=== PATIENT | female | born 1955 | race Caucasian/White ===

== ENCOUNTER 2017-12-07 15:49 | Observation (INO) | payer MEDICARE ==
[~2017-12-07] VITALS: Ht 165.1 cm; Wt 109.7 kg
[~2017-12-07 15:49] MED LIST: ADVAIR DISK1 INH; ASA LO-DOSE81 MG OR; ATIVAN1 MG PO; BABY ASPIRIN81 MG OR; BENAZEPRIL20 M1 OR; CARDIZEM C2 OR; CEPHALEXIN500 MG OR; CIPROFLOXACN500 MG PO; DILTIAZEM90 M1 PO; DIOVAN320 MG OR; DOXYCYCL HYC100 M3 OR; DYAZIDE1 CAP OR; E.E.S. 400400 MG OR; FERR SULFATE325 MG PO; FLEXERIL OR; HEMATINIC PL OR; HYDROCHLOROT25 MG OR; LORTAB 10 OR; LORTAB 5 OR; LOTENSIN20 MG OR; MACRODANTIN100 MG PO; MEDDOSEPAK PO; NORCO1 TA1 OR; NORCO1 TAB PO; OXYCODONE OR; OXYCONTIN; OXYCONTIN15 MG OR; PROZAC20 MG OR; ROBAXIN-750750 MG OR; ROBITUSSIN AC OR; SOMA350 MG OR; TESSALON200 MG OR; TOPROL XL OR; VENTOLIN HFA IN; VICODIN OR; XANAX0.25 MG OR; ZANAFLEX4 MG OR
--- NOTE | 2017-12-07 15:49 | NUR ---
TO [place] ROOM VIA STRETCHER BY EMS
--- NOTE | 2017-12-07 16:20 | NUR ---
FAMILY STATES THAT THE PT HAS BEEN HAVING HALLACUINATIONS FOR THE PAST 4 DAYS - OF SEEING PEOPLE THAT ARE NOT THERE AND SPIDERS ON THE PERALTA. PT HAS HAD THIS OCCUR EARLIER THIS YEAR WELL PREVIOUS YEARS. FAMILY STATES THIS HAS NOT BEEN DIAGNOISED AND USUALLY RESOLVES IT'S SELF. PT CONFIRMS HALLUCINATIONS, DENIES ANY C/P, SOB, N/V OR WEAKNESS.
[2017-12-07 16:35] LABS: IMMATURE GRANULOCYTES 0.4 % (0.0-1.0); MEAN CORPUSCULAR HGB 28.9 pG CALC (26.0-32.0); MEAN CORPUSCULAR HGB CONC 32.3 g/L CALC (32.0-36.0); NEUT# 8.1 thou/uL (2.00-7.15); RED BLOOD COUNT 4.88 mill/uL (4.20-5.60); RED CELL DISTRI WIDTH 13.7 % (11.5-15.5)
[2017-12-07] MEDS ORDERED: OXYCODONE HCL5 MG PO (16:39)
[2017-12-07] MEDS ORDERED: METOPROL TAR25 MG PO (16:40)
[2017-12-07 16:54] LABS: ALBUMIN 4.1 g/dL (3.2-5.0); ALKALINE PHOSPHATASE 128 u/l (38-126); ANION GAP 16 (6-22 (CALC)); BILIRUBIN, TOTAL 0.7 mg/dL (0.0-1.4); BUN 21 mg/dL (8-23); BUN/CREATININE RATIO 12 (12-20 (CALC)); CARBON DIOXIDE 26 mmol/l (22-30); CHLORIDE 97 mmol/l (95-108); GFR 30 ML/MIN (>=60 (CALC)); GFR FOR AFR.AMER. 37 ML/MIN (>=60 (CALC)); POTASSIUM 3.8 mmol/l (3.5-5.1); SGOT/AST 25 u/l (9-36); SGPT/ALT 40 u/l (11-66); SODIUM 135 mmol/l (137-146); TOTAL PROTEIN 7.4 g/dL (6.3-8.2)
[2017-12-07 17:09] LABS: HEMATOCRIT 43.6 % (37.0-47.0); HEMOGLOBIN 14.1 g/dl (12.0-16.0); MEAN CELL VOLUME 89.3 fL CALC (80.0-100.0)
[2017-12-07 17:11] LABS: CREATININE 1.7 mg/dL (0.5-1.0)
--- NOTE | 2017-12-07 17:20 | NUR ---
PT RESTING ON STRETCHER, ASKING FOR PAIN MEDS FOR HIP PAIN. DAUGHTER AT BEDSITE
--- NOTE | 2017-12-07 18:20 | NUR ---
PT ASLEEP ON STRETCHER, VITALS BEING MONITORED
[2017-12-07 18:58] LABS: URINE BILIRUBIN - DIPSTICK NEGATIVE (NEGATIVE); URINE BLOOD DIPSTICK NEGATIVE (NEGATIVE); URINE COLOR YELLOW; URINE GLUCOSE - DIPSTICK NEGATIVE (NEGATIVE); URINE KETONE NEGATIVE (NEGATIVE); URINE LEUK ESTERASE NEGATIVE (NEGATIVE); URINE NITRITE - DIPSTICK NEGATIVE (Negative); URINE PROTEIN - DIPSTICK NEGATIVE (NEG-TRACE); URINE SPECIFIC GRAVITY 1.025; URINE UROBILINOGEN - DIPSTICK 0.2 E.U./dL (0.2)
[2017-12-07 19:00] LABS: URINE CLARITY CLEAR
--- NOTE | 2017-12-07 19:23 | NUR ---
REPORT CALLED TO [facility] GIVEN TO MANUELITO SHERWOOD- ACCEPTED PT
[2017-12-07 19:30] VITALS: BP 142/97
--- NOTE | 2017-12-07 19:42 | NUR ---
Admission Note Report Given to: MANUELITO SHERWOOD Transported by: Wheelchair X Stretcher Transported with: X Nurse Transporter X Patent IV O2 Odd Bundle Worker TRANSP[place] [facility] [place] [facility] [place]
--- NOTE | 2017-12-07 20:30 | NUR ---
PATIENT ADMITTED FROM ER WITH ER STAFF IN ATTENDANCE VIA STRETCHER. PATIENT IS MAX ASSIST TO STANDING SCALE AND THEN TO BED. PATIENT IS UNSTEADY ON HER FEET, OBESE AND MAX ASSIST. PATIENT WITH IV SITE TO LEFT AC-EMS SITE. IVF NS HUNG AND INFUSING AT 80CC/HR. SITE APPEARS HEALTHY AT THIS TIME WITH GOOD BLOOD RETURN. TORREZ CATH INTACT AND DRAINING CLEAR KENIA URINE WITH CATH STRAP SECURED TO RIGHT THIGH. PATIENT IS AWAKE BUT DROWSY-STATES THAT SHE LIVES WITH HER DAUGHTER AND HAD FALL LAST NIGHT AT HOME. STATES THAT THIS HAS BEEN HAPPENING TO HER LATELY AND SHE DOESN'T KNOW WHAT HAPPENS. PROVIDED WITH SANDWICH AND JUICE-ATE VERY LITTLE AND FALLING ASLEEP WHILE TRYING TO EAT IT. ATEMPT TO ORIENT PATIENT TO ROOM AND SURROUNDINGS. ATTEMPT TO INSTRUCT PATIENT ON USE OF NURSE CALL LIGHT SYSTEM AND TV REMOTE. SAFETY PRECAUTIONS REVIEWED WITH PATIENT-WILL REINFORCE INSTRUCTS NEEDED. CALL LIGHT IN REACH. WILL CONT TO MONITOR.
--- NOTE | 2017-12-07 22:10 | NUR ---
PATIENT MAX ASSIST TO BSC-STATES THAT SHE NEEDS TO HAVE BM-LAST BM WAS 12/06 AT HOME. PASSING SOME FLATUS. MAX ASSIST BACK TO BED-C/O ABD PAIN-6/10 ON PAIN SCALE. MEDICATED WITH ROXICODONE 10MG PO ORDERED. PATIENT CONT TO BE DROWSY AND INAPPROPRIATE AT TIMES. TORREZ PATENT AND DRAINING KENIA URINE. IV SITE TO LEFT FOREARM INTACT WITH NS PATENT AND INFUSING AT 100CC/HR. SAFETY PRECAUTIONS REINFORCED. CALL LIGHT IN REACH. WILL CONT TO MONITOR.
--- NOTE | 2017-12-07 23:00 | NUR ---
RESTING INBED WITH PAIN LEVEL OF 4 AT THIS TIME. NASAL SWAB OBTAINED AND SENT TO LAB FOR H/O MRSA. NO COMPLAINTS AT THIS TIME. SAFETY PRECAUTIONS REINFORCED.CALL LIGHT IN REACH. WILL CONT TO MONITOR.
--- NOTE | 2017-12-07 23:54 | NUR ---
PATIENT DAUGHTER MU CALLED TO LET STAFF KNOW THAT HER MOTHER RECENTLY WAS PUT ON WELLBUTRIN AGAIN. THE LAST TIME SHE TOOK IT LAST YEAR SHE DEVELOPED SIMILAR SYMTOMS INCLUDING CONFUSION,AMS AND HALLUCINATIONS THIS MED WAS NOT INCLUDED ON HER MED REC ON ADMISSION BUT DAUGHTER STATES THAT IT MIGHT HAVE BEEN LEFT OFF OF HER HOME MED LIST WHEN SHE WAS ADMITTED THROUGH THE ER. THIS MED WELLBUTRIN HAS NOT BEEN ORDERED DURING THIS ADMISSION.
--- NOTE | 2017-12-08 03:36 | NUR ---
PATIENT APPEARS SLEEPING AT THIS TIME WITH EYES CLOSED AND HOB ELEVATED. IVF PATENT AND INFUSING AT 80CC/HR VIA LEFT AC SITE. TORREZ PATENT AND DRAINING KENIA URINE. BED ALARM IN PLACE FOR PATIENT SAFETY. CALL LIGHT IN REACH. WILL CONT TO MONITOR.
[2017-12-08 04:27] VITALS: BP 116/70
--- NOTE | 2017-12-08 04:48 | NUR ---
IVG SITE TO LEFT AC LEAKING AND DISLODGED. SITE D/C'ED WITH CATH INTACT. NEW IV SITE STARTED TO RIGHT FOREARM-#22 GAUGE WITH GOOD BLOOD RETURN. IVF NS PATENT AND INFUSING AT 80CC/HR. PATIENT MEDICATED FOR PAIN-4/10 ON PAIN SCALE WITH ROXICODONE 10MG PO. PATIENT IS MUCH CLEARER TODAY-ORIENTEDX3. TORREZ PATENT AND DRAINING QS CLEAR KENIA URINE. BED ALARM IN PLACE FOR PATIENT SAFETY. CALL LIGHT IN REACH. WILL CONT TO MONITOR.
[2017-12-08 05:10] LABS: HEMATOCRIT 42.9 % (37.0-47.0); HEMOGLOBIN 13.7 g/dl (12.0-16.0); MEAN CELL VOLUME 90.7 fL CALC (80.0-100.0); MEAN CORPUSCULAR HGB CONC 31.9 g/L CALC (32.0-36.0); RED BLOOD COUNT 4.73 mill/uL (4.20-5.60); RED CELL DISTRI WIDTH 13.8 % (11.5-15.5)
[2017-12-08 05:23] LABS: CREATININE 1.3 mg/dL (0.5-1.0); POTASSIUM 3.5 mmol/l (3.5-5.1)
[2017-12-08 07:40] VITALS: BP 126/76
--- NOTE | 2017-12-08 07:40 | NUR ---
PT IS AWAKE AND IN BED GETTING READY TO BE ASSISTED TO THE CHAIR. IV SITE IS FREE FROM REDNESS OR EDEMA. HR IS REG, PULSES ARE STRONG X4, ABD IS SOFT WITH ACTIVE BS CONTINUE TO OSBERVE AND MONITOR.
[2017-12-08] MEDS ORDERED: WELLBUTRIN XL150 MG PO (09:17)
--- NOTE | 2017-12-08 11:42 | NUR ---
TORREZ DISCONTINUED CATHETER INTACT PT TOLERATED WELL.
--- NOTE | 2017-12-08 12:30 | NUR ---
PT IS RELAXING IN BED, HAS HAD LARGE BM INCONTINENTS. IV SITE IS FREE FROM REDNESS OR EDEMA.
[2017-12-08 15:30] VITALS: BP 133/83
--- NOTE | 2017-12-08 16:07 | NUR ---
PT REMAINS IN BED, INFORMED THAT WE ARE WAITING ON HER DAUGHTER TO COME.
--- NOTE | 2017-12-08 17:30 | NUR ---
IV SITE DISCONTINUED CATHETER INTACT. WAITING ON FAMILY TO COME AND SENIOR ADMINISTRATIVE SUPPORT PT.
--- NOTE | 2017-12-08 19:32 | NUR ---
FAMILY IN TO JANITORIAL CLEANER PT.
--- NOTE | 2017-12-08 19:45 | NUR ---
Discharge instructions given. Patient verbalizes understanding of same. Discharged in stable condition via Wheelchair to Home with family. All belongings sent with pt.
== END 2017-12-08 19:45 ==
LOC: ED 15:49 → ED-I 18:14 → ED 18:32 → MS2 18:33
PROVIDERS: Emergency Medicine; ADMIT Internal Medicine; ATTEND Internal Medicine
PROC: 0T9B70Z Drainage of Bladder with Drainage Device, Via Natural or Artificial Opening (ICD-10-PCS; principal; 2017-12-07)
DX: R41.82 Altered mental status, unspecified (principal); R44.1 Visual hallucinations; E86.0 Dehydration; I12.9 Hypertensive chronic kidney disease with stage 1 through stage 4 chronic kidney disease, or unspecified chronic kidney disease; N18.3 Chronic kidney disease, stage 3 (moderate); S70.01XA Contusion of right hip, initial encounter; I48.2 Chronic atrial fibrillation; K08.109 Complete loss of teeth, unspecified cause, unspecified class; F32.9 Major depressive disorder, single episode, unspecified; M54.9 Dorsalgia, unspecified; G89.29 Other chronic pain; I82.501 Chronic embolism and thrombosis of unspecified deep veins of right lower extremity; W19.XXXA Unspecified fall, initial encounter; Z87.440 Personal history of urinary (tract) infections; Z95.828 Presence of other vascular implants and grafts; Z91.81 History of falling

== ENCOUNTER 2017-12-27 12:07 | Emergency (ER) | payer MEDICARE ==
[~2017-12-27] VITALS: Ht 165.1 cm; Wt 111.0 kg
[~2017-12-27 12:07] MED LIST changes: +METOPROL TAR25 MG PO; +OXYCODONE HCL5 MG PO; +WELLBUTRIN XL150 MG PO
[2017-12-27] MEDS ORDERED: DIFLUCAN150 MG PO (13:42)
[2017-12-27] MEDS ORDERED: CEPHALEXIN500 MG PO (13:42)
[2017-12-27 14:52] VITALS: BP 117/68
== END 2017-12-27 15:07 | disposition home or self-care (01) ==
LOC: ED 12:07
DX: L03.115 Cellulitis of right lower limb (principal); S86.911A Strain of unspecified muscle(s) and tendon(s) at lower leg level, right leg, initial encounter; M19.90 Unspecified osteoarthritis, unspecified site; I10 Essential (primary) hypertension; I48.91 Unspecified atrial fibrillation; X58.XXXA Exposure to other specified factors, initial encounter; Z95.828 Presence of other vascular implants and grafts

== ENCOUNTER 2018-01-11 12:44 | Emergency (ER) | payer MEDICARE ==
[~2018-01-11] VITALS: Ht 165.1 cm; Wt 110.0 kg
[~2018-01-11 12:44] MED LIST changes: +CEPHALEXIN500 MG PO; +DIFLUCAN150 MG PO
[2018-01-11 13:25] LABS: IMMATURE GRANULOCYTES 0.5 % (0.0-1.0); MEAN CELL VOLUME 91.8 fL CALC (80.0-100.0); MEAN CORPUSCULAR HGB CONC 31.7 g/L CALC (32.0-36.0); NEUT# 7.29 thou/uL (2.00-7.15); RED BLOOD COUNT 3.89 mill/uL (4.20-5.60)
[2018-01-11 13:26] LABS: HEMATOCRIT 35.7 % (37.0-47.0); HEMOGLOBIN 11.3 g/dl (12.0-16.0)
[2018-01-11 13:44] LABS: ALBUMIN 3.8 g/dL (3.2-5.0); ALKALINE PHOSPHATASE 131 u/l (38-126); ANION GAP 11 (6-22 (CALC)); BILIRUBIN, TOTAL 0.7 mg/dL (0.0-1.4); BUN 22 mg/dL (8-23); BUN/CREATININE RATIO 23 (12-20 (CALC)); CARBON DIOXIDE 29 mmol/l (22-30); CHLORIDE 100 mmol/l (95-108); GFR 56 ML/MIN (>=60 (CALC)); GFR FOR AFR.AMER. > 60 ML/MIN (>=60 (CALC)); POTASSIUM 4.1 mmol/l (3.5-5.1); SGOT/AST 20 u/l (9-36); SGPT/ALT 32 u/l (11-66); SODIUM 135 mmol/l (137-146); TOTAL PROTEIN 7.4 g/dL (6.3-8.2)
[2018-01-11 13:56] LABS: MYOGLOBIN 30 ng/mL (0 - 62)
[2018-01-11 15:22] LABS: URINE BILIRUBIN - DIPSTICK NEGATIVE (NEGATIVE); URINE BLOOD DIPSTICK NEGATIVE (NEGATIVE); URINE COLOR YELLOW; URINE GLUCOSE - DIPSTICK NEGATIVE (NEGATIVE); URINE KETONE NEGATIVE (NEGATIVE); URINE LEUK ESTERASE NEGATIVE (NEGATIVE); URINE NITRITE - DIPSTICK NEGATIVE (Negative); URINE PH 5.5 (4.5-8.0); URINE PROTEIN - DIPSTICK NEGATIVE (NEG-TRACE); URINE SPECIFIC GRAVITY 1.015
[2018-01-11 15:28] LABS: URINE CLARITY CLEAR
[2018-01-11] MEDS ORDERED: ULTRAM50 M1 PO ×2 (16:53→16:55)
[2018-01-11 17:12] VITALS: BP 122/64
== END 2018-01-11 17:12 | disposition home or self-care (01) ==
LOC: ED 12:44
PROVIDERS: Emergency Medicine
DX: I83.93 Asymptomatic varicose veins of bilateral lower extremities (principal); I48.91 Unspecified atrial fibrillation; I10 Essential (primary) hypertension; F99 Mental disorder, not otherwise specified; M19.90 Unspecified osteoarthritis, unspecified site; Z87.440 Personal history of urinary (tract) infections; Z87.442 Personal history of urinary calculi

== ENCOUNTER → 2018-09-15 | Outpatient (REF) | payer MEDICARE ==
[~2018-09-15] MED LIST changes: +ALBUTEROL0.63 MG/3 IN; +CARDIZEM CD120 MG PO; +FLONASE AL50 MCG/ACT IN; +FUROSEMIDE40 MG PO; +INDERAL 40MG TA40 MG PO; +KLOR-CON 1010 MEQ PO; +NEURONTIN300 MG PO; +ULTRAM50 M1 PO; +WARFARIN7.5 MG PO
[2018-09-15 13:23] LABS: INTERNATIONAL NORMALIZED RATIO 1.8 RATIO (0.7-1.3)
== END | disposition home or self-care (01) ==
LOC: LABSPEC 12:59
PROVIDERS: ATTEND Internal Medicine
DX: Z51.81 Encounter for therapeutic drug level monitoring (principal); Z79.01 Long term (current) use of anticoagulants

== ENCOUNTER → 2018-09-18 | Outpatient (REF) | payer MEDICARE ==
[2018-09-18 12:09] LABS: HEMOGLOBIN 10.8 g/dl (12.0-16.0); IMMATURE GRANULOCYTES 0.3 % (0.0-5.0); MEAN CELL VOLUME 91.8 fL CALC (80.0-100.0); MEAN CORPUSCULAR HGB 27.6 pG CALC (26.0-32.0); NEUT# 5.71 thou/uL (2.00-7.15); RED BLOOD COUNT 3.92 mill/uL (4.20-5.60); RED CELL DISTRI WIDTH 16.3 % (11.5-15.5)
[2018-09-18 12:25] LABS: CREATININE 1.8 mg/dL (0.5-1.0)
== END | disposition home or self-care (01) ==
LOC: LABSPEC 11:23
PROVIDERS: ATTEND Internal Medicine
DX: I50.9 Heart failure, unspecified (principal); E87.6 Hypokalemia; Z79.899 Other long term (current) drug therapy

== ENCOUNTER 2018-10-21 07:24 | Inpatient (IN) | payer MEDICARE ==
[~2018-10-21] VITALS: Ht 165.1 cm; Wt 105.0 kg
[2018-10-21] VITALS (27 sets, daily range): BP systolic 81–131; BP diastolic 48–89
[2018-10-21 07:58] LABS: IMMATURE GRANULOCYTES 0.5 % (0.0-5.0); MEAN CELL VOLUME 89.7 fL CALC (80.0-100.0); MEAN CORPUSCULAR HGB 27.6 pG CALC (26.0-32.0); MEAN CORPUSCULAR HGB CONC 30.8 g/L CALC (32.0-36.0); NEUT# 9.03 thou/uL (2.00-7.15); RED BLOOD COUNT 5.03 mill/uL (4.20-5.60); RED CELL DISTRI WIDTH 14.6 % (11.5-15.5)
[2018-10-21 07:59] LABS: HEMATOCRIT 45.1 % (37.0-47.0); HEMOGLOBIN 13.9 g/dl (12.0-16.0); URINE BILIRUBIN - DIPSTICK NEGATIVE (NEGATIVE); URINE BLOOD DIPSTICK MODERATE (NEGATIVE); URINE COLOR YELLOW; URINE GLUCOSE - DIPSTICK NEGATIVE (NEGATIVE); URINE KETONE NEGATIVE (NEGATIVE); URINE LEUK ESTERASE MODERATE (NEGATIVE); URINE NITRITE - DIPSTICK NEGATIVE (Negative); URINE PH 6.5 (4.5-8.0); URINE PROTEIN - DIPSTICK NEGATIVE (NEG-TRACE); URINE UROBILINOGEN - DIPSTICK 0.2 E.U./dL (0.2)
[2018-10-21 08:03] LABS: COCAINE NEGATIVE (NEGATIVE); METHADONE NEGATIVE (NEGATIVE); TETRAHYDROCANNABIONOL NEGATIVE (NEGATIVE); TRICYLIC ANTIDEPRESSANTS POSITIVE (NEGATIVE)
[2018-10-21 08:04] LABS: BARBITURATES NEGATIVE (NEGATIVE); OXCYCODONE NEGATIVE (NEGATIVE)
[2018-10-21 08:20] LABS: ALBUMIN 4.7 g/dL (3.2-5.0); ALKALINE PHOSPHATASE 115 u/l (38-126); ANION GAP 18 (6-22 (CALC)); BILIRUBIN, TOTAL 1.2 mg/dL (0.0-1.4); BUN 76 mg/dL (8-23); BUN/CREATININE RATIO 36 (12-20 (CALC)); CARBON DIOXIDE 36 mmol/l (22-30); CHLORIDE 87 mmol/l (95-108); GFR 24 ML/MIN (>=60 (CALC)); GFR FOR AFR.AMER. 29 ML/MIN (>=60 (CALC)); LIPASE 62 u/l (23-300); POTASSIUM 3.6 mmol/l (3.5-5.1); SGOT/AST 26 u/l (9-36); SODIUM 138 mmol/l (137-146); TOTAL PROTEIN 7.8 g/dL (6.3-8.2)
[2018-10-21 08:23] LABS: CREATININE 2.1 mg/dL (0.5-1.0)
[2018-10-21 08:25] LABS: URINE BACTERIA MODERATE hpf
[2018-10-21 08:30] LABS: PROTHROMBIN TIME 10.7 SECONDS (9.0-12.5)
[2018-10-21] MEDS ORDERED: VISTARIL 50MG C50 M1 PO (09:31)
[2018-10-21] MEDS ORDERED: KLOR-CON M2020 MEQ PO (09:31)
[2018-10-21] MEDS ORDERED: PAROXETINE20 MG PO (09:32)
[2018-10-21] MEDS ORDERED: GABAPENTIN100 MG PO (09:32)
[2018-10-21] MEDS ORDERED: XARELTO10 MG PO (09:33)
[2018-10-21] MEDS ORDERED: FLEXERIL5 MG PO (09:33)
[2018-10-21] MEDS ORDERED: LORAZEPAM0.5 MG PO (09:33)
[2018-10-21] MEDS ORDERED: PROPRANOLOL80 M1 PO (09:35)
[2018-10-21] MEDS ORDERED: BUMEX1 M1 PO (09:35)
[2018-10-21] MEDS ORDERED: ALDACTONE25 MG PO (09:35)
[2018-10-21] MEDS ORDERED: HYDROCODONE/ACE1 TAB PO (09:36)
[2018-10-22] VITALS (14 sets, daily range): BP systolic 89–150; BP diastolic 50–81
[2018-10-22 04:57] LABS: HEMATOCRIT 40.2 % (37.0-47.0); HEMOGLOBIN 12.4 g/dl (12.0-16.0); IMMATURE GRANULOCYTES 0.3 % (0.0-5.0); MEAN CELL VOLUME 90.5 fL CALC (80.0-100.0); MEAN CORPUSCULAR HGB 27.9 pG CALC (26.0-32.0); MEAN CORPUSCULAR HGB CONC 30.8 g/L CALC (32.0-36.0); NEUT# 4.58 thou/uL (2.00-7.15); RED BLOOD COUNT 4.44 mill/uL (4.20-5.60); RED CELL DISTRI WIDTH 14.6 % (11.5-15.5)
[2018-10-22 05:17] LABS: ALKALINE PHOSPHATASE 83 u/l (38-126); ANION GAP 13 (6-22 (CALC)); BILIRUBIN, TOTAL 0.8 mg/dL (0.0-1.4); BUN 66 mg/dL (8-23); BUN/CREATININE RATIO 45 (12-20 (CALC)); CARBON DIOXIDE 36 mmol/l (22-30); CHLORIDE 92 mmol/l (95-108); CREATININE 1.5 mg/dL (0.5-1.0); GFR 35 ML/MIN (>=60 (CALC)); GFR FOR AFR.AMER. 42 ML/MIN (>=60 (CALC)); LIPASE 39 u/l (23-300); POTASSIUM 3.3 mmol/l (3.5-5.1); SGOT/AST 19 u/l (9-36); SODIUM 138 mmol/l (137-146); TOTAL PROTEIN 6.3 g/dL (6.3-8.2)
[2018-10-22 05:20] LABS: ALBUMIN 3.7 g/dL (3.2-5.0); AMYLASE < 30 u/l (30-110)
[2018-10-23] VITALS (7 sets, daily range): BP systolic 103–142; BP diastolic 66–96
[2018-10-23 05:35] LABS: HEMATOCRIT 40.6 % (37.0-47.0); HEMOGLOBIN 12.6 g/dl (12.0-16.0); IMMATURE GRANULOCYTES 0.1 % (0.0-5.0); MEAN CORPUSCULAR HGB 27.9 pG CALC (26.0-32.0); NEUT# 3.5 thou/uL (2.00-7.15); RED BLOOD COUNT 4.51 mill/uL (4.20-5.60); RED CELL DISTRI WIDTH 14.6 % (11.5-15.5)
[2018-10-23 06:16] LABS: ALBUMIN 3.9 g/dL (3.2-5.0); BILIRUBIN, TOTAL 0.6 mg/dL (0.0-1.4); CREATININE 1.3 mg/dL (0.5-1.0); POTASSIUM 3.4 mmol/l (3.5-5.1); TOTAL PROTEIN 6.6 g/dL (6.3-8.2)
[2018-10-24] VITALS (7 sets, daily range): BP systolic 134–169; BP diastolic 57–99
[2018-10-24 05:10] LABS: HEMATOCRIT 44.1 % (37.0-47.0); HEMOGLOBIN 13.6 g/dl (12.0-16.0); IMMATURE GRANULOCYTES 0.2 % (0.0-5.0); MEAN CELL VOLUME 90.4 fL CALC (80.0-100.0); MEAN CORPUSCULAR HGB 27.9 pG CALC (26.0-32.0); MEAN CORPUSCULAR HGB CONC 30.8 g/L CALC (32.0-36.0); NEUT# 4.73 thou/uL (2.00-7.15); RED BLOOD COUNT 4.88 mill/uL (4.20-5.60); RED CELL DISTRI WIDTH 14.3 % (11.5-15.5)
[2018-10-24 05:27] LABS: ALKALINE PHOSPHATASE 87 u/l (38-126); ANION GAP 12 (6-22 (CALC)); BILIRUBIN, TOTAL 0.6 mg/dL (0.0-1.4); BUN 35 mg/dL (8-23); BUN/CREATININE RATIO 42 (12-20 (CALC)); CARBON DIOXIDE 36 mmol/l (22-30); CHLORIDE 96 mmol/l (95-108); CREATININE 0.8 mg/dL (0.5-1.0); GFR > 60 ML/MIN (>=60 (CALC)); GFR FOR AFR.AMER. > 60 ML/MIN (>=60 (CALC)); POTASSIUM 3.7 mmol/l (3.5-5.1); SGOT/AST 20 u/l (9-36); SODIUM 140 mmol/l (137-146)
[2018-10-24] MEDS ORDERED: HYDROCODONE/ACE1 TAB PO (11:26)
[2018-10-25 03:52] VITALS: BP 153/92
[2018-10-25 07:43] VITALS: BP 162/97
[2018-10-25 11:00] VITALS: BP 150/80
[2018-10-25 16:40] VITALS: BP 149/88
[2018-10-25 20:34] VITALS: BP 166/92
[2018-10-26 00:06] VITALS: BP 141/85
[2018-10-26 03:49] VITALS: BP 145/80
[2018-10-26 08:48] VITALS: BP 138/89
[2018-10-26 11:09] VITALS: BP 145/96
[2018-10-26 14:50] VITALS: BP 143/76
== END 2018-10-26 17:46 | DRG 917 ==
LOC: ED 07:24 → ED-I 07:43 → ED 07:43 → ED-I 07:56 → ED 09:21 → ICU 09:22 → MS2 10-24 18:00
PROVIDERS: Family Medicine; ADMIT Internal Medicine Nephrology; ATTEND Internal Medicine Nephrology
PROC: 0T2BX0Z Change Drainage Device in Bladder, External Approach (ICD-10-PCS; principal; 2018-10-21)
DX: T40.2X1A Poisoning by other opioids, accidental (unintentional), initial encounter (principal); G92 Toxic encephalopathy; T83.511A Infection and inflammatory reaction due to indwelling urethral catheter, initial encounter; N39.0 Urinary tract infection, site not specified; N17.9 Acute kidney failure, unspecified; Y84.6 Urinary catheterization as the cause of abnormal reaction of the patient, or of later complication, without mention of misadventure at the time of the procedure; I12.9 Hypertensive chronic kidney disease with stage 1 through stage 4 chronic kidney disease, or unspecified chronic kidney disease; N18.3 Chronic kidney disease, stage 3 (moderate); I48.2 Chronic atrial fibrillation; G89.29 Other chronic pain; M54.9 Dorsalgia, unspecified; F41.1 Generalized anxiety disorder; F32.9 Major depressive disorder, single episode, unspecified; E66.01 Morbid (severe) obesity due to excess calories; E79.0 Hyperuricemia without signs of inflammatory arthritis and tophaceous disease; R33.9 Retention of urine, unspecified; R40.2412 Glasgow coma scale score 13-15, at arrival to emergency department; B96.1 Klebsiella pneumoniae [K. pneumoniae] as the cause of diseases classified elsewhere; Z87.442 Personal history of urinary calculi; Z86.718 Personal history of other venous thrombosis and embolism; Z79.01 Long term (current) use of anticoagulants; Z68.38 Body mass index [BMI] 38.0-38.9, adult; Z98.84 Bariatric surgery status; Z95.828 Presence of other vascular implants and grafts; Z16.12 Extended spectrum beta lactamase (ESBL) resistance; Z96.653 Presence of artificial knee joint, bilateral

== ENCOUNTER 2018-11-22 14:01 | Observation (INO) | payer MEDICARE ==
[~2018-11-22] VITALS: Ht 165.1 cm; Wt 117.2 kg
[~2018-11-22 14:01] MED LIST changes: +ALDACTONE25 MG PO; +BUMEX1 M1 PO; +FLEXERIL5 MG PO; +GABAPENTIN100 MG PO; +HYDROCODONE/ACE1 TAB PO; +KLOR-CON M2020 MEQ PO; +LORAZEPAM0.5 MG PO; +PAROXETINE20 MG PO; +PROPRANOLOL80 M1 PO; +VISTARIL 50MG C50 M1 PO; +XARELTO10 MG PO
--- NOTE | 2018-11-22 14:08 | NUR ---
PT TO ROOM PER EMS
[2018-11-22] MEDS ORDERED: ALBUTEROL SUL0.083 % IN (14:11)
--- NOTE | 2018-11-22 14:11 | NUR ---
PT C/O INCREASING SOB STARTING LAST NIGHT WITH +2 BILATERAL LOWER EXTREMITY EDEMA. BILATERAL LS SOUNDS DIMINISHED WITH EXPIRATORY WHEEZING NOTED. PT DENIES ANY CHEST PAIN AT THIS TIME. CALL WEST WITHIN REACH.
[2018-11-22] MEDS ORDERED: EQL FLUTIC50 MCG/ACT IN (14:12)
[2018-11-22] MEDS ORDERED: ACCUPRIL5 MG PO (14:12)
[2018-11-22] MEDS ORDERED: GABAPENTIN100 MG PO (14:13)
[2018-11-22] MEDS ORDERED: LORTAB 1010 MG PO (14:13)
[2018-11-22] MEDS ORDERED: LORAZEPAM0.5 MG PO (14:14)
[2018-11-22] MEDS ORDERED: SPIRONOLACT25 MG PO (14:16)
[2018-11-22 14:20] LABS: IMMATURE GRANULOCYTES 0.2 % (0.0-5.0); MEAN CELL VOLUME 92.2 fL CALC (80.0-100.0); MEAN CORPUSCULAR HGB CONC 30.4 g/L CALC (32.0-36.0); NEUT# 3.75 thou/uL (2.00-7.15); RED BLOOD COUNT 3.71 mill/uL (4.20-5.60); RED CELL DISTRI WIDTH 15.3 % (11.5-15.5)
--- NOTE | 2018-11-22 14:20 | NUR ---
PT REPORTS A 14 LB WEIGHT GAIN IN THE PAST 7 DAYS. PER PT SHE THOUGHT DR CORDOBA TOLD HER TO STOP TAKING LAISX AND START TAKING SPIRONOLACTONE 6 DAYS PRIOR.
[2018-11-22 14:26] LABS: HEMATOCRIT 34.2 % (37.0-47.0); HEMOGLOBIN 10.4 g/dl (12.0-16.0)
[2018-11-22 14:34] LABS: ALBUMIN 4.1 g/dL (3.2-5.0); ALKALINE PHOSPHATASE 84 u/l (38-126); ANION GAP 12 (6-22 (CALC)); BILIRUBIN, TOTAL 0.7 mg/dL (0.0-1.4); BUN 22 mg/dL (8-23); BUN/CREATININE RATIO 21 (12-20 (CALC)); CARBON DIOXIDE 29 mmol/l (22-30); CHLORIDE 103 mmol/l (95-108); GFR 56 ML/MIN (>=60 (CALC)); GFR FOR AFR.AMER. > 60 ML/MIN (>=60 (CALC)); SGOT/AST 24 u/l (9-36); SODIUM 141 mmol/l (137-146)
--- NOTE | 2018-11-22 14:46 | NUR ---
PT MEDICATED FOR 8/10 PAIN TO HEAD AND FOR CONTINUED HYPERTENSION. CALL WEST WITHIN REACH, WILL CONTINUE TO MONITOR.
[2018-11-22 14:47] LABS: MYOGLOBIN 38 ng/mL (0 - 62)
--- NOTE | 2018-11-22 15:00 | NUR ---
DR CORDOBA AT BEDSIDE TO EVALUATE PATIENT.
--- NOTE | 2018-11-22 15:37 | NUR ---
MEDICATED WITH LASIX 40MG IV ORDERED. EDP ADVISED OF INCREASED BP. PT IN NO ACUTE RESP DISTRESS WITH O2 PER NASAL CANULA.
--- NOTE | 2018-11-22 16:01 | NUR ---
REPORT CALLED TO PRESLEY JACOME.
--- NOTE | 2018-11-22 16:07 | NUR ---
BP 197/112 , GIVEN LABETOLOL 20MG SLOW IVP ORDERED. PT PLEASANT AND CONVERSIVE WITH NURSE AT BEDSIDE. NO CP OR SOB NOTED. O2@2LPM VIA NC. PT AWARE AND AGREEABLE TO ADMIT.
--- NOTE | 2018-11-22 16:40 | NUR ---
CALL PLACED TO NAA TO UPDATE ON VITALS. PT AWARE OF PLAN FOR ADMISSION.
--- NOTE | 2018-11-22 16:45 | NUR ---
PT TRANSPORTED TO [place] VIA STRETCHER ON TELEMETRY IN STABLE CONDITION WITH CARE NURSE
--- NOTE | 2018-11-22 16:45 | NUR ---
Admission Note Report Given to: NAA Transported by: Wheelchair X Stretcher Transported with: X Nurse Transporter X Patent IV X O2 X Salvage Inspector [employer] CARE RELINQUISHED TO PRESLEY MITCHELL.
--- NOTE | 2018-11-22 17:24 | NUR ---
PT HAD CAME FROM ER VIA STRETCHER. 1X PERSON ASSIST TO BED. ASSESSMENT DONE. TELE IN PLACE. PT IS A&O X3. PT STATED PAIN IN RIGHT LEG. #20 RAC THAT APPEARS HEALTHY. SAFETY PRECAUTIONS REINFORCED AND CALL LIGHT IN REACH.
[2018-11-22 17:42] VITALS: BP 168/80
--- NOTE | 2018-11-22 17:44 | NUR ---
NOTIFIED RE: BP 168/80. STATED TO GAVE COREG EARLY.
[2018-11-22 19:18] LABS: URINE BILIRUBIN - DIPSTICK NEGATIVE (NEGATIVE); URINE BLOOD DIPSTICK NEGATIVE (NEGATIVE); URINE COLOR YELLOW; URINE GLUCOSE - DIPSTICK NEGATIVE (NEGATIVE); URINE KETONE NEGATIVE (NEGATIVE); URINE LEUK ESTERASE NEGATIVE (NEGATIVE); URINE NITRITE - DIPSTICK NEGATIVE (Negative); URINE PROTEIN - DIPSTICK NEGATIVE (NEG-TRACE); URINE SPECIFIC GRAVITY 1.015; URINE UROBILINOGEN - DIPSTICK 0.2 E.U./dL (0.2)
[2018-11-22 19:52] VITALS: BP 170/97
--- NOTE | 2018-11-22 19:54 | NUR ---
PATIENT SITTING UP ON THE SIDE OF THE BED FINISHING DINNER WITH O2 VIA NASAL CANNULA IN PLACE. PATIENT IS AWAKE ALERT AND ORIENTEDX3. TELE MONITOR IN PLACE. IV SITE TO LEFT AC INTACT AND IS HEALTHY AT THIS TIME. PATIENT MEDICATED WITH COZAAR ORDERED. BP REMAINS ELEVATED-WILL CONT TO MONITOR. PATIENT ON CONTACT FOR HX OF MRSA AND ESBL. SAFETY PRECAUTIONS REINFORCED. NO COMPLAINTS AT THIS TIME-SOME RELIEF FROM LORTAB GIVEN EARLIER. CALL LIGHT IN REACH. WILL CONT TO MONITOR.
[2018-11-22 20:25] VITALS: BP 166/106
--- NOTE | 2018-11-22 20:42 | NUR ---
BP REMAINS ELEVATED AT 166/106, HR-95. DR CORDOBA NOTIFIED AND STATES THAT HE WILL ADD PRN MED TO [facility]. AWAITING MED TO BE PROFILED AND WILL MEDICATE. WILL CONT TO MONITOR.
--- NOTE | 2018-11-22 21:17 | NUR ---
PATIENT MEDICATED WITH ATIVAN 0.5MG PO FOR SLEEP. AWAITING APRESOLINE TO BE PROFILED.
--- NOTE | 2018-11-22 21:57 | NUR ---
PATIENT RESTING IN BED WITH O2 VIA NASAL CANNULA IN PLACE-MEDICATED FOR HTN WITH APRESOLINE 10MG IVP VIA RIGHT AC IV SITE. SITE REMAINS HEALTHY AT THIS TIME WITH GOOD BLOOD RETURN. SAFETY PRECAUTIONS REINFORCED. CALL LIGHT IN REACH. WILL CONT TO MONITOR.
[2018-11-22 23:48] VITALS: BP 148/81
[2018-11-23] VITALS (8 sets, daily range): BP systolic 133–210; BP diastolic 70–110
--- NOTE | 2018-11-23 01:00 | NUR ---
PATIENT APPEARS SLEEPING WITH O2 VIA NASAL CANNULA IN PLACE. TELE MONITOR IN PLACE. CALL LIGHT IN REACH. WILL CONT TO MONITOR.
--- NOTE | 2018-11-23 04:03 | NUR ---
BP-210/110, HR-84. PATIENT MEDICATED WITH APRESOLINE 10MG IVP AND ATIVAN 0.5MG PO FOR ANXIETY. PATIENT ALSO RECIEVED LASIX 40MG IVP ORDERED. PATIENT CONT ON STRICT I&O. VOIDING QS CLEAR YELLOW URINE ON BSC. CALL LIGHT IN REACH, WILL CONT TO MONITOR.
[2018-11-23 05:21] LABS: HEMATOCRIT 35.4 % (37.0-47.0); MEAN CORPUSCULAR HGB 28.3 pG CALC (26.0-32.0); MEAN CORPUSCULAR HGB CONC 31.1 g/L CALC (32.0-36.0); RED BLOOD COUNT 3.89 mill/uL (4.20-5.60)
--- NOTE | 2018-11-23 05:50 | NUR ---
BP-133/84, HR-88, O2 SATS 96% WITH O2 IN PLACE. PATIENT MEDICATED FOR PAIN WITH LORTAB ORDERED. CALL LIGHT IN REACH, WILL CONT TO MONITOR.
[2018-11-23 06:19] LABS: ANION GAP 12 (6-22 (CALC)); BUN 22 mg/dL (8-23); BUN/CREATININE RATIO 23 (12-20 (CALC)); CARBON DIOXIDE 32 mmol/l (22-30); CHLORIDE 101 mmol/l (95-108); GFR 56 ML/MIN (>=60 (CALC)); GFR FOR AFR.AMER. > 60 ML/MIN (>=60 (CALC)); MAGNESIUM 1.5 mg/dL (1.6-2.3); POTASSIUM 4.1 mmol/l (3.5-5.1); SODIUM 140 mmol/l (137-146)
--- NOTE | 2018-11-23 07:49 | NUR ---
REPORT WAS RECEIVED FROM MANUELITO. PT IS SITTING IN THE SIDE OF THE BED. ASSESSMENT DONE. PT IS A&O X3. PT STATED PAIN IN LEG/HEADACHE MEDICATED PT WITH TYLENOL. TELE IN PLACE. O2 AT 2L VIA NC. CALL LIGHT IN REACH.
--- NOTE | 2018-11-23 11:48 | NUR ---
PT IS SITTING IN THE SIDE OF THE BED. PT STATED PAIN IN LEG/HEADACHE. MEDICATED PT WITH LORTAB. PT DENIES ANY OTHER NEEDS AT THIS TIME. CALL LIGHT IN REACH.
--- NOTE | 2018-11-23 15:39 | NUR ---
PT STATED SHE HAS A HEADACHE. MEDICATED PT WITH FIORICET PER ORDER. PT DENIES ANY OTHER NEEDS AT THIS TIME. CALL LIGHT IN REACH.
[2018-11-24] VITALS: BP 146/83
--- NOTE | 2018-11-24 00:19 | NUR ---
PATIENT RESTING IN BED-MEDICATED WITH NEURONTIN ORDERED. VS TAKEN AND RECORDED. PATIENT CONT TO VOID CLEAR YELLOW URINE IN BSC FOR STRICT I&O. CALL LIGHT IN REACH, WILL CONT TO MONITOR.
--- NOTE | 2018-11-24 04:25 | NUR ---
APPEARS SLEEPING AT THIS TIME WITH O2 VIA NASAL CANNULA IN PLACE. TELE MONITOR IN PLACE, CALL LIGHT IN REACH. WILL CONT TO MONITOR.
[2018-11-24 05:25] VITALS: BP 189/113
[2018-11-24 05:40] LABS: ANION GAP 10 (6-22 (CALC)); BUN 23 mg/dL (8-23); BUN/CREATININE RATIO 24 (12-20 (CALC)); CARBON DIOXIDE 35 mmol/l (22-30); CHLORIDE 98 mmol/l (95-108); GFR 56 ML/MIN (>=60 (CALC)); GFR FOR AFR.AMER. > 60 ML/MIN (>=60 (CALC)); MAGNESIUM 1.8 mg/dL (1.6-2.3); SODIUM 139 mmol/l (137-146)
[2018-11-24 06:24] VITALS: BP 114/59
--- NOTE | 2018-11-24 07:00 | NUR ---
SHIFT CHANGE REPORT, P0T AWAKE ALERT AND ORIENED AMBULATING WITH CANE IN ROOM, C/O HEADACHE AND EXPRESSES CONCERN OBOUT ELEVATED BP, TELE MONITOR IN PLACE, CALL WEST IN REACH, WILL CONTINUE TO MONITOR.
[2018-11-24 08:01] VITALS: BP 152/98
[2018-11-24 11:10] VITALS: BP 141/58
--- NOTE | 2018-11-24 12:00 | NUR ---
DR HIGUERA ROUNDED, DISCUSSED PLAN OF CARE, TO D/C PT TODAY, PT ALSO WANTS TO GO HOME.
[2018-11-24] MEDS ORDERED: FIORICET PO (12:13)
--- NOTE | 2018-11-24 14:24 | NUR ---
Discharge instructions given. Patient verbalizes understanding of same. Discharged in fair condition via Wheelchair to Home with family. All belongings sent with pt.
== END 2018-11-24 14:22 | disposition home health service (06) ==
LOC: ED 14:01 → ED-I 14:50 → ED 15:03 → MS2 15:04
PROVIDERS: Emergency Medicine; ADMIT Internal Medicine; ATTEND Internal Medicine
DX: I13.0 Hypertensive heart and chronic kidney disease with heart failure and stage 1 through stage 4 chronic kidney disease, or unspecified chronic kidney disease (principal); I50.9 Heart failure, unspecified; N18.3 Chronic kidney disease, stage 3 (moderate); J44.9 Chronic obstructive pulmonary disease, unspecified; I48.2 Chronic atrial fibrillation; G62.9 Polyneuropathy, unspecified; F41.9 Anxiety disorder, unspecified; G43.909 Migraine, unspecified, not intractable, without status migrainosus; Z79.01 Long term (current) use of anticoagulants; Z98.84 Bariatric surgery status; Z86.718 Personal history of other venous thrombosis and embolism
CPT/HCPCS: J3475

== ENCOUNTER 2018-12-30 06:09 | Day surgery (SDC) | payer MEDICARE ==
[~2018-12-30] VITALS: Ht 165.1 cm; Wt 106.6 kg
[~2018-12-30 06:09] MED LIST changes: +ACCUPRIL5 MG PO; +ALBUTEROL SUL0.083 % IN; +ASPIRIN 81 LOW81 MG; +EQL FLUTIC50 MCG/ACT IN; +FIORICET PO; +LORTAB 1010 MG PO; +MULTI FOR HER PO; +SPIRONOLACT25 MG PO
[2018-12-30] MEDS ORDERED: LORTAB 1010 MG PO ×2 (07:35→07:36)
[2018-12-30 07:59] VITALS: BP 153/96
== END 2018-12-30 08:25 | disposition home or self-care (01) ==
LOC: ORM 06:09
PROVIDERS: ATTEND Anesthesiology Pain Medicine
PROC: 3E0T33Z Introduction of Anti-inflammatory into Peripheral Nerves and Plexi, Percutaneous Approach (ICD-10-PCS; principal; 2018-12-30)
PROC: 3E0T3BZ Introduction of Anesthetic Agent into Peripheral Nerves and Plexi, Percutaneous Approach (ICD-10-PCS; 2018-12-30)
PROC: 3E0T33Z Introduction of Anti-inflammatory into Peripheral Nerves and Plexi, Percutaneous Approach (ICD-10-PCS; 2018-12-30)
PROC: 3E0T3BZ Introduction of Anesthetic Agent into Peripheral Nerves and Plexi, Percutaneous Approach (ICD-10-PCS; 2018-12-30)
PROC: 3E0T33Z Introduction of Anti-inflammatory into Peripheral Nerves and Plexi, Percutaneous Approach (ICD-10-PCS; 2018-12-30)
PROC: 3E0T3BZ Introduction of Anesthetic Agent into Peripheral Nerves and Plexi, Percutaneous Approach (ICD-10-PCS; 2018-12-30)
PROC: BR161ZZ Fluoroscopy of Lumbar Facet Joint(s) using Low Osmolar Contrast (ICD-10-PCS; 2018-12-30)
DX: M54.5 Low back pain (principal); M12.9 Arthropathy, unspecified

== ENCOUNTER 2019-01-15 15:41 | Emergency (ER) | payer MEDICARE, OTHER ==
[~2019-01-15] VITALS: Ht 165.1 cm; Wt 90.0 kg
[2019-01-15] MEDS ORDERED: DOXEPIN HCL10 MG PO (16:59)
[2019-01-15] MEDS ORDERED: METOLAZONE5 MG PO (17:01)
[2019-01-15] MEDS ORDERED: LASIX 40 MG TAB40 MG PO (17:02)
[2019-01-15] MEDS ORDERED: GABAPENTIN400 M2 PO (17:03)
[2019-01-15] MEDS ORDERED: ZOLPIDEM5 M1 PO (17:03)
[2019-01-15] MEDS ORDERED: ALDACTONE25 MG PO (17:04)
[2019-01-15] MEDS ORDERED: INDERAL80 M1 PO (17:04)
[2019-01-15] MEDS ORDERED: FIORICET PO (17:06)
[2019-01-15] MEDS ORDERED: TRAZODONE100 MG PO (17:07)
[2019-01-15] MEDS ORDERED: TESSALON PERLE100 MG PO (17:08)
[2019-01-15] MEDS ORDERED: BUMETANIDE1 MG PO (17:09)
[2019-01-15] MEDS ORDERED: ADLT ASA LOW81 MG PO (17:10)
[2019-01-15] MEDS ORDERED: ALLOPURINOL100 MG PO (17:10)
[2019-01-15 17:45] VITALS: BP 134/71
== END 2019-01-15 17:45 | disposition home or self-care (01) ==
LOC: ED 15:41
DX: S46.911A Strain of unspecified muscle, fascia and tendon at shoulder and upper arm level, right arm, initial encounter (principal); G89.29 Other chronic pain; I10 Essential (primary) hypertension; X50.3XXA Overexertion from repetitive movements, initial encounter; Y93.G1 Activity, food preparation and clean up; Y92.000 Kitchen of unspecified non-institutional (private) residence as the place of occurrence of the external cause

== ENCOUNTER 2019-01-25 13:20 | Emergency (ER) | payer MEDICARE ==
[~2019-01-25] VITALS: Ht 165.1 cm; Wt 108.2 kg
[~2019-01-25 13:20] MED LIST changes: +ADLT ASA LOW81 MG PO; +ALLOPURINOL100 MG PO; +BUMETANIDE1 MG PO; +DOXEPIN HCL10 MG PO; +GABAPENTIN400 M2 PO; +INDERAL80 M1 PO; +LASIX 40 MG TAB40 MG PO; +METOLAZONE5 MG PO; +TESSALON PERLE100 MG PO; +TRAZODONE100 MG PO; +ZOLPIDEM5 M1 PO
[2019-01-25 14:15] VITALS: BP 128/86
== END 2019-01-25 14:15 | disposition home or self-care (01) ==
LOC: ED 13:20
DX: G89.29 Other chronic pain (principal); M25.511 Pain in right shoulder; I10 Essential (primary) hypertension; I48.91 Unspecified atrial fibrillation; Z79.52 Long term (current) use of systemic steroids; Z79.899 Other long term (current) drug therapy

== ENCOUNTER 2019-02-03 07:05 | Day surgery (SDC) | payer MEDICARE, OTHER ==
[2019-02-03] MEDS ORDERED: LORTAB 1010 MG PO (08:38)
[2019-02-03 08:50] VITALS: BP 120/76
[2019-02-16] MEDS ORDERED: DICLOFENAC75 MG PO (12:16)
== END 2019-02-03 10:45 | disposition home or self-care (01) ==
LOC: ORM 07:05
PROVIDERS: ATTEND Anesthesiology Pain Medicine
PROC: 3E0T3BZ Introduction of Anesthetic Agent into Peripheral Nerves and Plexi, Percutaneous Approach (ICD-10-PCS; principal; 2019-02-03)
PROC: 3E0T33Z Introduction of Anti-inflammatory into Peripheral Nerves and Plexi, Percutaneous Approach (ICD-10-PCS; 2019-02-03)
PROC: 3E0T3BZ Introduction of Anesthetic Agent into Peripheral Nerves and Plexi, Percutaneous Approach (ICD-10-PCS; 2019-02-03)
PROC: 3E0T33Z Introduction of Anti-inflammatory into Peripheral Nerves and Plexi, Percutaneous Approach (ICD-10-PCS; 2019-02-03)
PROC: BR161ZZ Fluoroscopy of Lumbar Facet Joint(s) using Low Osmolar Contrast (ICD-10-PCS; 2019-02-03)
DX: M54.5 Low back pain (principal); M12.9 Arthropathy, unspecified

== ENCOUNTER 2019-03-08 20:07 | Emergency (ER) | payer MEDICARE ==
[~2019-03-08] VITALS: Ht 165.1 cm; Wt 112.7 kg
[~2019-03-08 20:07] MED LIST changes: +DICLOFENAC75 MG PO
[2019-03-08 21:22] VITALS: BP 139/69
[2019-03-09] MEDS ORDERED: LORTAB 1010 MG PO (12:14)
== END 2019-03-08 21:38 | disposition home or self-care (01) ==
LOC: ED 20:07
DX: G89.29 Other chronic pain (principal); R52 Pain, unspecified; I10 Essential (primary) hypertension; I48.91 Unspecified atrial fibrillation

== ENCOUNTER 2019-04-13 10:10 | Emergency (ER) | payer MEDICARE ==
[~2019-04-13] VITALS: Ht 165.1 cm; Wt 114.5 kg
[2019-04-13] MEDS ORDERED: SPIRONOLACTONE25 MG PO (11:15)
[2019-04-13] MEDS ORDERED: METOLAZONE2.5 MG PO (11:18)
[2019-04-13] MEDS ORDERED: AMOXICILLIN500 M2 PR (11:26)
[2019-04-13 11:50] VITALS: BP 129/72
== END 2019-04-13 11:50 | disposition home or self-care (01) ==
LOC: ED 10:10
PROC: 0HQMXZZ Repair Right Foot Skin, External Approach (ICD-10-PCS; principal; 2019-04-13)
DX: S91.311A Laceration without foreign body, right foot, initial encounter (principal); J02.0 Streptococcal pharyngitis; I83.891 Varicose veins of right lower extremity with other complications; I10 Essential (primary) hypertension; I48.91 Unspecified atrial fibrillation; X58.XXXA Exposure to other specified factors, initial encounter

== ENCOUNTER 2019-05-19 16:22 | Inpatient (IN) | payer MEDICARE, OTHER ==
[~2019-05-19] VITALS: Ht 165.1 cm; Wt 115.2 kg
[~2019-05-19 16:22] MED LIST changes: +AMOXICILLIN500 M2 PR; +METOLAZONE2.5 MG PO; +PAROXETINE20 M1 PO; +SPIRONOLACTONE25 MG PO
[2019-05-19 16:38] VITALS: BP 170/100
[2019-05-19 18:42] LABS: HEMATOCRIT 35.3 % (37.0-47.0); HEMOGLOBIN 10.6 g/dl (12.0-16.0); IMMATURE GRANULOCYTES 0.4 % (0.0-5.0); MEAN CELL VOLUME 98.1 fL CALC (80.0-100.0); MEAN CORPUSCULAR HGB 29.4 pG CALC (26.0-32.0); NEUT# 4.89 thou/uL (2.00-7.15); RED BLOOD COUNT 3.6 mill/uL (4.20-5.60); RED CELL DISTRI WIDTH 14.6 % (11.5-15.5)
[2019-05-19 18:53] VITALS: BP 120/84
[2019-05-19 19:13] LABS: ALBUMIN 3.8 g/dL (3.2-5.0); BILIRUBIN, TOTAL 0.4 mg/dL (0.0-1.4); CREATININE 1.3 mg/dL (0.5-1.0); POTASSIUM 4.7 mmol/l (3.5-5.1); TOTAL PROTEIN 6.9 g/dL (6.3-8.2)
[2019-05-19 19:45] VITALS: BP 114/75
[2019-05-20] VITALS (7 sets, daily range): BP systolic 109–140; BP diastolic 60–83
[2019-05-20] MEDS ORDERED: MULTIVITAMI1 PO (11:27)
[2019-05-21 04:37] VITALS: BP 180/102
[2019-05-21 05:28] VITALS: BP 165/95
[2019-05-21 05:32] LABS: HEMATOCRIT 36.7 % (37.0-47.0); HEMOGLOBIN 11.1 g/dl (12.0-16.0); IMMATURE GRANULOCYTES 0.4 % (0.0-5.0); MEAN CELL VOLUME 97.1 fL CALC (80.0-100.0); MEAN CORPUSCULAR HGB 29.4 pG CALC (26.0-32.0); MEAN CORPUSCULAR HGB CONC 30.2 g/L CALC (32.0-36.0); NEUT# 4.62 thou/uL (2.00-7.15); RED BLOOD COUNT 3.78 mill/uL (4.20-5.60); RED CELL DISTRI WIDTH 14.3 % (11.5-15.5)
[2019-05-21 06:09] LABS: CREATININE 1.3 mg/dL (0.5-1.0); MAGNESIUM 1.5 mg/dL (1.6-2.3); POTASSIUM 4.4 mmol/l (3.5-5.1)
[2019-05-21 11:59] VITALS: BP 169/94
[2019-05-21 15:20] VITALS: BP 146/99
[2019-05-21 18:55] VITALS: BP 144/89
[2019-05-22 00:10] VITALS: BP 112/60
[2019-05-22 04:55] VITALS: BP 154/88
[2019-05-22 06:09] LABS: CREATININE 1.2 mg/dL (0.5-1.0); MAGNESIUM 1.6 mg/dL (1.6-2.3); POTASSIUM 4.2 mmol/l (3.5-5.1)
[2019-05-22 08:45] VITALS: BP 141/98
[2019-05-22 11:31] VITALS: BP 130/79
[2019-05-22 16:05] VITALS: BP 149/87
[2019-05-22 19:50] VITALS: BP 133/82
[2019-05-23] VITALS (8 sets, daily range): BP systolic 117–165; BP diastolic 56–99
[2019-05-23 04:52] LABS: CREATININE 1.1 mg/dL (0.5-1.0); POTASSIUM 4.6 mmol/l (3.5-5.1)
[2019-05-24 04:15] VITALS: BP 146/100
[2019-05-24 07:37] VITALS: BP 150/90
[2019-05-24 09:50] LABS: HEMATOCRIT 38.8 % (37.0-47.0); HEMOGLOBIN 11.9 g/dl (12.0-16.0); MEAN CORPUSCULAR HGB 29.8 pG CALC (26.0-32.0); MEAN CORPUSCULAR HGB CONC 30.7 g/L CALC (32.0-36.0); RED CELL DISTRI WIDTH 14.6 % (11.5-15.5)
[2019-05-24 10:19] LABS: CREATININE 1.1 mg/dL (0.5-1.0); MAGNESIUM 1.7 mg/dL (1.6-2.3)
[2019-05-24 11:18] VITALS: BP 150/91
[2019-05-24 15:19] VITALS: BP 147/90
[2019-05-24 19:35] VITALS: BP 127/84
[2019-05-25 04:30] VITALS: BP 131/66
[2019-05-25 05:53] LABS: CREATININE 1.4 mg/dL (0.5-1.0); MAGNESIUM 1.7 mg/dL (1.6-2.3); POTASSIUM 4.1 mmol/l (3.5-5.1)
[2019-05-25 09:37] VITALS: BP 116/69
[2019-05-25] MEDS ORDERED: DOXYCYCLINE100 MG PO (11:00)
[2019-05-25 11:33] VITALS: BP 132/68
[2019-06-01] MEDS ORDERED: LORTAB 1010 MG PO (14:12)
[2019-07-20] MEDS ORDERED: LORTAB 1010 MG PO (12:27)
== END 2019-05-25 14:20 | disposition home health service (06) | DRG 291 ==
LOC: MS2 16:22
PROVIDERS: Nurse Practitioner Family; ADMIT Internal Medicine; ATTEND Internal Medicine
DX: I13.0 Hypertensive heart and chronic kidney disease with heart failure and stage 1 through stage 4 chronic kidney disease, or unspecified chronic kidney disease (principal); I50.33 Acute on chronic diastolic (congestive) heart failure; I48.20 Chronic atrial fibrillation, unspecified; L03.115 Cellulitis of right lower limb; N18.3 Chronic kidney disease, stage 3 (moderate); G62.9 Polyneuropathy, unspecified; I87.2 Venous insufficiency (chronic) (peripheral); S81.801A Unspecified open wound, right lower leg, initial encounter; F32.9 Major depressive disorder, single episode, unspecified; F41.9 Anxiety disorder, unspecified; M10.9 Gout, unspecified; X58.XXXA Exposure to other specified factors, initial encounter; Z79.01 Long term (current) use of anticoagulants; Z86.718 Personal history of other venous thrombosis and embolism

== ENCOUNTER 2019-06-11 14:06 | Emergency (ER) | payer MEDICARE, OTHER ==
[~2019-06-11] VITALS: Ht 165.1 cm; Wt 117.0 kg
[~2019-06-11 14:06] MED LIST changes: +DOXYCYCLINE100 MG PO; +MULTIVITAMI1 PO
[2019-06-11 15:30] VITALS: BP 114/80
[2019-07-20] MEDS ORDERED: LORTAB 1010 MG PO (12:27)
== END 2019-06-11 15:30 | disposition home or self-care (01) ==
LOC: ED 14:06
DX: L03.115 Cellulitis of right lower limb (principal); R23.4 Changes in skin texture; I12.9 Hypertensive chronic kidney disease with stage 1 through stage 4 chronic kidney disease, or unspecified chronic kidney disease; N18.9 Chronic kidney disease, unspecified; I48.91 Unspecified atrial fibrillation; J44.9 Chronic obstructive pulmonary disease, unspecified

== ENCOUNTER 2019-06-21 | Inpatient (IN) | payer MEDICARE, OTHER ==
--- NOTE | 2019-06-18 09:30 | NUR ---
PT PRESENTS WITH PAIN 7/10 BILATERAL LEG EDEMA. ON THE RIGHT LOWER LEG THERE IS A REDENNING AREA THAT IS 4CM X 4CM AND THERE IS AN INDENTION IN THE CENTER WHERE PT REMOVED SCAB AND DRAINAGE WAS SEEN BY PT. PT DISCRIBES IT WHITE GREEN DRAINAGE. PT STATES SHE HAS HAD THIS CHRONIC CONDITION THAT WORSTENED TWO DAYS AGO. PT AFIBRILE. SLIGHT WHEEZES NOTICED IN RIGHT LOWER LUNG, PT HAS HX OF COPD. WILL CONTINUE TO MONITOR.
--- NOTE | 2019-06-18 09:35 | NUR ---
PT TO ROOM VIA WHEELCHAIR.
--- NOTE | 2019-06-18 10:00 | NUR ---
PT'S DAUGHTER RECEIVED CALL FROM THE WOUND CARE CLINIC FOR CONSULT WHILE IN ROOM. DAUGHTER INFOMRED STAFF THAT SHE WAS CURRENTLY IN THE ED.
--- NOTE | 2019-06-18 10:30 | NUR ---
PT RESTING IN STRETCHER TALKING AND LAUGHING WITH DAUGHTER WHO IS AT BEDSIDE OR MYSELF. PT IS BOTHERED WHEN SHE HAS TO MOVE LEG. PT DENIES ANY NEEDS AT THIS TIME.
[2019-06-18 10:48] LABS: HEMOGLOBIN 11.2 g/dl (12.0-16.0); IMMATURE GRANULOCYTES 0.5 % (0.0-5.0); MEAN CELL VOLUME 96.6 fL CALC (80.0-100.0); MEAN CORPUSCULAR HGB 29.2 pG CALC (26.0-32.0); MEAN CORPUSCULAR HGB CONC 30.3 g/L CALC (32.0-36.0); NEUT# 4.61 thou/uL (2.00-7.15); RED BLOOD COUNT 3.83 mill/uL (4.20-5.60); RED CELL DISTRI WIDTH 16.3 % (11.5-15.5)
[2019-06-18 11:07] LABS: CREATININE 1.2 mg/dL (0.5-1.0)
[2019-06-18 11:09] LABS: POTASSIUM 4.1 mmol/l (3.5-5.1)
--- NOTE | 2019-06-18 11:20 | NUR ---
PT DENIES ANY NEEDS AT THIS TIME. PT REPOSITIONED IN BED AND SHE DENIES ANY NEEDS AT THIS TIME.
--- NOTE | 2019-06-18 12:07 | NUR ---
PT RECONNECTED TO EQUIPMENT, PT MENTIONS SHE IS IN PAIN. PT IS TOLD THAT MD WILL BE NOTIFIED. PT DENIES ANY OTHER NEEDS
--- NOTE | 2019-06-18 13:09 | NUR ---
PT RECIEVED LABETALOL AND HR STARTED AT 150s BPM. AFTER ADMINISTRATION HR 115-130BPM
--- NOTE | 2019-06-18 13:45 | NUR ---
INFORMED BY STAFF THAT IV SITE INFILTRATED. IV SITE REMOVED AND WARM COMPRESS PLACED ON ARM. WILL ATTEMPT ANOTHER IV SITE. PT ASISTED TO BEDSIDE COMMODE.
--- NOTE | 2019-06-18 14:30 | NUR ---
IV THERAPY AT BEDSIDE FOR MIDLINE PLACEMENT CONSENT SIGNED. PATIENT VOICES NO CONCERNS AT THIS TIME
--- NOTE | 2019-06-18 15:11 | NUR ---
IV THERAPY REMAINS AT BEDSIDE FOR MIDLINE PLACEMENT
--- NOTE | 2019-06-18 15:57 | NUR ---
PICC LINE INSERTION COMPLETED BY IV THERAPY PATIENT TOLERATED WELL
--- NOTE | 2019-06-18 16:20 | NUR ---
PATIENT TRANSPORTED TO ICU
[2019-06-18 16:30] VITALS: BP 177/95
--- NOTE | 2019-06-18 16:35 | NUR ---
PT ARRIVED TO ICU BED 2 VIA STRECTHER STOOD OFF STRETCHER AND AMBULATED TO BED WITH STAND BY ASSIST, PT OBESE AND GAIT STEADY, WEARING DEPENDS FROM HOME, PT ALERT AND ORIENTED, PT HAS DUAL LUMEN PICC LINE IN SYBIL, AWAITING XRAY RESULTS FOR USAGE, ALSO HAS 20G IN LACE AND 22G IN R HAND, EDEMA NOTED TO NILATERAL LE, PPPB, 2 SMALL ABRASIONS THAT ARE SCABBED ONE TO R LATERAL ASPECT OF LOWER R CALF AND ONE TO R LATERAL ASPECT OF FOOT, PT STATES BOTH ARE PAINFUL TO TOUCH, NO DRNG NOTED, ABDOBESE AND SOFT BS ACTIVE PT STATES LAST BM YESTERDAY, TELE READING A FIB ON MONITOR RATE 98-120,BP ELEVATED SEE INTERVENTIONS WILL INITATE CARDIZEM WHEN PICC LINE CLEAR TO USE. ORIENTED TO ROOM AND UNIT SAFETY MEASURES INTRODUCED AND CALL WEST WITHIN REACH.
--- NOTE | 2019-06-18 16:40 | NUR ---
TO Rm 9 TO ASSESS Pt FOR PICC PLACEMENT. AFTER DISCUSSION OF RISK/BENEFITs OF PICC PLACEMENT, Pt SIGNED CONSENT. Pt DRAPED IN STERILE FASION AND PICC TRIMMED TO LENTH OF 45cm. CIRC 52cm. PICC INSERTED /c ASSIST OF ELOISA SHERWOOD. WELL TOLERATED. SITE COVERED AND PORTABLE CXR ORDERED TO CONFIRM PLACEMENT.
[2019-06-18 16:45] VITALS: BP 187/100
[2019-06-18 17:00] VITALS: BP 144/88
[2019-06-18 17:15] VITALS: BP 149/97
--- NOTE | 2019-06-18 17:45 | NUR ---
PT MEDICATED ORDERED, STATES SHE TOOK HER HOME MEDICATIONS AT HOME TIS AM PRIOR TO ARRIVAL TO HOSPITAL.
--- NOTE | 2019-06-18 18:23 | NUR ---
PT TOLERATING CARDIZEM GTT CURRENTLY A FIB AND FLUTTER RATE 109 BP IMPROVED, TOLERATED PM MEAL W/O INCIDENT, CALL WEST WITHIN REACH
--- NOTE | 2019-06-18 19:15 | NUR ---
PATIENT ALERT AND ORIENTED. RESP EVEN AND UNLABORED. NO S/S OF DITRESS NOTED. C/O OF PAIN IN RLE, WILL MEDICATE PER MD ORDERS. SYBIL PICC PRESENT AND INFUSING CARDIZAM. PLAN OF CARE DISCUSSED. PATIENT INFORMED TO CALL WITH ANY QUESTIONS OR CONCERNS. FALL PRECAUTIONS IN PLACE.
[2019-06-18 19:38] VITALS: BP 182/85
--- NOTE | 2019-06-18 21:30 | NUR ---
IV REMOVED FROM L AC. COMPRESSION DRESSING APPLIED.
--- NOTE | 2019-06-18 22:22 | NUR ---
PATIENT RESTING IN BED WATCHING TV. RESP EVEN AND UNLABORED. NO S/S OF DISTRES NOTED.
[2019-06-18 23:00] VITALS: BP 149/95
[2019-06-19] VITALS (11 sets, daily range): BP systolic 91–147; BP diastolic 55–98
--- NOTE | 2019-06-19 00:11 | NUR ---
PATIENT RESTING WITH EYES CLOSED. RESP EVEN AND UNLABORED.NO S/S OF DISTRESS NOTED
--- NOTE | 2019-06-19 03:17 | NUR ---
PATIENT RESTING WITH EYES CLOSED. RESP EVEN AND UNLABORED. NO S/S OF DISTRESS NOTED.
--- NOTE | 2019-06-19 04:55 | NUR ---
PATIENT LAYING IN BED ON CELL PHONE. RESP EVEN AND UNLABORED.NO S/S OF DISTRSS
--- NOTE | 2019-06-19 07:37 | NUR ---
PT SITTING ON SIDE OF BED TO EATING BREAKFAST. PT ALERT AND ORIENTED. NO RESP DISTRESS NOTED. IV MED INFUSING WITHOUT DIFFICULTY VIA PICC. SITE WITHOUT REDNESS OR EDEMA NOTED. CALL LIGHT WITHIN REACH.
--- NOTE | 2019-06-19 09:00 | NUR ---
PT UP IN CHAIR AT BEDSIDE. NO COMPLAINTS VOICED. NO RESPIRATORY DISTRESS NOTED. WILL CONTINUE TO MONITOR. CALL LIGHT WITHIN REACH.
--- NOTE | 2019-06-19 10:00 | NUR ---
PT SITTING IN CHAIR AT BEDSIDE. NO RESP. DISTRESS NOTED. NO COMPLAINTS VOICED AT THIS TIME. WILL CONTINUE TO MONITOR. CALL LIGHT WITHIN REACH.
--- NOTE | 2019-06-19 11:58 | NUR ---
PT CONTINUES TO SIT IN CHAIR AT BEDSIDE. NO COMPLAINTS VOICED AT THIS. WILL CONTINUE TO MONITOR. CALL LIGHT WITHIN REACH.
--- NOTE | 2019-06-19 14:03 | NUR ---
PT CONTINUES TO SIT IN CHAIR AT BEDSIDE WATCHING TV. NO CHANGE IN ASSESSMENT. NO COMPLAINTS VOICED. WILL CONTINUE TO MONITOR. CALL LIGHT WITHIN REACH.
--- NOTE | 2019-06-19 15:02 | NUR ---
PT REPORT REC FROM M.GOODMAN SHERWOOD
--- NOTE | 2019-06-19 15:02 | NUR ---
REPORT GIVEN TO Carmen HILL LPN. PT INFORMED SHE IS BE TRANSFERRED TO THE MED/SURG UNIT. PT STATED "I CAN CLOSE MY DOOR AND GET MY ROOM WARM." PT VERBALIZED UNDERSTANDING OF TRANSFERRING TO MED/SURG. PT ALERT AND ORIENTED. SKIN WARM AND DRY. NO RESP DISTRESS NOTED.
--- NOTE | 2019-06-19 15:30 | NUR ---
PT TRANSFERRED TO MED/SURG VIA WHEELCHAIR. PT ALERT AND ORIENTED. NO RESP DISTRESS NOTED.
--- NOTE | 2019-06-19 15:34 | NUR ---
PT ARRIVED TO ROOM VIA WHEELCHAIR ACCOMPANIED BY STAFF. PT A&O X3. C/O SOME DISCOMFORT ON RT LOWER EXTREMITY. LEG WARM TO THE TOUCH, EDEMA NOTED. SEE CHART FOR PHOTO. ORIENTED PT TO THE ROOM. NO OTHER COMPLAINTS AT THIS TIME. CALL LIGHT IN REACH.CONTINUE TO MONITOR
--- NOTE | 2019-06-19 17:29 | NUR ---
PT PLACED ON CONTACT PERCAUTIONS FOR HX OF ESBL. CULTURE OBTAINED AND SENT TO LAB. AWAITING RESULTS.
[2019-06-20 00:20] VITALS: BP 121/81
[2019-06-20 04:55] VITALS: BP 114/74
--- NOTE | 2019-06-20 08:00 | NUR ---
PT RESTING IN BED, NO SIGNS OF DISTRESS NOTED, RESP EVEN AND UNLABORED. PT C/O PAIN TO HER RLE, OFFERED COOL CLOTH, PAIN MEDICATION NOT DUE YET, PT VERBALIZED UNDERSTANDING. DISCUSSED POC, ASSESSMENT COMPLETED, CALL LIGHT IN REACH,CONTINUE TO MONITOR.
[2019-06-20 08:32] VITALS: BP 103/81
[2019-06-20 08:55] LABS: HEMATOCRIT 35.3 % (37.0-47.0); HEMOGLOBIN 10.6 g/dl (12.0-16.0); MEAN CORPUSCULAR HGB 29.1 pG CALC (26.0-32.0); RED BLOOD COUNT 3.64 mill/uL (4.20-5.60); RED CELL DISTRI WIDTH 16.4 % (11.5-15.5)
[2019-06-20 09:14] LABS: ALBUMIN 3.7 g/dL (3.2-5.0); BILIRUBIN, TOTAL 0.4 mg/dL (0.0-1.4); CREATININE 1.4 mg/dL (0.5-1.0); POTASSIUM 4.4 mmol/l (3.5-5.1); TOTAL PROTEIN 6.9 g/dL (6.3-8.2)
--- NOTE | 2019-06-20 09:54 | NUR ---
PT RESTING IN BED MEDICATED FOR PAIN AT THIS TIME, DISCUSSED ROCEPHIN, VERBALIZED UNDERSTANDING. INITIATED ROCEPHIN TO PICC LINE IN SYBIL. CALL LIGHT IN REACH,CONTINUE TO MONITOR.
[2019-06-20 11:10] VITALS: BP 104/67
--- NOTE | 2019-06-20 12:00 | NUR ---
PT SITTING ON SIDE OF BED EATING LUNCH, NO SIGNS OF DISTRESS NOTED, RESP EVEN AND UNLABORED. PT VOICES NO NEEDS OR COMPLAINTS AT THIS TIME, CALL LIGHT IN REACH,CONTINUE TO MONITOR.
[2019-06-20 15:16] VITALS: BP 129/86
--- NOTE | 2019-06-20 15:17 | NUR ---
PT SITTING IN CHAIR AT BEDSIDE, NO SIGNS OF DISTRESS NOTED, RESP EVEN AND UNLABORED. VOICES NO NEEDS OR COMPLAINTS AT THIS TIME. CALL LIGHT IN REACH,CONTINUE TO MONITOR.
--- NOTE | 2019-06-20 16:46 | NUR ---
PT MEDICATED FOR PAIN, RESTING IN BED, CALL LIGHT IN REACH,CONTINUE TO MONITOR.
[2019-06-20 19:15] VITALS: BP 116/77
[~2019-06-21] MED LIST changes: -ADLT ASA LOW81 MG PO; -INDERAL80 M1 PO; +PAROXETINE10 MG PO; -PAROXETINE20 M1 PO
[2019-06-21 00:01] VITALS: BP 114/59
[2019-06-21 04:09] VITALS: BP 146/86
[2019-06-21 08:15] VITALS: BP 109/64
--- NOTE | 2019-06-21 08:26 | NUR ---
PT SITTING IN CHAIR AT BEDSIDE. DENIES PAIN. REPORTING OF CONCERNS ENCOURAGED. PLAN OF CARE DISCUSSED. FALL PRECAUTIONS REINFORCED. PT USES OWN CANE FOR AMBULATION. STEADY GAIT. DENIES WEAKNESS. ALERT AND ORIENTED. SYBIL PICC LINE INTACT. REDNESS TO RIGHT LOWER LEG NOTED. BLACK LESION TO RIGHT LOWER LEG, DRY, NO DRAINAGE, CLOSED. BLACK LESION TO RIGHT LATERAL FOOT, CLOSED, NO DRAINAGE. PEDAL PULSES WEAK BILATERALY. LUNG SOUNDS CLEAR. HEART SOUNDS IRREGULAR. NO SOB OR DISTRESS NOTED. CALL LIGHT REVIEWED AND IN REACH. PT STATES UNDERSTANDING.
[2019-06-21 10:49] VITALS: BP 109/81
--- NOTE | 2019-06-21 13:18 | NUR ---
JUANITA RAMIREZ IN TO SEE PT AT THIS TIME. PLAN OF CARE UPDATED.
[2019-06-21 14:18] VITALS: BP 112/64
--- NOTE | 2019-06-21 15:38 | NUR ---
DR. PATEL IN TO SEE PT AT THIS TIME. PLAN OF CARE UPDATED.
--- NOTE | 2019-06-21 18:19 | NUR ---
PT SITTING IN CHAIR AT BEDSIDE. REQUESTS CUP OF COFFEE. DENIES ANY OTHER COMPLAINTS. CALL LIGHT WITHIN REACH.
[2019-06-21 18:50] VITALS: BP 140/76
--- NOTE | 2019-06-21 19:20 | NUR ---
REPORT RECEIVED FROM PRESLEY ROSEN. PT RESTING IN BED, NO S/S OF DISTRESS AT THIS TIME. SAFETY PRECAUTIONS IN PLACE. WILL CONTINUE TO MONITOR.
--- NOTE | 2019-06-21 21:50 | NUR ---
PT RESTING IN BED ALERT AND ORIENTED. RESPIRATIONS EVEN AND UNLABORED, LUNGS SOUND CLEAR/DIMINISED. PEDAL PULSES WEAK. PT REPORTS PAIN IN HER RIGHT LOWER LEG. TELE IN PLACE. PICC IN UPPER RIGHT ARM PATENT AND APPEARS HEALTHY. SAFETY PRECAUTIONS IN PLACE. WILL CONTOINUE TO MONITOR.
[2019-06-22] VITALS: BP 111/65
--- NOTE | 2019-06-22 00:10 | NUR ---
PT RESTING IN BED. RESPIRATIONS EVEN AND UNLABORED. TELE IN PLACE. NO S/S OF DISTRESS AT THIS TIME. CALL WEST WITHIN REACH. WILL CONTINUE TO MONITOR.
--- NOTE | 2019-06-22 04:30 | NUR ---
PT RESTIN IN BED. NO S/S OF DISTRESS AT THIS TIME. SAFETY PRECAUTIONS IN PLACE. WILL CONTINUE TO MONITOR.
[2019-06-22 04:38] VITALS: BP 133/84
[2019-06-22 07:47] VITALS: BP 131/86
--- NOTE | 2019-06-22 07:50 | NUR ---
PT SITTING UP IN CHAIR AT BEDSIDE. NO RESP DISTRESS NOTED. NO COMPLAINTS VOICED AT THIS TIME. ASSESSMENT COMPLETED. WILL CONTINUE TO MONITOR. CALL LIGHT WITHIN REACH.
[2019-06-22 10:15] VITALS: BP 119/66
--- NOTE | 2019-06-22 12:26 | NUR ---
PT LYING BED. NO RESP. DISTRESS NOTED. NO COMPLAINTS VOICED. NO CHANGE IN ASSESSMENT. WILL CONTINUE TO MONITOR. CALL LIGHT WITHIN REACH.
[2019-06-22] MEDS ORDERED: AMOXICILLIN/CL875 MG PO (13:13)
[2019-06-22] MEDS ORDERED: CLEOCIN300 MG PO (13:16)
--- NOTE | 2019-06-22 14:31 | NUR ---
PT SITTING UP IN CHAIR WITH NO COMPLAINTS. PT TOLD THAT HER DISCHARGE IS READY AND SHE CAN GO SOON HER FAMILY ARRIVES. PT ALERT AND ORIENTED. RESPS EVEN, UNLABBORED.
--- NOTE | 2019-06-22 15:22 | NUR ---
PT LEAVING ER VIA WHEELCHAIR WITH FAMILY. PT DENIES COMPLAINTS. PT ALERT AND ORIENTED. PT DENIES QUESTIONS ON DC PAPERWORK
[2019-06-22 15:45] VITALS: BP 133/86
[2019-07-20] MEDS ORDERED: LORTAB 1010 MG PO (12:27)
[2019-11-30] MEDS ORDERED: PERCOCET 10/31 COMBO PO (12:15)
[2019-12-28] MEDS ORDERED: PERCOCET 10/31 COMBO PO (11:58)
[2020-01-25] MEDS ORDERED: PERCOCET1 TA4 PO (11:57)
[2020-02-22] MEDS ORDERED: PERCOCET1 TA2 PO (16:06)
[2020-03-21] MEDS ORDERED: PERCOCET1 TA4 PO (14:11)
== END 2019-06-22 15:28 | disposition home health service (06) | DRG 603 ==
PROVIDERS: Family Medicine; Nurse Practitioner Family; ADMIT Internal Medicine
PROC: 02HV33Z Insertion of Infusion Device into Superior Vena Cava, Percutaneous Approach (ICD-10-PCS; principal; 2019-06-18)
DX: L03.115 Cellulitis of right lower limb (principal); I48.20 Chronic atrial fibrillation, unspecified; Z68.41 Body mass index [BMI] 40.0-44.9, adult; I87.311 Chronic venous hypertension (idiopathic) with ulcer of right lower extremity; L97.818 Non-pressure chronic ulcer of other part of right lower leg with other specified severity; I12.9 Hypertensive chronic kidney disease with stage 1 through stage 4 chronic kidney disease, or unspecified chronic kidney disease; N18.3 Chronic kidney disease, stage 3 (moderate); J44.9 Chronic obstructive pulmonary disease, unspecified; M19.90 Unspecified osteoarthritis, unspecified site; E66.01 Morbid (severe) obesity due to excess calories; D64.9 Anemia, unspecified; G62.9 Polyneuropathy, unspecified; M10.00 Idiopathic gout, unspecified site; Z86.718 Personal history of other venous thrombosis and embolism
CPT/HCPCS: G0378

== ENCOUNTER 2019-07-22 10:28 | Inpatient (IN) | payer MEDICARE, OTHER ==
[~2019-07-22] VITALS: Ht 165.1 cm; Wt 117.6 kg
[~2019-07-22 10:28] MED LIST changes: +AMOXICILLIN/CL875 MG PO; +CLEOCIN300 MG PO
--- NOTE | 2019-07-22 10:35 | NUR ---
PT TO ROOM VIA WC
--- NOTE | 2019-07-22 10:48 | NUR ---
PT PRESENTS WITH PAIN OF 8/10 FROM A FOOT SORE THAT IS ON THE RIGHT LATERAL SIDE OF FOOT AND ANKLE. PT STAES SHE HAS BEEN HAVING THIS SORE FOR 5 MONTHS. PT DAUGHTER DISCRIBES HOW ANTIBIOTICS HAVE NOT HELPED. PT WAS SENT TO ER BY WOUND CARE PROVIDER THAT TOOK OUT FIBROIDS FROM SORE. THE SORE IS DRAINING GREENISH BLOOD DISCHARGE, IS RED AROUND THE BOARDERS AND REDNESS WITH SORE MEASURES 7 CM X 8 CM. WOUND CARE DOCTOR CALLED HERE TO HAVE PT ADMITTED. PULSES PRESENT AND CAP REFILL BRISK. PT AFIBRILE. WILL CONTINUE TO MONITOR.
[2019-07-22 11:10] LABS: HEMATOCRIT 33.9 % (37.0-47.0); HEMOGLOBIN 10.4 g/dl (12.0-16.0); IMMATURE GRANULOCYTES 0.4 % (0.0-5.0); MEAN CELL VOLUME 94.4 fL CALC (80.0-100.0); MEAN CORPUSCULAR HGB CONC 30.7 g/L CALC (32.0-36.0); NEUT# 6.88 thou/uL (2.00-7.15); RED BLOOD COUNT 3.59 mill/uL (4.20-5.60); RED CELL DISTRI WIDTH 15.3 % (11.5-15.5)
--- NOTE | 2019-07-22 11:30 | NUR ---
REPOSITIONED IV BECAUSE PUMP STATES DOWNSTREAM OCCLUSION, CHANGED DRESSING TO IMPROVE INFUSION
[2019-07-22 11:38] LABS: ALBUMIN 4.1 g/dL (3.2-5.0); BILIRUBIN, TOTAL 0.4 mg/dL (0.0-1.4); CREATININE 1.2 mg/dL (0.5-1.0); POTASSIUM 4.1 mmol/l (3.5-5.1); TOTAL PROTEIN 7.4 g/dL (6.3-8.2)
[2019-07-22 11:42] LABS: ACT PARTIAL THROMBO TIME 24.3 SECONDS (20.0-32.5); PROTHROMBIN TIME 10.3 SECONDS (9.0-12.5)
--- NOTE | 2019-07-22 12:51 | NUR ---
CALLED MED SURG FOR REPORT, NURSE UNAVAILIABLE, NURSE WAS SAID THAT SHE WILL CALL BACK
--- NOTE | 2019-07-22 13:05 | NUR ---
REPORT KATHY JACOME RN
--- NOTE | 2019-07-22 13:06 | NUR ---
PT TRANSPORTED TO MED SURG STABLE AND IN NO DISTRESS. CARE ASSUMED TO NAA SHERWOOD
--- NOTE | 2019-07-22 14:11 | NUR ---
S: OCTAVIA LEWIS is a 63 F who presents with Cellulitis of the leg/skin ulceraton. She has a history of Arthritis, Chicken Pox/herpes, HTN, Mental Disorder, A-Fib, CKD, COPD, Fibromyalgia. All medications in patient's chart were reviewed. O: VS: BP: 9/54 mmHg, P: 90 bpm, RR: 20 breath per minutes,T: 98.1 F W: 116.8 kg, HT: 65 in, Scr= 1.2 mg/dL,CrCl= 59.7 ml/min A: Blood culture is pending. P: Vancomycin ordered for pharmacy to dose. Start Vancomycin dose to 1,500 mg IV Q24H. Vancomycin trough is drawn 30 minutes before the 4th dose on 07/25/19 at 0230. Vancomycin goal trough is between 10-15 mcg/ml. Pharmacy will follow and or advise on antibiotics use as needed.
--- NOTE | 2019-07-22 15:19 | NUR ---
ASSESSMENT DONE. PT IS A&O X3. RESPS EVEN AND UNLABORED. PT STATED PAIN IN RIGHT LEG / MEDICATED PT WITH LORTAB. PT HAS A DRESSING IN PLACE STATED WOUND CARE HAD PLACE IT TODAY. PT HAS X3 NEGATIVE FOR MRSA AND EBSL. SAFETY PRECAUTIONS REINFORCED AND CALL LIGTH IN REACH.
[2019-07-22 15:50] VITALS: BP 127/80
[2019-07-22 19:00] VITALS: BP 136/75
--- NOTE | 2019-07-22 19:50 | NUR ---
PT SITTING ON SIDE OF BED, NO SIGNS OF DISTRESS NOTED, RESP EVEN AND UNLABORED. PT ALERT AND ORIENTED X3, NOTED EDEMA TO BLE, GREATHER TO THE RIGHT. DRESSING TO R ANKLE CDI, SURROUNDING AREA REDDENED. ASSESSMENT COMPLETED, CALL LIGHT IN REACH,CONTINUE TO MONITOR.
--- NOTE | 2019-07-22 22:40 | NUR ---
PT C/O RASH TO ARMS BILAT, NOTED AREA RAISED AND REDDENED. PT SCRATCHING, NOTIFIED AND BENADRYL ORDERED. CALL LIGHT IN REACH,CONTINUE TO MONITOR.
--- NOTE | 2019-07-23 | NUR ---
PT SITTING ON SIDE OF BED REQUESTING DAYSI CRACKERS AND GINGERALE. PT VOICES NO NEEDS OR COMPLAINTS AT THIS TIME, CALL LIGHT IN REACH,CONTINUE TO MONITOR.
[2019-07-23 03:50] VITALS: BP 111/74
--- NOTE | 2019-07-23 06:15 | NUR ---
PT SITTING ON SIDE OF BED, PT MEDICATED PER MAR, VOICES NO NEEDS OR COMPLAINTS AT THIS TIME, CALL LIGHT IN REACH,CONTINUE TO MONITOR.
[2019-07-23 07:43] VITALS: BP 118/64
--- NOTE | 2019-07-23 08:00 | NUR ---
SHIFT CHANGE [id number], PT AWAKE ALERT AND ORIENTED SITTING UP AT BEDSIDE, C/O GENERALISED PAIN TO BACK AND EXTREMETIES, DRESSING TO RIGHT LOWER LEG CDI, BED IN LOWEST POSITION AND CALL WEST IN REACH.
--- NOTE | 2019-07-23 09:25 | NUR ---
I SPOKE WITH TATI FROM IV THERAPY AT 0910 AM AND SHE VERIFIED THAT WOULD BE IN TO SEE THIS PT TODAY ABOUT THE CONSULTATION ORDERED FOR THE REOCCURING WOUND ULCER. EXT:[id number]
--- NOTE | 2019-07-23 12:00 | NUR ---
DR BRAMBILA ROUNDED, REMOVED DRESSING AND EVALUATED WOUND, WROTE ORDERS AND DISCUSSED PLAN WITH PT WHO STATED UNDERSTANDING.
[2019-07-23 15:45] VITALS: BP 133/84
--- NOTE | 2019-07-23 16:00 | NUR ---
DR MOORE ROUNDED, INFORMED PT OF PLAN, APPLIED NEW DRESSING TO RIGHT LEG. PT LATER COMPLAINED LEG WAS THROBBING DRESSING WAS TOO TIGHT. DRESSING WAS REPLACED WITH ORDERED DRESSING FRO WOUND CARE MD, PT INFORMED OF ORDERS AND STATED UNDERSTANDING.
--- NOTE | 2019-07-24 00:20 | NUR ---
PATIENT RESTING, PATIENT A/OX4, NO S/S RESP DISTRESS, PATIENT ON ROOM AIR, NO S/S PAIN, UNABLE TO ASSESS WOUND, PATIENT WOUND DRESSING CLEAN,DRY AND INTACT,WILL CONTINUE TO MONITOR PATIENT HOURLY ROUNDING, CALL LIGHT WITHIN REACH
[2019-07-24 04:00] VITALS: BP 110/66
[2019-07-24 07:30] VITALS: BP 112/68
--- NOTE | 2019-07-24 07:30 | NUR ---
PT A&0X4, ABLE TO MAKE NEEDS KNOWN. PT DENIES CP, SOB OR DISTRESS AT THIS TIME. RESPIRATIONS EVEN/UNLABORED, LS CLEAR THROUGHOUT. ABDOMEN DISTENDED, NON-TENDER, BSX4 ACTIVE. LBM 124-20. PT AFEBRILE, DRESSING TO RLE CDI, NO DRAINAGE NOTED AT THIS TIME. 22G TO LFA/SL FLUSHED WITHOUT DIFFICULTY. NO S/S OF INFILTRATION OR SWELLING AT SITE. CALL LIGHT IN REACH. WILL MONITOR.
--- NOTE | 2019-07-24 08:06 | NUR ---
PT MEDICATED FOR PAIN 02/06 TO RLE, BACK, R KNEE. REQUESTED. CALL LIGHT IN REACH. WILL MONITOR.
--- NOTE | 2019-07-24 12:00 | NUR ---
PT RESTING IN BED, RESPIRATIONS EVEN/UNLABORED. RLE ELEVATED WITH PILLOW.
[2019-07-24 13:58] LABS: ALBUMIN 4.5 g/dL (3.2-5.0); BILIRUBIN, TOTAL 0.3 mg/dL (0.0-1.4); C-REACTIVE PROTEIN 2.9 mg/dL (0-0.9); TOTAL PROTEIN 8.2 g/dL (6.3-8.2)
--- NOTE | 2019-07-24 15:31 | NUR ---
DR. PATEL AND GILBERT RAMIREZ AT [facility] FOR ASSESSMENT AND TO DISCUSS PLAN OF CARE, NEW ORDERS RECIEVED.
[2019-07-25 04:00] VITALS: BP 141/72
--- NOTE | 2019-07-25 04:40 | NUR ---
PATIENT A/OX4, NO S/S RESP DISTRESS, PATIENT ON ROOM AIR, PATIENT C/O 8/10 IN RIGHT LOWER LEG, TREATED PATIENT PAIN WITH PAIN MED PER MD ORDERS, WILL CONTINUE MONITOR HOURLY ROUNDING WILL REASSES PATIENT PAIN INTENSITY, CALL LIGHT WITHIN REACH
--- NOTE | 2019-07-25 07:10 | NUR ---
REPORT RECEIVED FROM PRESLEY TALLEY;PT APPEARS TO BE RESTING AT BEDSIDE;INTRODUCED SELF TO PT ANF POC DISCUSSED;RESPIRATIONS EVEN AND UNLABORED ON RA;PT DENIES ANY CURRENT PAIN OR NEEDS;PT ENCOURAGED TO CALL FOR ASSISTANCE IF NEEDED;ALL SAFETY PRECAUTIONS IN PLACE WITH BED IN THE LOWEST POSITION AND CALL LIGHT IN REACH;WILL CONTINUE TO MONITOR
[2019-07-25 08:17] VITALS: BP 140/85
--- NOTE | 2019-07-25 08:20 | NUR ---
PT OOB RESTING IN RECLINER,A&O X3;VS OBTAINED AND ASSESSMENT COMPLETED;PT DENIES ANY CURRENT PAIN OR DISCOMFORTS,PAIN SCALE AND REPORTING EDUCATED;RESPIRATIONS EVEN AND UNLABORED ON RA,CLEAR LUNG SOUNDS;ABDOMEN DISTENDED/SOFT ON PALPATION AND ACTIVE IN ALL 4 QUADRANTS;WEAK PEDAL PULSES;DRESSING TO LLE CDI;#22G TO LEFT FOREARM FLUSHED AND PATENT,SITE APPEARS HEALTHY;PT DENIES ANY ADDITIONAL NEEDS AT THIS TIME AND IS ENCOURAGED TO CALL FOR ASSISTANCE IF NEEDED;CALL LIGHT IN REACH;WILL CONTINUE TO MONITOR
--- NOTE | 2019-07-25 11:40 | NUR ---
PT RESTING IN SEMI FOWLERS POSITION AFTER TAKING A SHOWER;RESPIRATIONS EVEN AND UNLABORED ON RA;PT REPORTS HEADACHE PAIN RATING 6/10 ON THE PAIN SCALE AND REQUESTS TYLENOL, PT MEDICATED WITH PRN TYLENOL 650MG PO AT THIS TIME;IV SITE PATENT;RLE DRESSING CHANGED AT THIS TIME,PT TOLERATED WELL;PT DENIES ANY ADDITIONAL NEEDS AND IS ENCOURAGED TO CALL FOR ASSISTANCE IF NEEDED;FALL PRECAUTIONS IN PLACE WITH CALL LIGHT IN REACH;WILL CONTINUE TO MONITOR
[2019-07-25 13:06] LABS: HEMATOCRIT 32.7 % (37.0-47.0); HEMOGLOBIN 9.6 g/dl (12.0-16.0); MEAN CELL VOLUME 97.6 fL CALC (80.0-100.0); MEAN CORPUSCULAR HGB 28.7 pG CALC (26.0-32.0); MEAN CORPUSCULAR HGB CONC 29.4 g/L CALC (32.0-36.0); RED BLOOD COUNT 3.35 mill/uL (4.20-5.60); RED CELL DISTRI WIDTH 15.5 % (11.5-15.5)
--- NOTE | 2019-07-25 13:22 | NUR ---
PT MEDICATED WITH PRN LORTAB 10/325 MG PO FOR RT FOOT PAIN RATING 9/10 ON THE PAIN SCALE,WILL CONTINUE TO MONITOR FOR EFFECTIVENESS
[2019-07-25 13:35] LABS: CREATININE 1.3 mg/dL (0.5-1.0); POTASSIUM 4.1 mmol/l (3.5-5.1)
[2019-07-25 13:39] LABS: MAGNESIUM 2.2 mg/dL (1.6-2.3)
--- NOTE | 2019-07-25 13:51 | NUR ---
AT BEDSIDE DISCUSSING POC WITH PT.
--- NOTE | 2019-07-25 15:35 | NUR ---
PT RESTING IN SEMI FOWLERS POSITION;RESPIRATIONS EVEN AND UNLABORED ON RA;PT REPORTS THAT RLE PAIN HAS DECREASED SINCE PAIN MEDICATION ADMINISTRATION;IV ABX ADMINISTERED AT THIS TIME;ASSESSMENT REMAINS UNCHANGED;PT ENCOURAGED TO CALL FOR ASSISTANCE IF NEEDED;FALL PRECAUTIONS IN PLACE WITH CALL LIGHT IN REACH;WILL CONTINUE TO MONITOR
[2019-07-25 16:03] VITALS: BP 144/71
--- NOTE | 2019-07-25 19:10 | NUR ---
REPORT FROM SUE RAMSEY. PT SITTING UP IN BED. NO APPARENT DISTRESS NOTED. PT C/O PAIN L ANKLE AND FOOT. WILL MEDICATED AT NEXT AVAILABLE TIME. IV SITE APPEARS HEALTHY. DISCUSSED POC. PT VERBALIZED UNDERSTANDING. CALL LIGHT WITHIN REACH WILL CONTINUE TO MONITOR.
--- NOTE | 2019-07-25 19:10 | NUR ---
REPORT FROM SUE RAMSEY. PT SITTING UP IN BED. NO APPARENT DISTRESS NOTED. PT C/O PAIN R ANKLE AND FOOT. WILL MEDICATED AT NEXT AVAILABLE TIME. IV SITE APPEARS HEALTHY. DISCUSSED POC. PT VERBALIZED UNDERSTANDING. CALL LIGHT WITHIN REACH WILL CONTINUE TO MONITOR.
[2019-07-25 20:59] VITALS: BP 149/82
--- NOTE | 2019-07-25 22:15 | NUR ---
SNACK PROVIDED UPON REQUEST. PT ALSO EATING PERSONAL SNACK BROUGHT FROM HOME WHILE LAYING IN BED WATCHING TV. WILL CONTINUE TO MONITOR.
--- NOTE | 2019-07-26 01:47 | NUR ---
PT MEDICATED FOR RLE PAIN 8-10. PT DENIES ANY OTHER WANTS OR NEEDS. CALL LIGHT WITHIN REACH. WILL CONTINUE TO MONITOR.
--- NOTE | 2019-07-26 03:22 | NUR ---
PT RESTING IN BED WITH EYES CLOSED. NO APPARENT DISTRESS NOTED. CALL LIGHT WITHIN REACH. WILL CONTINUE TO MONITOR.
[2019-07-26 05:32] VITALS: BP 112/64
[2019-07-26 08:10] VITALS: BP 120/70
--- NOTE | 2019-07-26 08:10 | NUR ---
ASSESSMENT IS COMPLETED: IV SITE IS FREE FROM REDNESS OR EDEMA. HR IS REG, PULSES ARE STRONG X4, ABD IS SOFT WITH ACTIVE BS. BREATH SOUNDS ARE CLEAR, BILATERALLY. TELE MONITOR IN PLACE. CONTINUE TO OBSERVE AND MONITOR.
--- NOTE | 2019-07-26 10:40 | NUR ---
REMOVED DRESSING ON R [place], PLACED IODIDE CREAM ON NON ADHERENT DRESSING. WRAPPED WITH CHARU WRAP AND SECURED WITH NETTING. PT TOLERAATED WELL. USED CLEAN TECHNIQUE. PT WANTED TO WAIT UNTIL AFTER A SHOWER TO CHANGE THE DRESSING.
--- NOTE | 2019-07-26 12:15 | NUR ---
PT HAS BEEN IN BED AND THEN THE CHAIR., NO DISTRESS NOTED. IV SITE IS FREE FROM REDNESS OR EDEMA. CONTINUE TO OBSERVE AND MONITOR.
[2019-07-26 13:12] LABS: CREATININE 1.1 mg/dL (0.5-1.0); POTASSIUM 4.6 mmol/l (3.5-5.1)
[2019-07-26 15:28] VITALS: BP 137/94
--- NOTE | 2019-07-26 16:15 | NUR ---
PT REMAINS IN THE CHAIR. NO DISTRESS NTOED. IV SITE IS FREE FROM, REDNESS OR EDEMA.
--- NOTE | 2019-07-26 17:30 | NUR ---
REMOVED DRESSING ON R [place]. WAS LEAKING CLEAR FLUID. REPLACED WITH 4X4 AND WRAPPED WITH CHARU SECURED WITH NETTING. PT TOLERATED WELL.
[2019-07-26 19:00] VITALS: BP 162/88
--- NOTE | 2019-07-26 20:00 | NUR ---
ASSESMENT COMPLETE, RLE WOUND ASSESMENT DEFFERED DRESSING IS ORDERED DAILY AND WAS CHANGED TWICE TODAY. DRESSING IS C/D/I. RLE ELEVATED. PLAN OF CARE REVIEWED WITH PATIENT, DENIES QUESTIONS AND VERBALIZES UNDERSTANDING. CALL WEST WITHIN REACH, AGREES TO CALL PRN.
[2019-07-26 21:45] VITALS: BP 172/88
[2019-07-27 00:05] VITALS: BP 120/60; BP 158/70
--- NOTE | 2019-07-27 00:05 | NUR ---
PT RESTING IN BED, REQUEST PAIN MEDICATION WHEN IT IS DUE AGAIN. PT ADVISED SHE WAS DUE @ 0130, PT REQUEST I BRING IT AT THAT TIME, STATES SHE CAN WAIT TILL THEN. MANUAL B/P 120/60 HR 96 BY PULSEOX. CALL WEST REMAINS WITHIN REACH, AGREES TO CALL PRN.
[2019-07-27 04:00] VITALS: BP 95/66
--- NOTE | 2019-07-27 04:55 | NUR ---
PT REQUESTING NEB TX, STATES SHE TAKES AT HOME PRN. RESP REG/UNLABORED, LUNG SOUNDS CLEAR THROUGHOUT, O2 SAT 94-95% ON RA. ORDER FOR PRN DuGregoryB RECV'D, RT NOTIFIED PT IS REQUESTING TX.
--- NOTE | 2019-07-27 05:20 | NUR ---
B/P MANUAL RECHECK 110/75, PT REPORTS SHE FEELS "LIGHT-HEADED". PT ADVISED NOT TO GET OOB ALONE AND AGREES TO USE CALL WEST. WILL DELAY AM LASIX DOSE SECONDARY TO COMPLAINTS OF "LIGHT-HEADED" AND DROP IN B/P. PT AGREES. WILL ENDORSE TO DAYSWAFT NURSE TO CLARIFY WITH MD IF HE WOULD LIKE LASIX GIVEN PREVIOUSLY ORDERED AND TO MONITOR FOR FURTHER SIGNS OF HYPOVOLEMIA.
[2019-07-27 05:23] VITALS: BP 110/75; BP 110/95
[2019-07-27 08:00] VITALS: BP 133/76
--- NOTE | 2019-07-27 08:00 | NUR ---
ASSESSMENT IS COMPLETED: IV SITE IS FREE FROM REDNESS OR EDEMA. HR IS REG,PULSES ARE STRONG X4, ABD IS SOFT WITH ACTIVE BS. BREATH SOUNDS ARE CLEAR,BILATERALLY. PT C/O R EAR AND THROAT HURTING. CONTINUE TO OBSERVE AND MONITOR
[2019-07-27] MEDS ORDERED: MEDDOSEPAK PO (09:42)
[2019-07-27 11:38] VITALS: BP 110/75
--- NOTE | 2019-07-27 12:15 | NUR ---
PT IS RELAXING IN BED WITH NO DISTRESS NOTED. IV SITE IS FREE FROM REDNESS OR EDMEA. CONTINUE TO OBSERVE AND MONITOR.
--- NOTE | 2019-07-27 12:29 | NUR ---
REMOVED DRESSING ON R LEG, SO PT CAN TAKE A SHOWER. IV SITE IS FREE FROM REDNESS OR EDEMA.
--- NOTE | 2019-07-27 16:15 | NUR ---
PT IS RELAXING ON THE BED. WAITING ON HER SON IN LAW TO COME. IV SITE IS FREE FROM REDNESS OR EDMEA. CONTINUE TO OBSERVE AND MONITOR.
--- NOTE | 2019-07-27 18:21 | NUR ---
IV SITE DISCONTINUED CATHETER INTACT. DISCHARGE INSTRUCTIONS GIVEN AND VERBALIZED UNDERSTANDING. FMAILY IN THE ROOM. Discharge instructions given. Patient verbalizes understanding of same. Discharged in stable condition via Wheelchair to Home with family. All belongings sent with pt.
[2019-11-30] MEDS ORDERED: PERCOCET 10/31 COMBO PO (12:15)
[2019-12-28] MEDS ORDERED: PERCOCET 10/31 COMBO PO (11:58)
[2020-01-25] MEDS ORDERED: PERCOCET1 TA4 PO (11:57)
[2020-02-22] MEDS ORDERED: PERCOCET1 TA2 PO (16:06)
[2020-03-21] MEDS ORDERED: PERCOCET1 TA4 PO (14:11)
== END 2019-07-27 18:10 | disposition home health service (06) | DRG 603 ==
LOC: ED 10:28 → ED-I 11:50 → ED 12:00 → MS2 12:01
PROVIDERS: Internal Medicine Infectious Disease; Nurse Practitioner Family; ADMIT Internal Medicine; ATTEND Internal Medicine
DX: L03.115 Cellulitis of right lower limb (principal); I83.218 Varicose veins of right lower extremity with both ulcer of other part of lower extremity and inflammation; L97.819 Non-pressure chronic ulcer of other part of right lower leg with unspecified severity; I13.0 Hypertensive heart and chronic kidney disease with heart failure and stage 1 through stage 4 chronic kidney disease, or unspecified chronic kidney disease; I50.32 Chronic diastolic (congestive) heart failure; I48.20 Chronic atrial fibrillation, unspecified; Z68.41 Body mass index [BMI] 40.0-44.9, adult; L97.212 Non-pressure chronic ulcer of right calf with fat layer exposed; N18.3 Chronic kidney disease, stage 3 (moderate); J44.9 Chronic obstructive pulmonary disease, unspecified; E66.01 Morbid (severe) obesity due to excess calories; I89.0 Lymphedema, not elsewhere classified; R21 Rash and other nonspecific skin eruption; B96.89 Other specified bacterial agents as the cause of diseases classified elsewhere; Z86.718 Personal history of other venous thrombosis and embolism; Z79.01 Long term (current) use of anticoagulants; I70.203 Unspecified atherosclerosis of native arteries of extremities, bilateral legs
CPT/HCPCS: G0378; J3370

== ENCOUNTER 2019-08-09 09:57 | Inpatient (IN) | payer MEDICARE, OTHER ==
[~2019-08-09] VITALS: Ht 165.1 cm; Wt 118.2 kg
--- NOTE | 2019-08-09 10:42 | NUR ---
PT STATES DR WAHL SENT HER TO HOSPITAL FOR ADMISSION. DR BRAMBILA WILL CALL BACK AFTER SPEAKING TO ADMITTING MD.
[2019-08-09 12:00] VITALS: BP 120/74
[2019-08-09] MEDS ORDERED: PRAMIPEXOLE0.125 M1 PO (13:17)
--- NOTE | 2019-08-09 14:15 | NUR ---
DIRECT ADMIT PATIENT A/OX4, NO S/S RESP DISTRESS, PATIENT C/O 02/06 RIGHT LEG ULCER, TREATED PATIENT PAIN PER MD ORDERS, WILL REASSESS PAIN LEVEL, PATIENT ONE PERSON ASSIST, PATIENT LAST BOWEL MOVEMENT 08/08/19, RIGHT LEG WOUND CHANGED AND WOUND CULTURE COLLECTED
[2019-08-09 15:22] VITALS: BP 115/73
[2019-08-09 15:22] LABS: URINE BILIRUBIN - DIPSTICK NEGATIVE (NEGATIVE); URINE BLOOD DIPSTICK NEGATIVE (NEGATIVE); URINE COLOR YELLOW; URINE GLUCOSE - DIPSTICK NEGATIVE (NEGATIVE); URINE KETONE NEGATIVE (NEGATIVE); URINE LEUK ESTERASE TRACE (NEGATIVE); URINE PH 5.5 (4.5-8.0); URINE PROTEIN - DIPSTICK NEGATIVE (NEG-TRACE); URINE SPECIFIC GRAVITY 1.015; URINE UROBILINOGEN - DIPSTICK 0.2 E.U./dL (0.2)
[2019-08-09 15:27] LABS: URINE NITRITE - DIPSTICK POSITIVE (Negative)
[2019-08-09 15:34] LABS: URINE BACTERIA RARE hpf; URINE RBC 0-2 RBC/hpf (0-5); URINE SQUAMOUS EPITHELIAL CELL FEW EPI/hpf (0-FEW)
[2019-08-09 16:38] LABS: HEMATOCRIT 37.7 % (37.0-47.0); HEMOGLOBIN 11.2 g/dl (12.0-16.0); IMMATURE GRANULOCYTES 0.4 % (0.0-5.0); MEAN CELL VOLUME 96.4 fL CALC (80.0-100.0); MEAN CORPUSCULAR HGB 28.6 pG CALC (26.0-32.0); MEAN CORPUSCULAR HGB CONC 29.7 g/L CALC (32.0-36.0); NEUT# 6.74 thou/uL (2.00-7.15); RED BLOOD COUNT 3.91 mill/uL (4.20-5.60)
[2019-08-09 16:58] LABS: ALBUMIN 4.2 g/dL (3.2-5.0); CREATININE 1.8 mg/dL (0.5-1.0); POTASSIUM 3.8 mmol/l (3.5-5.1); TOTAL PROTEIN 7.8 g/dL (6.3-8.2)
[2019-08-09 17:05] LABS: BILIRUBIN, TOTAL 0.5 mg/dL (0.0-1.4)
[2019-08-09 19:11] VITALS: BP 132/85
--- NOTE | 2019-08-09 19:30 | NUR ---
CHANGE OF SHIFT REPORT RECEIVED FROM PRESLEY TALLEY. PT RESTING IN BED. PT STATES THAT SHE WOULD LIKE HER PAIN MEDICATION AFTER 8:15PM FOR A PAIN LEVEL OF 5/10. RACE ENGINE BUILDER WILL CONTINUE TO MONITOR.
--- NOTE | 2019-08-10 | NUR ---
PATIENT ON BEDSIDE COMMODE. PATIENT IS ABLE TO MAKE NEEDS KNOWN
[2019-08-10 03:58] VITALS: BP 131/87
--- NOTE | 2019-08-10 05:17 | NUR ---
PATIENT RESTING COMFORTABLY. TYLENOL EFFECTIVE IN CONTROLLING PAIN. WIRE BORDER ASSEMBLER WILL CONTINUE TO MONITOR.
[2019-08-10 08:11] VITALS: BP 109/65
--- NOTE | 2019-08-10 09:10 | NUR ---
PATIENT A/OX4, NO S/S RESP DISTRESS, PATIENT ON ROOM AIR, PATIENT C/O PAIN RIGHT ULCER PAIN, AT BEDSIDE MD CHANGE PATIENT WOUND TO RIGHT LEG, TREATED PATIENT PAIN PER MD ORDERS, CALL LIGHT WITHIN REACH
--- NOTE | 2019-08-10 11:29 | NUR ---
PATIENT A/OX4, NO S/S RESP DISTRESS, PATIENT C/O 10 PAIN RIGHT LOWER LEG, NOTIFIED SASH STICKER, LORTAB TAB ORDERED CHANGED TO EVERY FOUR HOURS PRN FOR PAIN, FOLLOW MD ORDERS, WILL CONTINUE MONITOR PATIENT, CALL LIGHT WITHIN REACH
[2019-08-10 14:45] VITALS: BP 135/76
--- NOTE | 2019-08-10 16:31 | NUR ---
PATIENT A/OX4, PATIENT C/O RIGHT CALF WILL TREAT PATIENT PAIN PER MD ORDERS, PATIENT NO S/S RESP DISTRESS, PATIENT ON ANTIBOTICS FOR ECOLI IN THE WOUND AND URINE, PATIENT TOLERATING ANTIBOTICS, WILL CONTINUE TO MONITOR PATIENT CALL LIGHT WITHIN REACH
[2019-08-10] MEDS ORDERED: DOXEPIN HYDROCH PO (16:34)
[2019-08-10] MEDS ORDERED: GABAPENTIN600 MG PO (16:36)
[2019-08-10] MEDS ORDERED: XARELTO20 MG PO (16:39)
[2019-08-10] MEDS ORDERED: PROVENTIL108 MCG/AC IN (16:41)
[2019-08-10] MEDS ORDERED: ADVAIR DISK1 IN (16:43)
--- NOTE | 2019-08-10 17:59 | NUR ---
PATIENT A/OX4, NO S/S RESP DISTRESS, PATIENT ON ROOM AIR, PATIENT C/O 7/10 PAIN IN RIGHT LEG, WILL TREAT PATIENT PAIN PER MD ORDERS, DR. RODRIGUEZ ASSESS WOUND AT BEDSIDE VIA VIDEO CALL, REMOVED DRESSING PER MD REQUEST, APPLIED NEW DRESSING TO ULCER RIGHT LEG, WILL CONTINUE TO MONITOT PATIENT, CALL LIGHT WITHIN REACH
[2019-08-10 19:30] VITALS: BP 132/59
--- NOTE | 2019-08-10 19:45 | NUR ---
REPORT RECEIVED FROM PRESLEY TALLEY. PT RESTING IN BED SEMI FOWLERS; ALERT AND ORIENTED; RIGHT SIDE RAIL DOWN; WHEN ATTEMPTING TO PUT IT BACK UP PT REQUESTS TO LEAVE IT DOWN. PT HAS FACIAL GRIMACING AND C/O SEVERE PAIN TO ULCER ON RIGHT LOWER DE LA ROSA; DRESSING IN PLACE CDI WITH REDNESS AND WARMTH SURROUNDING AREA. PAIN MEDICATION FREQUENCY WAS INCREASED TODAY; WILL ADMINISTER SCHEDULED. RESPIRATIONS EVEN AND UNLABORED ON ROOM AIR. PLAN OF CARE REVIEWED. PT ENCOURAGED TO VERBALIZE CONCERNS. STATES UNDERSTANDING. SAFETY MEASURES IN PLACE. CALL LIGHT WITHIN REACH.
--- NOTE | 2019-08-10 20:34 | NUR ---
PLACED ON CONTACT PRECAUTIONS FOR POSITIVE ESBL IN URINE.
--- NOTE | 2019-08-10 22:49 | NUR ---
LORTAB GIVEN WITH HS MEDS FOR SEVERE 10/10 PAIN TO ULCER ON RIGHT LEG. PT TEARFUL, BUT AMBULATED TO BATHROOM INDEPENDENTLY. PT REQUESTING DILAUDID. NEW ORDER RECEIVED FROM MORPHINE ONE TIME DOSE. PT CURRENTLY ASLEEP. WILL HOLD MORPHINE.
--- NOTE | 2019-08-10 23:15 | NUR ---
PT AWAKENED TO VERBAL STIMULI FOR NEW ABT; REPORTS THAT HER PAIN IS A 9/10 AND ASKS FOR THE MORPHINE. MORHPHINE GIVEN ALONG WITH ABT. PT AGAIN ASLEEP WITH LIGHT SNORE.
[2019-08-11 04:20] VITALS: BP 125/85
--- NOTE | 2019-08-11 04:29 | NUR ---
PT ASLEEP WITH NO SIGNS OF DISTRESS. RESPIRATIONS EVEN AND UNLABORED ON ROOM AIR. ADDITIONAL LORTAB GIVEN ONCE THROUGHOUT THE NIGHT; OTHERWISE NO REQUESTS OR COMPLAINTS. CALL LIGHT WITHIN REACH.
[2019-08-11 06:49] LABS: HEMATOCRIT 38.8 % (37.0-47.0); HEMOGLOBIN 11.5 g/dl (12.0-16.0); MEAN CELL VOLUME 96.5 fL CALC (80.0-100.0); MEAN CORPUSCULAR HGB 28.6 pG CALC (26.0-32.0); MEAN CORPUSCULAR HGB CONC 29.6 g/L CALC (32.0-36.0); RED BLOOD COUNT 4.02 mill/uL (4.20-5.60); RED CELL DISTRI WIDTH 15.6 % (11.5-15.5)
--- NOTE | 2019-08-11 07:00 | NUR ---
SHIFT CHANGE REPORT, PT SLEEPING IN SUPINE POSITION BUT RESPONDS TO VERBAL STIMULI, ORIENTED, NO C/O DISCOMFORT AT THIS TIME, CALL WEST IN REACH AND BED IN LOWEST POSITION.
[2019-08-11 07:06] LABS: CREATININE 2.1 mg/dL (0.5-1.0); MAGNESIUM 1.7 mg/dL (1.6-2.3)
[2019-08-11 08:48] VITALS: BP 116/64
--- NOTE | 2019-08-11 11:15 | NUR ---
SITTING UP ON SIDE OF BED, C/O SEVERE PAIN TO RIGHT LOWER LEG, REPORTS LORTAB DOES NOT RELIEVE HER PAIN, ALL OTHER NEEDS ADDRESSED, WILL CONTINUE TO MONITOR.
--- NOTE | 2019-08-11 13:14 | NUR ---
MEDICAL TEAM ROUNDED, ASSESSED WOUND, WROTE ORDERS, GILBERT (SALMA) STATED SHE WILL CONTACT DR WAHL FOR FURTHER ORDERS, OLD DRESSIN REMOVED AND WOUND COVERED TEMPORARILY WITH DRY STERILE ABDELRAHMAN AFTER CLEANING WITH 0.9NS.
--- NOTE | 2019-08-11 14:48 | NUR ---
DR DODSON ROUNDED, DISCUSSED SURGICAL PLAN WITH PT WHO STATED UNDERSTANDING. DR WAHL ROUNDED AND CHANGED DRESSING, NO NEW ORDERS YET.
[2019-08-11 16:00] VITALS: BP 119/76
[2019-08-11 18:56] VITALS: BP 156/84
--- NOTE | 2019-08-11 19:35 | NUR ---
PATIENT SITTING UP IN BED WATCHING TV. RESP EVEN AND UNLABORED. NO S/S OF DISTRESS NOTED. WOUND DRESSING CDI. PLAN OF CARE DISCUSSED. PATIENT INFORMED TO CALL WITH ANY QUESTIONS OR CONCERNS. FALL PRECAUTIONS IN PLACE.
--- NOTE | 2019-08-11 23:25 | NUR ---
PATIENT RESTING WITH EYES CLOSED. RESP EVEN AND UNLABORED. NO S/S OF DISTRESS NOTED.
[2019-08-12] VITALS (11 sets, daily range): BP systolic 110–152; BP diastolic 55–98
--- NOTE | 2019-08-12 04:06 | NUR ---
PATIENT RESTING WITH EYES CLOSED. RESP EVEN AND UNLABORED. NO S/S OF DISTRESS NOTED.
[2019-08-12 06:08] LABS: HEMATOCRIT 37.1 % (37.0-47.0); HEMOGLOBIN 11.5 g/dl (12.0-16.0); MEAN CELL VOLUME 93.7 fL CALC (80.0-100.0); RED BLOOD COUNT 3.96 mill/uL (4.20-5.60); RED CELL DISTRI WIDTH 15.5 % (11.5-15.5)
[2019-08-12 06:40] LABS: ALBUMIN 3.8 g/dL (3.2-5.0); BILIRUBIN, TOTAL 0.4 mg/dL (0.0-1.4); CREATININE 1.6 mg/dL (0.5-1.0); POTASSIUM 3.7 mmol/l (3.5-5.1); TOTAL PROTEIN 6.9 g/dL (6.3-8.2)
--- NOTE | 2019-08-12 07:00 | NUR ---
REPORT RECEIVED FROM PRESLEY HAIRSTON;PT APPEARS TO BE SLEEPING IN SEMI FOWLERS POSITION;NO S/S OF DISTRESS NOTED;RESPIRATIONS APPEAR EVEN AND UNLABORED ON RA;NPO DIET IN PLACE;CONTACT PRECAUTIONS NOTED;SAFETY PRECAUTIONS IN PLACE WITH BED IN THE LOWEST POSITION AND CALL LIGHT IN REACH;WILL CONTINUE TO MONITOR
--- NOTE | 2019-08-12 07:50 | NUR ---
PT RESTING IN SEMI FOWLERS POSITION,A&O X3;VS OBTAINED AND ASSESSMENT COMPLETED;PT DENIES ANY CURRENT PAIN OR DISCOMFORTS,PAIN SCALE AND REPORTING EDUCATED;RESPIRATIONS EVEN AND UNLABORED ON RA,CLEAR LUNG SOUNDS;ABDOMEN DISTENDED/SOFT ON PALPATION AND ACTIVE IN ALL 4 QUADRANTS;WEAK PEDAL PULSES;DRESSING TO RLE CDI;#22G TO RFA FLUSHED AND PATENT,SITE APPEARS HEALTHY;CONTACT PRECAUTIONS IN PLACE;NPO DIET REINFORCED AND PT VERBALIZES UNDERSTANDING;PT DENIES ANY ADDITIONAL NEEDS AT THIS TIME AND IS ENCOURAGED TO CALL FOR ASSISTANCE IF NEEDED;CALL LIGHT IN REACH;WILL CONTINUE TO MONITOR
--- NOTE | 2019-08-12 07:58 | NUR ---
INFORMED CONSENT OF DEBRIDEMENT OF RIGHT LEG ULCER OBTAINED AT THIS TIME;PT VERBALIZES UNDERSTANDING AND ALL RISKS/BENEFITS DISCUSSED.
--- NOTE | 2019-08-12 08:02 | NUR ---
PT TRANSPORTED TO OR IN STABLE CONDITION VIA STRETCHER ACCOMAPANIED BY OR STAFF MEMBER.
--- NOTE | 2019-08-12 10:34 | NUR ---
PT ARRIVED BACK TO MED/SURG ROOM 277 IN STABLE CONDITION VIA STRETCHER IN STABLE CONDITION ACCOPANIED BY JUANITARN AND STACIARN;BEDSIDE REPORT RECEIVED BY PRESLEY GRANT;PT A&O X3 AND RE-ORIENTED TO ROOM AND CALL LIGHT SYSTEM;PT RE-POSITIONED INTO HOSPITAL BED;RESPIRATIONS REMAIN EVEN AND UNLABORED ON RA;VS OBTAINED AND WNL;PT REPORTS GENERALIZED PAIN RATING 5/10 ON THE PAIN SCALE AND REQUESTS PAIN MEDICATION,PT TO BE MEDICATED WITH PRN PERCOCET 10/325MG PO 1 COMBO;FRESH WATER PROVIDED PER REQUEST;#22G TO RFA INFUSING LR @ 100ML/HR,SITE APPEARS HEALTHY;PT ENCOURAGED TO CALL FOR ASSISTANCE IF NEEDED;CALL LIGHT IN REACH;WILL CONTINUE TO MONITOR
--- NOTE | 2019-08-12 11:30 | NUR ---
PT RESTING IN SEMI FOWLERS POSITION;RESPIRATIONS EVEN AND UNLABORED ON RA;PT REPORTS THAT PAIN HAS DECREASED TO 4/10 ON THE PAIN SCALE AFTER PAIN MEDICATION ADMINISTRATION;IV FLUIDS INFUSING WITH EASE TO RFA;ASSESSMENT REMAINS UNCHANGED AT THIS TIME;PT ENCOURAGED TO CALL FOR ASSISTANCE IF NEEDED;CALL LIGHT IN REACH;WILL CONTINUE TO MONITOR
--- NOTE | 2019-08-12 12:30 | NUR ---
AT BEDSIDE DISCUSSING POC.
--- NOTE | 2019-08-12 15:15 | NUR ---
PT RESTING IN SEMI FOWLERS POSITION;RESPIRATIONS EVEN AND UNLABORED ON RA;PT REPORTS RLE PAIN RATING 10/10 ON THE PAIN SCALE AND REQUESTS PAIN MEDICATION, PT MEDICATED WITH PRN MORPHINE 2MG IVP AT THIS TIME;IV SITE PATENT;DRESSING TO RLE CDI;PT ENCOURAGED TO CALL FOR ASSISTANCE IF NEEDED;FALL PRECAUTIONS REMAIN IN PLACE WITH BED IN THE LOWEST POSITION AND CALL LIGHT IN REACH;WILL CONTINUE TO MONITOR
--- NOTE | 2019-08-12 19:15 | NUR ---
REPORT RECEIVED FROM ROXY ROGERS. PT RESTING IN BED SEMI FOWLERS IN BED WITH FACIAL GRIMACING AND MOANING. PT REPORTS 10/10 PAIN TO RLE AT SITE OF I&D; DRESSING CDI. RESPIRATIONS EVEN AND UNLABORED ON ROOM AIR. PLAN OF CARE REVIEWED. PT ENCOURAGED TO VEBRALIZE CONCERNS. STATES UNDERSTANDING. SAFETY MEASURES IN PLACE. CALL LIGHT WITHIN REACH.
--- NOTE | 2019-08-12 20:19 | NUR ---
MORPHINE ADMINISTERED WITH NO EFFECT; PT PLACED CALL LIGHT TO ASK WHEN THE PAIN MEDICATION WOULD BE GIVEN; REMINDED THAT MORPHINE WAS EXPLAINED AND ADMINSITERED ABOUT 30 MINUTES AGO. PT ASKING WHEN PERCOCET IS DUE NEXT. RELAXATION TECHNIQUES ENCOURAGED. PT YELLING OUT AND LOUDLY MOANING.
--- NOTE | 2019-08-12 22:49 | NUR ---
IV SITE TO RFA LEAKING WITH ABT; SITE D/C'D AND NEW SITE STARTED TO RFA. PERCOCET GIVEN WITH PM MEDICATIONS; PT NOW C/O 9/10 LEG PAIN. ELEVATED FOOT ON PILLOW.
[2019-08-13 00:05] VITALS: BP 135/77
--- NOTE | 2019-08-13 00:25 | NUR ---
PT INCONTINENT OF LARGE BOWEL MOVEMENT; AMBULATING INTO BATHROOM YELLING FOR HELP. ASSISTED TO TOILET AND ASSISTED PARITAL BATH GIVEN AND LINEN CHANGE. MORPHINE GIVEN AT THIS TIME.
[2019-08-13 03:33] VITALS: BP 150/84
--- NOTE | 2019-08-13 04:33 | NUR ---
PT AMBULATING IN ROOM. ALTERNATING MORPHINE AND PERCOCET FOR PAIN. SAFETY MEASURES IN PLACE. CALL LIGHT WITHIN REACH.
[2019-08-13 05:18] LABS: HEMATOCRIT 40.1 % (37.0-47.0); HEMOGLOBIN 11.7 g/dl (12.0-16.0); MEAN CELL VOLUME 97.1 fL CALC (80.0-100.0); MEAN CORPUSCULAR HGB 28.3 pG CALC (26.0-32.0); MEAN CORPUSCULAR HGB CONC 29.2 g/L CALC (32.0-36.0); RED BLOOD COUNT 4.13 mill/uL (4.20-5.60); RED CELL DISTRI WIDTH 15.8 % (11.5-15.5)
[2019-08-13 05:21] LABS: CREATININE 1.7 mg/dL (0.5-1.0)
[2019-08-13 05:23] LABS: POTASSIUM 4.8 mmol/l (3.5-5.1)
--- NOTE | 2019-08-13 05:42 | NUR ---
MORPHINE GIVEN FOR 9/10 RLE PAIN.
[2019-08-13 07:45] VITALS: BP 145/102
--- NOTE | 2019-08-13 07:45 | NUR ---
ASSESSMENT IS COMPLETED: IV SITE IS FREE FROM REDNESS OR EDMEA. HR IS REG, PULSES ARE STRONG X4, AB DIS SOFT WITH ACTIVE BS. BREATH SOUNDS ARE CLEAR, BILATERALLY. DRESSING ON R CALF IS CDI.
--- NOTE | 2019-08-13 10:54 | NUR ---
DR EID IN TO SEE PT REMOVED DRESSING ON HER R LEG, USING CLEAN TECHNIQUE. REPLACED WITH VASELINE GAUZE WRAPPED KERLIX AND SECURED WITH PACO WRAP. PT CONITNUED TO HAVE A ALOT OF PAIN. CONTINUE TO OBSERVE AND MONITOR.
--- NOTE | 2019-08-13 12:40 | NUR ---
PT IS RELAXING IN BED, NO DISTRESS NTOED. IV SITE IS FREE FROM REDNESS OR EDEMA.
[2019-08-13] MEDS ORDERED: XARELTO15 MG PO (14:00)
[2019-08-13] MEDS ORDERED: LORAZEPAM0.5 MG PO (14:00)
[2019-08-13] MEDS ORDERED: PERCOCET 10/31 COMBO PO (14:00)
--- NOTE | 2019-08-13 14:26 | NUR ---
PT IS IN BED "TALKING ABOUT FAMILY AND CALLING THEIR NAMES." CONTINUE TO OBSERVE AND MONITOR.
[2019-08-13 15:05] VITALS: BP 143/79
[2019-08-13 19:33] VITALS: BP 129/68
--- NOTE | 2019-08-13 20:00 | NUR ---
CHANGE OF SHIFT REPORT RECEIVED FROM ROXY DIETRICH. PATIENT IN ROOM. PATIENT IS ABLE TO MAKE NEEDS KNOWN. TISSUE COORDINATOR WILL CONTINUE TO MONITOR.
[2019-08-13 23:31] VITALS: BP 139/91
--- NOTE | 2019-08-14 | NUR ---
PATIENT RESTING COMFORTABLY. EYES CLOSED, RESPIRATION EVEN AND UNLABORED. PRODUCTION CONTROL SCHEDULER WILL CONTINUE TO MONITOR
--- NOTE | 2019-08-14 03:30 | NUR ---
IV FOUND ON BEDSIDE TABLE. PT STATES THAT IV PULLED OUT BY MISTAKE WHEN SHE WAS TRANSFERRING OUT OF BED. SKIDWAY WORKER UNABLE TO ADMINISTER MORPHINE SULFATE AT THIS TIME. SKIDWAY WORKER ATTEMPTED TO INSERT IV X 2 UNSUCESSFULLY. SKIDWAY WORKER FINALLY ABLE TO INSERT ANGIOCATH #24 ON RIGHT HAND. MORPHINE SULFATE ADMINISERED AT 0347 AM. SKIDWAY WORKER WILL CONTINUE TO MONITOR.
[2019-08-14 03:53] VITALS: BP 114/66
--- NOTE | 2019-08-14 04:15 | NUR ---
PATIENT RESTING COMFORTABLY. RESPIRATION EVEN AND UNLABORED. POOL PLAYER WILL CONTINUE TO MONITOR.
[2019-08-14 08:20] VITALS: BP 109/67
--- NOTE | 2019-08-14 08:20 | NUR ---
ASSESSMENT IS COMPLETED: IV SITE IS FREE FROM REDNESS OR EDEMA. HR IS REG,PULSES ARE STRONG X4, ABD IS SOFT WITH ACTIVE BS. BREATH SOUNDS ARE CLEAR,AND DIMINISHED. DRESSING ON R LEG. CONTINEU TO OSBERVE AND MONITOR.
--- NOTE | 2019-08-14 12:15 | NUR ---
PT IS RELAXING IN BED WITH NO DISTRESS NOTED. IV SITE IS FREE FROM REDNESS OR EDEMA.
[2019-08-14 15:40] VITALS: BP 104/65
--- NOTE | 2019-08-14 16:15 | NUR ---
PT IS RELAXING IN BED WITH NO DISTRESS NOTED. IV SITE IS FREE FROM REDNESS OR EDEMA.
--- NOTE | 2019-08-14 18:00 | NUR ---
REMOVED DRESSING ON R LEG.WITH CLEAN TECHNIQUE. REPLACED WITH VASELINE GAUZE, KERLEX DRESSING AND PACO WRAP. PT TOLERATED WELL.
[2019-08-14 18:29] VITALS: BP 113/61
--- NOTE | 2019-08-14 19:45 | NUR ---
PHYSICAL ASSESMENT COMPLETE. PLAN OF CARE REVIEWED. CALL WEST WITHIN REACH, AGREES TO CALL PRN.
--- NOTE | 2019-08-14 23:47 | NUR ---
PT APPEARS TO BE SLEEPING COMFORTABLY, RESP REG/UNLABORED, NO APPARENT DISCOMFORT. CALL WEST REMAINS WITHIN REACH.
[2019-08-15 03:57] VITALS: BP 126/75
--- NOTE | 2019-08-15 04:50 | NUR ---
PT APPEARS TO BE SLEEPING COMFORTABLY, RESP REG/UNLABORED, NO APPARENT DISTRESS. CALL WEST REMAINS WITHIN REACH.
[2019-08-15 07:50] VITALS: BP 151/88
--- NOTE | 2019-08-15 07:50 | NUR ---
ASSESSMENT IS COMPLETED: IV SITE IS FREE FROM REDNESS OR EDEMA. HR IS REG,PULSES ARE STRONG X4, ABD IS SOFT WITH ACTIVE BS. BREATH SOUNDS ARE CLEAR BILATERALLY, DRESSING ON R LEG IS CDI. CONTINEU TO OSBERVE AND MONITOR.
--- NOTE | 2019-08-15 08:30 | NUR ---
PT INQUIRING IF SHE IS GOING TO REHAB, EXPLAINED WILL ASK KEN VASQUEZ AND DR NAJERA.
[2019-08-15 08:46] VITALS: BP 151/88
--- NOTE | 2019-08-15 12:30 | NUR ---
PT IS RELAXING AN WAITING FOR HER TRANSPORT TO [facility],
--- NOTE | 2019-08-15 15:59 | NUR ---
SPOKE WITH BRENDA SHERWOOD AT [facility]. TRANSPORTATION PICKED UP PT AT [id number]
--- NOTE | 2019-08-15 16:03 | NUR ---
ALL DISCHARGE INSTRUCTIONS GIVEN TO PT AND TRANSPORTER. Discharge instructions given. Patient verbalizes understanding of same. Discharged in stable condition via Wheelchair to *Other with *Other. All belongings sent with pt.TRANSPORT TO [facility]
[2019-11-30] MEDS ORDERED: PERCOCET 10/31 COMBO PO (12:15)
[2019-12-28] MEDS ORDERED: PERCOCET 10/31 COMBO PO (11:58)
[2020-01-25] MEDS ORDERED: PERCOCET1 TA4 PO (11:57)
[2020-02-22] MEDS ORDERED: PERCOCET1 TA2 PO (16:06)
[2020-03-21] MEDS ORDERED: PERCOCET1 TA4 PO (14:11)
== END 2019-08-15 15:49 | DRG 264 ==
LOC: ED 09:57 → EDSTATUS 11:32 → MS2 11:35
PROVIDERS: Nurse Practitioner Family; ADMIT Internal Medicine; ATTEND Internal Medicine
PROC: 0JBN0ZZ Excision of Right Lower Leg Subcutaneous Tissue and Fascia, Open Approach (ICD-10-PCS; principal; 2019-08-12)
DX: I83.218 Varicose veins of right lower extremity with both ulcer of other part of lower extremity and inflammation (principal); L97.815 Non-pressure chronic ulcer of other part of right lower leg with muscle involvement without evidence of necrosis; L03.115 Cellulitis of right lower limb; N39.0 Urinary tract infection, site not specified; Z16.12 Extended spectrum beta lactamase (ESBL) resistance; I13.0 Hypertensive heart and chronic kidney disease with heart failure and stage 1 through stage 4 chronic kidney disease, or unspecified chronic kidney disease; I50.32 Chronic diastolic (congestive) heart failure; I48.20 Chronic atrial fibrillation, unspecified; I42.9 Cardiomyopathy, unspecified; N18.3 Chronic kidney disease, stage 3 (moderate); J44.9 Chronic obstructive pulmonary disease, unspecified; G62.9 Polyneuropathy, unspecified; G43.909 Migraine, unspecified, not intractable, without status migrainosus; B96.20 Unspecified Escherichia coli [E. coli] as the cause of diseases classified elsewhere; E66.01 Morbid (severe) obesity due to excess calories; Z86.718 Personal history of other venous thrombosis and embolism; Z79.01 Long term (current) use of anticoagulants; Z91.11 Patient's noncompliance with dietary regimen
CPT/HCPCS: J0692; Q3014

== ENCOUNTER 2019-11-06 16:13 | Inpatient (IN) | payer MEDICARE, OTHER ==
[2019-11-06] VITALS (7 sets, daily range): BP systolic 87–158; BP diastolic 52–96
[~2019-11-06] VITALS: Ht 165.1 cm; Wt 114.0 kg
[~2019-11-06 16:13] MED LIST changes: +ADVAIR DISK1 IN; +DOXEPIN HYDROCH PO; +GABAPENTIN600 MG PO; +PERCOCET 10/31 COMBO PO; +PRAMIPEXOLE0.125 M1 PO; +PROVENTIL108 MCG/AC IN; +XARELTO15 MG PO; +XARELTO20 MG PO
--- NOTE | 2019-11-06 16:15 | NUR ---
PATIENT TO ROOM VIA EMS AND PHYSICIAN AT BEDSIDE FOR EVAL
--- NOTE | 2019-11-06 17:00 | NUR ---
A 3CM X 3CM ULCER IS NOTED ABOVE THE RIGHT ANKLE. IT IS WARM TO THE TOUCH AND REDNESS/INFLAMMATION NOTED ABOUT 12 INCHES OUT. PT STATES A PAIN OF IT 10/10
[2019-11-06 17:01] LABS: HEMOGLOBIN 11.3 g/dl (12.0-16.0); IMMATURE GRANULOCYTES 0.3 % (0.0-5.0); MEAN CELL VOLUME 93.2 fL CALC (80.0-100.0); MEAN CORPUSCULAR HGB 28.5 pG CALC (26.0-32.0); MEAN CORPUSCULAR HGB CONC 30.5 g/dL CAL (32.0-36.0); NEUT# 7.92 thou/uL (2.00-7.15); RED BLOOD COUNT 3.97 mill/uL (4.20-5.60); RED CELL DISTRI WIDTH 16.7 % (11.5-15.5)
[2019-11-06 17:11] LABS: URINE BILIRUBIN - DIPSTICK NEGATIVE (NEGATIVE); URINE BLOOD DIPSTICK NEGATIVE (NEGATIVE); URINE COLOR YELLOW; URINE GLUCOSE - DIPSTICK NEGATIVE (NEGATIVE); URINE KETONE NEGATIVE (NEGATIVE); URINE LEUK ESTERASE NEGATIVE (NEGATIVE); URINE PH 5.5 (4.5-8.0); URINE PROTEIN - DIPSTICK NEGATIVE (NEG-TRACE); URINE SPECIFIC GRAVITY 1.015; URINE UROBILINOGEN - DIPSTICK 0.2 E.U./dL (0.2)
[2019-11-06 17:19] LABS: URINE NITRITE - DIPSTICK POSITIVE (Negative); URINE SQUAMOUS EPITHELIAL CELL FEW EPI/hpf (0-FEW)
[2019-11-06 17:20] LABS: URINE BACTERIA MANY hpf
[2019-11-06 17:30] LABS: ALBUMIN 4.3 g/dL (3.2-5.0); ALKALINE PHOSPHATASE 93 u/l (38-126); BILIRUBIN, TOTAL 0.5 mg/dL (0.0-1.4); BUN 71 mg/dL (8-23); BUN/CREATININE RATIO 32 (12-20 (CALC)); CARBON DIOXIDE 31 mmol/l (22-30); CHLORIDE 93 mmol/l (95-108); CREATININE 2.2 mg/dL (0.5-1.0); GFR 22 ML/MIN (>=60 (CALC)); GFR FOR AFR.AMER. 27 ML/MIN (>=60 (CALC)); LIPASE 46 u/l (23-300); SODIUM 136 mmol/l (137-146); TOTAL PROTEIN 7.8 g/dL (6.3-8.2)
[2019-11-06 17:40] LABS: ANION GAP 16 (6-22 (CALC)); POTASSIUM 3.7 mmol/l (3.5-5.1); SGOT/AST 45 u/l (9-36)
--- NOTE | 2019-11-06 18:00 | NUR ---
PT RESTING ON STRETCHER WITH CALL LIGHT WITHIN REACH. WHILE ASKING PT FOR MED LIST, AND HER PURSE WAS KATHY, PT PASSED OUT TO SLEEP FOUR TIMES. SHE WAS REPEATEDLY AWAKEN UNTIL SHE WAS ABLE TO PROVIDE. PT AOX4. NOTIFIED
[2019-11-06 19:05] LABS: BARBITURATES NEGATIVE (NEGATIVE); COCAINE NEGATIVE (NEGATIVE); METHADONE NEGATIVE (NEGATIVE); TETRAHYDROCANNABIONOL NEGATIVE (NEGATIVE); TRICYLIC ANTIDEPRESSANTS POSITIVE (NEGATIVE)
[2019-11-06 19:06] LABS: OXCYCODONE POSITIVE (NEGATIVE)
--- NOTE | 2019-11-06 19:15 | NUR ---
PT HAS BIPAP ON AND RESTING WITH EYES CLOSED IV FLUIDS INFUSING IN PATENT IV
--- NOTE | 2019-11-06 20:00 | NUR ---
GAVE REPORT TO AKHIL IN ICU
--- NOTE | 2019-11-06 20:20 | NUR ---
64 yr old unkept white female admitted icu5 per stretcher room er. no acute resp diff. o2 cont per nc. transferred self to bed. bed weight obtained. rle red. open area rt outer leg. photo taken. diagnostic cardiac sonographer shows a fib hr 101. up to [facility] per request. voided well. rac twin cath in place. ivf began as ordered. history obtained per pt & er record. oriented to room. fall precautions initiated. rt notified of need for bipap.
--- NOTE | 2019-11-06 20:20 | NUR ---
PT TRANSPORTED TO ICU STABLE AND IN NO DISTRESS. WITH RESPIRATORY AT BEDSIDE. PT CARE ASSUMED TO AKHIL. Admission Note Report Given to: Transported by: Wheelchair X Stretcher Transported with: X Nurse Transporter X Patent IV X O2 X Ornamental Metal Erector Location: X ICU MS2
--- NOTE | 2019-11-06 22:00 | NUR ---
eyes closed. no distress. case monitor shows a fib hr 90.
[2019-11-07] VITALS (19 sets, daily range): BP systolic 89–144; BP diastolic 42–94
--- NOTE | 2019-11-07 00:01 | NUR ---
resting quietly. bipap conts. no resp diff.
--- NOTE | 2019-11-07 02:00 | NUR ---
resting quietly. resps even & unlabored. no apparent distress. corporate claims examiner shows a fib hr 84.
--- NOTE | 2019-11-07 04:00 | NUR ---
bipap cont. no resp diff. ivf infusing well.
--- NOTE | 2019-11-07 05:30 | NUR ---
up to [facility]. [place]. no resp diff.
--- NOTE | 2019-11-07 07:15 | NUR ---
REPORT RECEIVED FROM NIGHT NURSE. PT RESTING IN BED. ON BiPAP. NO DISTRESS NOTED. WILL CONTINUE TO MONITOR.
--- NOTE | 2019-11-07 07:34 | NUR ---
PT ALERT AND ORIENTED X4. NO DISTRESS NOTED. DENIES SOB. PT AMBULATED TO BEDSIDE COMMODE WITH STAND BY ASSIST. PT STATES BiPAP IS SCARY AND SHE WOULD LIKE IT OF. BiPAP TAKEN OF PER PATIENT REQUEST. PT ON ROOM AIR. O2 SAT 97%. WILL CONTINUE TO MONITOR.
--- NOTE | 2019-11-07 07:48 | NUR ---
DR. CORDOBA NOTIFIED PATIENT FLAGGED SEVER SEPSIS RISK
--- NOTE | 2019-11-07 07:51 | NUR ---
AGAPITO ROGERS NOTIFIED OF PATIENT SEPSIS RISK. NO NEW ORDERS AT THIS TIME
--- NOTE | 2019-11-07 08:18 | NUR ---
AGAPITO ROGERS AT BEDSIDE TO ASSESS PT
--- NOTE | 2019-11-07 09:30 | NUR ---
DR. CORDOBA AT BEDSIDE TO ASSESS PT
--- NOTE | 2019-11-07 09:43 | NUR ---
PT HAD 15 BEAT OF V-TACH. PT ASYMPTOMATIC. SITTING UP IN BED EATTING BREAKFAST. BP 98/65. DR. CORDOBA NOTIFIED. ORDER FOR CHEM7 AND MG LABS PLACED. WILL CONTINUE TO MONITOR.
--- NOTE | 2019-11-07 10:00 | NUR ---
WOUND CULTURE OF VENOUS ULCER OBTAINED AND SENT TO LAB. RIGHT LOWER LEG RED AND WARM. DR. CORDOBA AWARE. PER DR. CORDOBA REDNESS ON RLE TRACED AND MONITORED. WOUND DRESSED WITH TELFA AND KERLEX PER DR. CORDOBA. WILL CONTINUE TO MONITOR.
--- NOTE | 2019-11-07 10:33 | NUR ---
WOUND CONSULT PLACED FOR DR WAHL TO SEE PT TOMORROW. DUE TO LEG ULCER.
--- NOTE | 2019-11-07 10:38 | NUR ---
PT ON BEDSIDE COMMODE. PT STATES SHE HAS REALLY BAD GAS. DR. CORDOBA NOTIFIED. NO DISTRESS NOTED. WILL CONTINUE TO MONITOR.
--- NOTE | 2019-11-07 10:42 | NUR ---
SPOKE TO [facility] PT HOME HEALTH NURSE AND UPDATED HER ON PATIENT STATUS PER PATIENT REQUEST
[2019-11-07 10:53] LABS: CREATININE 1.8 mg/dL (0.5-1.0); POTASSIUM 3.8 mmol/l (3.5-5.1)
--- NOTE | 2019-11-07 11:13 | NUR ---
DR. CORDOBA NOTIFIED OF PATIENT K AND MG LEVEL. IV MG ORDERED.
--- NOTE | 2019-11-07 12:01 | NUR ---
PT SITTING UP IN BED FOR LUNCH. NO DISTRESS NOTED. RA. COMPANING OF PAIN. PAIN MEDICATION TO BE GIVEN. WILL CONTINUE TO MONITOR.
--- NOTE | 2019-11-07 14:50 | NUR ---
PT UP TO BEDSIDE COMMODE. LARGE BM. NO DISTRESS NOTED. WILL CONTINUE TO MONITOR.
--- NOTE | 2019-11-07 16:45 | NUR ---
PT UP TO BEDSIDE COMMODE. 1 BM. NO DISTRESS NOTED. DENIES SOB. PAIN ON RLE. PAIN MEDS TO BE GIVEN. WILL CONTINUE TO MONITOR
--- NOTE | 2019-11-07 18:08 | NUR ---
PT UP IN BED EATING DINNER. NO DISRESS NOTED. DENIES SOB. PT ON RA. AFEBRILE THIS SHIFT. VOIDING VIA BEDSIDE COMMODE. 2 BM'S THIS SHIFT. RLE STILL WARM TO TOUCH AND RED. REDNESS HAS NO GONE PASSED PREVIOUSLY MARKED AREA. PRN PAIN MEDICATIONS GIVEN FOR PAIN. REPORT TO BE GIVEN TO NIGHT NURSE.
--- NOTE | 2019-11-07 20:00 | NUR ---
awake. no resp diff. desk monitor shows a fib hr 95. rac twin cath in place. ns infusing @ 20cchr. po fluids taken well. up to bsc. urine cloudy yellow. fall precautions cont.
--- NOTE | 2019-11-07 21:10 | NUR ---
sonata 5mg po given per request for sleep.
--- NOTE | 2019-11-07 22:15 | NUR ---
percocet 10mg po & diet soda given per request.
[2019-11-08] VITALS (8 sets, daily range): BP systolic 109–162; BP diastolic 60–92
--- NOTE | 2019-11-08 00:20 | NUR ---
up to [facility]. [facility]. turkey sandwich given per request.
--- NOTE | 2019-11-08 02:15 | NUR ---
up to [facility]. [place]. no resp diff. [employer] rep shows a fib.
--- NOTE | 2019-11-08 03:25 | NUR ---
up to [facility]. [facility]. denies resp diff.
--- NOTE | 2019-11-08 04:30 | NUR ---
lab here. blood drawn.
[2019-11-08 05:12] LABS: CREATININE 1.6 mg/dL (0.5-1.0); MAGNESIUM 1.9 mg/dL (1.6-2.3); POTASSIUM 3.8 mmol/l (3.5-5.1)
--- NOTE | 2019-11-08 05:25 | NUR ---
percocet 10mg po given per request for leg pain.
--- NOTE | 2019-11-08 07:45 | NUR ---
REPORT RECEIVED FROM NIGHT NURSE. PT UP TO BEDSIDE COMMODE. VOIDING AND 1 BM. STAND BY ASSIST. PT SITTING UP AT EDGE OF BED TO EAT BREAKFAST. NO DISTRESS NOTED. PT DENIES SOB. PT STATES SHE STILL HAS PAIN IN RLE. NO PAIN MEDS DUE AT THIS TIME. ROM AND RELAXATION ENCOURAGED TO DECREASE PAIN. PT ON RA. RLE RED AND WARM. NO REDNESS PAST THE MARKING FROM YESTERDAY NOTED. DRESSING CLEAN, DRY AND INTACT. WILL CONTINUE TO MONITOR.
--- NOTE | 2019-11-08 08:16 | NUR ---
ROBOTIC WELDER KEN VALDIVIA AT BEDSIDE TO ASSESS PT
--- NOTE | 2019-11-08 08:45 | NUR ---
DR. CORDOBA AT BEDSIDE TO ASSESS PT
--- NOTE | 2019-11-08 10:10 | NUR ---
REPORT GIVEN TO PRESLEY YA
--- NOTE | 2019-11-08 10:30 | NUR ---
PT ARRIVED TO UNIT VIA WHEELCHAIR WITH ICU STAFF; ALERT AND ORIENTED. ASSITED TO BED AND ORIENTED TO ROOM AND CALL LIGHT SYSTEM.
--- NOTE | 2019-11-08 10:35 | NUR ---
PT TRANSFERRED TO [place] [id number] FROM ICU VIA WHEELCHAIR. PT IN STABLE CONDITION. NO DISTRESS NOTED. PT VERBILZED UNDERSTANDING OF TRANSFER. ALL BELONGINGS, MEDICATIONS AND MEDICAL CHART SENT WITH PATIENT. REPORT GIVEN TO FELTON.
--- NOTE | 2019-11-08 11:14 | NUR ---
PT RESTING IN BED SEMI FOWLERS. C/O 5/10 PAIN TO LOWER BACK AND RLE; RLE IS RED, SWOLLEN, AND WARM TO TOUCH WITH KERLEX DRESSING TO ANKLE CDI. GOOD PEDAL PULSES. RESPIRATIONS EVEN AND UNLABORED; PT DENIES SOB. LUNGS ARE CLEAR; HEART RATE IRREGULAR. TELE APPLIED. IV SITE APPEARS HEALTHY AND FLUSHES. SAFETY MEASURES IN PLACE. CALL LIGHT WITHIN REACH.
--- NOTE | 2019-11-08 14:40 | NUR ---
DR. KENDRICK AT BEDSIDE FOR WOUND CONSULT. NEW ORDERS FOR RLE ULCER; SWAB WITH IODINE; COVER AND SECURE WITH KERLIX ROLL GAUZE FROM TOES TO MID LEG LEVEL; AVOID COMPRESSION DRESSINGS; KEEP RIGHT LEG ELEVATED; DOPPLER ARTERIAL ULTRASOUND TO BOTH LEGS RUSSELL.
--- NOTE | 2019-11-08 15:22 | NUR ---
OFF UNIT; TRANSPORTED TO [facility] VIA WHEELCHAIR IN STABLE CONDITION. NEW DRESSING APPLIED TO RLE PRIOR TO TRANSPORT.
--- NOTE | 2019-11-08 15:41 | NUR ---
BACK TO ROOM; PT TOLERATED WELL. RESTING SEMI FOWLERS IN BED.
--- NOTE | 2019-11-08 18:00 | NUR ---
PERCOCET GIVEN FOR 7/10 LOWER BACK AND RLE PAIN. DRESSING TO RLE REMAINS CDI. CALL LIGHT WITHIN REACH.
--- NOTE | 2019-11-08 20:51 | NUR ---
PT RESTING IN BED ALERT AND ORIENTED. RESPIRATIONS EVEN AND UNLABORED ON RA. LUNGS SOUND CLEAR DIMINISHED. PEDAL PULSES WEAK. PT REPORTS PAIN OF A 8/10 IN RIGHT LOWER LEG. PT EDUCATED ON PAIN MED SCHEDULE. DRESSING COMING OFF. NEW DRESSING APPLIED TO RIGHT LOWER LEG. SAFETY PRECAUTIONS IN PLACE. WILL CONTINUE TO MONTIOR.
--- NOTE | 2019-11-09 00:05 | NUR ---
PT RESTING IN BED, TELE IN PLACE, NO S/S OF DISTESS AT THIS TIME. SAFETY PRECAUTIONS IN PLACE. WILL CONTINUE TO MONITOR.
[2019-11-09 04:03] VITALS: BP 130/82
--- NOTE | 2019-11-09 04:03 | NUR ---
PT RESTING IN BED. NO S/S OF DISTRESS AT THIS TIME. SAFETY PRECAUTIONS IN PLACE. WILL CONTINUE TO MONITOR.
[2019-11-09 05:08] LABS: HEMATOCRIT 35.6 % (37.0-47.0); HEMOGLOBIN 10.8 g/dl (12.0-16.0); IMMATURE GRANULOCYTES 0.2 % (0.0-5.0); MEAN CORPUSCULAR HGB 28.2 pG CALC (26.0-32.0); MEAN CORPUSCULAR HGB CONC 30.3 g/dL CAL (32.0-36.0); NEUT# 5.15 thou/uL (2.00-7.15); RED BLOOD COUNT 3.83 mill/uL (4.20-5.60); RED CELL DISTRI WIDTH 16.5 % (11.5-15.5)
[2019-11-09 05:32] LABS: CREATININE 1.5 mg/dL (0.5-1.0); POTASSIUM 4.1 mmol/l (3.5-5.1)
[2019-11-09 07:50] VITALS: BP 152/86
--- NOTE | 2019-11-09 07:50 | NUR ---
ASSESSNENT IS COMPLETED: IV SITE IS FREE FROM REDNESS OR EDEMA. HR IS REG,PULSES ARE STRONG X4,ABD IS SOFT WITH ACTIVE BS., DRESSING ON R LEG IS CDI. TELE MONITOR IN PLACE. CONITNUE TO MONSTER
[2019-11-09 12:00] VITALS: BP 121/79
--- NOTE | 2019-11-09 12:30 | NUR ---
PT IS RELAXING IN BED CONTINUES TO C/O R LEG PAIN. MEDICATION GIVEN FOR BREAKTHROUGH. CONTINUE TO OSBERVE AND MONITOR.
--- NOTE | 2019-11-09 12:35 | NUR ---
PT ASKED THIS ADMINISTRATIVE STAFF SUPERVISOR TO REMOVE THE DRESSING ON HER LEG. WILL REPLACE SOON.
--- NOTE | 2019-11-09 16:01 | NUR ---
REPLACED DRESSING ON R CALF. CLEANED WITH BETADINE AND COVERED WITH 4X4 AND WRAPPED WITH KERLIX AND SECURED WITH TAPE AND NETTING. PT TOLERATED WELL.
[2019-11-09 16:09] VITALS: BP 125/76
[2019-11-09 19:38] VITALS: BP 126/79
--- NOTE | 2019-11-09 21:15 | NUR ---
PT RESTING IN BED, ALERT AND ORIENTED. RESPIRATIONS EVEN AND UNLABORED ON RA. LUNGS ARE CLEAR. PEDAL PULSES ARE WEAK. PT REMOVED DRESSING TO RIGHT LOWER LEG AND DOES NOT WANT THE DRESSING ON AT THIS TIME. PT RATES PAIN A 6/10 PT TO BE MEDICATED PER EMAR ORDERS. #20 RAC APPEARS HEALTHY. TELE IN PLACE. WILL CONTINUE TO MONTIOR.
[2019-11-10] VITALS (7 sets, daily range): BP systolic 110–180; BP diastolic 48–99
--- NOTE | 2019-11-10 01:00 | NUR ---
PT RESTING IN BED, RESPIRATIONS EVEN AND UNLABORED ON RA. NO S/S OF DISTRESS AT THIS TIME. SAFETY PRECAUTIONS IN PLACE. WILL CONTINUE TO MONTIOR.
--- NOTE | 2019-11-10 03:50 | NUR ---
PT RESTING IN BED. NO S/S OF DISTRESS AT THIS TIME. SAFETY PRECAUTIONS IN PLACE. WILL CONTINUE TO MONTIOR.
--- NOTE | 2019-11-10 07:15 | NUR ---
CHANGE OF SHIFT REPORT RECEIVED FROM PRESLEY OCHOA. PT SITTING UP IN BED. PT IS ABLE TO MAKE HER NEEDS KNOWN. FITTER UP WILL CONTINUE TO MONITOR.
--- NOTE | 2019-11-10 09:33 | NUR ---
PATIENT REFUSED TO BE SEEN THIS MORNING STATING THAT SHE JUST RECEIVED HER PAIN SHOT AND DOES NOT FEEL SAFE WALKING AND WANTS TO FEEL THE BENEFIT OF THE DRUG FIRST BEFORE DOING EXERCISES. PATIENT REQUESTED TO BE SEEN THIS AFTERNOON.
--- NOTE | 2019-11-10 12:15 | NUR ---
DILUADID ADMINISTERED FOR C/O 8/10 PAIN IN RIGHT LEG. WOUND CARE CARRIED OUT 15 MINUTES AFTER MEDICATION ADMINISTRATION. PT TOLERATED PROCEDURE WELL. PIE MAKER MACHINE WILL CONTINUE TO MONITOR.
--- NOTE | 2019-11-10 15:39 | NUR ---
Pt was seen walking back and forth in her room without AD. She reports she has been doing the exercises as advised by evaluating therapist. No tx done today.
--- NOTE | 2019-11-10 16:07 | NUR ---
ANTIANXIETY MEDS EFFECTIVE FOR COMPLAINT OF ANXIETY. PT SITTING UP IN BED. CALL LIGHT WITHIN EASY REACH. EDUCATION PROVIDED ON FALL PREVENTION DUE TO SEDATING EFFECT OF ATIVAN. PT VERBALIZED UNDERSTANDING CROP AND SOIL SCIENTIST WILL CONTINUE TO MONITOR
--- NOTE | 2019-11-10 18:32 | NUR ---
PT CONTINUES TO WALK OUT OF THE ROOM. INQUIRING WHAT WE ARE GOING TO DO WITH HER TELE MONITOR. ALSO. WANTS TO KNOW WHEN CAN I LEAVE OR AM I STAYING HERE. REDIRECTED BACK TO HER ROOM. TELLING STAFF" DON'T TALK ABOUT ME OR SPREAD MY BUSINESS ALL OVER THE UNIT". EXPLAINED THAT I WAS TALKING TO HER NURSE ABOUT MY PT.
--- NOTE | 2019-11-10 20:19 | NUR ---
PT MEDICATED AND ASSESSMENT COMPLETED AT THIS TIME. PT TALKATIVE, SINGING, RESITING POEM AND CRYING AT TIMES. PT DENIES ANY COMFORT MEASURES OFFERED. DRESSING TO RLE INTACT.
--- NOTE | 2019-11-10 22:14 | NUR ---
PT. REPORTING LOWER BACK AND LOWER EXTREMETY PAIN ALONG WITH SLEEPLESSNESS AND MEDICATED WITH ORDERED PRN PERCOCET AND SONATA. PRIMARY NURSE TO REASSESS.
--- NOTE | 2019-11-10 23:10 | NUR ---
PT OBSERVED WALKING IN HALLWAY, ROLLING HER TOILET PAPER ROLL. WHEN ASKED ABOUT IT SHE STATED, "I AM PLAYING." PT ASSISTED BACK TO BED. HER DRESSING IS NO LONGER ON HER LOWER LEG. I ASKED PT WHAT HAPPENED TO IT, SHE SAID "IT WAS BOTHERING ME, I TOOK IT OFF." I STATED I WOULD PUT FRESH DRESSING ON LOWER LEG, SHE SAID, "NOT TONIGHT, IT BOTHERS ME, YOU CAN PUT IT ON IN THE MORNING."
[2019-11-11 04:00] VITALS: BP 125/86
--- NOTE | 2019-11-11 04:00 | NUR ---
PT SITTING ON BSC, DENIES NEED OF ASSISTANCE. PT ENCOURAGED TO CALL IF ANY NEEDS OF ASSISTANCE ARISE.
[2019-11-11 05:22] LABS: HEMATOCRIT 36.7 % (37.0-47.0); HEMOGLOBIN 11.1 g/dl (12.0-16.0); MEAN CELL VOLUME 93.1 fL CALC (80.0-100.0); MEAN CORPUSCULAR HGB 28.2 pG CALC (26.0-32.0); MEAN CORPUSCULAR HGB CONC 30.2 g/dL CAL (32.0-36.0); RED BLOOD COUNT 3.94 mill/uL (4.20-5.60); RED CELL DISTRI WIDTH 16.5 % (11.5-15.5)
[2019-11-11 06:57] LABS: ANION GAP 12 (6-22 (CALC)); BUN 24 mg/dL (8-23); BUN/CREATININE RATIO 26 (12-20 (CALC)); CARBON DIOXIDE 27 mmol/l (22-30); CHLORIDE 101 mmol/l (95-108); CREATININE 0.9 mg/dL (0.5-1.0); GFR > 60 ML/MIN (>=60 (CALC)); GFR FOR AFR.AMER. > 60 ML/MIN (>=60 (CALC)); POTASSIUM 4.1 mmol/l (3.5-5.1); SODIUM 136 mmol/l (137-146)
--- NOTE | 2019-11-11 06:59 | NUR ---
PT C/O NAUSEA, MEDICATED ORDERS PROVIDE FOR INDIGESTION. PT LEFT SITTING ON SIDE OF THE BED.
--- NOTE | 2019-11-11 07:15 | NUR ---
change of shift report received from isaiah duron. pt sitting up in bed. pt able to make her needs known. financial writer will continue to monitor
[2019-11-11 08:28] VITALS: BP 146/94
[2019-11-11 11:03] VITALS: BP 137/85
--- NOTE | 2019-11-11 11:35 | NUR ---
PT note: Patient is able to get OOB to stand with min assist of 1. She has antalgic gait x 80 feet for 2 reps and a slow pace. She demonstrates [place] type gait with hip weakness. Her venous stasis ulcer remains and she has errythemia surrounding the wound with yellow wound bed silver dollar sized as noted in nursing notes. She would benefit from outpatient wound intervention. Am Pac is unchanged from eval and she would do well to follow up with PT upon DC as well.
--- NOTE | 2019-11-11 11:52 | NUR ---
PAIN MEDICATION ADMINISTERED FOR COMPLAINT OF PAIN LEVEL OF 6/10 ON RIGHT LEG. FOIL WRAPPER WILL CONTINUE TO MONITOR
[2019-11-11 15:39] VITALS: BP 147/77
--- NOTE | 2019-11-11 16:26 | NUR ---
DR RODRIGUEZ DID A TELE CONSULTATION WITH PT. PT LEFT RESTING COMFORTABLY IN ROOM. XCALL LIGHT WITHIN EASY REACH. CATTLE DEHORNER WILL CONTINUE TO MONITOR
[2019-11-11] MEDS ORDERED: Levaquin PO (16:52)
--- NOTE | 2019-11-11 17:14 | NUR ---
SENIOR INSTRUCTIONAL DESIGNER CALLED KATIUSKA DOBBINS TO NOTIFY HER THAT PT IS READY FOR DISCHARGE HOME. MU STATES THAT HER VEHICLE/TRUCK IS TOO HIGH OFF THE FLOOR. PCG NOTIFIED THAT PT CAN BE SENT HOME VIA TAXI. PCG HOWEVER REQUESTING CAB VOUCHER. CREDIT ADMINISTRATION MANAGER'S OFFICE CLOSED AT THIS TIME. SENIOR INSTRUCTIONAL DESIGNER WILL NOTIFY TEST EXAMINER FOR FOLLOW UP
--- NOTE | 2019-11-11 17:30 | NUR ---
PT STATES SHE DOES NOT WANT TO LEAVE TONIGHT. STATES THAT SHE IS VERY ANXIOUS AND WOULD NOT BE ABLE TO TRAVEL TONIGHT. XANAX ADMINISTERED APPROXIMATELY 30 [address] HALL STATES OKAY FOR PT TO LEAVE IN THE AM. CECILIA GALLAGHER AWARE AND STATES THAT SHE CAN SIGN A VOUCHER/RECEIPT IF CAB VOUCHER NEEDED.
[2019-11-11 19:05] VITALS: BP 143/99
--- NOTE | 2019-11-11 19:15 | NUR ---
REPORT FROM HUMZA SHERWOOD. PT NOTED RESTING IN BED. PT C/O MIGRANE 7-10 REQUESTING PAIN MEDICATION AT THIS TIME. BLINDS CLOSED IN ROOM AND LIGHTS TURNED OFF. PT ALSO REQUESTING 9PM MEDICATION. DISCUSSED POC. PT VERBALIZED UNDERSTANDING. IV SITE APPEARS HEALTHY. PT DENIES ANY OTHER CURRENT WANTS OR NEEDS. PT TO BE MEDICATED AFTER MAR REVIEWED BY WHEEL CUTTER. CALL LIGHT WITHIN REACH. WILL CONTINUE TO MONITOR.
--- NOTE | 2019-11-11 21:20 | NUR ---
PT UP TO TAKE SHOWER. ASSISTED BACK TO BED. DRESSING APPLIED TO RLE PER ORDER. ENCOURAGED PT TO ELEVATED LEG AT THIS TIME, PT REFUSED. EDUCATION PROVIDED. PT MEDICATED FOR ANXIETY UPON REQUEST. NO OTHER WANTS OR NEEDS. IV ABT INITIATED. PT TOLERATING WELL. CALL LIGHT WITHIN REACH. WILL CONTINUE TO MONTIOR.
--- NOTE | 2019-11-11 23:15 | NUR ---
PT C/O GENERALIZED ITCHING. MEDICATED WITH PRN VISTARIL AT THIS TIME. PT DENIES ANY OTHER WANTS OR NEEDS. CALL LIGHT WITHIN REACH. WILL CONTINUE TO MONITOR.
[2019-11-11 23:47] VITALS: BP 129/78
--- NOTE | 2019-11-12 03:15 | NUR ---
PT RESTING IN BED WITH EYES CLOSED. NO APPARENT DISTRESS NOTED. CALL LIGHT WITHIN REACH. WILL CONTINUE TO MONITOR.
[2019-11-12 03:48] VITALS: BP 124/66
--- NOTE | 2019-11-12 07:00 | NUR ---
REPORT RECEIVED FROM ROXY OSCAR. PT SITTING UP ON EDGE OF BED; ALERT AND ORIENTED. C/O 8/10 LOWER BACK PAIN AND RLE PAIN; REQUESTS PAIN MEDICATION. RESPIRATIONS EVEN AND UNLABORED ON ROOM AIR. LUNGS CLEAR; HR IRREGULAR. TELE IN PLACE; AFIB WITH CONTROLLED HEART RATE. IV SITE APPEARS HEALTHY AND FLUSHES. RLE WARM AND RED WITH TRACE EDEMA; DRESSING CDI. PLAN OF CARE REVIEWED INCLUDING DISCHARGE. PT ENCOURAGED TO VERBALIZE CONCERNS. STATES UNDERSTANDING. SAFETY MEASURES IN PLACE. CALL LIGHT WIHTIN REACH.
[2019-11-12 08:00] VITALS: BP 144/76
--- NOTE | 2019-11-12 08:21 | NUR ---
PERCOCET GIVEN FOR PAIN. ROCEPHIN INFUSING AT THIS TIME.
--- NOTE | 2019-11-12 09:08 | NUR ---
IV site discontinued, cath intact. No edema , no redness, voices no discomfort.
--- NOTE | 2019-11-12 09:15 | NUR ---
DRESSING TO RLE CHANGED; ULCER CLEANSED WITH BETADINE AND DRY KERLEX APPLIED PER ORDER. PHOTO TAKEN AND PLACED IN CHART. PT EXPERIENCED PAIN WITH DRESSING CHANGE, THEN AMBULATED TO BATHROOM WITHOUT DIFFICULTY.
--- NOTE | 2019-11-12 09:54 | NUR ---
PT YELLING OUT FROM ROOM, "HELLO?!" "WHERE IS MY CHAIRIATE?!" "CODE BLUE IN ROOM 269!" CALL LIGHT WAS WITHIN REACH. PT IN NO DISTRESS. WHEN ASKED IF SHE NEEDED HELP SHE REPLYS, "NO JUST WAITING TO SEE WHATS GOING ON." UPDATED THAT BRUCE TAXI WILL ARRIVE AT 1030 FOR DATA DEVELOPER. PT APPEARS AGITATED AND STATES, "WELL I LIVE ON PEACH NOT PLUM." SAFETY MEASURES IN PLACE. PT REEDUCATED ON USE OF CALL LIGHT.
--- NOTE | 2019-11-12 11:42 | NUR ---
DR. CORDOBA AT BEDSIDE. PT HAS HAD INCREASED ANXIETY AND PARANOIA THORUGHOUT THE DAY. SHE IS SHOUTING AND STATES THAT HER DAUGHTER YESTERDAY AT THIS HOSPITAL; CALLED DAUGHTER AND ALLOWED PT TO SPEAK WITH HER ON THE PHONE AND VERIFY THAT SHE DID NOT YESTERDAY. PT REFUSING DISCHARGE STATING, "THE ONLY PLACE I FEEL SAFE IS IN THIS HOSPITAL BED." SHE ALSO DECLINES ATIVAN STATING, "IM NOT LETTING YOU DO THAT TO ME." NEW ORDERS RECEIVED.
--- NOTE | 2019-11-12 11:58 | NUR ---
PT SITTING UP ON EDGE OF BED PICKING AT LUNCH TRAY. PERCOCET AND ATIVAN GIVEN FOR 7/10 PAIN AND ANXIETY.
--- NOTE | 2019-11-12 12:01 | NUR ---
RT AT BEDSIDE FOR ABG.
--- NOTE | 2019-11-12 13:26 | NUR ---
PT RESTING IN BED ON RIGHT SIDE WITH BLANKETS ON. PT MORE RELAXED WITH NO SIGNS OF DISTRESS. ABG RESULTS WNL WITH PT ON ROOM AIR.
[2019-11-12 15:20] VITALS: BP 135/86
--- NOTE | 2019-11-12 15:34 | NUR ---
PT WALKING INTO HALLWAY AND STANDING; WHEN ASKED IF SHE NEEDS ANYTHING BUT IS AGRESSIVE AND STATES, "YES, LET MY DAUGHTER GO." ATTEMPTED TO REORIENT PT THAT HER DAUGHTER IS NOT HERE AND PT BECOMES MORE AGITATED. CALLED DAUGHTER CLIFTON TO PT COULD SPEAK TO HER ON THE PHONE. PT CALMER AND SINGING SONGS LOUDLY. LOUDLY YELLED, "THANK YOU FARAZ!" STATES, "THEY ARE GIVING THE TICKETS OUT NOW, THIS IS THE BEST PLACE TO GO TRICK OR TREATING." ORIENTED TO NAME AND DATE. REQUESTING PAIN MEDICATION.
--- NOTE | 2019-11-12 15:59 | NUR ---
PERCOCET GIVEN FOR 8/10 PAIN. PT RESTING IN BED; CALM AND COOPERATIVE.
--- NOTE | 2019-11-12 17:44 | NUR ---
PT AMBULATING DOWN HALLWAY. NOW SITTING UP ON EDGE OF BED FOR DINNER. CALM. TALKATIVE, BUT REMAINS DISORIENTED AT TIMES. SAFETY MEASURES IN PLACE.
--- NOTE | 2019-11-12 19:05 | NUR ---
REPORT FELTON SHERWOOD. PT NOTED AT THIS TIME PACKING BAG IN ROOM, STATING SHE IS LEAVING SHE IS GOING HOME. PT ABLE TO BE REDIRECTED AT THIS TIME, FABRICATOR ARTIFICIAL BREAST EXPLAINED TO PT THAT CURRENT DISCHARGE ON HOLD BUT WILL DISCUSS WITH PHYSICIAN. NO APPARENT DISTRESS NOTED. NO CURRENT IV SITE OR TELEMETRY. DISCUSSED POC. PT VERBALIZED UNDERSTANDING. CALL LIGHT WITHIN REACH. WILL CONTINUE TO MONITOR.
[2019-11-12 19:52] VITALS: BP 149/87
--- NOTE | 2019-11-12 19:52 | NUR ---
PT NOTED WALKING IN WAGGONER CARRYING PURSE AND GREEN CRISTIANO OFF BED. PT STATING SHE IS GOING HOME THAT SHE HAS BEEN DISCHARGED. ATTEMPTING TO REDIRECT PT BACK TO ROOM. PT STATES " THERE IS STILL MUSTARD UNDER THE LEAF" SHERIFF DETECTIVE EXPLAINED TO PT THAT DR. CORDOBA WANTS PT TO STAY ANOTHER NIGHT FOR OBSERVATION. PT VERBALIZED UNDERSTANDING AND RETURNS TO ROOM AMBULATING WITH STEADY GAIT. SNACK PROVIDED AT THIS TIME. CALL LIGHT WITHIN REACH. WILL CONTINUE TO MONITOR.
--- NOTE | 2019-11-12 20:59 | NUR ---
PT MEDICATED FOR GENERALIZED PAIN WITH PO PERCOCET. NO OTHER CURRENT WANTS OR NEEDS. CALL LIGHT WITHIN REACH. WILL CONTINUE TO MONITOR.
--- NOTE | 2019-11-12 21:51 | NUR ---
SONATA ADMINISTERED AT THIS TIME UPON REQUEST.
[2019-11-13 00:30] VITALS: BP 138/78
--- NOTE | 2019-11-13 01:21 | NUR ---
PT RESTING IN BED WITH EYES CLOSED. NO APPARENT DISTRESS NOTED. CALL LIGHT WITHIN REACH.
[2019-11-13 04:18] VITALS: BP 148/81
--- NOTE | 2019-11-13 05:50 | NUR ---
PT RESTING IN BED WITH EYES CLOSED. NO APPARENT DISTRESS NOTED. CALL LIGHT WITHIN REACH. WILL CONTINUE TO MONITOR.
[2019-11-13 07:35] VITALS: BP 175/85
--- NOTE | 2019-11-13 07:38 | NUR ---
REPORT RECEIVED FROM ROXY OSCAR. PT UP TO BATHROOM AT THIS TIME; ALERT AND ORIENTED X 3; CALM AND COOPERATIVE. C/O CHRONIC BACK PAIN. RESPIRATIONS EVEN AND UNLABORED ON ROOM AIR. BLOOD PRESSURE ELEVATED AT 175/85. PLAN OF CARE REVIEWED. PT ENCOURAGED TO VERBALIZE CONCERNS. STATES UNDERSTANDING. SAFETY MEASURES IN PLACE. CALL LIGHT WITHIN REACH.
--- NOTE | 2019-11-13 07:58 | NUR ---
PT RANDOMLY SHOUTING AND CAN BE HEARD FROM NURSES DESK. PT AMBULATED TOWARDS DESK WITH PURSE AND BELONGINGS. WHEN ASKED WHERE SHE IS GOING SHE REPLYS, " NOWHERE." AND AMBULATES BACK INTO ROOM.
[2019-11-13 08:33] VITALS: BP 175/85
--- NOTE | 2019-11-13 08:50 | NUR ---
PERCOCET AND ATIVAN GIVEN WITH AM MEDS. PT SITTING UP ON EDGE OF BED.
--- NOTE | 2019-11-13 09:40 | NUR ---
DRESSING CHANGED TO RLE; PT TOLERATED WELL.
--- NOTE | 2019-11-13 10:07 | NUR ---
11/12/19 PT note Patient is seen for gait training as before. She has a [place] type gait with weakness at the left hip. She refused a FWW but continues to manage to ambulate in room independently Am Pac is 20 and she would do well with outpatient follow up
--- NOTE | 2019-11-13 12:38 | NUR ---
AT BEDSIDE TO DISCUSS DISCHARGE. PT WILL GO HOME WITH CAB.
--- NOTE | 2019-11-13 12:53 | NUR ---
IV site discontinued, cath intact. No edema , no redness, voices no discomfort.
--- NOTE | 2019-11-13 13:03 | NUR ---
Discharge instructions given. Patient verbalizes understanding of same. Discharged in stable condition via Wheelchair to Home with staff. All belongings sent with pt.
[2019-11-30] MEDS ORDERED: PERCOCET 10/31 COMBO PO (12:15)
[2019-12-28] MEDS ORDERED: PERCOCET 10/31 COMBO PO (11:58)
[2020-01-25] MEDS ORDERED: PERCOCET1 TA4 PO (11:57)
[2020-02-22] MEDS ORDERED: PERCOCET1 TA2 PO (16:06)
[2020-03-21] MEDS ORDERED: PERCOCET1 TA4 PO (14:11)
== END 2019-11-13 13:00 | DRG 189 ==
LOC: ED 16:13 → ED-I 18:07 → ED 18:40 → ED-I 18:49 → ICU 18:49 → ED-I 18:50 → ICU 19:40 → ED-I 19:40 → ICU 19:40 → MS2 11-08 10:33 → ICU 11-08 10:33 → MS2 11-13 13:00
PROVIDERS: Family Medicine; Nurse Practitioner Family; ADMIT Internal Medicine; ATTEND Internal Medicine
PROC: 5A09357 Assistance with Respiratory Ventilation, Less than 24 Consecutive Hours, Continuous Positive Airway Pressure (ICD-10-PCS; principal; 2019-11-06)
DX: J96.92 Respiratory failure, unspecified with hypercapnia (principal); N39.0 Urinary tract infection, site not specified; N17.9 Acute kidney failure, unspecified; L97.919 Non-pressure chronic ulcer of unspecified part of right lower leg with unspecified severity; L03.115 Cellulitis of right lower limb; E87.2 Acidosis; I87.311 Chronic venous hypertension (idiopathic) with ulcer of right lower extremity; L97.819 Non-pressure chronic ulcer of other part of right lower leg with unspecified severity; Z16.12 Extended spectrum beta lactamase (ESBL) resistance; F23 Brief psychotic disorder; I48.20 Chronic atrial fibrillation, unspecified; Z68.41 Body mass index [BMI] 40.0-44.9, adult; I70.238 Atherosclerosis of native arteries of right leg with ulceration of other part of lower leg; I12.9 Hypertensive chronic kidney disease with stage 1 through stage 4 chronic kidney disease, or unspecified chronic kidney disease; N18.3 Chronic kidney disease, stage 3 (moderate); J44.9 Chronic obstructive pulmonary disease, unspecified; E78.5 Hyperlipidemia, unspecified; E83.42 Hypomagnesemia; F32.9 Major depressive disorder, single episode, unspecified; F41.9 Anxiety disorder, unspecified; G89.29 Other chronic pain; M54.9 Dorsalgia, unspecified; E66.9 Obesity, unspecified; G47.00 Insomnia, unspecified; G62.9 Polyneuropathy, unspecified; T40.2X5A Adverse effect of other opioids, initial encounter; T43.015A Adverse effect of tricyclic antidepressants, initial encounter; T42.4X5A Adverse effect of benzodiazepines, initial encounter; B96.1 Klebsiella pneumoniae [K. pneumoniae] as the cause of diseases classified elsewhere; B96.89 Other specified bacterial agents as the cause of diseases classified elsewhere; Y92.009 Unspecified place in unspecified non-institutional (private) residence as the place of occurrence of the external cause; Z20.828 Contact with and (suspected) exposure to other viral communicable diseases; Z98.84 Bariatric surgery status; Z79.01 Long term (current) use of anticoagulants; Z77.22 Contact with and (suspected) exposure to environmental tobacco smoke (acute) (chronic); Z87.440 Personal history of urinary (tract) infections; Z86.718 Personal history of other venous thrombosis and embolism
CPT/HCPCS: J0692; J3475; Q3014

== ENCOUNTER 2019-11-16 19:17 | Inpatient (IN) | payer MEDICARE, OTHER ==
[~2019-11-16] VITALS: Ht 165.1 cm; Wt 90.0 kg
[~2019-11-16 19:17] MED LIST changes: +Levaquin PO
--- NOTE | 2019-11-16 19:18 | NUR ---
BY EMS TO ROOM
--- NOTE | 2019-11-16 20:00 | NUR ---
ON BIPAP BREATHING BETTER.
[2019-11-16 20:08] LABS: HEMATOCRIT 37.8 % (37.0-47.0); HEMOGLOBIN 11.3 g/dl (12.0-16.0); IMMATURE GRANULOCYTES 0.4 % (0.0-5.0); MEAN CELL VOLUME 95.9 fL CALC (80.0-100.0); MEAN CORPUSCULAR HGB 28.7 pG CALC (26.0-32.0); MEAN CORPUSCULAR HGB CONC 29.9 g/dL CAL (32.0-36.0); NEUT# 4.73 thou/uL (2.00-7.15); RED BLOOD COUNT 3.94 mill/uL (4.20-5.60); RED CELL DISTRI WIDTH 16.8 % (11.5-15.5)
[2019-11-16 20:26] LABS: PROTHROMBIN TIME 10.6 SECONDS (9.0-12.5)
[2019-11-16 20:31] LABS: ALBUMIN 4.2 g/dL (3.2-5.0); ALKALINE PHOSPHATASE 95 u/l (38-126); ANION GAP 14 (6-22 (CALC)); BILIRUBIN, TOTAL 0.4 mg/dL (0.0-1.4); BUN 45 mg/dL (8-23); BUN/CREATININE RATIO 20 (12-20 (CALC)); CARBON DIOXIDE 28 mmol/l (22-30); CHLORIDE 100 mmol/l (95-108); GFR 21 ML/MIN (>=60 (CALC)); GFR FOR AFR.AMER. 26 ML/MIN (>=60 (CALC)); POTASSIUM 4.1 mmol/l (3.5-5.1); SGOT/AST 34 u/l (9-36); SODIUM 137 mmol/l (137-146); TOTAL PROTEIN 7.5 g/dL (6.3-8.2)
[2019-11-16 20:32] LABS: CREATININE 2.3 mg/dL (0.5-1.0)
[2019-11-16 20:33] LABS: URINE BILIRUBIN - DIPSTICK NEGATIVE (NEGATIVE); URINE BLOOD DIPSTICK NEGATIVE (NEGATIVE); URINE COLOR YELLOW; URINE GLUCOSE - DIPSTICK NEGATIVE (NEGATIVE); URINE KETONE NEGATIVE (NEGATIVE); URINE LEUK ESTERASE NEGATIVE (NEGATIVE); URINE NITRITE - DIPSTICK NEGATIVE (Negative); URINE PH 5.5 (4.5-8.0); URINE PROTEIN - DIPSTICK NEGATIVE (NEG-TRACE); URINE SPECIFIC GRAVITY 1.025; URINE UROBILINOGEN - DIPSTICK 0.2 E.U./dL (0.2)
[2019-11-16 20:39] LABS: MYOGLOBIN 76 ng/mL (0 - 62)
--- NOTE | 2019-11-16 21:00 | NUR ---
VSS. RESTING COMFORTABLY. NAD.
--- NOTE | 2019-11-16 22:00 | NUR ---
NO CHANGE IN EXAM. VSS.
--- NOTE | 2019-11-16 23:00 | NUR ---
VSS. NO C/O. RESTING COMFORTABLY.
--- NOTE | 2019-11-16 23:12 | NUR ---
BIPAP SETTINGS FIO2 30% RATE 20 EPAP 10 PIP 20
--- NOTE | 2019-11-16 23:25 | NUR ---
Admission Note Report Given to: PRESLEY HINES Transported by: Wheelchair X Stretcher Transported with: X Nurse Transporter X Patent IV X O2 X Patcher Bowling Ball Location: X ICU MS2
--- NOTE | 2019-11-16 23:40 | NUR ---
TO ICU 4 VIA STRETCHER BY EMS. BIPAP IN USE. PT ALERT. RECOGNISED ME AND CALLED ME BY NAME. SHE KNEW HER SURROUNDINGS BUT ASKED WHY SHE WAS BROUGHT TO THE HOSPTIAL. SHE MOVED FROM STRETCHER TO BED PER SELF
[2019-11-16 23:45] VITALS: BP 140/91
[2019-11-17] VITALS (19 sets, daily range): BP systolic 94–154; BP diastolic 54–91
--- NOTE | 2019-11-17 01:30 | NUR ---
BEDRESTING WITH EYES COSED. NO DISTRESS NOTED. BIPAP REMAINS IN PLACE AND IN USE
--- NOTE | 2019-11-17 03:00 | NUR ---
BEDRESTING. BIPAP IN USE-TOLERTING WELL
--- NOTE | 2019-11-17 04:02 | NUR ---
PERIODIC COUGH. NONPRODUCTIVE. ACTIVE IN BED. C/O HUNGRY AND THIRSTY. ADVISED OF NPO ORDER. DAMP CLOTH PROVIDED SO PT COULD CLEANS LIPS-TOLERATED WELL.
--- NOTE | 2019-11-17 04:33 | NUR ---
PT MOVED BIPAP MASK, READJUSTED MASK SEVERAL TIMES, RT HERE AND READJUSTED. AT THIS TIME, BIPAP REMOVED AND STARTED ON N/C PER RT. PT THANKED RT FOR CHANGE.
--- NOTE | 2019-11-17 06:00 | NUR ---
TOLERATING N/C WELL- SAT REMAIN HIGH 90'S. NO COUGH OR DISTRESS
--- NOTE | 2019-11-17 07:13 | NUR ---
REPORT TO LINDSAY SHERWOOD. BEDRESTING. LAB HERE FOR BLOOD DRAW
--- NOTE | 2019-11-17 07:30 | NUR ---
LAB AT BEDSIDE FOR BLOOD DRAW.
--- NOTE | 2019-11-17 08:00 | NUR ---
PT RESTING IN BED, A&OX4, ABLE TO MAKE NEEDS KNOWN. REMAINS AFIB ON TELEMETRY, HR 100. PT DENIES CP, SOB OR DISTRESS AT THIS TIME. RESPIRATIONS EVEN/UNLABORED, LS CLEAR THROUGHOUT, SA02@99% ON 2LPM/NC. ABDOMEN SOFT, DISTENDED, NON-TENDER. BSX4 ACTIVE. TORREZ REMAINS PATENT, DRAINING TO BSD VIA GRAVITY, YELLOW URINE NOTED. PT CONTINUE'S WITH BLE REDNESS FROM KNEE TO TOES, WORSE ON THE RS. RLE WITH ULCER, COVERED WITH DRESSING, CDI. CALL LIGHT IN REACH. WILL MONITOR.
--- NOTE | 2019-11-17 09:15 | NUR ---
DR. CORDOBA AT BEDSIDE FOR ASSESSMENT AND TO DISCUSS PLAN OF CARE. NEW ORDERS RECIEVED.
--- NOTE | 2019-11-17 10:00 | NUR ---
MARISEL RAMOS AT BEDSIDE FOR ASSESSMENT AND TO DISCUSS CARE.
--- NOTE | 2019-11-17 10:25 | NUR ---
NEW DIET ORDER PLACED, PT GIVEN SNACK AND WATER.
--- NOTE | 2019-11-17 10:50 | NUR ---
PT DAUGHTER CALLED, PERMISSION GRANTED FROM THE PT TO UPDATE. LAB AT BEDSIDE FOR BLOOD DRAW.
--- NOTE | 2019-11-17 11:44 | NUR ---
PT ASSISTED TO BSC, LARGE LOOSE BM. GOOD TORI CARE AND TORREZ CARE GIVEN. PT THEN BACK TO BED. DIETARY ON UNIT. LUNCH TRAY SET UP.
--- NOTE | 2019-11-17 13:11 | NUR ---
PT ASSISTED TO BSC, SCANT BM.
--- NOTE | 2019-11-17 14:31 | NUR ---
PT REQUESTED COFFEE, REQUEST GRANTED. CALL LIGHT IN REACH. WILL MONITOR.
--- NOTE | 2019-11-17 15:33 | NUR ---
Patient is screeened for PT intervention. She is quite mobile but would benefit from outpatient intervention with wound care and PT upon DC
--- NOTE | 2019-11-17 15:59 | NUR ---
PT RESTING IN BED WITH EYES CLOSED, RESPIRATIONS EVEN/UNLABORED. CALL LIGHT IN REACH. WILL MONITOR.
--- NOTE | 2019-11-17 17:19 | NUR ---
PT MEDICATED ORDERED FOR PAIN 01/06 ON RLE, PER PT REQUEST. CALL LIGHT IN REACH. WILL MONITOR.
--- NOTE | 2019-11-17 18:15 | NUR ---
PT SITTING ON SIDE OF BED, NO DISTRESS NOTED AT THIS TIME. CALL LIGHT IN REACH. WILL MONITOR.
--- NOTE | 2019-11-17 18:45 | NUR ---
RECEIVED REPORT FROM ROBEL SHERWOOD.
--- NOTE | 2019-11-17 19:15 | NUR ---
RECEIVED PT SITTING ON SIDE OF BED. NO C/O AT THIS TIME. PT QUESTIONING WHEN NEXT PAIN MED. R LOWER EXTREMITY RED, DRESSING IN PLACE. CALL [facility] IN [facility].
--- NOTE | 2019-11-17 20:00 | NUR ---
PT AWAKE AND ALERT. REQUESTED NIGHT TIME PAIN MED, INFORM PT NOT DUE AT THIS TIME. PT REFUSED BI-PAP FOR TONIGHT. CALL [facility] IN RE[facility]. PROVIDED SNACK ND DRINK.
--- NOTE | 2019-11-17 20:50 | NUR ---
PT REQUESTED COFFEE AND SNACK. PROVIDED TO PT.
--- NOTE | 2019-11-17 22:00 | NUR ---
PT AWAKE AND ALERT, REFUSING TO WEAR 02 AT THIS TIME. SA02 AT 95%. CALL [facility] IN REACH.
--- NOTE | 2019-11-17 22:14 | NUR ---
RESP AT BEDSIDE.
--- NOTE | 2019-11-17 22:17 | NUR ---
REFUSED BIPAP. SPO2 94% ON RA.
--- NOTE | 2019-11-17 22:30 | NUR ---
PT REQUESTED SOMETHING TO EAT, TURKEY DINNER TRAY PROVIDED.
[2019-11-18] VITALS (9 sets, daily range): BP systolic 103–174; BP diastolic 52–95
--- NOTE | 2019-11-18 | NUR ---
PT WITH EYES CLOSED, RESPONDS TO VERBAL STIMULI. PT TALKING IN SLEEP. NO RESP DISTRESS NOTED. CALL WEST IN REACH.
--- NOTE | 2019-11-18 00:20 | NUR ---
PROVIDED REORIENTATION TO PT. PT CALLING OUT FOR FAMILY, SITTING ON SIDE OF BED. PT RETURNED LYING DOWN. CALL WEST IN REACH.
--- NOTE | 2019-11-18 02:25 | NUR ---
PT C/O LOW BACK PAIN 01/06 REQUESTED PAIN MED. MEDICATED PER AUG.
--- NOTE | 2019-11-18 03:13 | NUR ---
PT REQUESTED GRAHM CRACKERS AND DRINK. PROVIDED.
--- NOTE | 2019-11-18 04:00 | NUR ---
PT WITH EYES CLOSED, NO RESP DISTRESS NOTED. CALL WEST IN REACH.
--- NOTE | 2019-11-18 05:20 | NUR ---
LAB AND RESP AT BEDSIDE FOR BLOOD DRAW.
[2019-11-18 05:41] LABS: HEMATOCRIT 34.7 % (37.0-47.0); HEMOGLOBIN 10.5 g/dl (12.0-16.0); MEAN CELL VOLUME 92.8 fL CALC (80.0-100.0); MEAN CORPUSCULAR HGB 28.1 pG CALC (26.0-32.0); MEAN CORPUSCULAR HGB CONC 30.3 g/dL CAL (32.0-36.0); RED BLOOD COUNT 3.74 mill/uL (4.20-5.60); RED CELL DISTRI WIDTH 16.4 % (11.5-15.5)
--- NOTE | 2019-11-18 06:00 | NUR ---
PT WITH EYES CLOSED, RESPONDS TO VERBAL STIMULI. NO RESP DISTRESS NOTED. CALL WEST IN REACH.
[2019-11-18 06:04] LABS: CREATININE 1.4 mg/dL (0.5-1.0); POTASSIUM 3.7 mmol/l (3.5-5.1)
--- NOTE | 2019-11-18 06:53 | NUR ---
REPORT TO ROBEL SHERWOOD.
--- NOTE | 2019-11-18 08:00 | NUR ---
PT A&OX3, ABLE TO MAKE NEEDS . REMAINS AFIB ON THE MONITOR. PT DENIES CP, SOB OR DISTRESS AT THIS TIME. RESPIRATIONS EVEN/UNLABORED, SA02@96% ON 2LPM/NC. ABDOMEN DISTENDED, SOFT, NON-TENDER. BSX4 ACTIVE, LBM 5-19-20. TORREZ REMAINS PATENT, DRAINING TO BSD VIA GRAVITY. 22G TO LFA/SL. NO S/S OF INFILTRATION OR INFECTION NOTED AT THIS TIME. CALL LIGHT IN REACH. WILL MONITOR.
[2019-11-18] MEDS ORDERED: ATIVAN1 M1 PO (08:50)
--- NOTE | 2019-11-18 08:56 | NUR ---
DR. CORDOBA AT BEDSIDE FOR ASSESSMENT AND TO DISCUSS PLAN OF CARE, NEW ORDERS RECIEVED.
--- NOTE | 2019-11-18 09:33 | NUR ---
CALL PLACED TO [facility], SPOKE WITH MINA. DR. STEF DAVIDSON BEFORE 10:30 AM FOR ASSESSMENT AND TX. PT AWARE. CALL LIGHT IN REACH.
--- NOTE | 2019-11-18 10:02 | NUR ---
PT SITTING ON SIDE OF BED, PT SET UP FOR SELF BATH.
--- NOTE | 2019-11-18 11:45 | NUR ---
PT RESTING IN BED WITH EYES CLOSED, RESPIRATIONS EVEN/UNLABORED, TORREZ REMAINS PATENT AT THIS TIME, DRAINING TO BSD VIA GRAVITY. CALL LIGHT IN REACH. WILL MONITOR.
--- NOTE | 2019-11-18 13:14 | NUR ---
called for updated eta for dr. salcido with wound care. eta 30 min. CONSULTATION SENT.
--- NOTE | 2019-11-18 13:22 | NUR ---
PT MEDICATED FOR RLE AND LOWER BACK PAIN 12/07 ORDERED PER PT REQUEST. PT REMAINS RESTING IN BED.
--- NOTE | 2019-11-18 13:33 | NUR ---
DR. GILMAN AT BEDSIDE FOR DRESSING CHANGE. PT TOLERATED WELL.
--- NOTE | 2019-11-18 13:55 | NUR ---
IV site discontinued, cath intact. No edema , no redness, voices no discomfort. TORREZ CATHETER REMOVED AFTER 10ML BALLOON DEFLATED. PT TOLERATED WELL.
--- NOTE | 2019-11-18 14:15 | NUR ---
Discharge instructions given. Patient verbalizes understanding of same. Discharged in stable condition via Wheelchair to Home with *Other. All belongings sent with pt.
[2019-11-30] MEDS ORDERED: PERCOCET 10/31 COMBO PO (12:15)
[2019-12-28] MEDS ORDERED: PERCOCET 10/31 COMBO PO (11:58)
[2020-01-25] MEDS ORDERED: PERCOCET1 TA4 PO (11:57)
[2020-02-22] MEDS ORDERED: PERCOCET1 TA2 PO (16:06)
[2020-03-21] MEDS ORDERED: PERCOCET1 TA4 PO (14:11)
== END 2019-11-18 14:15 | disposition home or self-care (01) | DRG 917 ==
LOC: ED 19:17 → ED-I 22:16 → ED 22:54 → ICU 22:55
PROVIDERS: Emergency Medicine; Internal Medicine; ADMIT Internal Medicine; ATTEND Internal Medicine
PROC: 0T9B70Z Drainage of Bladder with Drainage Device, Via Natural or Artificial Opening (ICD-10-PCS; principal; 2019-11-16)
PROC: 5A09357 Assistance with Respiratory Ventilation, Less than 24 Consecutive Hours, Continuous Positive Airway Pressure (ICD-10-PCS; 2019-11-16)
DX: T40.601A Poisoning by unspecified narcotics, accidental (unintentional), initial encounter (principal); G92 Toxic encephalopathy; J96.22 Acute and chronic respiratory failure with hypercapnia; I13.0 Hypertensive heart and chronic kidney disease with heart failure and stage 1 through stage 4 chronic kidney disease, or unspecified chronic kidney disease; N17.9 Acute kidney failure, unspecified; I48.20 Chronic atrial fibrillation, unspecified; E87.2 Acidosis; I87.011 Postthrombotic syndrome with ulcer of right lower extremity; L97.818 Non-pressure chronic ulcer of other part of right lower leg with other specified severity; T42.4X1A Poisoning by benzodiazepines, accidental (unintentional), initial encounter; I50.9 Heart failure, unspecified; N18.3 Chronic kidney disease, stage 3 (moderate); J44.9 Chronic obstructive pulmonary disease, unspecified; G43.909 Migraine, unspecified, not intractable, without status migrainosus; Y92.009 Unspecified place in unspecified non-institutional (private) residence as the place of occurrence of the external cause; Z95.828 Presence of other vascular implants and grafts; Z79.01 Long term (current) use of anticoagulants; Z98.84 Bariatric surgery status; Z87.440 Personal history of urinary (tract) infections; Z77.22 Contact with and (suspected) exposure to environmental tobacco smoke (acute) (chronic); Z20.828 Contact with and (suspected) exposure to other viral communicable diseases

== ENCOUNTER 2019-11-27 02:28 | Inpatient (IN) | payer MEDICARE, OTHER ==
[2019-11-27] VITALS (15 sets, daily range): BP systolic 72–119; BP diastolic 46–73
[~2019-11-27 02:28] MED LIST changes: +ATIVAN1 M1 PO
--- NOTE | 2019-11-27 02:28 | NUR ---
BY EMS TO ROOM
[2019-11-27 03:41] LABS: ALBUMIN 3.8 g/dL (3.2-5.0); ALKALINE PHOSPHATASE 94 u/l (38-126); ANION GAP 12 (6-22 (CALC)); BILIRUBIN, TOTAL 0.5 mg/dL (0.0-1.4); BUN 69 mg/dL (8-23); CARBON DIOXIDE 30 mmol/l (22-30); CHLORIDE 97 mmol/l (95-108); ETHYL ALCOHOL 0 mg/dl (0-30); GFR 18 ML/MIN (>=60 (CALC)); GFR FOR AFR.AMER. 21 ML/MIN (>=60 (CALC)); POTASSIUM 3.6 mmol/l (3.5-5.1); SGOT/AST 26 u/l (9-36); SODIUM 136 mmol/l (137-146); TOTAL PROTEIN 6.9 g/dL (6.3-8.2)
[2019-11-27 03:43] LABS: BUN/CREATININE RATIO 26 (12-20 (CALC)); CREATININE 2.7 mg/dL (0.5-1.0)
[2019-11-27 03:46] LABS: HEMATOCRIT 36.1 % (37.0-47.0); IMMATURE GRANULOCYTES 0.4 % (0.0-5.0); MEAN CORPUSCULAR HGB 28.4 pG CALC (26.0-32.0); MEAN CORPUSCULAR HGB CONC 30.5 g/dL CAL (32.0-36.0); NEUT# 11.44 thou/uL (2.00-7.15); RED BLOOD COUNT 3.88 mill/uL (4.20-5.60)
[2019-11-27 03:53] LABS: MYOGLOBIN 121 ng/mL (0 - 62)
--- NOTE | 2019-11-27 04:30 | NUR ---
VSS. NAD. NO CHANGE IN EXAM
--- NOTE | 2019-11-27 05:15 | NUR ---
APPEARS COMFORTABLE. NO C/O.
--- NOTE | 2019-11-27 05:45 | NUR ---
MEDICATED FOR KNEE PAIN.
[2019-11-27 05:49] LABS: URINE BILIRUBIN - DIPSTICK NEGATIVE (NEGATIVE); URINE BLOOD DIPSTICK NEGATIVE (NEGATIVE); URINE COLOR YELLOW; URINE GLUCOSE - DIPSTICK NEGATIVE (NEGATIVE); URINE KETONE NEGATIVE (NEGATIVE); URINE LEUK ESTERASE NEGATIVE (NEGATIVE); URINE NITRITE - DIPSTICK NEGATIVE (Negative); URINE PH 5.5 (4.5-8.0); URINE PROTEIN - DIPSTICK NEGATIVE (NEG-TRACE); URINE UROBILINOGEN - DIPSTICK 0.2 E.U./dL (0.2)
[2019-11-27 05:58] LABS: COCAINE NEGATIVE (NEGATIVE); METHADONE NEGATIVE (NEGATIVE); TETRAHYDROCANNABIONOL NEGATIVE (NEGATIVE)
[2019-11-27 05:59] LABS: BARBITURATES NEGATIVE (NEGATIVE); OXCYCODONE POSITIVE (NEGATIVE); TRICYLIC ANTIDEPRESSANTS POSITIVE (NEGATIVE)
--- NOTE | 2019-11-27 06:45 | NUR ---
SUDDEN DROP IN BP AND SAO2 CONFUSED MD ADVISED. PLACED ON O2.
--- NOTE | 2019-11-27 07:00 | NUR ---
RECIEVED CARE OF PATIENT. PT AO X 3. SKIN PINK WARM AND DRY. MONITORS IN PLACE. EKG REPEATED.
--- NOTE | 2019-11-27 07:37 | NUR ---
REPORT GIVEN TO ROBEL SHERWOOD ICU
--- NOTE | 2019-11-27 07:45 | NUR ---
PT TRANSPORTED TO ICU. MONITOR, O2, PATENT IV IN PLACE
--- NOTE | 2019-11-27 07:50 | NUR ---
PT ADMITTED TO ICU BED 4 FROM ED VIA STRETCHER. PT TRANSFERRED WITH MINIMAL ASSISTANCE FROM THE STRETCHER TO BED. PT A&OX4, ABLE TO MAKE NEEDS KNOWN. AFIB ON TELEMETRY, HR 98. PT DENIES CP, SOB OR DISTRESS AT THIS TIME. PT HAS 20G TO LAC INFUSING NS@125ML/HR. PT AFEBRILE. PUREWICK IN PLACE PER PT REQUEST. BREAKFAST TRAY SET UP, CALL LIGHT IN REACH. WILL MONITOR.
--- NOTE | 2019-11-27 09:03 | NUR ---
DR. PATEL AT BEDSIDE FOR ASSESSMENT AND TO DISCUSS PLAN OF CARE. NEW ORDERS RECIEVED.
--- NOTE | 2019-11-27 09:22 | NUR ---
PT MEDICATED FOR INCREASED ANXIETY "STATED" AND PAIN7/10 RLE ORDERED PER PT REQUEST. CALL LIGHT IN REACH. WILL MONITOR.
--- NOTE | 2019-11-27 10:08 | NUR ---
PT REMAINS ASYMPTOMATIC WITH HYPOTENSION, DR. PATEL AWARE. WILL CONTINUE TO MONITOR. CALL LIGHT IN REACH.
--- NOTE | 2019-11-27 11:45 | NUR ---
PT ASSITED TO BSC, THEN BACK TO BED. PT TOLERATED TRANSFER WELL. 1 LARGE BM. PT SITTING UP ON BEDSIDE, EATING LUNCH. CALL LIGHT IN REACH. WILL MONITOR.
--- NOTE | 2019-11-27 13:00 | NUR ---
PT SITTING UP IN BED, OFFERS NO COMPLAINTS. RESPIRATIONS EVEN/UNLABORED. CALL LIGHT IN REACH. WILL MONITOR.
--- NOTE | 2019-11-27 14:30 | NUR ---
DRESSING CHANGED TO RLE, CLEANSED WITH IODINE, COVERED WITH POLYMEM, SECURED WITH PACO WRAP. PT TOLERATED WELL. PICTURES TAKEN OF 3 WOUNDS. CALL LIGHT IN REACH. WILL MONITOR.
--- NOTE | 2019-11-27 16:06 | NUR ---
PT ASSISTED TO BSC, PT VOIDED 400ML URINE. THEN BACK TO BED. PT TRANSFERRED WITHOUT DIFFICULTY. SBA. CALL LIGHT IN REACH. WILL MONITOR.
--- NOTE | 2019-11-27 19:35 | NUR ---
PATIENT SITS ON SIDE OF BED. IS AWAKE, ALERT AND ORIENTED X4. ON RA, NO SOB NOTED. SATS GREATER THAN 95%. NURSING ASSESSEMNT PERFORMED. AFEBRILE. POC FOR TONIGHT DISCUSSED, PATIENT UNDERSTANDS AND AGREES. IV X2 INTACT, FLUSH PROPERLY, SALINE LOCKED. STANDS UP TO BSC WITHOUT DIFFICULTY. REQUESTED HOT COFFEE, PROVIDED. REPOSITIONS SELF NEEDED. REPORTS SHE HAS CHRONIC LEG PAIN ON BOTH LEGS, REPORTS SHE WILL ASK FOR PAIN MEDICATIONS WHEN HER PAIN IS 5-6 ON PAIN SCALE. AFIB CONTROLLED ON TELEMETRY, HR RANGES 80'S TO 90'S, RISES UP TO LOW 100'S WHEN SHE IS UP AND WALKING. RLE DRESSING CDI, PACO WRAP TAKEN OFF DUE TO PT REQUEST. CALL LIGHT WITHIN REACH.
--- NOTE | 2019-11-27 20:20 | NUR ---
PATIENT IS UP AND WALKING, FIXING HER BELONGINGS IN HER BAG, CONBS HER HAIR. NO ACUTE DISTRES SSHOWN. CALL LIGHT WITHIN REACH.
--- NOTE | 2019-11-27 20:50 | NUR ---
PATIENT'S DAUGHTER REBEKA CALLED HERE FOR UPDATES, SHE WAS ABLE TO PROVIDE CODE. DAUGHTER WAS UPDATED, DAUGHTER WOULD LIKE FOR ME TO PASS ALONG HER CONCERN TO DAYSHIFT NURSE REGARDING WHY PT KEEPS HAVING AMS, WHY HER RLE CELLULITIS HAS NOT HEALED, AND WHY HER O2 SAT KEEPS DROPPING. DAUGHTER WAS NOTIFIED, PTS VS ARE WNL NOW. DAUGHTER ALSO REPORTED PT HAS HX OF FREQU[place]S AND THIS WILL BE PT'S 3RD ADMISSION IN OCTOBER. WILL NOTIFY DAYSHIFT NURSE FOR DOCTOR TO BE MADE AWARE.
--- NOTE | 2019-11-27 21:20 | NUR ---
PATIENT ABLE TO TOLERATE HER BEDTIME MEDS, REQUESTS FOR PAIN MED TO BE GIVEN WHEN DUE. IV ANTIBIOTIC INFUSING NOW. NO ACUTE DISTRESS SHOWN. CALL LIGHT WITHIN REACH.
--- NOTE | 2019-11-27 22:05 | NUR ---
pain medication provided per request. no acute distress shown. call light within reach.-
[2019-11-28] VITALS (9 sets, daily range): BP systolic 85–124; BP diastolic 52–84
--- NOTE | 2019-11-28 00:03 | NUR ---
PATIENT REQUESTS PAIN MEDICATION AFTER WAKING UP, EXPLAINED TO HER THE FREQUENCY ORDERS FOR HE RPAIN MED, "OH I DON'T KNOW WHAT TIME IT." PATIENT REORIENTED TO TIME. NO OTHER COMPLAINTS. CALL LIGHT WITHIN REACH.
--- NOTE | 2019-11-28 01:13 | NUR ---
patient up to bsc, vois, washes and dries her priyanka-area. requests a det evangelista rylie and sandwich, provided. no sits on side of bed to eat. no acute distress shown. call light ranjeet rodriguez.
--- NOTE | 2019-11-28 02:10 | NUR ---
PATIENT GIVEN PAIN MED PER REQUEST. PATIENT'S DAUGHTER MU CALLED HERE, SHE WAS ABLE TO PROVIDE PASS CODE. SHE WAS UPDATED ON PATIENT'S CURRENT STATUS.
--- NOTE | 2019-11-28 04:57 | NUR ---
DRIER OPERATOR HELPER IN ROOM FOR BLOOD DRAW.
--- NOTE | 2019-11-28 05:17 | NUR ---
patient up to bsc. no acute distress shown. call light within reach.
[2019-11-28 05:28] LABS: HEMATOCRIT 32.2 % (37.0-47.0); HEMOGLOBIN 9.9 g/dl (12.0-16.0); IMMATURE GRANULOCYTES 0.2 % (0.0-5.0); MEAN CELL VOLUME 91.7 fL CALC (80.0-100.0); MEAN CORPUSCULAR HGB 28.2 pG CALC (26.0-32.0); MEAN CORPUSCULAR HGB CONC 30.7 g/dL CAL (32.0-36.0); NEUT# 5.98 thou/uL (2.00-7.15); RED BLOOD COUNT 3.51 mill/uL (4.20-5.60); RED CELL DISTRI WIDTH 15.9 % (11.5-15.5)
--- NOTE | 2019-11-28 05:36 | NUR ---
DRESSING ON RLE CHANGED, CLEANSED WITH SALINE AND PATTED DRY. NONADHERENT DRESSING WITH GAUZE APPLICATED ON TOP OF WOUND, WRAPPED WITH GAUZE WRAP. SEROSSANGUINOUS DRAINAGE NOTED, NO ODOR. PATIENT TOLERATED WRLL, WAS ABLE TO LIFT HER LEG UP FOR DRESSING CHANGE.
--- NOTE | 2019-11-28 06:09 | NUR ---
pain med provided per pt request. no acute distress shown. call light within reach.
--- NOTE | 2019-11-28 06:45 | NUR ---
RECIEVED REPORT FROM KRISTINE.PRESLEY. ASSUMED PT CARE.
[2019-11-28 07:10] LABS: BILIRUBIN, TOTAL 0.4 mg/dL (0.0-1.4); CREATININE 2.1 mg/dL (0.5-1.0); POTASSIUM 3.4 mmol/l (3.5-5.1); TOTAL PROTEIN 5.6 g/dL (6.3-8.2)
--- NOTE | 2019-11-28 07:30 | NUR ---
[place] [facility] [place] URINE. PT SELF BATHED, LINEN CHANGED. BREAKFAST TRAY SET UP. PT SITTING IN RECLINER FOR BREAKFAST. CALL LIGHT IN REACH. WILL MONITOR.
--- NOTE | 2019-11-28 08:00 | NUR ---
PT A&OX4, ABLE TO MAKE NEEDS KNOWN. REMAINS AFIB ON TELEMETRY, HR 94. PT DENIES CP, SOB OR DISTRESS AT THIS TIME. RESPIRATIONS EVEN/UNLABORED, SA02@97%RA, LS CLEAR THROUGHOUT. ABDOMEN SOFT, DISTENDED, NON-TENDER. 20G TO LAC &22G TO L SHOULDER/SL NO S/S OF INFILTRATION. RLE DRSG CDI. CALL LIGHT IN REACH. WILL MONITOR.
--- NOTE | 2019-11-28 08:51 | NUR ---
LUIS FROM [facility] CALLED, UPDATE GIVEN.
--- NOTE | 2019-11-28 08:56 | NUR ---
DIETARY AT BEDSIDE FOR LUNCH AND DINNER ORDER.
--- NOTE | 2019-11-28 09:11 | NUR ---
DR. PATEL AT BEDSIDE FOR ASSESSMENT AND TO DISCUSS PLAN OF CARE. NEW ORDER RECIEVED.
--- NOTE | 2019-11-28 09:18 | NUR ---
MARISEL SAMSON AT BEDSIDE WITH PT.
--- NOTE | 2019-11-28 10:00 | NUR ---
PT MEDICATED FOR BLE PAIN 01/06 ORDERED PER PT REQUEST. PT REMAINS SITTING IN RECLINER, TALKING ON PERSONAL CELL PHONE. CALL LIGHT IN REACH. WILL MONITOR.
--- NOTE | 2019-11-28 10:24 | NUR ---
MARISEL SAMSON AT BEDSIDE TO DISCUSS POSSIBLE PLACEMENT.
--- NOTE | 2019-11-28 10:52 | NUR ---
PT STATED SHE DOES NOT WANT TO GO TO REHAB, SHE WANTS O GO HOME WITH REHAB. PT AMBULATES TO BS, GAIT STEADY. CALL LIGHT IN REACH. WILL MONITOR.
[2019-11-28] MEDS ORDERED: AMOXICILLIN/CL875 MG PO (11:45)
--- NOTE | 2019-11-28 11:45 | NUR ---
IV site discontinued, cath intact. No edema , no redness, voices no discomfort.
--- NOTE | 2019-11-28 12:20 | NUR ---
Discharge instructions given. Patient verbalizes understanding of same. Discharged in stable condition via Wheelchair to Home with *Other. All belongings sent with pt. PT WAS DELIVER HOME VIA [facility], PROVIDED BY [facility].
[2019-11-30] MEDS ORDERED: PERCOCET 10/31 COMBO PO (12:15)
--- NOTE | 2019-11-30 13:14 | NUR ---
NEGATIVE COVID TEST RESULTS COMMUNICATED TO PRESLEY PERSON AND KEN VADLIVIA APRN. CALL ALSO PLACED TO PATIENT TO COMMUNICATE TEST RESULTS. PT VERBALIZED UNDERSTANDING.
--- NOTE | 2019-12-01 12:25 | NUR ---
FINAL BLOOD CULTURE SHOWS STAPH EPIDERMIDIS IN 1 OF 4 BOTTLES, MOST LIKELY A CONTAMINANT. NO FOLLOW UP WARRANTED PER DR CORDOBA
[2019-12-28] MEDS ORDERED: PERCOCET 10/31 COMBO PO (11:58)
[2020-01-25] MEDS ORDERED: PERCOCET1 TA4 PO (11:57)
[2020-02-22] MEDS ORDERED: PERCOCET1 TA2 PO (16:06)
[2020-03-21] MEDS ORDERED: PERCOCET1 TA4 PO (14:11)
== END 2019-11-28 12:20 | DRG 871 ==
LOC: ED 02:28 → ED-I 06:16 → ED 06:31 → MS2 06:32 → ICU 07:22
PROVIDERS: Emergency Medicine; ADMIT Internal Medicine; ATTEND Internal Medicine
DX: A41.9 Sepsis, unspecified organism (principal); G93.41 Metabolic encephalopathy; L03.115 Cellulitis of right lower limb; I48.20 Chronic atrial fibrillation, unspecified; L97.919 Non-pressure chronic ulcer of unspecified part of right lower leg with unspecified severity; I87.2 Venous insufficiency (chronic) (peripheral); R65.20 Severe sepsis without septic shock; I95.9 Hypotension, unspecified; I12.9 Hypertensive chronic kidney disease with stage 1 through stage 4 chronic kidney disease, or unspecified chronic kidney disease; F03.90 Unspecified dementia, unspecified severity, without behavioral disturbance, psychotic disturbance, mood disturbance, and anxiety; N18.3 Chronic kidney disease, stage 3 (moderate); J44.9 Chronic obstructive pulmonary disease, unspecified; Z86.718 Personal history of other venous thrombosis and embolism; Z87.440 Personal history of urinary (tract) infections; Z98.84 Bariatric surgery status; Z20.828 Contact with and (suspected) exposure to other viral communicable diseases

== ENCOUNTER 2019-12-03 11:54 | Emergency (ER) | payer MEDICARE, OTHER ==
[2019-12-03 12:37] LABS: HEMATOCRIT 33.4 % (37.0-47.0); HEMOGLOBIN 10.1 g/dl (12.0-16.0); IMMATURE GRANULOCYTES 0.5 % (0.0-5.0); MEAN CELL VOLUME 95.4 fL CALC (80.0-100.0); MEAN CORPUSCULAR HGB 28.9 pG CALC (26.0-32.0); MEAN CORPUSCULAR HGB CONC 30.2 g/dL CAL (32.0-36.0); NEUT# 5.99 thou/uL (2.00-7.15); RED BLOOD COUNT 3.5 mill/uL (4.20-5.60); RED CELL DISTRI WIDTH 16.7 % (11.5-15.5)
[2019-12-03 12:52] LABS: PROTHROMBIN TIME 10.9 SECONDS (9.0-12.5)
[2019-12-03 12:53] LABS: ALKALINE PHOSPHATASE 74 u/l (38-126); ANION GAP 10 (6-22 (CALC)); BILIRUBIN, TOTAL 0.4 mg/dL (0.0-1.4); BUN 38 mg/dL (8-23); BUN/CREATININE RATIO 23 (12-20 (CALC)); CARBON DIOXIDE 29 mmol/l (22-30); CHLORIDE 103 mmol/l (95-108); CREATININE 1.7 mg/dL (0.5-1.0); GFR 30 ML/MIN (>=60 (CALC)); GFR FOR AFR.AMER. 36 ML/MIN (>=60 (CALC)); POTASSIUM 3.1 mmol/l (3.5-5.1); SGOT/AST 23 u/l (9-36); SODIUM 139 mmol/l (137-146)
[2019-12-03 13:08] LABS: ALBUMIN 3.7 g/dL (3.2-5.0)
[2019-12-03 14:03] LABS: URINE BILIRUBIN - DIPSTICK NEGATIVE (NEGATIVE); URINE BLOOD DIPSTICK NEGATIVE (NEGATIVE); URINE COLOR YELLOW; URINE GLUCOSE - DIPSTICK NEGATIVE (NEGATIVE); URINE KETONE NEGATIVE (NEGATIVE); URINE LEUK ESTERASE NEGATIVE (NEGATIVE); URINE NITRITE - DIPSTICK NEGATIVE (Negative); URINE PROTEIN - DIPSTICK NEGATIVE (NEG-TRACE); URINE UROBILINOGEN - DIPSTICK 0.2 E.U./dL (0.2)
[2019-12-03 16:35] VITALS: BP 118/76
[2019-12-28] MEDS ORDERED: PERCOCET 10/31 COMBO PO (11:58)
[2020-01-25] MEDS ORDERED: PERCOCET1 TA4 PO (11:57)
[2020-02-22] MEDS ORDERED: PERCOCET1 TA2 PO (16:06)
[2020-03-21] MEDS ORDERED: PERCOCET1 TA4 PO (14:11)
== END 2019-12-03 16:55 | disposition home or self-care (01) ==
LOC: ED 11:54
PROVIDERS: Student in an Organized Health Care Education/Training Program
DX: F11.10 Opioid abuse, uncomplicated (principal); I10 Essential (primary) hypertension; I48.91 Unspecified atrial fibrillation; Z79.01 Long term (current) use of anticoagulants

== ENCOUNTER 2019-12-17 19:56 | Inpatient (IN) | payer MEDICARE, OTHER ==
[~2019-12-17] VITALS: Ht 165.1 cm; Wt 117.0 kg
--- NOTE | 2019-12-17 19:58 | NUR ---
PATIENT TO ROOM 10 VIA EMS STRETCHER. TRIAGE COMPLETED AT BEDSIDE.
--- NOTE | 2019-12-17 20:30 | NUR ---
ATTEMPTED TO DRAW BLOOD FROM EMS SITE, UNABLE BUT SITE FLUSED WITHOUT ANY HESITATION.
--- NOTE | 2019-12-17 20:40 | NUR ---
XRAY DONE AT BEDSIDE, BLOOD AND BLOOD CULTURES X2 DRAWN BY LAB. PT SLEPT THROUGH MOST OF PROCEDURES. PT WAKES EASILY BUT GOES RIGHT BACK TO SLEEP.
[2019-12-17 20:45] LABS: HEMATOCRIT 30.8 % (37.0-47.0); HEMOGLOBIN 9.6 g/dl (12.0-16.0); IMMATURE GRANULOCYTES 0.2 % (0.0-5.0); MEAN CELL VOLUME 91.4 fL CALC (80.0-100.0); MEAN CORPUSCULAR HGB 28.5 pG CALC (26.0-32.0); MEAN CORPUSCULAR HGB CONC 31.2 g/dL CAL (32.0-36.0); NEUT# 7.29 thou/uL (2.00-7.15); RED BLOOD COUNT 3.37 mill/uL (4.20-5.60); RED CELL DISTRI WIDTH 16.3 % (11.5-15.5)
[2019-12-17 21:07] LABS: ALBUMIN 3.4 g/dL (3.2-5.0); BILIRUBIN, TOTAL 0.6 mg/dL (0.0-1.4); CREATININE 1.6 mg/dL (0.5-1.0); POTASSIUM 3.9 mmol/l (3.5-5.1); TOTAL PROTEIN 6.3 g/dL (6.3-8.2)
--- NOTE | 2019-12-17 21:40 | NUR ---
PT TO BE ADMITTED TO [facility] WAITING ON BLOOD COVID TEST RESULTS FOR ROOM. NO
--- NOTE | 2019-12-17 22:40 | NUR ---
NO REACTION TO UNASYN.
--- NOTE | 2019-12-17 22:50 | NUR ---
REPORT GIVEN TO PRESLEY KHAN ON [facility]
--- NOTE | 2019-12-17 23:14 | NUR ---
Admission Note Report Given to: PRESLEY KHAN Transported by: Wheelchair X Stretcher Transported with: X Nurse Transporter X Patent IV O2 Annual Giving Officer Location: ICU X MS2
[2019-12-17 23:30] VITALS: BP 134/86
[2019-12-18 04:00] VITALS: BP 83/46
[2019-12-18 05:30] VITALS: BP 106/67
[2019-12-18] MEDS ORDERED: ATIVAN1 MG PO (08:03)
[2019-12-18] MEDS ORDERED: DOXEPIN HYDROCH25 MG PO (08:04)
[2019-12-18] MEDS ORDERED: LASIX40 MG PO (08:05)
[2019-12-18] MEDS ORDERED: METOLAZONE5 MG PO (08:06)
--- NOTE | 2019-12-18 08:40 | NUR ---
ASSESSMENT DONE. PT IS A&OX3. PT STATED PAIN IN LEGS. LEFT LEG RED AND WARM TO THE TOUCH. SAFETY PRECAUTIONS REINFORCED AND CALL LIGHT IN REACH.
[2019-12-18 09:00] VITALS: BP 99/47
--- NOTE | 2019-12-18 11:50 | NUR ---
SPOKE WITH PT CONCERNING HOME MEDS. XARELTO AND PROPRANOLOL HAVENT BEEN FILLED IN A WHILE BUT PT CONFIRMED SHE'S STILL TAKING BOTH.
--- NOTE | 2019-12-18 11:51 | NUR ---
PT WAS MEDICATED WITH PERCOCET FOR PAIN IN HER LEGS. CALL LIGHT IN REACH.
[2019-12-18 15:35] VITALS: BP 107/70
--- NOTE | 2019-12-18 16:50 | NUR ---
PT IS SITTING IN THE SIDE OF THE BED. PT DENIES NEEDS AT THIS TIME. CALL LIGHT IN REACH.
[2019-12-18 19:55] VITALS: BP 136/87
--- NOTE | 2019-12-18 21:50 | NUR ---
PHYSICAL ASSESMENT COMPLETE. VS ASSESSED. PLAN OF CARE REVIEWED. PT VERBALIZES UNDERSTANDING, DENIES QUESTIONS. PT DENIES NEEDS AT THIS TIME. ITEMS WITHIN REACH. BED LOCKED IN LOW POSITION W/ BEDRAILS UP X2. CALL WEST WITHIN REACH, AGREES TO CALL PRN.
--- NOTE | 2019-12-19 01:05 | NUR ---
PT APPEARS TO BE SLEEPING COMFORTABLY. NO APPARENT DISTRESS. RESPIRATIONS REGULAR AND UNLABORED. CALL WEST REMAINS WITHIN REACH.
[2019-12-19 03:53] VITALS: BP 92/56
[2019-12-19 05:13] LABS: HEMATOCRIT 32.2 % (37.0-47.0); HEMOGLOBIN 9.8 g/dl (12.0-16.0); IMMATURE GRANULOCYTES 0.6 % (0.0-5.0); MEAN CELL VOLUME 93.3 fL CALC (80.0-100.0); MEAN CORPUSCULAR HGB 28.4 pG CALC (26.0-32.0); MEAN CORPUSCULAR HGB CONC 30.4 g/dL CAL (32.0-36.0); NEUT# 5.37 thou/uL (2.00-7.15); RED BLOOD COUNT 3.45 mill/uL (4.20-5.60); RED CELL DISTRI WIDTH 16.1 % (11.5-15.5)
[2019-12-19 05:26] LABS: CREATININE 1.4 mg/dL (0.5-1.0); POTASSIUM 3.4 mmol/l (3.5-5.1)
[2019-12-19 08:40] VITALS: BP 118/81
--- NOTE | 2019-12-19 08:40 | NUR ---
ASSESSMENT IS COMPLETE: IV SITE IS FREE FROM REDNESS OR EDEMA. HR IS REG, PULSES ARE STRONG X4, ABD IS SOFT WITH ACTIVE BS., BREATH SOUNDS ARE CLEAR,BILATERALLY. R LEG IS RED AND PINK SOME DRAINAGE PER PT. CONTINUE TO OSBERVE AND MONITOR.
--- NOTE | 2019-12-19 12:30 | NUR ---
PT IS RELAXING IN BED WITH NO DISTRESS NOTED. IV SITE IS FREE FROM REDNESS OR EDEMA.
--- NOTE | 2019-12-19 13:50 | NUR ---
PLACED A WET TO DRY DRESSING ON R LEG. COVERED WITH ABD PAD. PT TOLERATED WELL. CONTINUE TO OBSERVE AND MONITOR
[2019-12-19 15:38] VITALS: BP 101/66
--- NOTE | 2019-12-19 16:00 | NUR ---
PT IS RELAXING ON THE SIDE OF THE BED, WAS WEEPING DUE TO PAIN AND ANXIETY. IV SITE IS FREE FROM REDNESS OR EDEMA. DRESSING IS INTACT ON LEG.
--- NOTE | 2019-12-19 17:38 | NUR ---
PT IS PICKING AT HER DRESSING. STATING" IT STARTS TO BOTHER ME SO I HAVE TO TAKE IT OFF".
--- NOTE | 2019-12-19 18:00 | NUR ---
PT IS NOT WANTING HER ADVAIR, ATTEMPTED TO GIVE HER THIS AM. SHE REFUSED.
[2019-12-19 18:43] VITALS: BP 114/67
--- NOTE | 2019-12-19 19:00 | NUR ---
RECEIVED REPORT FROM NURSE DIETRICH PATIENT CURRENTLY IN THE BATHROOM, CALL LIGHT WITHIN REACH.
--- NOTE | 2019-12-19 20:30 | NUR ---
PATIENT ALERT ORIENTED, ABLE TO MAKE NEEDS KNOWN, WITH SALINE LOCK ON LFA, PATENT FLUSHES WELL, LBM 12/18, C/O OF RT LEG PAIN PRN PAIN MEDICATION GIVEN EFFECTIVE, CALL LIGHT AT REACH.
[2019-12-19 21:50] VITALS: BP 99/69
--- NOTE | 2019-12-19 22:10 | NUR ---
NEW WET TO DRY DRESSING APPLIED TO RT LEG, TOLERATED.
--- NOTE | 2019-12-20 00:26 | NUR ---
PATIENT AWAKE AT THIS TIME, REQUESTED FOR ICE, BREATHING EVEN AND UNLABORED, CALL LIGHT AT REACH.
--- NOTE | 2019-12-20 01:44 | NUR ---
PATIENT APPEARS TO BE SLEEPING WITH EYES CLOSED, BREATHING EVEN AND UNLABORED CALL LIGHT AT REACH.
[2019-12-20 03:28] VITALS: BP 109/66
--- NOTE | 2019-12-20 03:46 | NUR ---
PATIENT AWAKE AT THIS TIME,BREATHING EVEN AND UNLABORED, C/O PAIN ON RT LEG PRN PERCOCET GIVEN WILL REEVALUATE, CALL LIGHT AT REACH.
[2019-12-20 04:37] LABS: HEMOGLOBIN 9.5 g/dl (12.0-16.0); MEAN CELL VOLUME 92.5 fL CALC (80.0-100.0); MEAN CORPUSCULAR HGB 28.4 pG CALC (26.0-32.0); MEAN CORPUSCULAR HGB CONC 30.6 g/dL CAL (32.0-36.0); RED BLOOD COUNT 3.35 mill/uL (4.20-5.60); RED CELL DISTRI WIDTH 15.9 % (11.5-15.5)
[2019-12-20 04:40] LABS: URINE BILIRUBIN - DIPSTICK NEGATIVE (NEGATIVE); URINE BLOOD DIPSTICK NEGATIVE (NEGATIVE); URINE COLOR YELLOW; URINE GLUCOSE - DIPSTICK NEGATIVE (NEGATIVE); URINE KETONE NEGATIVE (NEGATIVE); URINE LEUK ESTERASE NEGATIVE (NEGATIVE); URINE NITRITE - DIPSTICK NEGATIVE (Negative); URINE PH 5.5 (4.5-8.0); URINE PROTEIN - DIPSTICK NEGATIVE (NEG-TRACE); URINE SPECIFIC GRAVITY 1.025; URINE UROBILINOGEN - DIPSTICK 0.2 E.U./dL (0.2)
[2019-12-20 04:52] LABS: ALBUMIN 3.3 g/dL (3.2-5.0); CREATININE 1.4 mg/dL (0.5-1.0); POTASSIUM 3.4 mmol/l (3.5-5.1); TOTAL PROTEIN 6.1 g/dL (6.3-8.2)
[2019-12-20 04:53] LABS: BILIRUBIN, TOTAL 0.3 mg/dL (0.0-1.4)
[2019-12-20 08:00] VITALS: BP 124/80
--- NOTE | 2019-12-20 09:44 | NUR ---
ASSESSMENT IS COMPLETE: IV SITE IS FREE FROM REDNESS OR EDEMA. HR IS REG, PULSES ARE STRONG X4, ABD IS SOFT WITH ACTIVE BS; BREATH SOUNDS ARE CLEAR,BILATERALLY. R LEG IS RED AND PINK SOME DRAINAGE PER PT. PT C/O OF PAIN. PROVIDE PRN MEDICATION CONTINUE TO OBSERVE AND MONITOR.
--- NOTE | 2019-12-20 14:02 | NUR ---
SHIELDED PT'S IV SITE SO SHE COULD TAKE A SHOWER.
[2019-12-20 16:17] VITALS: BP 140/79
--- NOTE | 2019-12-20 17:00 | NUR ---
IV INFILTRATED WHEN MERROM WAS HUNG. ATTEMPTED UNSUCCESSFULLY TO ESTABLISH NE IV. PLACED A WET TO DRY DRESSING ON R LEG. COVERED WITH ABD PAD. PT TOLERATED WELL. CONTINUE TO OBSERVE AND MONITOR. CALL WEST WITHIN REACH.
--- NOTE | 2019-12-20 18:04 | NUR ---
PT IS SITTING IN THE SIDE OF THE BED EATING SUPPER. CALL LIGHT WITHIN REACH.
[2019-12-20 19:32] VITALS: BP 116/74
--- NOTE | 2019-12-20 20:00 | NUR ---
PT. WITHOUT IV SITE AND NEW ONE PLACED AT THIS TIME TO RWRIST#22 GAUGE X1 ATTEMPT. ACCOUNTANT MACHINE PROCESSING NOTIFIED OF NEED FOR NEW IV ANTIBIOTICS ORDERED; WILL START ONCE THEY ARE BROUGHT. ASSESSMENT COMPLETED. PT. C/O PAIN, WILL MEDICATE WHEN PRN DILAUDID IS DUE. RLE CELLULITIS AND DRESSING IS HANGING OFF; NEW DRESSING APPLIED PER ORDER AND APPLIED PACO WRAP TO RLE. PT. TOLERATED WELL. UPDATED ON POC. CALL LIGHT IS IN REACH.
--- NOTE | 2019-12-21 00:19 | NUR ---
PT. C/O RLE PAIN AND MEDICATED WITH ORDERED PERCOCET; WILL REASSESS.
--- NOTE | 2019-12-21 04:08 | NUR ---
PT. C/O RLE PAIN AND MEDICATED WITH ORDERED PRN DILAUDID; WILL REASSESS. DENIES FURTHER NEEDS. VSS. CALL LIGHT IS IN REACH.
[2019-12-21 04:09] VITALS: BP 129/78
--- NOTE | 2019-12-21 08:40 | NUR ---
'S OFFICE CALLED TO NOTIFY HIM OF CONSULT ON PT.PER OFFICE VOICEMAIL MD WOULD NEED TO BE NOTIFIED PERSONALLY. CURRENTLY IN PROCEDURE. PRESLEY QUIJANO OR NOTIFIED OF CASE AND WOULD LET MD KNOW OF CONSULT.
--- NOTE | 2019-12-21 09:47 | NUR ---
S: OCTAVIA LEWIS is a 64 F who presents with acute RLE cellulitis. She has a history of HTN, A. fib, CKD stg 3, CHF, and COPD. All medications in patient's chart were reviewed. O: VS: BP 129/78mmHg, P 90bpm, RR 19,T 96.8F W 117.6kg, HT 165cm, Scr= 1.4mg/dL,CrCl= 50 ml/min A: Acute RLE cellulits, no response to meropenem. Pt requires coverage of MRSA and other gram positives P: Patient is on cefepime 2gm IV q8h and clindamycin 900mg IV q8h. Vancomycin ordered for pharmacy to dose. Start Vancomycin 1250mg IV Q8H. Vancomycin trough is drawn before the 4th dose on 12/22 at 1630. Vancomycin goal trough is between 10-15 mcg/ml. Pharmacy will follow and or advise on antibiotics use as needed.
--- NOTE | 2019-12-21 15:57 | NUR ---
patient is alert and oriented x 3; laying in bed; c/o pain to RLE; RLE is red, with small amount of serous drainage noted; VS stable; pleasant and cooperative with nurse; patient eating breakfast; no distress noted at this time.
[2019-12-21 15:58] VITALS: BP 136/68
--- NOTE | 2019-12-21 16:21 | NUR ---
XANAX GIVEN AT 1315; SYSTEM SHUT DOWN BEFORE TASK CAN BE SUBMITTED DONE.
[2019-12-21 19:41] VITALS: BP 113/69
--- NOTE | 2019-12-21 19:43 | NUR ---
ASSESSMENT COMPLETED. NO RESP. DISTRESS NOTED; PT. C/O RLE PAIN. WITNESSED SIGNATURE OF CONSENT FOR PROCEDURE. PT. MEDICATED WITH ORDERED PRN DILAUDID; WILL REASSESS. IV SITE PATENT AND ORDERED IVF INFUSING. DRESSING IN PLACE TO RLE AND ENCOURAGED TO ELEVATE IT. UPDATED ON POC. CALL LIGHT IS IN REACH. WILL CONTINUE TO MONITOR.
--- NOTE | 2019-12-21 23:30 | NUR ---
PT. MEDICATED FOR RLE PAIN 4/10 WITH ORDERED PRN PERCOCET; WILL REASSESS. PT. REMIDED OF NPO STATUS IN 30 MINUTES; VERBALIZES UNDERSTANDING. WILL CONTINUE TO MONITOR. CALL LIGHT IS IN REACH.
[2019-12-22] VITALS (11 sets, daily range): BP systolic 88–135; BP diastolic 50–88
--- NOTE | 2019-12-22 03:18 | NUR ---
PT. RESTING IN BED WITH EYES CLOSED; RESP. EVEN AND UNLABORED. CALL LIGHT IS IN REACH.
--- NOTE | 2019-12-22 03:56 | NUR ---
PT. C/O RLE PAIN AND MEDICATED WITH ORDERED PRN DILAUDID; WILL REASSESS. DRESSING REDONE AT THIS TIME DUE TO IT BEING WET AND PT. REMOVING IT HERSELF.
[2019-12-22 05:30] LABS: HEMATOCRIT 36.5 % (37.0-47.0); HEMOGLOBIN 11.3 g/dl (12.0-16.0); MEAN CELL VOLUME 92.6 fL CALC (80.0-100.0); MEAN CORPUSCULAR HGB 28.7 pG CALC (26.0-32.0); RED BLOOD COUNT 3.94 mill/uL (4.20-5.60); RED CELL DISTRI WIDTH 15.8 % (11.5-15.5)
[2019-12-22 05:46] LABS: ALBUMIN 3.9 g/dL (3.2-5.0); BILIRUBIN, TOTAL 0.4 mg/dL (0.0-1.4); CREATININE 1.3 mg/dL (0.5-1.0); POTASSIUM 3.8 mmol/l (3.5-5.1); TOTAL PROTEIN 7.1 g/dL (6.3-8.2)
--- NOTE | 2019-12-22 05:56 | NUR ---
PT. C/O RLE PAIN AND MEDICATED WITH ORDERED PRN PERCOCET; WILL REASSESS. ENCOURAGED TO CALL FOR ANY NEEDS. ARSENIO LIGHT IS IN REACH.
--- NOTE | 2019-12-22 12:56 | NUR ---
PATIENT ALERT AND ORIENTED X4. RESTING BUT C/O PAIN TO RLE R/T CHRONIC CELLULITIS. MEDICATED ORDERED. ABLE TO PERFROM AELD ADLS. TOOK A BATH TODAY. AWAITING WOUND DEBRIDMENT SCHEDULED FOR TODAY.
--- NOTE | 2019-12-22 16:33 | NUR ---
PT SITTING UP ON THE SIDE OF THE BED EATTING. POST OP VITALS IN PROGRESS. ALERT AND ORIENTED. PAIN 5/10 POST OP.
--- NOTE | 2019-12-22 19:02 | NUR ---
REPORT FROM TAZ SHERWOOD. PT NOTED RESTING IN BED WITH EYES CLOSED. PT WAKES EASILY. ALERT AND ORIENTED. NO APPARENT DISTRESS NOTED. IV SITE APPEARS HEALTHY. DISCUSSED POC. PT VERBALIZED UNDERSTANDING. SNACK PROVIDED UPON REQUEST. CALL LIGHT WITHIN REACH. WILL CONTINUE TO MONITOR.
--- NOTE | 2019-12-22 20:44 | NUR ---
PT MEDICATED WITH SCHEDULE MEDICATIONS ORDERED. PT ALSO MEDICATED FOR RIGHT LEG PAIN AT THIS TIME. PACO BANDAGE ADJUSTED FOR COMFORT. ENCOURAGED ELEVATION OF LEG ON PILLOWS. PT VERBALIZED UNDERSTANDING. NO OTHER WANTS OR NEEDS AT THIS TIME. CALL LIGHT WITHIN REACH. WILL CONTINUE TO MONITOR.
--- NOTE | 2019-12-22 21:59 | NUR ---
PT MEDICATED WITH ATIVAN UPON REQUEST. NO APPARENT DISTRESS NOTED. IV SITE APPEARS HEALTHY. IV ABT INFUSING WITHOUT DIFFICULTY. CALL LIGHT WITHIN REACH. WILL CONTINUE TO MONITOR.
--- NOTE | 2019-12-23 02:11 | NUR ---
PT RESTING IN BED WITH EYES CLOSED. NO APPARENT DISTRESS NOTED. CALL LIGHT WITHIN REACH. WILL CONTINUE TO MONITOR.
[2019-12-23 04:20] VITALS: BP 105/59
--- NOTE | 2019-12-23 04:26 | NUR ---
PT MEDICATED FOR PAIN WITH PO PERCOCET. NO APPARENT DISTRESS NOTED. IV SITE APPEARS HEALTHY. CALL LIGHT WITHIN REACH. WILL CONTINUE TO MONITOR.
[2019-12-23 07:08] VITALS: BP 114/65
--- NOTE | 2019-12-23 09:46 | NUR ---
therapist entered room patient was sitting on EOB eating breakfast. After she finished eating we performed gait training with CGA and patient was able to walk 75ft before requiring seated rest break. She then performed seated knee ext 2x10 and ankle pumps 2x10. No LOB occured during ambulation. Ampac score 14
--- NOTE | 2019-12-23 09:51 | NUR ---
PATIENT RESTING, ALERT AND ORIENTED X4. SLIGHT AGITATION DUE TO RLE PAIN. DEBRIDED ON 12/21. DRESSING INTACT, NO WEEPING NOTED. CAPILLARY REFILL >3. WILL MEDICATE FOR PAIN. REPOSITIONS HERSELF. GETS TO THE BSC TO VOID.
[2019-12-23 11:00] VITALS: BP 114/44
--- NOTE | 2019-12-23 11:56 | NUR ---
entered room patient was sitting upright on EOB. We then performed gait training with CGA and no AD. She was able to walk 60ft before requiring seated rest break. She then performed bilateral LAQ 2x10, and ankle pumps 2x10. Ampac=16
[2019-12-23 15:06] VITALS: BP 121/46
[2019-12-23 19:48] VITALS: BP 99/72
--- NOTE | 2019-12-23 23:11 | NUR ---
IV SITE LOST. PT REFUSING AFTER SEVERAL ATTEMPTS WITHOUT SUCCESS. DATASTAGE ARCHITECT PHYSICIAN NOTIFIED OF NOT RECEIVING IV ABT AND NO IV SITE. NO NEW ORDERS RECEIEVED.
--- NOTE | 2019-12-24 03:24 | NUR ---
PT RESTING IN BED. NO APPARENT DISTRESS NOTED. CALL LIGHT WITHIN REACH. WILL CONTINUE TO MONITOR.
[2019-12-24 03:53] VITALS: BP 122/80
[2019-12-24 06:06] LABS: CREATININE 1.1 mg/dL (0.5-1.0); POTASSIUM 3.5 mmol/l (3.5-5.1)
[2019-12-24 06:58] VITALS: BP 115/62
--- NOTE | 2019-12-24 06:58 | NUR ---
PT LAYING IN BED. A&O X3. NO DISTRESS NOTED. DRESSING TO LOWER LEG CDI, NO PACO BANDAGE, EXPLAINED TO PT THAT PACO BANDAGE WOULD BE REAPPLIED BEFORE GETTING OUT OF BED. PT VERBALIZED UNDERSTANDING. ASSESSMENT COMPLETED. DISCUSSED POC. CALL LIGHT IN REACH. CONTINUE TO MONITOR
--- NOTE | 2019-12-24 11:40 | NUR ---
DR HALL NOTIFIED THAT PT DID NOT HAVE IV ACCESS AND THAT THE PHYSICIAN CHUTE TAPPER LAST NIGHT WAS AWARE. PER ISABEL, IT IS OKAY TO HAVE NO IV ACCESS AT THIS TIME, IV ABX TO BE SWITCHED TO PO. PT TO BE D/C TOMORROW
--- NOTE | 2019-12-24 15:10 | NUR ---
DR WAHL AT BEDSIDE COMPLETING DRESSING CHANGE. PT TOLERATING WELL
[2019-12-24 15:35] VITALS: BP 139/82
--- NOTE | 2019-12-24 17:04 | NUR ---
Therapist made an A.M attempt and a P.M. attempt however patient refused to participate reporting she needed more pain meds in order to walk because her leg hurts too much.
--- NOTE | 2019-12-24 19:03 | NUR ---
REPORT FROM DELMI RAMSEY. PT NOTED RESTING IN BED WITH EYES CLOSED. PT WAKES EASILY. ALERT AND ORIENTED. NO APPARENT DISTRESS NOTED. NO IV SITE. DISCUSSED POC. PT VERBALIZED UNDERSTANDING. SNACK PROVIDED UPON REQUEST. CALL LIGHT WITHIN REACH. WILL CONTINUE TO MONITOR.
[2019-12-24 19:40] VITALS: BP 138/78
--- NOTE | 2019-12-24 20:48 | NUR ---
PT MEDICATED ORDERED. PRN PAIN MEDICATION AND MEDICATION ADMINISTERED UPON REQUEST. NO APPARENT DISTRESS NOTED. PACO BANDAGE TO RLE, CDI. CALL LIGHT WITHIN REACH. WILL CONTINUE TO MONITOR.
--- NOTE | 2019-12-25 00:21 | NUR ---
PT RESTING IN BED. NO APPARENT DISTRESS NOTED. CALL LIGHT WITHIN REACH. WILL CONTINUE TO MONITOR.
[2019-12-25 04:00] VITALS: BP 110/60
--- NOTE | 2019-12-25 04:55 | NUR ---
PT RESTING IN BED. NO APPARENT DISTRESS NOTED. CALL LIGHT WITHIN REACH. WILL CONTINUE TO MONITOR.
[2019-12-25 08:57] VITALS: BP 142/79
--- NOTE | 2019-12-25 08:57 | NUR ---
PT SITTING IN BED. A&O X3. NO DISTRESS NOTED. DRESSING CDI. PT C/O OF PAIN. NO OTHER NEEDS AT THIS TIME. ASSESSMENT COMPLETED. DISCUSSED POC. CALL LIGHT IN REACH. CONTINUE TO MONITOR.
[2019-12-25] MEDS ORDERED: CEPHALEXIN500 MG PO (11:59)
[2019-12-25] MEDS ORDERED: DOXYCYC MONO100 M2 PO (12:00)
[2019-12-25 13:56] VITALS: BP 142/79
--- NOTE | 2019-12-25 15:40 | NUR ---
D/C INSTRUCTIONS GIVEN TO PT. PT VERBALIZED UNDERSTANDING
--- NOTE | 2019-12-25 16:08 | NUR ---
Discharge instructions given. Patient verbalizes understanding of same. Discharged in stable condition via Wheelchair to Home with [facility] with staff. All belongings sent with pt.
[2019-12-28] MEDS ORDERED: PERCOCET 10/31 COMBO PO (11:58)
[2020-01-25] MEDS ORDERED: PERCOCET1 TA4 PO (11:57)
[2020-02-22] MEDS ORDERED: PERCOCET1 TA2 PO (16:06)
[2020-03-21] MEDS ORDERED: PERCOCET1 TA4 PO (14:11)
== END 2019-12-25 16:08 | DRG 603 ==
LOC: ED 19:56 → ED-I 21:11 → ED 21:21 → MS2 21:22 → ED-I 21:22 → MS2 22:31
PROVIDERS: Family Medicine; Internal Medicine; Nurse Practitioner Family; ADMIT Internal Medicine; ATTEND Internal Medicine
PROC: 0HBKXZZ Excision of Right Lower Leg Skin, External Approach (ICD-10-PCS; principal; 2019-12-22)
DX: L03.115 Cellulitis of right lower limb (principal); I48.20 Chronic atrial fibrillation, unspecified; I13.0 Hypertensive heart and chronic kidney disease with heart failure and stage 1 through stage 4 chronic kidney disease, or unspecified chronic kidney disease; L97.919 Non-pressure chronic ulcer of unspecified part of right lower leg with unspecified severity; N17.9 Acute kidney failure, unspecified; Z68.41 Body mass index [BMI] 40.0-44.9, adult; I50.32 Chronic diastolic (congestive) heart failure; I87.2 Venous insufficiency (chronic) (peripheral); N18.3 Chronic kidney disease, stage 3 (moderate); J44.9 Chronic obstructive pulmonary disease, unspecified; F11.10 Opioid abuse, uncomplicated; E66.01 Morbid (severe) obesity due to excess calories; F32.9 Major depressive disorder, single episode, unspecified; F41.9 Anxiety disorder, unspecified; G47.00 Insomnia, unspecified; M54.9 Dorsalgia, unspecified; G89.29 Other chronic pain; Z98.84 Bariatric surgery status; Z96.653 Presence of artificial knee joint, bilateral; Z86.718 Personal history of other venous thrombosis and embolism; Z20.828 Contact with and (suspected) exposure to other viral communicable diseases
CPT/HCPCS: G0378; J0131; J0692; J3370; Q3014

== ENCOUNTER 2019-12-30 20:34 | Inpatient (IN) | payer MEDICARE, OTHER ==
[~2019-12-30] VITALS: Ht 162.6 cm; Wt 106.4 kg
[~2019-12-30 20:34] MED LIST changes: +DOXEPIN HYDROCH25 MG PO; +DOXYCYC MONO100 M2 PO; +LASIX40 MG PO
--- NOTE | 2019-12-30 20:34 | NUR ---
PT TO ROOM 11 BY EMS. REPORTED PT FOUND UNRESPONSIVE AND PT GIVEN NARCAN. PT AWAKE AND MOVING ALL AROUND BED. PT IS NOT RESPONDING TO ANY VERBAL COMMANDS. TRYING TO KEEP IV IN PLACE. PT CONSTANTLY FLAILING ARMS ABOUT AND MOVING LEGS ALL AROUND.
--- NOTE | 2019-12-30 20:37 | NUR ---
ATIVAN ORDERED AND GIVEN.
--- NOTE | 2019-12-30 20:58 | NUR ---
ASSISTED LAB WITH BLOOD DRAW WHILE RXOY ELY HELD PT'S LEFT ARM TO PREVENT IV DISLODGE.
[2019-12-30 21:10] LABS: HEMATOCRIT 37.2 % (37.0-47.0); IMMATURE GRANULOCYTES 0.3 % (0.0-5.0); MEAN CELL VOLUME 94.7 fL CALC (80.0-100.0); MEAN CORPUSCULAR HGB CONC 29.6 g/dL CAL (32.0-36.0); NEUT# 6.16 thou/uL (2.00-7.15); RED BLOOD COUNT 3.93 mill/uL (4.20-5.60); RED CELL DISTRI WIDTH 16.2 % (11.5-15.5)
[2019-12-30 21:26] LABS: PROTHROMBIN TIME 12.7 SECONDS (9.0-12.5)
--- NOTE | 2019-12-30 21:26 | NUR ---
PT GIVEN A TOTAL OF 4MG OF ATIVAN, 5 MG OF HALDOL AND IS STILL FIGHTING US PT DID AT ONE POINT SAY I'M HURTING, ORDER FOR MORPHINE 4MG RECEIVED AND GIVEN
[2019-12-30 21:28] LABS: ALKALINE PHOSPHATASE 98 u/l (38-126); ANION GAP 15 (6-22 (CALC)); BILIRUBIN, TOTAL 0.5 mg/dL (0.0-1.4); BUN 46 mg/dL (8-23); BUN/CREATININE RATIO 25 (12-20 (CALC)); CARBON DIOXIDE 30 mmol/l (22-30); CHLORIDE 94 mmol/l (95-108); CREATININE 1.8 mg/dL (0.5-1.0); ETHYL ALCOHOL 0 mg/dl (0-30); GFR 28 ML/MIN (>=60 (CALC)); GFR FOR AFR.AMER. 34 ML/MIN (>=60 (CALC)); POTASSIUM 3.6 mmol/l (3.5-5.1); SGOT/AST 29 u/l (9-36); SODIUM 136 mmol/l (137-146); TOTAL PROTEIN 8.1 g/dL (6.3-8.2)
[2019-12-30 21:29] LABS: ALBUMIN 4.7 g/dL (3.2-5.0)
[2019-12-30 21:30] LABS: INTERNATIONAL NORMALIZED RATIO 1.3 RATIO (0.7-1.3)
[2019-12-30 21:36] LABS: MYOGLOBIN 81 ng/mL (0 - 62)
--- NOTE | 2019-12-30 21:55 | NUR ---
PT STILL MOVING ALL ABOUT THE STRETCHER. PULLED IV OUT
--- NOTE | 2019-12-30 22:05 | NUR ---
PT HAS BLEEDING FROM LEFT NARES WHERE COVID SWAB DONE. PT ON XERALTO. PT ALSO PULLED IV SITE OUT. DR MCGOWAN INFORMED AND NOSE CLAMP APPLIED BUT PT KEEPS TAKING OFF. PT STILL MOVING ALL OVER THE BED. PT PULLED EMS IV SITE OUT. PT CONTINUES NOT TO FOLLOW ANY COMMANDS. WILL START NEW IV AND PREP PT FOR INTUBATION.
--- NOTE | 2019-12-30 22:39 | NUR ---
2219- NEW IV TO RAC PLACED. 2228- DR MCGOWAN AT BEDSIDE TO INTUBATE PT. ETOMIDATE 20MG IV PUSHED BY DR MCGOWAN 2229- ROCURONIUM 100MG GIVEN 2230-PT INTUBATED BY DR MCGOWAN WITH OUT ANY DIFFICULTY. PLACEMENT CHECK 2238- XRAY DONE AT BEDSIDE.
--- NOTE | 2019-12-30 22:51 | NUR ---
PATIENT INTUBATED BY KAREEM MUNSON. ETT 7.5 AT 21 CM OF THE LIPS. ETT PLACEMENT VERIFIED BY CO2 DETECTOR, LISTENING TO BREATH SOUND AND THEN BY X-RAY. PLACED ON THE VENTILATOR WITH AC 18, 450 VT, 5 OF PEEP AND 100% FIO2.
[2019-12-30 23:21] LABS: URINE BILIRUBIN - DIPSTICK NEGATIVE (NEGATIVE); URINE BLOOD DIPSTICK TRACE-INTACT (NEGATIVE); URINE COLOR YELLOW; URINE GLUCOSE - DIPSTICK NEGATIVE (NEGATIVE); URINE KETONE NEGATIVE (NEGATIVE); URINE LEUK ESTERASE NEGATIVE (NEGATIVE); URINE NITRITE - DIPSTICK NEGATIVE (Negative); URINE PH 5.5 (4.5-8.0); URINE PROTEIN - DIPSTICK NEGATIVE (NEG-TRACE); URINE SPECIFIC GRAVITY 1.015; URINE UROBILINOGEN - DIPSTICK 0.2 E.U./dL (0.2)
--- NOTE | 2019-12-30 23:30 | NUR ---
DAUGHTER CALLED AND STATED PT WAS FOUND ON BEDSIDE COMMODE SLUMPED OVER WITH LARGE AMOUNT OF VOMITUS. DAUGHTER STATED PT WAS FINE ALL DAY, WENT TO 2 DOCTORS APPOINTMENTS AND WAS HOME BY 1630. STATED PT HAD STEW FOR DINNER ABOUT 1900.
[2019-12-31] VITALS (26 sets, daily range): BP systolic 104–159; BP diastolic 55–99
--- NOTE | 2019-12-31 00:30 | NUR ---
PT CALM AT THIS TIME. CALLED FOR RT KANIKA TO TRANSPORT PT FOR CT.
--- NOTE | 2019-12-31 00:32 | NUR ---
650CC OF URINE OUT OF TORREZ.
--- NOTE | 2019-12-31 00:50 | NUR ---
PT BACK FROM CT, WAITING ON RESULTS. PT STILL CALM NO MOVEMENT.
--- NOTE | 2019-12-31 01:20 | NUR ---
PT STARTING TO PRADO ET TUBE. PROPOFOL ORDERED.
--- NOTE | 2019-12-31 02:20 | NUR ---
PT STABLE TO BE ADMITTED TO ICU, WILL HOLD IN ER FOR NOW.
--- NOTE | 2019-12-31 03:00 | NUR ---
PT GETTING AGITATED, INCREASED PROPOFOL TO 20. PATITO BOUDREAUX WAS IN TO SUCTION. NOTED BLOOD IN TUBING AFTER PT SUCTIONED
--- NOTE | 2019-12-31 04:00 | NUR ---
PT CALM, BP 137/68. MONITOR CONTINUES WITH AFIB. NO FURTHER BLEEDING NOTED FROM NARES.
--- NOTE | 2019-12-31 05:00 | NUR ---
800CC URINE OUT.
--- NOTE | 2019-12-31 06:00 | NUR ---
KANIKA, RT DECREASED VENT TO RESP 14, PEEP IS 5, TV 450 AND FIO2 DECREASED FROM 100 TO 60,
--- NOTE | 2019-12-31 06:55 | NUR ---
REPORT GIVEN TO PRESLEY MESSER.
--- NOTE | 2019-12-31 07:00 | NUR ---
EMPTIED F/C OF 500 CLEAR YELLOW URINE TO BSD
--- NOTE | 2019-12-31 07:00 | NUR ---
ASSUMED CARE OF PT. PT WITH HOB SLIGHTLY ELEVATED, PT INTUBATED , 02 100%. VITAL SIGNS STABLE AT THIS TIME. SEE VENT SETTINGS. PER ER SHIFT REPORT PT WAS BROUGHT IN FOR ALTERED MENTAL STATUS. ER HOLD AWAITING ICU PLACEMENT.
--- NOTE | 2019-12-31 08:00 | NUR ---
NO CHANGE IN PT STATUS. WILL CONTINUE TO MONITOR.
--- NOTE | 2019-12-31 09:00 | NUR ---
RT AT BEDSIDE WITH PT AT THIS TIME. NO CHANGE IN VENT SETTINGS. NO CHANGE IN PT STATUS. VSS.
--- NOTE | 2019-12-31 10:20 | NUR ---
TELEPHONE REPORT TO LESTER SHERWOOD. RT CALLED TO TRANSPORT PT TO ICU.
--- NOTE | 2019-12-31 10:45 | NUR ---
PT TAKEN TO ICU VIA STRETCHER IN STABLE CONDITION. PT MOVING ARMS IN ATTEMPT TO PULL AT ET TUBE. DIPRIVAN TITRATED AT THIS TIME .SEE MAR.
--- NOTE | 2019-12-31 10:55 | NUR ---
female pt received from ER via stretcher accompanied by ER staff in stable condition; pt transferred to bed x5 max assist; assessment completed at this time; pt intubated and sedated; no apparent distress noted; no s/sx of pain noted; no n/v noted; resp even and unlabored; lungs coarse; skin color wnl; vent with settings of AC Mode, rate 14, TV 450, 50& FiO2, Peep 5.0; 7.5 ETT tube secured at 21cm lip line; hr reg; strong pulses; edema noted to ble; afib on monitor; abd soft/ distended with bs present; no bm noted per film writer; mar to gravity draining clear yellow urine; cath strap intact; #20 patent to rac with propofol infusing at 75mcg/kg/min, ns at kvo; #20 saline locked to lh; no redness or edema noted at site; redness noted to rle/skin; dressing cdi to right calle; pic to be taken; repositioned; oral care; restraints applied to prevnet self extubation; will continue to monitor
--- NOTE | 2019-12-31 12:13 | NUR ---
pt intuabted and sedated; no apparent distress noted; resp even and unlabored; vent intact and maintained; mar to gravity; afib on monitor; iv intact and patent; propofol gtt continues at 75 mcg/kg/min; no redness or edema noted at site; oral care with toothette; repositined to left side; will continue to monitor
--- NOTE | 2019-12-31 14:00 | NUR ---
intubated and sedated; no apparent distress noted; resp even and unlabored; vent intact and maintained; afib on monitor; mar to gravity; repositioned to right side; will continue to monitor
--- NOTE | 2019-12-31 15:54 | NUR ---
intubated and sedated; no apparent distress noted; resp even and unlabored; vent intact and maintained; mar to gravity; iv patent; diprivan gtt at 55 mcg/kg/min; restraints released and reapplied for nursing care; will continue to monitor
--- NOTE | 2019-12-31 16:25 | NUR ---
DAUGHTER PHONED FOR UPDATE REQUESTING AUTO GARAGE ATTENDANT BE CONSULTED. WILL NOTIFY DR CORDOBA
[2019-12-31] MEDS ORDERED: PERCOCET1 TA4 PO (16:37)
--- NOTE | 2019-12-31 17:09 | NUR ---
intubation olivas replaced per RT; og placed x1 attempt per C Lalit RN; scant bloody gastric secretions noted; repositioned to left side; oral care with toothette; mouth bloody; mar to gravity; wound/pics taken of rle; axillary temp 96.0; walter hugger placed on med heat; afib on monitor; propofol titrated for higher level sedation; will continue to monitor
--- NOTE | 2019-12-31 17:25 | NUR ---
Dr Angelo called per technical document writer; informed of possible need for additional sedation; informed of bloody gastric content from OG tube; orders received and on chart
--- NOTE | 2019-12-31 17:58 | NUR ---
pt intubated and sedated; no apparent distress noted; iv intact and patent; propofol at 75 mcg/kg/min; mar to gravity; oral care; repositioned; afib on monitor; vent intact and maintained with 30% FiO2;
--- NOTE | 2019-12-31 20:00 | NUR ---
PATIENT RESTING QUIETLY. INTUBATED AND SEDATED, ON VENTILATOR. BREATH SOUNDS COARSE THROUGHOUT LUGN GALINDO. O2 SAT 95% OG TUBE IN PLACE DRAINS SMALL AMOUNT BLOOD TINGED. SUX ORALLY FOR LARGE AMOUNT OF RUST COLORED SECRETIONS. ORAL CARE PROVIDED. TURNED AND REPOSITIONED. IV IN RAC, SITE HEALTHY, NS INFUSING AT 125 ML/HR AND DIPRIVAN AT 70 MCG/KG/MIN. LH SALINE LOCK IN PLACE, UTE BENIGN. SHIFT ASSESSMENT COMPLETED.
--- NOTE | 2019-12-31 22:00 | NUR ---
ORAL CARE PROVIDED. TURNED AND REPOSITIONED ONTO RIGHT SIDE. VSS.
[2020-01-01] VITALS (30 sets, daily range): BP systolic 112–197; BP diastolic 64–112
--- NOTE | 2020-01-01 00:10 | NUR ---
REMAINS SEDATED AND INTUBATED ON VENT. VSS. TURNED AND REPOSITIONED. ORAL CARE PROVIDED.
--- NOTE | 2020-01-01 01:00 | NUR ---
PATIENT DAUGHTER PHONED IN FOR CONDITION UPDATE.
--- NOTE | 2020-01-01 02:00 | NUR ---
REMAINS INTUBATED AND SEDATED. STABLE VS. AFIB ON MONITOR.
--- NOTE | 2020-01-01 04:00 | NUR ---
NO CHANGES TO REPORT. REMAINS ON VENT, SEDATED ON PROPOFOL GTT-RASS -3. VSS. AFIB ON MONITOR.
--- NOTE | 2020-01-01 06:00 | NUR ---
COMPLETE BATH AND PARTIAL BED CHANGE.
[2020-01-01 06:23] LABS: HEMATOCRIT 33.5 % (37.0-47.0); HEMOGLOBIN 9.9 g/dl (12.0-16.0); MEAN CELL VOLUME 95.2 fL CALC (80.0-100.0); MEAN CORPUSCULAR HGB 28.1 pG CALC (26.0-32.0); MEAN CORPUSCULAR HGB CONC 29.6 g/dL CAL (32.0-36.0); RED BLOOD COUNT 3.52 mill/uL (4.20-5.60); RED CELL DISTRI WIDTH 16.5 % (11.5-15.5)
--- NOTE | 2020-01-01 06:45 | NUR ---
REPORT RECEIVED FROM FREDY SHERWOOD. CARE ASSUMED.
[2020-01-01 06:51] LABS: CREATININE 1.1 mg/dL (0.5-1.0); POTASSIUM 3.9 mmol/l (3.5-5.1)
--- NOTE | 2020-01-01 07:00 | NUR ---
PT RESTING IN BED INTUBATED AND SEDATED AT THIS TIME. SHIFT ASSESSMENT COMPLETED AT THIS TIME. IV PATENT X2. WILL CONTINUE TO CLOSELY MONITOR.
--- NOTE | 2020-01-01 09:00 | NUR ---
DR CORDOBA AT BEDSIDE. BEGAN WEANING PROPOFOL PER TITRATION CHARTING. VENT WEANING MANAGED BY RT. WILL MEDICATE WITH MORPHINE AND ATIVAN IV TO AVOID WITHDRAWL SYMPTOMS. WILL COTNINUE TO CLOSELY MONITOR.
--- NOTE | 2020-01-01 10:14 | NUR ---
PT REMAINS INTUBATED. PT MEDICATED WITH LASIX AND ATIVAN PER AUG. PT AROUSABLE TO TOUCH. VSS ON MONITOR. WILL CONTINUE TO MONITOR.
--- NOTE | 2020-01-01 11:04 | NUR ---
PT REMAINS INTUBATED. TITRATIONS CONTINUES PER TITRATION CHARTING. PT ABLE TO FOLLOW SIMPLE COMMANDS AT THIS TIME.
--- NOTE | 2020-01-01 12:05 | NUR ---
PT EXTUBATED WITHOUT DIFFICULTY. OG REMOVED. PLACED ON 5L HI JAYME NC. PT TOLERATED WELL.
--- NOTE | 2020-01-01 12:15 | NUR ---
DR CORDOBA NOTIFIED OF SUSTAINED HYPERTENSION. NEW ORDERS RECEIVED.
--- NOTE | 2020-01-01 12:54 | NUR ---
PT IN BED PULLING OFF O2, PULLING OFF MONITORS AND GOWN. PT CRYING FOR PAIN MEDICATIONS. EXPLAINED THAT SHE HAD BEEN MEDICATED EARLIER AND NO MEDICATIONS WERE DUE AT THIS TIME. PT STILL BEGGING FOR MEDICATIONS. EXPLAINED THAT OVER MEDICATING WAS NOT AN OPTION AND THAT SHE WOULD END UP INTUBATED AGAIN. PT VERBALIZED UNDERSTANDING. REORIENTED PT INSTRUCTED PT TO NOT PULL AT MONITORING EQUIPMENT. PT VERBALIZED UNDERSTANDING. WILL CONTINUE TO MONITOR.
--- NOTE | 2020-01-01 14:00 | NUR ---
PT RESTING IN BED ALERT. PT STILL CONFUSED. RESP ARE EVEN AND UNALBROED. CALL LIGHT IN REACH. BED ALARM IN PLACE FOR PT SAFETY. VSS ON MONITOR. CALL LIGHT IN REACH.
--- NOTE | 2020-01-01 16:00 | NUR ---
PT RESTING IN BED ALERT AND CONFUSED. BED ALARM IN PLACE FOR PT SAFETY. CALL LIGHT IN REACH. WILL CONTINUE TO MONITOR
--- NOTE | 2020-01-01 17:05 | NUR ---
BED ALARM ALARMING. THIS PUBLIC SERVICES LIBRARIAN INTO ROOM. PT ATTEMPTING TO GET OUT OF BED. RT ASSISTING TO O2 BACK ON PATIENT. PATIENT SWATTING AND HITTING AT STAFF. PT REORIENTED.
--- NOTE | 2020-01-01 18:00 | NUR ---
PT CLEANSED OF SMALL BOWEL MOVEMENT AND TORREZ CARE PROVIDED. PT ABLE TO TURN FROM SIDE TO SIDE. PT TOLERATED WELL. PT HAD REMOVED SPEECH PROFESSOR AND OXYGEN. REPLACED ALL MONITORING DEVICES AND O2 TUBING. BLADIMIR ALARM IN PLACE FOR PT SAFETY. CALL LIGHT IN REACH. PT PROVIDED PM MEAL. WILL CONTINUE TO MONITOR.
--- NOTE | 2020-01-01 19:45 | NUR ---
RESTING IN BED ON ROUNDS. ABLE TO STATE NAME, BIRTHDATE AND THAT SHE IS IN [facility] [address]. PATIENT DOES HAVE PERIODS OF CONFUSION AND YELLING OUT "MOMMA." REORIENTS EASILY. RESP NON-LABORED. BREATH SOUNDS DIMINISHED THROUGHOUT. USING 02 AT 5 L HF NC. O2 SAT 100% TRACE EDEMA OF LOWER EXTREMITIES. DSG TO RLL CDI. TORREZ DRAINS CLEAR YELLOW URINE. SALINE LOCK IN LH AND IV IN RAC BOTH SITES BENIGN. BED ALARM ON. HEAD WOOD GRINDER SHOWS AFIB. SHIFT ASSESSMENT COMPLETED. DISCUSSED PLAN OF CARE. CALL WEST IN REACH.
--- NOTE | 2020-01-01 21:00 | NUR ---
PATIENT SITTING UP AT SIDE OF BED. UP TO RECLINER WITH 2 PERSON ASSIST. PATIENT ABLE TO BEAR WEIGHT AND PIVOT TO CHAIR. RESTING WITH LEGS ELEVATED.
--- NOTE | 2020-01-01 21:30 | NUR ---
PERCOCET GIVEN FOR C/O LEG PAIN.
--- NOTE | 2020-01-01 21:50 | NUR ---
PATIENT STATES PAIN IS EASING UP. REMAINS UP IN RECLINER. VSS. AFIB ON MONITOR.
--- NOTE | 2020-01-01 23:40 | NUR ---
PATIENT RETURNED TO BED FROM RECLINER WITH 2 PERSON ASSIST. SOMEWHAT ANXIOUS. ATIVAN 1 MG IVP GIVEN ORDERED. EMOTIONAL SUPPORT AND REASSURANCE PROVIDED. ENCOURAGED TO REST. VSS. AFIB ON MONITOR.
[2020-01-02] VITALS (7 sets, daily range): BP systolic 121–163; BP diastolic 74–101
--- NOTE | 2020-01-02 02:00 | NUR ---
DOZES ON AND OFF. [facility] CALLS OUT FOR ELVIA AND SOLE. VSS. AFIB ON MONITOR.
--- NOTE | 2020-01-02 04:00 | NUR ---
RESTING WITH EYES CLOSED. RESTFUL PAST FEW HOURS. RESP NON-LABORED. VSS. AFIB ON MONITOR.
[2020-01-02 05:16] LABS: HEMOGLOBIN 10.8 g/dl (12.0-16.0); MEAN CELL VOLUME 95.2 fL CALC (80.0-100.0); MEAN CORPUSCULAR HGB 28.6 pG CALC (26.0-32.0); RED BLOOD COUNT 3.78 mill/uL (4.20-5.60); RED CELL DISTRI WIDTH 16.4 % (11.5-15.5)
[2020-01-02 05:44] LABS: CREATININE 1.2 mg/dL (0.5-1.0); MAGNESIUM 1.6 mg/dL (1.6-2.3); POTASSIUM 3.5 mmol/l (3.5-5.1)
--- NOTE | 2020-01-02 06:00 | NUR ---
NO CHANGES TO REPORT. VSS. SLEPT PAST FEW HOURS.
--- NOTE | 2020-01-02 07:30 | NUR ---
PT RESTING IN BED, ALERT AND ORIENTED X3, MOVES ALL EXTREMITIES, AFEBRILE 98.5 TEMP, DIM/DIM RESPIRATIONS, 1 BM THIS AM, CALLING OUT FOR HER DAUGHTER AT TIMES. CALL LIGHT WITHIN REACH, WILL CONTINUE TO MONITOR. SEE PROCESS INTERVENTIONS.
--- NOTE | 2020-01-02 08:00 | NUR ---
DR CORDOBA AT BEDSIDE.
--- NOTE | 2020-01-02 10:00 | NUR ---
DR CORDOBA ORDERED TRANSFER TO MED SURG. PT CURRENTLY ON ROOM AIR OXYGEN SAT 93%, CONTROLLED AFIB PER MONITOR.
--- NOTE | 2020-01-02 12:00 | NUR ---
PT RESTING IN CHAIR, ALERT AND ORIENTEDX3, MOVES ALL EXTERMITIES, AFEBRILE, CALL LIGHT WITHIN REACH, WILL CONTINUE TO MONITOR.
--- NOTE | 2020-01-02 12:38 | NUR ---
REPORT CALLED TO [facility]
--- NOTE | 2020-01-02 13:04 | NUR ---
PT TRANSF. VIA WHEELCHAIR TO MED SURG BED 280, PRESLEY DIETRICH AT BEDSIDE. PT TRANSFERED TO BED.
--- NOTE | 2020-01-02 13:10 | NUR ---
PT ARRIVED VIA WC WITH STAFF. IV SITE IS FREE FROM REDNESS OR EDEMA. TORREZ DRAINING YELLOW URINE. AMBULATED WITH STAND BY ASSIST. TO THE BED ABD THEN THE BSC.,
--- NOTE | 2020-01-02 16:00 | NUR ---
PT IS RELAXING IN BED WITH NO DISTRESS NOTED. IV SITE IS FREE FROM REDNESS OR EDEMA.
--- NOTE | 2020-01-02 17:39 | NUR ---
PT'S IV SITE CAME OUT. PT STATED" I DIDN'T MEAN TO. I AM SO TIRED OF GETTING STUCK".
--- NOTE | 2020-01-02 18:20 | NUR ---
PT HAS A #22 IN LFA AFTER 3 ATTEMPTS BY KATIE SHERWOOD PT TOLERATED WELL.
--- NOTE | 2020-01-02 20:55 | NUR ---
UPON ENTERING ROOM PT FOUND TO BE RESTING IN BED. APPEARS COMFORTABLE AND IN NO APPARENT DISTRESS. RESPIRATIONS ARE REGULAR AND UNLABORED. PHYSICAL ASSESMENT COMPLETE AT THIS TIME. SCHEDULED MED(S) ADMINISTERED, SEE E-MAR. PLAN OF CARE REVIEWED, PT DENIES QUESTIONS, VERBALIZES UNDERSTANDING. DENIES NEEDS AT THIS TIME. ITEMS WITHIN REACH, BED LOCKED IN LOW POSITION W/ BEDRAILS UP X2. CALL WEST WITHIN REACH, AGREES TO CALL PRN.
--- NOTE | 2020-01-03 00:42 | NUR ---
PT APPEARS TO BE SLEEPING COMFORTABLY, NO APPARENT DISTRESS, RESPIRATIONS REGULAR AND UNLABORED. CALL WEST REMAINS WITHIN REACH.
[2020-01-03 03:23] VITALS: BP 144/93
--- NOTE | 2020-01-03 04:58 | NUR ---
PT PULLED OUT IV WHILE GETTING UP TO BSC W/O ASSIST. REMINDED PT SHE AGREED TO CALL VICE PRESIDENT OF INSTRUCTION WEST PRIOR TO GETTING OUT OF BED. PT AGREES TO CALL PRIOR TO GETTING OUT OF BED AT THIS TIME.
[2020-01-03 05:54] LABS: CREATININE 1.1 mg/dL (0.5-1.0); MAGNESIUM 1.3 mg/dL (1.6-2.3); POTASSIUM 3.3 mmol/l (3.5-5.1)
--- NOTE | 2020-01-03 07:20 | NUR ---
REPORT RECEIVED FROM PRESLEY KHAN;PT RESTING AT BEDSIDE;RESPIRATIONS EVEN AND UNLABORED ON RA;NO S/S OF DISTRESS NOTED;TORREZ CATHETER PATENT DRAINING TO GRAVITY WITH EASE;ALL SAFETY PRECAUTIONS IN PLACE WITH BED IN THE LOWEST POSITION AND BED ALARM ON FOR SAFETY;CALL LIGHT IN REACH;WILL CONTINUE TO MONITOR
[2020-01-03 09:10] VITALS: BP 134/83
--- NOTE | 2020-01-03 09:10 | NUR ---
PT RESTING IN SEMI FOWLERS POSITION,A&O X2;VS OBTAINED AND ASSESSMENT COMPLTED;PT REPORTS BLE PAIN RATING 7/10 ON THE PAIN SCALE AND REQUESTS PEN PAIN MEDICATION.PT TO BE MEDICATED WITH PRN PERCOCET 10/325MG PO;RESPIRATIONS EVEN AND UNLABORED ON RA;ABDOMEN DISTENDED/SOFT ON PALPATION AND ACTIVE IN ALL 4 QUADRANTS;WEAK PEDAL PULSES;CELLULITIS NOTED TO RLE, CLOSED AND CDI;#22G TO LFA INFUSING NS @ 125ML/HR,SITE APPEARS HEALTHY;TELE MONITORING IN PLACE;PT DENIES ANY ADDITIONAL NEEDS AT THIS TIME AND IS ENCOURAGED TO CALL FOR ASSISTANCE IF NEEDED;FALL PRECAUTIONS IN PLACE WITH BED IN THE LOWEST POSITION AND BED ALARM ON FOR SAFETY;CALL LIGHT IN REACH;WILL CONTINUE TO MONITOR
[2020-01-03 10:30] VITALS: BP 167/110
--- NOTE | 2020-01-03 11:20 | NUR ---
PT CURRENT BP 167/110 HR 87, PT TO BE MEDICATED WITH PRN APRESOLINE 10MG IVP BY PRESLEY VALADEZ;WILL CONTINUE TO MONITOR FOR EFFECTIVENESS
[2020-01-03 12:17] VITALS: BP 153/88
--- NOTE | 2020-01-03 12:20 | NUR ---
PT RESTING AT BEDSIDE;RESPIRATIONS EVEN AND UNLABORED ON RA;PT REPORTS DECREASED PAIN SINCE PERCOCET ADMINISTRATION;BP RE-CHECK 153/88 HR 97;IV SITE PATENT AND ABX HUNG AT THIS TIME;TELE MONITORING IN PLACE;TORREZ CATHETER REMOVED AT THIS TIME AND PT TOLERATED WELL;PT DENIES ANY ADDIITONAL NEEDS AND IS ENCOURAGED TO CALL FOR ASSISTANCE IF NEEDED;CALL LIGHT IN REACH;WILL CONTINUE TO MONITOR
[2020-01-03 15:00] VITALS: BP 160/98
--- NOTE | 2020-01-03 15:55 | NUR ---
PT RESTING IN SUPINE POSITION;RESPIRATIONS EVEN AND UNLABORED ON RA;PT DENIES ANY CURRENT PAIN OR NEEDS;TELE MONITORING IN PLACE;IV FLUIDS INFUSING WITH EASE PER ORDER;PT DENIES ANY ADDITIONAL NEEDS AT THIS TIME AND IS ENCOURAGED TO CALL FOR ASSISTANCE IF NEEDED;FALL PRECAUTIONS IN PLACE WITH CALL LIGHT IN REACH;WILL CONTINUE TO MONITOR
--- NOTE | 2020-01-03 16:28 | NUR ---
OT AT BEDSIDE WORKING WITH PT.
[2020-01-03 19:07] VITALS: BP 144/81
--- NOTE | 2020-01-03 19:39 | NUR ---
ASSESSMENT COMPLETED. PT. C/O MORGAN AND BLE PAIN AND MEDICATED WITH ORDERED PRN PERCOCET; WILL REASSESS. DENIES FURTHER NEEDS. BED ALARM ON. RLE WITH REDNESS NOTED; NO OPEN AREAS NOTED AT THIS TIME; DRY AND FLAKEY; ENCOURAGED TO CALL FOR ANY NEEDS. CALL LIGHT IS IN REACH.
--- NOTE | 2020-01-03 23:50 | NUR ---
SCHED ANTIBIOTIC GIVEN. ENCOURAGED TO CALL FOR ANY NEEDS.
[2020-01-04 00:24] VITALS: BP 138/78
--- NOTE | 2020-01-04 03:25 | NUR ---
PT. C/O BLE PAIN AND MORGAN AND MEDICATED WITH ORDERED PRN PERCOCET; WILL REASSESS. COKE PROVIDED PER REQUEST. ENCOURAGED TO CALL FOR ANY NEEDS.
[2020-01-04 04:54] VITALS: BP 151/90
--- NOTE | 2020-01-04 06:55 | NUR ---
REPORT RECEIVED FROM PRESLEY LANDAVERDE;PT RESTING AT BEDSIDE;INTRODUCED SELF TO PT AND POC DISCUSSED;RESPIRATIONS EVEN AND UNLABORED ON RA;PT DENIES ANY CURRENT PAIN OR NEEDS;TELE MONITORING IN PLACE;IV SITE PATENT INFUSING NS PER ORDER;PT DENIES ANY ADDITIONAL NEEDS AT THIS TIME AND IS ENCOURAGED TO CALL FOR ASSISTANCE IF NEEDED;FALL PRECAUTIONS IN PLACE WITH BED IN THE LOWEST POSITION AND BED ALARM ON FOR SAFETY;CALL LIGHT IN REACH;WILL CONTINUE TO MONITOR
[2020-01-04 07:03] VITALS: BP 141/84
--- NOTE | 2020-01-04 09:00 | NUR ---
PT RESTING AT BEDSIDE,A&O X3 AND FORGETFULNESS NOTED;VS OBTAINED AND ASSESSMENT COMPLETED;PT DENIES ANY CURRENT PAIN OR NEEDS,PAIN SCALE AND REPORTING EDUCATED;RESPIRATIONS EVEN AND UNLABORED ON RA,CLEAR/DIMINISHED LUNG SOUNDS NOTED;ABDOMEN DISTENDED/SOFT ON PALPATION AND ACTIVE IN ALL 4 QUADRANTS;WEAK PEDAL PULSES;CELLULITIS NOTED TO RLE, REDDENED BUT CLOSED AND CDI;#22G TO LFA INFUSING NS @ 125ML/HR,SITE APPEARS HEALTHY;TELE MONITORING IN PLACE;PT DENIES ANY ADDITIONAL NEEDS AT THIS TIME AND IS ENCOURAGED TO CALL FOR ASSISTANCE IF NEEDED;FALL PRECAUTIONS IN PLACE WITH BED IN THE LOWEST POSITION AND CALL LIGHT IN REACH;WILL CONTINUE TO MONITOR
--- NOTE | 2020-01-04 09:24 | NUR ---
Rajendra ATTEMPTED TO TREAT PATIENT THIS A.M. FOR ADL RETRAINING, HOWEVER, PATIENT DECLINED AT 8:40 A.M.
--- NOTE | 2020-01-04 10:07 | NUR ---
PT MEDICATED WITH PERCOCET 10/325MG PO PER REQUEST FOR HEADACHE PAIN RATING 7/10 ON THE PAIN SCALE;WILL CONTINUE TO MONITOR FOR EFFECTIVENESS
[2020-01-04 10:59] VITALS: BP 151/88
[2020-01-04] MEDS ORDERED: AMOX/K CLAV875 M1 PO (11:22)
[2020-01-04] MEDS ORDERED: DOXYCYCL HYC100 MG PO (11:22)
--- NOTE | 2020-01-04 12:10 | NUR ---
PT RESTING AT BEDSIDE;RESPIRATIONS EVEN AND UNLABORED ON RA;PT DENIES ANY CURRENT PAIN OR NEEDS;TELE MONITORING IN PLACE;IV SITE PATENT AND ABX STARTED AT THIS TIME;PT VERBALIZES UNDERSTANDING ON PLANS TO TRANSPORT TO REHAB, AWAITING TRANSPORTATION BY CASE MANAGEMENT;ENCOURAGED TO CALL FOR ASSISTANCE IF NEEDED;CALL LIGHT IN REACH;WILL CONTINUE TO MONITOR
[2020-01-04 13:15] LABS: CREATININE 1.1 mg/dL (0.5-1.0); MAGNESIUM 1.5 mg/dL (1.6-2.3); POTASSIUM 3.6 mmol/l (3.5-5.1)
--- NOTE | 2020-01-04 13:30 | NUR ---
PT TRANSPORTED TO [facility] AT [facility] TIME VIA STRETCHER ACCOMPANIED BY [facility] TRANSPORTATION.IV SITE WAS REMOVED WITH CATHETER INTACT PRIOR TO D/C.ALL BELONGINGS LEFT WITH PT AND RX PROVIDED.
--- NOTE | 2020-01-04 13:39 | NUR ---
REPORT CALLED TO PRESLEY BRISENO AT [facility].
[2020-01-25] MEDS ORDERED: PERCOCET1 TA4 PO (11:57)
[2020-02-22] MEDS ORDERED: PERCOCET1 TA2 PO (16:06)
[2020-03-21] MEDS ORDERED: PERCOCET1 TA4 PO (14:11)
== END 2020-01-04 13:31 | DRG 917 ==
LOC: ED 20:34 → ED-I 12-31 01:42 → ED 12-31 01:51 → MS2 12-31 01:52 → ED-I 12-31 01:52 → ICU 12-31 10:13 → MS2 01-02 13:22
PROVIDERS: Family Medicine; Internal Medicine; Nurse Practitioner Family; ADMIT Internal Medicine; ATTEND Internal Medicine
PROC: 0BH17EZ Insertion of Endotracheal Airway into Trachea, Via Natural or Artificial Opening (ICD-10-PCS; principal; 2019-12-30)
PROC: 5A1945Z Respiratory Ventilation, 24-96 Consecutive Hours (ICD-10-PCS; 2019-12-30)
PROC: 0T9B70Z Drainage of Bladder with Drainage Device, Via Natural or Artificial Opening (ICD-10-PCS; 2019-12-30)
DX: T40.2X1A Poisoning by other opioids, accidental (unintentional), initial encounter (principal); G92 Toxic encephalopathy; J96.02 Acute respiratory failure with hypercapnia; J96.01 Acute respiratory failure with hypoxia; J18.9 Pneumonia, unspecified organism; N17.9 Acute kidney failure, unspecified; I13.0 Hypertensive heart and chronic kidney disease with heart failure and stage 1 through stage 4 chronic kidney disease, or unspecified chronic kidney disease; I50.22 Chronic systolic (congestive) heart failure; I48.20 Chronic atrial fibrillation, unspecified; L97.919 Non-pressure chronic ulcer of unspecified part of right lower leg with unspecified severity; T42.4X1A Poisoning by benzodiazepines, accidental (unintentional), initial encounter; F11.10 Opioid abuse, uncomplicated; N18.3 Chronic kidney disease, stage 3 (moderate); J44.9 Chronic obstructive pulmonary disease, unspecified; I87.2 Venous insufficiency (chronic) (peripheral); G62.9 Polyneuropathy, unspecified; Y92.002 Bathroom of unspecified non-institutional (private) residence as the place of occurrence of the external cause; Z86.718 Personal history of other venous thrombosis and embolism; Z79.01 Long term (current) use of anticoagulants; Z98.84 Bariatric surgery status; Z20.828 Contact with and (suspected) exposure to other viral communicable diseases
CPT/HCPCS: J1650; J2060; J3475

== ENCOUNTER 2020-02-04 10:07 | Inpatient (IN) | payer MEDICARE, OTHER ==
[~2020-02-04] VITALS: Ht 162.6 cm; Wt 110.9 kg
[~2020-02-04 10:07] MED LIST changes: +AMOX/K CLAV875 M1 PO; +DOXYCYCL HYC100 MG PO; +PERCOCET1 TA4 PO
--- NOTE | 2020-02-04 10:27 | NUR ---
PT TO ROOM VIA WC
--- NOTE | 2020-02-04 10:37 | NUR ---
PT STATES THAT SHE HAS BEEN FEELING WEAK FOR THE PAST THREE DAYS, PT HAS HAD A LOW GRADE FEVER INTERMITTENTLY FOR THE PAST 2 DAYS, WELL A COUGH AND LEFT SIDED RIB PAIN. PT STATES THAT SHE COUGHED UP BLOOD THIS MORNING. PT IS AOX4. DENIES ANY SOB, C/P, N/V. PT STATES HAVING DIRRAHEA.
[2020-02-04 10:58] LABS: HEMATOCRIT 33.9 % (37.0-47.0); HEMOGLOBIN 10.1 g/dl (12.0-16.0); IMMATURE GRANULOCYTES 0.4 % (0.0-5.0); MEAN CELL VOLUME 95.2 fL CALC (80.0-100.0); MEAN CORPUSCULAR HGB 28.4 pG CALC (26.0-32.0); MEAN CORPUSCULAR HGB CONC 29.8 g/dL CAL (32.0-36.0); NEUT# 13.58 thou/uL (2.00-7.15); RED BLOOD COUNT 3.56 mill/uL (4.20-5.60); RED CELL DISTRI WIDTH 17.2 % (11.5-15.5)
[2020-02-04 11:16] LABS: ALBUMIN 3.4 g/dL (3.2-5.0); ALKALINE PHOSPHATASE 86 u/l (38-126); ANION GAP 11 (6-22 (CALC)); BILIRUBIN, TOTAL 0.7 mg/dL (0.0-1.4); CARBON DIOXIDE 32 mmol/l (22-30); CHLORIDE 94 mmol/l (95-108); CREATININE 1.7 mg/dL (0.5-1.0); GFR 30 ML/MIN (>=60 (CALC)); GFR FOR AFR.AMER. 36 ML/MIN (>=60 (CALC)); POTASSIUM 2.9 mmol/l (3.5-5.1); SGOT/AST 21 u/l (9-36); SODIUM 134 mmol/l (137-146); TOTAL PROTEIN 6.2 g/dL (6.3-8.2)
[2020-02-04 11:19] LABS: INTERNATIONAL NORMALIZED RATIO 1.1 RATIO (0.7-1.3); PROTHROMBIN TIME 10.9 SECONDS (9.0-12.5)
[2020-02-04 11:28] LABS: BUN 60 mg/dL (8-23); BUN/CREATININE RATIO 35 (12-20 (CALC))
--- NOTE | 2020-02-04 11:37 | NUR ---
PT RESTING ON STRETCHER, NO COMPLAINTS STATED AT THIS TIME. IV PATENT WITH FLUIDS AND ANTIBIOTICS RUNNING.
[2020-02-04 12:35] LABS: URINE BILIRUBIN - DIPSTICK NEGATIVE (NEGATIVE); URINE BLOOD DIPSTICK NEGATIVE (NEGATIVE); URINE COLOR YELLOW; URINE GLUCOSE - DIPSTICK NEGATIVE (NEGATIVE); URINE KETONE NEGATIVE (NEGATIVE); URINE LEUK ESTERASE NEGATIVE (NEGATIVE); URINE NITRITE - DIPSTICK NEGATIVE (Negative); URINE PH 5.5 (4.5-8.0); URINE PROTEIN - DIPSTICK NEGATIVE (NEG-TRACE); URINE UROBILINOGEN - DIPSTICK 0.2 E.U./dL (0.2)
--- NOTE | 2020-02-04 12:37 | NUR ---
PT RESTING ON STRETCHER, PT STATES HEADACHE HAS BEEN ALEVIATED.
--- NOTE | 2020-02-04 13:15 | NUR ---
SBAR PRINTED TO FLOOR
--- NOTE | 2020-02-04 14:15 | NUR ---
PT RESTING ON STRETHCER, NO COMPLAINTS STATED AT THIS TIME.
--- NOTE | 2020-02-04 15:36 | NUR ---
PT INCONTINENT ON STRETCHER, BED BATH GIVEN, LINENS CHANGED
--- NOTE | 2020-02-04 16:30 | NUR ---
REPORT GIVEN TO MICHAEL MORALES, ACCPETED PT
--- NOTE | 2020-02-04 16:40 | NUR ---
Admission Note Report Given to: DELMI RUBION Transported by: Wheelchair X Stretcher Transported with: X Nurse Transporter X Patent IV O2 X Molecular Biology Director Location: ICU X MS2 TRANSPORTED TO [facility] WITHOUT INCIDENT
[2020-02-04 17:00] VITALS: BP 113/80
--- NOTE | 2020-02-04 17:00 | NUR ---
PT ARRIVED VIA STRETCHER ACCOMPANIED BY ISELA SHERWOOD. A&O X3. NO DISTRESS NOTED. PT DENIES ANY SOB AT THIS TIME. STATES THAT SHE HAS HAD EPISODES OF DIARRHEA AND WEAKNESS. CHRONIC RLE WOUND NOTED. PER PT SHE FOLLOWS UP WITH DR BRAMBILA AT [facility] AND MISSED HER APPOINTMENT THIS PAST FRIDAY. SEE CHART FOR PHOTO. PT STATES SHE IS CURRENTLY REC TREATMENT FROM [facility]. DENIES ANY CONTACT WITH ANYONE WITH C19. ASSESSMENT COMPLETED. DISCUSSED POC. ASSESSMENT COMPLETED. ISOLATION PRECAUTIONS IN PLACE. CALL LIGHT IN REACH. CONTINUE TO MONITOR.
--- NOTE | 2020-02-04 19:00 | NUR ---
REPORT FROM DELMI RAMSEY. PT NOTED RESTING IN BED. PT INCONTINENT OF BOWEL AND BLADDER AT THIS TIME. COMPLETE BED BATH WITH PERICARE AND LINEN CHANGE PROVIDED. PT C/O ABD PAIN, WILL MEDICATE WITH PRN MEDICATIONS. PT IN ISOLATION ROOM FOR R/O COVID. ALERT AND ORIENTED X3. PT STATES SHE IS NOT ABLE TO USE BSC OR BED HITCHCOCK DUE TO INCREASED WEAKNESS. ENCOURAGED AND EDUCATED PT BILL OF LADING CLERK FOR BED HITCHCOCK AND ASSISTANCE WITH TOILETING NEEDS IF POSSIBLE TO AVOID SKIN BREAKDOWN. PT VERBALIZED UNDERSTANDING. PT REPOSITIONED IN BED. FRESH ICE WATER PROVIDED. DRESSING NOTED TO ADILIA ABREU. IV SITE APPEARS HEALTHY. CELLULAR PLASTICS CUTTER IN PLACE. PT HAS NO OTHER WANTS OR NEEDS AT THIS TIME. CALL LIGHT WITHIN REACH. WILL CONTINUE TO MONITOR.
--- NOTE | 2020-02-04 19:53 | NUR ---
PT MEDICATED FOR PAIN AT THIS TIME. PT PLACED ON BEDPAN PER REQUEST. CALL LIGHT WITHIN REACH, PT INSTRUCTED TO CALL WHEN FINISHED. WILL CONTINUE TO MONITOR.
--- NOTE | 2020-02-04 20:11 | NUR ---
PT TAKEN OFF BEDPAN NO BM OR VOID NOTED AT THIS TIME. PT STATES IT WAS JUST GAS. ASSISTED WITH REPOSITIONING FOR COMFORT. CALL LIGHT WITHIN REACH. WILL CONTINUE TO MONITOR.
[2020-02-04 21:15] VITALS: BP 112/68
[2020-02-05 00:13] VITALS: BP 105/64
--- NOTE | 2020-02-05 00:41 | NUR ---
PT RESTING IN BED WITH EYES CLOSED. PT EASILY AROUSED BUT DROWSY. PT DENIES ANY PAIN OR DISCOMFORT. CALL LIGHT WITHIN REACH. WILL CONTINUE TO MONITOR.
--- NOTE | 2020-02-05 04:54 | NUR ---
PT RESTING IN BED. NO APPARENT DISTRESS NOTED. BSC AT BEDSIDE. COTTON STOMPER IN PLACE. IV SITE APPEARS HEALTHY. CALL LIGHT WITHIN REACH. WILL CONTINUE TO MONITOR.
[2020-02-05 06:20] VITALS: BP 117/66
[2020-02-05 07:19] LABS: CREATININE 1.4 mg/dL (0.5-1.0); POTASSIUM 3.3 mmol/l (3.5-5.1)
[2020-02-05 07:23] LABS: MAGNESIUM 2.2 mg/dL (1.6-2.3)
[2020-02-05 07:44] VITALS: BP 120/83
--- NOTE | 2020-02-05 10:02 | NUR ---
PT SEEN AWAKE, ALERT, SITTING UP IN BED DANGLING, EATING BREAKFAST. PT DENIES SHORTNESS OF BREATH, LUNGS CLEAR, RA. DRESSING TO RLE WHICH SHE SAYS IS CHANGED DAILY.
[2020-02-05 11:30] VITALS: BP 127/62
[2020-02-05 15:30] VITALS: BP 126/83
--- NOTE | 2020-02-05 17:32 | NUR ---
PT PROVIDED MOTRIN FOR BACK PAIN EARLIER, NO FURTHER COMPLAINTS OF PAIN.
--- NOTE | 2020-02-05 19:01 | NUR ---
REPORT FROM CAROLINA SHERWOOD. PT NOTED RESTING IN BED. PT ALERT AND ORIENTED X3. IV SITE APPEARS HEALTHY. PT VERBALIZED SHE IS FEELING MUCH BETTER TODAY AND HAS BEEN ABLE TO AMBULATED TO BATHROOM THROUGHOUT THE DAY. NO APPARENT S/S OF PAIN OR RESPIRATORY DISTRESS NOTED, ON RA. DISCUSSED POC. PT VERBALIZED UNDERSTANDING. FRESH ICE WATER AND LINER OF ICE PROVIDED UPON REQUEST. DRESSING NOTED TO LLE CDI. CALL LIGHT WITHIN REACH, WILL CONTINUE TO MONITOR.
[2020-02-05 19:14] VITALS: BP 148/87
--- NOTE | 2020-02-05 21:01 | NUR ---
PT MEDICATED ORDERED. PT ALSO MEDICATED WITH PRN ATIVAN AT THIS TIME UPON REQUEST OF PT. PT DENIES ANY OTHER WANTS OR NEEDS. CALL LIGHT WITHIN REACH. WILL CONTINUE TO MONITOR.
[2020-02-06] VITALS (7 sets, daily range): BP systolic 114–157; BP diastolic 64–93
--- NOTE | 2020-02-06 00:23 | NUR ---
PT RESTING IN BED. NO APPARENT DISTRESS NOTED. RESPIRATIONS EVEN AND UNLABORED. PT MEDICATED FOR PAIN WITH PRN PERCOCET. DENIES ANY OTHER WANTS OR NEEDS. CALL LIGHT WITHIN REACH. WILL CONTINUE TO MONITOR.
--- NOTE | 2020-02-06 03:43 | NUR ---
PT RESTING IN BED WITH EYES CLOSED. NO APPARENT DISTRESS NOTED. RESPIRATIONS EVEN AND UNLABORED. CALL LIGHT WITHIN REACH. WILL CONTINUE TO MONITOR.
[2020-02-06 06:11] LABS: HEMATOCRIT 32.9 % (37.0-47.0); HEMOGLOBIN 9.6 g/dl (12.0-16.0); MEAN CELL VOLUME 95.4 fL CALC (80.0-100.0); MEAN CORPUSCULAR HGB 27.8 pG CALC (26.0-32.0); MEAN CORPUSCULAR HGB CONC 29.2 g/dL CAL (32.0-36.0); RED BLOOD COUNT 3.45 mill/uL (4.20-5.60); RED CELL DISTRI WIDTH 17.2 % (11.5-15.5)
[2020-02-06 06:24] LABS: ALBUMIN 3.6 g/dL (3.2-5.0); CREATININE 1.7 mg/dL (0.5-1.0); POTASSIUM 3.1 mmol/l (3.5-5.1); TOTAL PROTEIN 6.4 g/dL (6.3-8.2)
[2020-02-06 06:29] LABS: BILIRUBIN, TOTAL 0.4 mg/dL (0.0-1.4)
--- NOTE | 2020-02-06 07:55 | NUR ---
ATIENT IS AWAKE, ORIENTED TO NAME, , PLACE. PT ABLE TO FOLLOW COMMANDS, NSWER QUESTIONS. DOES BECOME SOB WITH XERTION. NURSING ASSESSMENT PERFORMED. 20 IN HER RIGHT FOREARM FLSUHES ROPERLY, RETURNS BLOOD. IV FLUIDS INFUSIED PROPERLY. PT ABLE TO GET UP TO BSC WITHOUT DIFFICULTY. ABLE TO SWALLOW MEDS WITH WATER, SELF REPSOITIONS. REQUESTED BLANKET, WARM BLANKET PROVIDED. CALL LIGHT WITHIN EACH.
--- NOTE | 2020-02-06 12:42 | NUR ---
PT CONTINUES BEFORE, NO EVIDENCE OF DISTRESS. ORIENTED X3 . IV SITE REMAINS PATENT. NO SOB. AMBULATED AROUND THE ROOM. AFEBRILE.CALL WEST WITH IN REACH. WILL CONTINUE TO OBSERVE.
--- NOTE | 2020-02-06 17:39 | NUR ---
PT CONTINUES BEFORE, NO EVIDENCE OF DISTRESS. ORIENTED X3 . IV SITE REMAINS PATENT.CALL WEST WITH IN REACH. WILL CONTINUE TO OBSERVE. -
--- NOTE | 2020-02-06 19:00 | NUR ---
REPORT FROM SHITAL SHERWOOD. PT NOTED RESTING IN BED. PT ALERT AND ORIENTED X3. IV SITE APPEARS HEALTHY. NO APPARENT S/S OF PAIN OR RESPIRATORY DISTRESS NOTED, ON RA. DISCUSSED POC. PT VERBALIZED UNDERSTANDING. FRESH ICE WATER AND LINER OF ICE PROVIDED UPON REQUEST. DRESSING NOTED TO LLE CDI. CALL LIGHT WITHIN REACH, WILL CONTINUE TO MONITOR.
--- NOTE | 2020-02-06 21:36 | NUR ---
WHILE MEDICATING PT FOR PAIN PT NEGLETED TO SITTING UP AND TAKE PILL AND PT DROPPED PILL ON FLOOR. MEDICATIONS WASTED WITH SECOND NURSE DWAYNE SHERWOOD. NEW PILL PULLED FROM XIS AND ADMINISTERED.
--- NOTE | 2020-02-07 00:40 | NUR ---
PT MEDICATED ORDERED. NO APPARENT DISTRESS NOTED. RESPIRATIONS EVEN AND UNLABORED. CALL LIGHT WITHIN REACH. WILL CONTINUE TO MONITOR.
[2020-02-07 04:30] VITALS: BP 140/87
--- NOTE | 2020-02-07 04:57 | NUR ---
PT MEDICATED FOR PAIN. NO APPARENT DISTRESS NOTED. PT DENIES ANY OTHER WANTS OR NEEDS AT THIS TIME. CALL LIGHT WITHIN REACH. WILL CONTINUE TO MONITOR.
[2020-02-07 07:13] LABS: HEMATOCRIT 34.4 % (37.0-47.0); MEAN CELL VOLUME 95.6 fL CALC (80.0-100.0); MEAN CORPUSCULAR HGB 27.8 pG CALC (26.0-32.0); MEAN CORPUSCULAR HGB CONC 29.1 g/dL CAL (32.0-36.0); NEUT# 9.94 thou/uL (2.00-7.15); RED BLOOD COUNT 3.6 mill/uL (4.20-5.60)
--- NOTE | 2020-02-07 07:20 | NUR ---
REPORT RECEIVED FROM ROXY OSCAR.
[2020-02-07 07:46] LABS: ALBUMIN 3.8 g/dL (3.2-5.0); BILIRUBIN, TOTAL 0.5 mg/dL (0.0-1.4); C-REACTIVE PROTEIN 4.3 mg/dL (0-0.9); CREATININE 1.5 mg/dL (0.5-1.0); TOTAL PROTEIN 6.7 g/dL (6.3-8.2)
[2020-02-07 08:10] LABS: POTASSIUM 4.3 mmol/l (3.5-5.1)
--- NOTE | 2020-02-07 09:10 | NUR ---
PT RESTING IN SEMI FOWLERS POSITION,A&O X3;VS OBTAINED AND ASSESSMENT COMPLETED;PT DENIES ANY CURRENT PAIN,PAIN SCALE AND REPORTING EDUCATED;PT MEDICATED WITH PRN ATIVAN 1MG PO AT THIS TIME PER REQUEST;RESPIRATIONS EVEN AND UNLABORED ON RA;NON-PRODUCTIVE COUGH NOTED AT TIMES;ABDOMEN SOFT ON PALPATION AND ACTIVE IN ALL 4 QUADRANTS;STRONG PEDAL PULSES;DRESSING TO RLE CDI;#20G TO LFA FLUSHED AND PATENT,ABX HUNG AT THIS TIME;TELE MONITORING IN PLACE;PT DENIES ANY ADDITIONAL NEEDS AT THIS TIME AND IS ENCOURAGED TO CALL FOR ASSISTANCE IF NEEDED;FALL PRECAUTIONS IN PLACE WITH BED IN THE LOWEST POSITION AND CALL LIGHT IN REACH;WILL CONTINUE TO MONITOR
[2020-02-07 09:11] VITALS: BP 124/84
[2020-02-07 09:17] VITALS: BP 124/84
--- NOTE | 2020-02-07 11:00 | NUR ---
PT RESTING AT BEDSIDE;RESPIRATIONS EVEN AND UNLABORED ON RA;PT REPORTS LOWER BACK AND RLE PAIN RATING 7/10 ON THE PAIN SALE AND REQUESTS PAIN MEDICATION,PT MEDICATED WITH PRN PERCOCET 10/325MG PO AT THIS TIME;IV SITE PATENT;TELE MONITORING IN PLACE;PT EDUCATED ON PLANS TO D/C HOME AND VERBALIZES UNDERSTANDING;ENCOURAGED TO CALL FOR ASSISTANCE IF NEEDED;CALL LIGHT IN REACH;WILL CONTINUE TO MONITOR
[2020-02-07] MEDS ORDERED: Levaquin PO (12:44)
[2020-02-07] MEDS ORDERED: PREDNISONE20 MG PO (12:44)
--- NOTE | 2020-02-07 14:00 | NUR ---
ALL DISCHARGE INSTRUCTIONS PROVIDED AT THIS TIME;PT INSTRUCTED TO TAKE ABX AND STEROIDS PRESCRIBED,RX FOR BOTH PROVIDED;F/U WITH IN 1 WEEK AND SELF ISOLATE UNTIL COVID19 REULTS ARE OBTAINED;PT VERBALIZES UNDERSTANDING AND DENIES ANY ADDITIONAL QUESTIONS OR NEEDS;IV SITE REMOVED WITH CATHETER INTACT AND TELE MONITOR D/C;WHEELCHAIR TO BE PROVIDED FOR D/C HOME;FAMILY TO TRANSPORT PT HOME;WILL CONTINUE TO MONITOR
--- NOTE | 2020-02-07 14:33 | NUR ---
Discharge instructions given. Patient verbalizes understanding of same. Discharged in stable condition via Wheelchair to Home with family. All belongings sent with pt. PT TRANSPORTED TO [facility] IN STABLE CONDITION VIA WHEELCHAIR ACCOMPANIED BY MORRIS PARADA;FAMILY TO TRANSPORT PT HOME.
[2020-02-22] MEDS ORDERED: PERCOCET1 TA2 PO (16:06)
[2020-03-21] MEDS ORDERED: PERCOCET1 TA4 PO (14:11)
== END 2020-02-07 14:43 | disposition home or self-care (01) | DRG 190 ==
LOC: ED 10:07 → ED-I 11:45 → ED 13:12 → ED-I 13:13 → MS2 13:13
PROVIDERS: Internal Medicine; Nurse Practitioner Family; Student in an Organized Health Care Education/Training Program; ADMIT Internal Medicine; ATTEND Internal Medicine
DX: J44.1 Chronic obstructive pulmonary disease with (acute) exacerbation (principal); J18.9 Pneumonia, unspecified organism; Z68.41 Body mass index [BMI] 40.0-44.9, adult; R04.2 Hemoptysis; I48.20 Chronic atrial fibrillation, unspecified; I13.0 Hypertensive heart and chronic kidney disease with heart failure and stage 1 through stage 4 chronic kidney disease, or unspecified chronic kidney disease; J44.0 Chronic obstructive pulmonary disease with (acute) lower respiratory infection; N18.3 Chronic kidney disease, stage 3 (moderate); I50.9 Heart failure, unspecified; E87.6 Hypokalemia; E78.5 Hyperlipidemia, unspecified; E66.01 Morbid (severe) obesity due to excess calories; G89.29 Other chronic pain; M54.9 Dorsalgia, unspecified; Z79.01 Long term (current) use of anticoagulants; Z86.718 Personal history of other venous thrombosis and embolism; Z98.84 Bariatric surgery status; Z20.828 Contact with and (suspected) exposure to other viral communicable diseases

== ENCOUNTER 2020-02-09 20:09 | Observation (INO) | payer MEDICARE, OTHER ==
[~2020-02-09] VITALS: Ht 162.6 cm; Wt 116.0 kg
[~2020-02-09 20:09] MED LIST changes: +PREDNISONE20 MG PO
--- NOTE | 2020-02-09 20:39 | NUR ---
PT DC FROM HERE YESTERDAY BECAUSE OF PNEUMONIA. NARCANED TONIGHT BY DCFR.
[2020-02-09 20:56] LABS: HEMATOCRIT 31.6 % (37.0-47.0); HEMOGLOBIN 9.4 g/dl (12.0-16.0); IMMATURE GRANULOCYTES 1.7 % (0.0-5.0); MEAN CELL VOLUME 95.2 fL CALC (80.0-100.0); MEAN CORPUSCULAR HGB 28.3 pG CALC (26.0-32.0); MEAN CORPUSCULAR HGB CONC 29.7 g/dL CAL (32.0-36.0); NEUT# 6.36 thou/uL (2.00-7.15); RED BLOOD COUNT 3.32 mill/uL (4.20-5.60); RED CELL DISTRI WIDTH 16.9 % (11.5-15.5)
--- NOTE | 2020-02-09 21:00 | NUR ---
PT FALLING ASLEEP BETWEEN EACH TREATMENT. CONFUSED TO WHAT MEDICATIONS SHE TOOK. STATES SHE ONLY HAD 2 PERCOSETS AND ONE ATIVAN TODAY AND THAT IS ALL....THEN STATES SHE TOOK HER MEDS PRESCRIBED. SATS NOW DROPPING. PT REPOSITIONED. HOB ELEVATED. PLACED ON NC @2 LPM. SAT INCREASED TO 97. AWARE OF LOC AND SATS.
[2020-02-09 21:15] LABS: INTERNATIONAL NORMALIZED RATIO 1.3 RATIO (0.7-1.3); PROTHROMBIN TIME 12.4 SECONDS (9.0-12.5)
[2020-02-09 21:17] LABS: ALBUMIN 3.6 g/dL (3.2-5.0); ALKALINE PHOSPHATASE 99 u/l (38-126); BILIRUBIN, TOTAL 0.3 mg/dL (0.0-1.4); BUN 61 mg/dL (8-23); BUN/CREATININE RATIO 31 (12-20 (CALC)); CHLORIDE 97 mmol/l (95-108); ETHYL ALCOHOL 0 mg/dl (0-30); GFR 25 ML/MIN (>=60 (CALC)); GFR FOR AFR.AMER. 30 ML/MIN (>=60 (CALC)); SGOT/AST 19 u/l (9-36); SODIUM 136 mmol/l (137-146); TOTAL PROTEIN 6.4 g/dL (6.3-8.2)
[2020-02-09 21:28] LABS: ANION GAP 10 (6-22 (CALC)); CARBON DIOXIDE 32 mmol/l (22-30); POTASSIUM 2.9 mmol/l (3.5-5.1)
[2020-02-09 21:29] LABS: MYOGLOBIN 45 ng/mL (0 - 62)
[2020-02-09 21:48] LABS: URINE BILIRUBIN - DIPSTICK NEGATIVE (NEGATIVE); URINE BLOOD DIPSTICK NEGATIVE (NEGATIVE); URINE COLOR YELLOW; URINE GLUCOSE - DIPSTICK NEGATIVE (NEGATIVE); URINE KETONE NEGATIVE (NEGATIVE); URINE LEUK ESTERASE NEGATIVE (NEGATIVE); URINE NITRITE - DIPSTICK NEGATIVE (Negative); URINE PROTEIN - DIPSTICK NEGATIVE (NEG-TRACE); URINE SPECIFIC GRAVITY 1.015; URINE UROBILINOGEN - DIPSTICK 0.2 E.U./dL (0.2)
--- NOTE | 2020-02-09 22:05 | NUR ---
DAUGHTER CALLED FOR UPDATE. EXPLAINED THAT SHE WAS BEING ADMITTED. DAUGHTER STATES THAT SHE GIVES THE MEDICATIONS AND THAT SHE HAS ONLY HAD A HALF OF A PEROCOSET. ADVISED THAT SHE WOKE UP WITH NARCAN AND HER PAIN MED MAY NEED TO BE ADJUSTED.
--- NOTE | 2020-02-09 23:27 | NUR ---
ATTEMPTED TO CALL REPORT...DAYNE WILL CALL BACK. PT VOIDED ON BEDPAN.
--- NOTE | 2020-02-09 23:50 | NUR ---
ATTEMPTED TO CALL REPORT AGAIN.
--- NOTE | 2020-02-09 23:58 | NUR ---
REPORT TO NURSE DAYNE/MED-SURG.
--- NOTE | 2020-02-10 00:15 | NUR ---
PT ARRIVED TO FLOOR VIA STRETCHER. ALERT AND ORIENTED X3, BUT DROWSY. PT DENIES ANY PAIN OR DISCOMFORT. RESPIRATIONS ARE EVEN AND UNLABORED. PT FALLING ASLEEP DURING CONVERSATION. PT STATES SHE IS TOO WEAK TO TRANSFERS HERSELF FROM STRETCHER TO BED. PT SLID X3 PERSON ASSIST. DRESSING TO RLE, CDI. PT ORIENTED TO ROOM AND CALL LIGHT SYSTEM. CALL LIGHT WITHIN REACH. WILL CONTINUE TO MONITOR.
--- NOTE | 2020-02-10 00:27 | NUR ---
TO FLOOR VIA STRETCHER WITH O2/IV KCL/IV PUMP AND POCKET MONITOR. PT MOVED SELF TO BED.
[2020-02-10 00:48] VITALS: BP 152/87
--- NOTE | 2020-02-10 04:40 | NUR ---
PT CALLED FOR BEDPAN. PT TURNED WITHOUT ASSISTANCE. PLACED ON BEDPAN, PT VOIDED LARGE AMOUNT THAT OVERFLOWED BEDPAN. PERICARE AND LINEN CHANGE PROVIDED. 450ML OUTPUT WAS ABLE TO BE MEASURED. PT DENIES ANY OTHER WANTS OR NEEDS AT THIS TIME. CALL LIGHT WITHIN REACH. WILL CONTINUE TO MONITOR.
[2020-02-10 04:54] VITALS: BP 131/84
[2020-02-10 07:20] VITALS: BP 132/78
--- NOTE | 2020-02-10 07:34 | NUR ---
PT note Patient is screened for PT intervention and it is felt she would benefit from PT evaluation if medical agrees
[2020-02-10 09:53] LABS: CREATININE 1.5 mg/dL (0.5-1.0); MAGNESIUM 1.9 mg/dL (1.6-2.3)
[2020-02-10 09:58] LABS: POTASSIUM 3.6 mmol/l (3.5-5.1)
[2020-02-10] MEDS ORDERED: INDERAL LA80 MG PO (11:47)
[2020-02-10] MEDS ORDERED: XARELTO20 MG PO (11:48)
[2020-02-10] MEDS ORDERED: ADLT ASA LOW81 MG PO (11:50)
[2020-02-10] MEDS ORDERED: LASIX 40 MG TAB40 MG PO (11:50)
[2020-02-10] MEDS ORDERED: INDERAL80 M1 PO (11:50)
[2020-02-10] MEDS ORDERED: ATIVAN0.5 MG PO (11:50)
[2020-02-10] MEDS ORDERED: ZYLOPRIM100 MG PO (11:50)
[2020-02-10] MEDS ORDERED: DOXEPIN HCL50 MG PO (11:50)
[2020-02-10] MEDS ORDERED: PAROXETINE40 MG PO (11:51)
[2020-02-10] MEDS ORDERED: METOLAZONE5 MG PO (11:51)
[2020-02-10] MEDS ORDERED: GABAPENTIN600 MG PO (11:51)
[2020-02-10] MEDS ORDERED: ASPIRIN 81 LOW81 MG PO (11:51)
[2020-02-10] MEDS ORDERED: ALDACTONE25 MG PO (11:51)
[2020-02-10] MEDS ORDERED: FLONASE AL50 MCG/ACT IN (11:52)
[2020-02-10] MEDS ORDERED: ALBUTEROL SUL0.083 % NEB (11:52)
[2020-02-10] MEDS ORDERED: ALBUTEROL108 MCG/AC IN (11:52)
[2020-02-10] MEDS ORDERED: ATIVAN1 M1 PO (14:26)
[2020-02-10] MEDS ORDERED: ATIVAN1 MG PO (14:28)
[2020-02-10] MEDS ORDERED: ZOLPIDEM5 MG PO (14:47)
[2020-02-10] MEDS ORDERED: XARELTO15 MG PO (14:49)
[2020-02-10] MEDS ORDERED: OXYCODO-APAP1 TA2 PO (14:53)
[2020-02-10 16:00] VITALS: BP 137/67
[2020-02-10 19:00] VITALS: BP 135/70
--- NOTE | 2020-02-10 19:56 | NUR ---
REPORT FROM TAZ SHERWOOD. PT NOTED RESTING IN BED. NO APPARENT DISTRESS NOTED. PT C/O GENERALIZED PAIN, ENCOURAGED REPOSITIONING AT THIS TIME. IV SITE APPEARS HEALTHY. DISCUSSED POC. PT VERBALIZED UNDERSTANDING. SCRAP PILER IN PLACE. BSC AT BEDSIDE. CALL LIGHT WITHIN REACH. WILL CONTINUE TO MONITOR.
--- NOTE | 2020-02-10 22:59 | NUR ---
PT C/O DRESSING ON RLE CAUSING SOME DISCOMFORT DUE TO BEING LOOSE. DRESSING REINFORCED WITH KERLIX AND TAPE AT THIS TIME. ICE WATER PROVIDED UPON REQUEST. OFFERED EXTRA PILLOW TO ELEVATE BLE, PT REFUSED. NO OTHER WANTS OR NEEDS NOTED. CALL LIGHT WITHIN REACH. WILL CONTINUE TO MONITOR.
[2020-02-11] VITALS: BP 150/81
--- NOTE | 2020-02-11 03:58 | NUR ---
PT RESTING IN BED WITH EYES CLOSED. NO APPARENT DISTRESS NOTED. RESPIRATIONS EVEN AND UNLABORED. CALL LIGHT WITHIN REACH. WILL CONTINUE TO MONITOR.
[2020-02-11 04:44] VITALS: BP 160/92
[2020-02-11 07:30] VITALS: BP 162/105
--- NOTE | 2020-02-11 07:30 | NUR ---
ASSESSMENT IS COMPLETED: IV SITE IS FREE FROM REDNESS OR EDEMA. HR IS REG,PULSES ARE STRONG X4, ABD IS SOFT WITH ACTIVE BS, BREATH SOUNDS ARE CLEAR BILATERALLY, TELE MONITOR IN PLACE. CONTINUE TO OSEBRVE AND MONITOR.
[2020-02-11 10:47] VITALS: BP 141/57
--- NOTE | 2020-02-11 12:00 | NUR ---
PT IS SITTING ON THE SIDE OF THE BED WAITING FOR DISCHARGE.
--- NOTE | 2020-02-11 14:35 | NUR ---
PT RECEIVED DISCHARGE INSTRUCTIONS , IV SITE IS DISCONITNUED CATHETER INTACT. NO REDNESS OR EDEMA. TELE MONITOR IN PLACE. FAMILY HAS CALLED TO INFORM OF A RIDE FOR PT. Discharge instructions given. Patient verbalizes understanding of same. Discharged in stable condition via Wheelchair to Home with family. All belongings sent with pt.
[2020-02-22] MEDS ORDERED: PERCOCET1 TA2 PO (16:06)
[2020-03-21] MEDS ORDERED: PERCOCET1 TA4 PO (14:11)
== END 2020-02-11 14:55 | disposition home health service (06) ==
LOC: ED 20:09 → ED-I 21:43 → ED 21:57 → ED-I 21:57 → MS2 21:57
PROVIDERS: Family Medicine; ADMIT Internal Medicine; ATTEND Internal Medicine
DX: F11.10 Opioid abuse, uncomplicated (principal); G92 Toxic encephalopathy; J18.9 Pneumonia, unspecified organism; E87.6 Hypokalemia; N17.9 Acute kidney failure, unspecified; J44.9 Chronic obstructive pulmonary disease, unspecified; I13.0 Hypertensive heart and chronic kidney disease with heart failure and stage 1 through stage 4 chronic kidney disease, or unspecified chronic kidney disease; I50.9 Heart failure, unspecified; N18.3 Chronic kidney disease, stage 3 (moderate); E78.5 Hyperlipidemia, unspecified; I48.91 Unspecified atrial fibrillation; E66.01 Morbid (severe) obesity due to excess calories; M79.7 Fibromyalgia; L97.919 Non-pressure chronic ulcer of unspecified part of right lower leg with unspecified severity; M54.9 Dorsalgia, unspecified; G89.29 Other chronic pain; F41.9 Anxiety disorder, unspecified; Z68.41 Body mass index [BMI] 40.0-44.9, adult; Z79.891 Long term (current) use of opiate analgesic; Z86.718 Personal history of other venous thrombosis and embolism; Z98.84 Bariatric surgery status; Z87.440 Personal history of urinary (tract) infections; Z96.653 Presence of artificial knee joint, bilateral; Z20.828 Contact with and (suspected) exposure to other viral communicable diseases
CPT/HCPCS: G0378

== ENCOUNTER 2020-03-07 14:54 | Inpatient (IN) | payer MEDICARE, OTHER ==
[~2020-03-07] VITALS: Ht 162.6 cm; Wt 113.1 kg
[~2020-03-07 14:54] MED LIST changes: +ADLT ASA LOW81 MG PO; +ALBUTEROL SUL0.083 % NEB; +ALBUTEROL108 MCG/AC IN; +ASPIRIN 81 LOW81 MG PO; +ATIVAN0.5 MG PO; +DOXEPIN HCL50 MG PO; +INDERAL LA80 MG PO; +INDERAL80 M1 PO; +OXYCODO-APAP1 TA2 PO; +PAROXETINE40 MG PO; +PERCOCET1 TA2 PO; +ZOLPIDEM5 MG PO; +ZYLOPRIM100 MG PO
--- NOTE | 2020-03-07 15:00 | NUR ---
PATIENT TO ROOM VIA EMS AND PHYSICIAN AT BEDSIDE FOR EVAL
--- NOTE | 2020-03-07 15:20 | NUR ---
PT WITH O2 SAT 88% ON R/A, NO RESP DISTRESS NOTED. NO USE OF ACCESSORY MUSCLES OR NASAL FLARING INITIATED O2@4LPM VIA NC. PT TOLERATING WELL
[2020-03-07 15:36] LABS: HEMATOCRIT 32.2 % (37.0-47.0); HEMOGLOBIN 9.4 g/dl (12.0-16.0); IMMATURE GRANULOCYTES 0.4 % (0.0-5.0); MEAN CELL VOLUME 96.1 fL CALC (80.0-100.0); MEAN CORPUSCULAR HGB 28.1 pG CALC (26.0-32.0); MEAN CORPUSCULAR HGB CONC 29.2 g/dL CAL (32.0-36.0); NEUT# 14.89 thou/uL (2.00-7.15); RED BLOOD COUNT 3.35 mill/uL (4.20-5.60); RED CELL DISTRI WIDTH 17.1 % (11.5-15.5)
[2020-03-07 15:50] LABS: ALBUMIN 3.9 g/dL (3.2-5.0); ALKALINE PHOSPHATASE 90 u/l (38-126); ANION GAP 11 (6-22 (CALC)); BUN 54 mg/dL (8-23); BUN/CREATININE RATIO 37 (12-20 (CALC)); CARBON DIOXIDE 39 mmol/l (22-30); CHLORIDE 86 mmol/l (95-108); CREATININE 1.4 mg/dL (0.5-1.0); GFR 38 ML/MIN (>=60 (CALC)); GFR FOR AFR.AMER. 46 ML/MIN (>=60 (CALC)); POTASSIUM 2.8 mmol/l (3.5-5.1); SGOT/AST 23 u/l (9-36); SODIUM 133 mmol/l (137-146); TOTAL PROTEIN 6.7 g/dL (6.3-8.2)
[2020-03-07] MEDS ORDERED: GABAPENTIN100 MG PO (15:52)
[2020-03-07] MEDS ORDERED: POTASSIUM CHLO10 MEQ PO (15:54)
[2020-03-07] MEDS ORDERED: PRAMIPEXOLE0.125 M1 PO (15:55)
[2020-03-07 16:08] LABS: BILIRUBIN, TOTAL 0.5 mg/dL (0.0-1.4)
--- NOTE | 2020-03-07 16:15 | NUR ---
PT RESTING COMFORTABLY WITH O2@4LPM VIA NC. VSS. PT UPDATED ON POC. RESP EVEN AND UNLABORED
--- NOTE | 2020-03-07 17:30 | NUR ---
PT RESTING QUIETLTY IN NO DISTRESS. O2@4LPM VIA NC. IV MEDS INFUSING WITHOUT DIFFICULTY. PT AWARE OF PENDING ADMIT AND AGREEABLE
--- NOTE | 2020-03-07 17:40 | NUR ---
PT TRANSPORTED TO [place] VIA STRTETCHER ON O2@4LPM VIA NC WITH ALL BELONGINGS INCLUDING CANE.
[2020-03-07 18:10] VITALS: BP 147/91
--- NOTE | 2020-03-07 18:10 | NUR ---
PT ARRIVED TO UNIT VIA WHEELCHAIR WITH ER STAFF; ALERT AND ORIENTED. ADMITTED TO ISOLATION ROOM 282; PLACED ON AIRBORNE/CONTACT PRECAUTIONS FOR PENDING COVID SWAB RESULTS. PT AMBULATED TO BED WITH STEADY GAIT WITH CANE; POSITIONED SELF INTO SEMI FOWLERS; VSS. C/O 5/10 PAIN TO LOWER BACK AND RLE WOUND. RESPIRATIONS EVEN AND UNLABORED ON OXYGEN 4L VIA NC; SPO2 98% UPON ARRIVAL; PT DENIES ANY SOB AT THIS TIME. POTASSIUM AND MAGNESIUM INFUSING INTO RAC IV; IV SITE APPEARS HEALTHY AND PT TOLERATING INFUSIONS WELL WITH NO C/O BURNING OR IRRITATION AT SITE. ORIENTED TO ROOM AND CALL LIGHT SYSTEM. PLAN OF CARE DISCUSSED. PT ENCOURAGED TO VERBALIZE CONCERNS. STATES UNDERSTANDING. SAFETY MEASURES IN PLACE. CALL LIGHT WITHIN REACH.
[2020-03-07 19:00] VITALS: BP 142/84
--- NOTE | 2020-03-07 20:03 | NUR ---
REPORT RECEIVED FROM PRESLEY YA. PT RESTING IN BED SUPINE; ASSESSMENT AND VITALS COMPLETE ALERT AND ORIENTED. PT DENIES PAIN. PTS RIGHT LOWER LEG MORGAN RESPIRATIONS EVEN AND UNLABORED ON ROOM AIR AT REST; SOB UPON EXERTION. TELEMENTRY IN PLACE IN AFIB; EDEMA BILATERALLY. REDDENNING AND SMALL OPEN WOUND ON RIGHT LOWER LEG PLAN OF CARE REVIEWED. PT ENCOURAGED TO VERBALIZE CONCERNS. STATES UNDERSTANDING. SAFETY MEASURES IN PLACE. CALL LIGHT WITHIN REACH.
--- NOTE | 2020-03-07 20:09 | NUR ---
REPORT RECEIVED FROM PRESLEY YA. PT RESTING IN BED SUPINE; ASSESSMENT AND VITALS COMPLETE ALERT AND ORIENTED. PT DENIES PAIN. RESPIRATIONS EVEN AND UNLABORED ON ROOM AIR AT REST; SOB UPON EXERTION. TELEMENTRY IN PLACE IN AFIB; EDEMA BILATERALLY. REDDENNING AND SMALL OPEN WOUND ON RIGHT LOWER LEG PLAN OF CARE REVIEWED. PT ENCOURAGED TO VERBALIZE CONCERNS. STATES UNDERSTANDING. SAFETY MEASURES IN PLACE. CALL LIGHT WITHIN REACH.
[2020-03-08] VITALS: BP 155/73
--- NOTE | 2020-03-08 01:29 | NUR ---
PHYSICAL ASSESSMNET UNCHANGED FROM BEGINNING OF SHIFT. PT C/O OF LEG PAIN. PRN TYLENOL GIVEN.PT DENIES ANY FURTHER NEEDS AT THIS TIME. ITEMS REMAIN WITHIN REACH, BED LOCKED IN LOW POSITION W/BEDRAILS UP. CALL WEST REMAINS WITHIN REACH; PT AGREES TO CALL FOR ANY NEEDS.
[2020-03-08 04:03] VITALS: BP 132/73
--- NOTE | 2020-03-08 04:13 | NUR ---
PT RESTING IN SUPINE POSITION. VITALS TAKEN. TELE IN PLACE. IV APPEARS HEALTHY WITH NO REDDENING OR SWELLING. NO DISCOMFORT OR NEEDS EXPRESSED. CALL WEST WITHIN REACH; WILL CONTINUE TO MONITOR.
[2020-03-08 05:24] LABS: HEMATOCRIT 32.3 % (37.0-47.0); HEMOGLOBIN 9.5 g/dl (12.0-16.0); IMMATURE GRANULOCYTES 0.5 % (0.0-5.0); MEAN CELL VOLUME 95.6 fL CALC (80.0-100.0); MEAN CORPUSCULAR HGB 28.1 pG CALC (26.0-32.0); MEAN CORPUSCULAR HGB CONC 29.4 g/dL CAL (32.0-36.0); NEUT# 10.89 thou/uL (2.00-7.15); RED BLOOD COUNT 3.38 mill/uL (4.20-5.60); RED CELL DISTRI WIDTH 16.7 % (11.5-15.5)
[2020-03-08 05:48] LABS: ALBUMIN 3.5 g/dL (3.2-5.0); BILIRUBIN, TOTAL 0.5 mg/dL (0.0-1.4); CREATININE 1.2 mg/dL (0.5-1.0); MAGNESIUM 2.3 mg/dL (1.6-2.3); POTASSIUM 3.1 mmol/l (3.5-5.1)
[2020-03-08 06:05] LABS: C-REACTIVE PROTEIN 14.3 mg/dL (0-0.9)
[2020-03-08 08:02] VITALS: BP 158/100
--- NOTE | 2020-03-08 08:05 | NUR ---
REPORT RECEIVED FROM PRESLEY ISAACS. PT SITTING UP ON EDGE OF BED EATING BREAKFAST; ALERT AND ORIENTED. DENIES PAIN, SOB OR NAUSEA. RESPIRATIONS EVEN AND UNLABORED ON OXYGEN 4L VIA NC; SPO2 99%. OXYGEN TITRATED DOWN TO 2L. TELE ON; PT REMAINS AFIB HR 105. IV SITE APPEARS HEALTHY AND FLUSHES. PLAN OF CARE REVIEWED. PT ENCOURAGED TO VERBALIZE CONCERNS. STATES UNDERSTANDING. SAFETY MEASURES IN PLACE. CALL LIGHT WITHIN REACH.
--- NOTE | 2020-03-08 09:30 | NUR ---
SPO2 96-97% ON 2L VIA NC. OXYGEN REMOVED; WILL CONTINUE TO MONITOR PT ON ROOM AIR. PT REQUESTING A SHOWER.
--- NOTE | 2020-03-08 09:45 | NUR ---
SPO2 REMAINS 96-97% ON ROOM AIR. RESPIRATIONS EVEN AND UNLABORED; NO S/S OF RESPIRATORY DISTRESS. PT DENIES SOB. HEALTH INFORMATICS INSTRUCTOR NOTIFIED.
[2020-03-08 11:47] VITALS: BP 159/86
--- NOTE | 2020-03-08 12:28 | NUR ---
ATE 100% OF LUNCH; REQUESTING EXTRA TEA. CONTINUES TO MAINTAIN GOOD SPO2 ON ROOM AIR WITHOUT RESPIRATORY DISTRESS. NO OTHER REQUESTS OR CONCERNS AT THIS TIME. CALL LIGHT WITHIN REACH.
--- NOTE | 2020-03-08 13:22 | NUR ---
OXYCODONE GIVEN FOR 8/10 BACK AND KNEE PAIN. PT REQUESTING MEDICATION FOR HEART BURN; REPORTS THAT SHE TAKES GAS X AT HOME. STATES SHE WANTS TO WAIT FOR HER SHOWER UNTIL SHE FEELS BETTER.
--- NOTE | 2020-03-08 13:55 | NUR ---
PT PRESENTS WITH PNEUMONIA. VANCOMYCIN ORDERED FOR PHARMACY TO DOSE. PT RECEIVED 1G 1X IN THE ED ON 03/07. VANCOMYCIN 750MG IV Q12H STARTED ON 03/08 @ 0300. CHECK TROUGH ON 03/09 @ 1430. GOAL TROUGH IS 15-20 MCG/ML. PHARMACY WILL CONTINUE TO FOLLOW.
[2020-03-08 16:00] VITALS: BP 121/80
--- NOTE | 2020-03-08 17:20 | NUR ---
PT SITTING UP ON EDGE OF BED EATING DINNER; NO REQUESTS OR CONCERNS AT THIS TIME. CALL LIGHT WITHIN REACH.
[2020-03-08 19:07] VITALS: BP 111/57
--- NOTE | 2020-03-08 20:00 | NUR ---
PATIENT ALERT, VERBAL, ABLE TO MAKE NEEDS KNOWN. ABLE TO TOLERATE MEDS WELL WHOLE. CONT OF BOWEL AND BLADDER--ABLE TO AMBULATE TO AND FROM ON HER OWN WITH ASSIST OF CANE--STEADY GAIT. REMAINS ON RA AT THIS TIME--SATS 95-96%--NO S/S OF RESP DISTRESS NOTED. PIV SITE PATENT TO RIGHT AC AREA--FLUSHES WELL--SITE UNREMARKABLE. CONT ON IV ABT THERAPY RELATED TO PNEUMONIA WITH NO SIDE EFFECTS NOTED--AFEBRILE. TELEMETRY IN PLACE--A-FIB @ 85. NOTED TO HAVE 1+ EDEMA TO BLE--ENCOURAGED TO ELEVATE LEGS MUCH POSSIBLE. DOES COMPLAIN OF PAIN AT THIS TIME AND IS PATIENTLY AWAITING NEXT TIME FOR PAIN MEDS TO BE GIVEN @ 2114. WILL CONT TO MONITOR FOR ANY FURTHER CHANGES.
--- NOTE | 2020-03-09 | NUR ---
PATIENT RESTING SOUNDLY IN BED WITH EYES CLOSED AT THIS TIME. DID C/O HEADACHE--MEDICATED WITH PRN TYLENOL WITH POSITIVE EFFECT. PIV SITE REMAINS PATENT TO RIGHT AC--SITE UNREMARKABLE. WILL CONT TO MONITOR FOR ANY FURTHER CHANGES.
[2020-03-09 01:08] VITALS: BP 124/86
--- NOTE | 2020-03-09 04:00 | NUR ---
PATIENT HAS RESTED WELL ALL NIGHT IN BED--OFFERED NO COMPLAINTS--ABT THERAPY CONTINUES ORDERED--PIV SITE PATENT TO RIGHT AC--FLUSHES WELL--SITE UNREMARKABLE. TELEMETRY IN PLACE--REMAINS IN A-FIB @ 96--NO DISTRESS NOTED. VANC TROUGH DUE LATER THIS AFTERNOON @ 1430. WILL CONT TO MONITOR FOR ANY FURTHER CHANGES.
[2020-03-09 04:51] LABS: HEMATOCRIT 34.4 % (37.0-47.0); HEMOGLOBIN 10.4 g/dl (12.0-16.0); MEAN CELL VOLUME 96.4 fL CALC (80.0-100.0); MEAN CORPUSCULAR HGB 29.1 pG CALC (26.0-32.0); MEAN CORPUSCULAR HGB CONC 30.2 g/dL CAL (32.0-36.0); RED BLOOD COUNT 3.57 mill/uL (4.20-5.60); RED CELL DISTRI WIDTH 17.3 % (11.5-15.5)
[2020-03-09 05:14] LABS: ALBUMIN 3.8 g/dL (3.2-5.0); BILIRUBIN, TOTAL 0.4 mg/dL (0.0-1.4); CREATININE 1.3 mg/dL (0.5-1.0); POTASSIUM 3.5 mmol/l (3.5-5.1); TOTAL PROTEIN 6.6 g/dL (6.3-8.2)
[2020-03-09 05:35] VITALS: BP 129/83
[2020-03-09 07:42] VITALS: BP 139/76
--- NOTE | 2020-03-09 07:45 | NUR ---
REPORT RECEIVED FROM ROXY SOLANO. PT RESTING IN BED SEMI FOWLERS; ALERT AND ORIENTED. C/O 7/10 HEADACHE, LOWER BACK, AND RIGHT KNEE PAIN. RESPIRATIONS EVEN AND UNLABORED ON ROOM AIR. DENIES SOB OR NAUSEA. TELE ON. IV SITE APPEARS HEALTHY AND FLUSHES. PLAN OF CARE REVIEWED. PT ENCOURAGED TO VEBRALIZE CONCERNS. STATES UNDERSTANDING. SAFETY MEASURES IN PLACE. CALL LIGHT WITHIN REACH.
[2020-03-09] MEDS ORDERED: FLORASTOR250 M1 PO (10:35)
[2020-03-09] MEDS ORDERED: Levaquin PO (10:40)
[2020-03-09] MEDS ORDERED: MEDDOSEPAK PO (10:41)
[2020-03-09 11:40] VITALS: BP 137/57
--- NOTE | 2020-03-09 12:00 | NUR ---
NOTIFIED OF PLAN FOR DISCHARGE; PT STATES THAT HER RIDE CAN PICK HER UP AT 3PM. SITTING UP EATING LUNCH. REQUESTS EXTRA COKE WITH HER TRAY. NO CONCERNS AT THIS TIME. CALL LIGHT WITHIN REACH.
--- NOTE | 2020-03-09 13:25 | NUR ---
OXYCODONE GIVEN PER REQUEST FOR LOWER BACK AND RIGHT KNEE PAIN. IV site discontinued, cath intact. No edema , no redness, voices no discomfort.
--- NOTE | 2020-03-09 14:00 | NUR ---
NEW DRESSING PLACED TO RLE.
--- NOTE | 2020-03-09 14:40 | NUR ---
Discharge instructions given. Patient verbalizes understanding of same. Discharged in stable condition via Wheelchair to Home with family. All belongings sent with pt.
[2020-03-21] MEDS ORDERED: PERCOCET1 TA4 PO (14:11)
== END 2020-03-09 14:40 | disposition home health service (06) | DRG 193 ==
LOC: ED 14:54 → ED-I 16:06 → ED 16:27 → MS2 16:28
PROVIDERS: Family Medicine; Nurse Practitioner; Nurse Practitioner Family; ADMIT Internal Medicine; ATTEND Internal Medicine
DX: J18.9 Pneumonia, unspecified organism (principal); J96.00 Acute respiratory failure, unspecified whether with hypoxia or hypercapnia; J44.0 Chronic obstructive pulmonary disease with (acute) lower respiratory infection; I13.0 Hypertensive heart and chronic kidney disease with heart failure and stage 1 through stage 4 chronic kidney disease, or unspecified chronic kidney disease; I48.20 Chronic atrial fibrillation, unspecified; L97.819 Non-pressure chronic ulcer of other part of right lower leg with unspecified severity; N17.9 Acute kidney failure, unspecified; I50.9 Heart failure, unspecified; N18.3 Chronic kidney disease, stage 3 (moderate); E87.6 Hypokalemia; G62.9 Polyneuropathy, unspecified; I87.8 Other specified disorders of veins; Z79.01 Long term (current) use of anticoagulants; Z86.718 Personal history of other venous thrombosis and embolism; Z87.440 Personal history of urinary (tract) infections; Z20.828 Contact with and (suspected) exposure to other viral communicable diseases
CPT/HCPCS: J0692; J3370; J3475

== ENCOUNTER 2020-03-23 12:46 | Emergency (ER) | payer MEDICARE, OTHER ==
[~2020-03-23] VITALS: Ht 162.6 cm; Wt 103.0 kg
[~2020-03-23 12:46] MED LIST changes: +FLORASTOR250 M1 PO; +POTASSIUM CHLO10 MEQ PO
[2020-03-23 14:14] LABS: HEMATOCRIT 33.5 % (37.0-47.0); HEMOGLOBIN 10.2 g/dl (12.0-16.0); MEAN CELL VOLUME 99.4 fL CALC (80.0-100.0); MEAN CORPUSCULAR HGB 30.3 pG CALC (26.0-32.0); MEAN CORPUSCULAR HGB CONC 30.4 g/dL CAL (32.0-36.0); NEUT% 74 % (42-76); PLATELET COUNT 218 thou/uL (130-400); RED BLOOD COUNT 3.37 mill/uL (4.20-5.60); RED CELL DISTRI WIDTH 17.1 % (11.5-15.5)
[2020-03-23 14:15] LABS: LYMPH% 11 % (15-41)
[2020-03-23 14:16] LABS: ALBUMIN 3.8 g/dL (3.2-5.0); BILIRUBIN, TOTAL 0.4 mg/dL (0.0-1.4); CREATININE 1.3 mg/dL (0.5-1.0); MONO% 15 % (2-13); POTASSIUM 3.2 mmol/l (3.5-5.1); TOTAL PROTEIN 6.3 g/dL (6.3-8.2)
[2020-03-23] MEDS ORDERED: KEFLEX500 M1 PO (14:29)
[2020-03-23 15:30] VITALS: BP 129/63
== END 2020-03-23 15:30 | disposition home or self-care (01) ==
LOC: ED 12:46
PROVIDERS: Emergency Medicine
DX: L03.115 Cellulitis of right lower limb (principal); I87.2 Venous insufficiency (chronic) (peripheral); L97.919 Non-pressure chronic ulcer of unspecified part of right lower leg with unspecified severity; I10 Essential (primary) hypertension; E66.01 Morbid (severe) obesity due to excess calories; J44.9 Chronic obstructive pulmonary disease, unspecified; I48.91 Unspecified atrial fibrillation; Z79.891 Long term (current) use of opiate analgesic; Z86.79 Personal history of other diseases of the circulatory system; M79.604 Pain in right leg

== ENCOUNTER 2020-05-02 17:09 | Inpatient (IN) | payer MEDICARE, OTHER ==
[~2020-05-02] VITALS: Ht 162.6 cm; Wt 107.2 kg
[~2020-05-02 17:09] MED LIST changes: +KEFLEX500 M1 PO; +NARCAN4 MG/0.1 M
--- NOTE | 2020-05-02 18:05 | NUR ---
PT ARRIVED VIA WC WITH STAFF
--- NOTE | 2020-05-02 18:10 | NUR ---
ASKED PT QUESTIONS. ALERT AND ORIENTED. IV STARTED X2, BY MAYCOL SHERWOOD. #20 IN RAC. PT ABLE TO GET TO THE BED WITH ASSISTANCE. CONTINUE TO OBSERVE AND MONITOR.
--- NOTE | 2020-05-02 18:54 | NUR ---
LAB IN TO DRAW PT FOR LABS.
--- NOTE | 2020-05-02 19:00 | NUR ---
RECEIVED REPORT FROM NURSE DIETRICH PATIENT SITTING IN BED, EATING DINNER C/O PAIN ON RT LEG WILL MEDICATE.
[2020-05-02 19:18] VITALS: BP 143/88
[2020-05-02 19:23] LABS: ALBUMIN 3.6 g/dL (3.2-5.0); BILIRUBIN, TOTAL 0.4 mg/dL (0.0-1.4); CREATININE 1.3 mg/dL (0.5-1.0); HEMATOCRIT 34.8 % (37.0-47.0); HEMOGLOBIN 10.5 g/dl (12.0-16.0); IMMATURE GRANULOCYTES 0.2 % (0.0-5.0); MEAN CELL VOLUME 98.3 fL CALC (80.0-100.0); MEAN CORPUSCULAR HGB 29.7 pG CALC (26.0-32.0); MEAN CORPUSCULAR HGB CONC 30.2 g/dL CAL (32.0-36.0); NEUT# 5.61 thou/uL (2.00-7.15); RED BLOOD COUNT 3.54 mill/uL (4.20-5.60); RED CELL DISTRI WIDTH 17.6 % (11.5-15.5); TOTAL PROTEIN 6.3 g/dL (6.3-8.2)
[2020-05-02 19:25] LABS: POTASSIUM 3.8 mmol/l (3.5-5.1)
--- NOTE | 2020-05-02 21:30 | NUR ---
ORDERS RECEIVED FROM DR. PATEL TO JAYLIN TO BE REMALLY DOSE BY PHARMACY.
--- NOTE | 2020-05-02 22:30 | NUR ---
SPOKE TO CARDINAL PHARMACIST MONO TO DOSE PATIENT ZOSYN AND STATED THAT PRESENT DOSE 4.5GM Q6 IS APPROPRIATE FOR HER CREATNINE CLEARANCE, STATED THAT THAT SHE WILL LEAVE A NOTE TO PHARMACY TO FOLLOW UP ON THE WOUND CULTURE AND WILL CONTINUOUSLY DOSE IT,
--- NOTE | 2020-05-02 22:30 | NUR ---
PATIENT ASSISTED TO RADIOLOGY FOR XRAY.
[2020-05-03 00:10] VITALS: BP 137/98
--- NOTE | 2020-05-03 00:22 | NUR ---
PATIENT C/O PAIN ON RT LEG, PRN LORTAB GIVEN CALL LIGHT AT REACH.
[2020-05-03 00:54] LABS: URINE BILIRUBIN - DIPSTICK NEGATIVE (NEGATIVE); URINE BLOOD DIPSTICK NEGATIVE (NEGATIVE); URINE CLARITY CLEAR; URINE COLOR YELLOW; URINE GLUCOSE - DIPSTICK NEGATIVE (NEGATIVE); URINE KETONE NEGATIVE (NEGATIVE); URINE LEUK ESTERASE NEGATIVE (Negative); URINE NITRITE - DIPSTICK NEGATIVE (Negative); URINE PH 5.5 (4.5-8.0); URINE PROTEIN - DIPSTICK NEGATIVE (NEG-TRACE); URINE UROBILINOGEN - DIPSTICK 0.2 E.U./dL (0.2)
--- NOTE | 2020-05-03 03:58 | NUR ---
PATIENT RESTING IN BED WITH EYES CLOSED, BREATHING EVEN AND UNLABORED CALL LIGHT AT REACH.
[2020-05-03 04:17] VITALS: BP 100/60
[2020-05-03 05:31] LABS: ALBUMIN 3.1 g/dL (3.2-5.0); BILIRUBIN, TOTAL 0.3 mg/dL (0.0-1.4); CREATININE 1.3 mg/dL (0.5-1.0); POTASSIUM 3.6 mmol/l (3.5-5.1); TOTAL PROTEIN 5.4 g/dL (6.3-8.2)
--- NOTE | 2020-05-03 07:10 | NUR ---
REPORT RECEIVED FROM PRESLEY ESPINOZA. PT RESTING IN BED SEMI FOWLERS WITH EYES CLOSED AND NO SIGNS OF DISTRESS. RESPIRATIONS EVEN AND UNLABORED ON ROOM AIR. SAFETY MEASURES IN PLACE. CALL LIGHT WITHIN REACH.
--- NOTE | 2020-05-03 07:54 | NUR ---
SITTING UP IN BED EATING BREAKFAST; LORTAB GIVEN FOR 8/10 RIGHT ANKLE PAIN.
--- NOTE | 2020-05-03 08:14 | NUR ---
DR. PATEL AND RENETTA AT BEDSIDE FOR EVAL; ASSESSED WOUND TO RIGHT ANKLE. PT DID NOT TOLERATE REMOVAL OF DRESSING WELL. LUNGS ARE CLEAR. RESPIRATIONS EVEN AND UNLABORED ON ROOM AIR.
[2020-05-03 08:24] VITALS: BP 143/80
--- NOTE | 2020-05-03 10:02 | NUR ---
VANCO INFUSING INTO 24G IV SITE TO MIMA; SITE SLIGHTLY BRUISED BUT IS PATENT AND HEALTHY AND FLUSHES WELL. PT REQUESTING MORPHINE FOR RLE PAIN. ALSO C/O ITCHING TO RIGHT NECK WHERE THERE ARE SEVERAL SCABBED AREAS; SOME OPEN FROM POSSIBLE ITCHING; PT REPORTS THAT THESE ARE HEALING FROM HER SHINGLES AND REQUESTS CREAM OR OINTMENT FOR THE ITCHING. PT PLACED ON CONTACT PRECAUSIONS FOR HX OF ESBL.
--- NOTE | 2020-05-03 11:48 | NUR ---
S: OCTAVIA LEWIS is a 64 F who presents with cellulitis and wound infection. All medications in patient's chart were reviewed. O: VS: BP 143/80 mmHg, P 105 bpm, RR 20 breaths,T 98.5 F W 117.3 kg, HT 64 inches, Scr= 1.3 mg/dL,CrCl= 53.6 ml/min A: Blood culture is pending Wound culture is pending P: Patient is on Zosyn 4.5g Q6H. Vancomycin ordered for pharmacy to dose. Start Vancomycin 1g IV Q12H. Vancomycin trough is drawn before the 4th dose on 05/04/2020 at 0830. Vancomycin goal trough is between 10-15 mcg/ml. Pharmacy will follow and or advise on antibiotics use as needed.
[2020-05-03 12:00] VITALS: BP 120/89
--- NOTE | 2020-05-03 14:25 | NUR ---
PT USED CALL LIGHT CRYING C/O 04/08 PAIN TO RLE; MORPHINE GIVEN AT THIS TIME; GIVEN EXACTLY 4 HOURS AGO. PT REQUESTING HER ATIVAN WHICH SHE STATES THAT SHE TAKES TWICE A DAY FOR ANXIETY.
[2020-05-03 15:00] VITALS: BP 109/60
--- NOTE | 2020-05-03 16:55 | NUR ---
PER RECOMMENDATION OF THE WOUND CARE CLINICAL TAPE WEAVER PRESLEY TANDEFECT CUTTER DRESSING TO RLE MAY INCLUDE CALCIUM ALGINATE AQUACEL FOAM AND TUBE PSYCHIATRIC ORDERLY. CURRENTLY APPLIED IS CALCIUM ALGINATE, ABD PAD, AND TUBE PSYCHIATRIC ORDERLY TO AVOID TAPE TO SKIN. DRESSING CHANGE PAINFUL FOR PATIENT; SEROSANGUINOUS DRAINAGE FROM SITE.
--- NOTE | 2020-05-03 18:37 | NUR ---
MYLANTA II GIVEN FOR C/O HEARTBURN. ZOSYN INFUSING AT THIS TIME.
[2020-05-03 19:30] VITALS: BP 125/62
--- NOTE | 2020-05-03 20:00 | NUR ---
PATIENT IN SEMFOWLERS POSITION. AWAKE ALERT AND ORIENTED X3. ABLE TO MAKE NEEDS KNOWN. C/O PAIN TO RLE. MORPHINE IV GIVEN. SKIN WARM AND DRY. BS ACTIVE X4. VAD MIMA PATENT S/L. BED IN LOW POSITION. CALLLIGHT WITHIN REACH.
--- NOTE | 2020-05-04 | NUR ---
PATIENT AWAKE IN BED PAIN WELL MANAGED. ROTATING MORPHINE AND LORTAB TO MAINTAIN EFFECTIVE PAIN MANAGEMENT. VAD MIMA LEAKING AND DC'D WITH CATHETER INTACT. NEW VAD #24 TO SYBIL INSERTED. PATIENT TOLERATED WELL. ABT INFUSING. PATIENT UP TO BSC WITHOUT DIFFICULTY. BED IN LOW POSITION. CALL LIGHT WITHIN REACH.
[2020-05-04 00:20] VITALS: BP 135/85
[2020-05-04 03:51] VITALS: BP 112/68
[2020-05-04 05:08] LABS: HEMATOCRIT 34.5 % (37.0-47.0); HEMOGLOBIN 10.4 g/dl (12.0-16.0); IMMATURE GRANULOCYTES 0.2 % (0.0-5.0); MEAN CORPUSCULAR HGB 29.5 pG CALC (26.0-32.0); MEAN CORPUSCULAR HGB CONC 30.1 g/dL CAL (32.0-36.0); NEUT# 7.07 thou/uL (2.00-7.15); RED BLOOD COUNT 3.52 mill/uL (4.20-5.60); RED CELL DISTRI WIDTH 17.7 % (11.5-15.5)
[2020-05-04 05:46] LABS: ALBUMIN 3.4 g/dL (3.2-5.0); C-REACTIVE PROTEIN 4.8 mg/dL (0-0.9); CREATININE 1.4 mg/dL (0.5-1.0); POTASSIUM 3.6 mmol/l (3.5-5.1)
[2020-05-04 05:48] LABS: BILIRUBIN, TOTAL 0.6 mg/dL (0.0-1.4)
[2020-05-04 07:35] VITALS: BP 122/70
--- NOTE | 2020-05-04 07:35 | NUR ---
REPORT RECEIVED FROM NIGHT NURSE, RN. PT RESTING IN BED SUPINE; ALERT AND ORIENTED. C/O 6/10 PAIN TO RLE; DRESSING TO VENOUS ULCER ON RIGHT ANKLE CDI. RESPIRATIONS EVEN AND UNLABORED ON ROOM AIR. POC REVIEWED. PT ENCOURAGED TO VERBALIZE CONCERNS. STATES UNDERSTANDING. SAFETY MEASURES IN PLACE. CALL LIGHT WITHIN REACH.
--- NOTE | 2020-05-04 08:11 | NUR ---
DR. PATEL AND GILBERT JACKSON AT BEDSIDE FOR EVAL.
--- NOTE | 2020-05-04 11:05 | NUR ---
Patient is screened for PT intervention and she would benefit from PT consult if medical agrees
[2020-05-04 11:47] VITALS: BP 137/82
--- NOTE | 2020-05-04 12:00 | NUR ---
PT RESTING IN BED WITH EYES CLOSED AND NO SIGNS OF DISTRESS. RESPIRATIONS EVEN AND UNLABORED ON ROOM AIR. CALL LIGHT WITHIN REACH.
--- NOTE | 2020-05-04 13:23 | NUR ---
S: OCTAVIA LEWIS is a 64 F who presents with cellulitis and wound infection. She has a history of Hypertension, CKD, DVT, CHF, Chronic UTI, COPD, Chronic Back Pain, Chronic Afib, Deperssion. All medications in patient's chart were reviewed. O: Current Vancomycin Trough level is 15 mcg/ml. VS: BP 137/82 mmHG, P 92 BPM, RR 18 breaths,T 98.2 F W 115.9 kg, HT 64 inches, Scr= 1.4 mg/dL,CrCl= 49.9 ml/min A: Vancomycin Trough is at upper end of therapeutic goal, decrease in dose is warranted. Blood culture is pending. Wound culture showing MRSA which is sensitive to Vancomycin. P: Patient is on Zosyn 4.5 gm IV Q6H and vancomycin 1 g IV q12h. Vancomycin ordered for pharmacy to dose. Decrease Vancomycin to 750 mg IV Q12H. Vancomycin trough is drawn before the 4th dose on 05/06/2020 at 0830. Vancomycin goal trough is between 10-15 mcg/ml. Pharmacy will follow and or advise on antibiotics use as needed.
[2020-05-04 14:55] VITALS: BP 122/68
--- NOTE | 2020-05-04 17:27 | NUR ---
DRESSING TO RLE REPLACED. MORPHINE ADMINISTERED PRIOR TO DRESSING CHANGE.
[2020-05-04 19:00] VITALS: BP 141/91
--- NOTE | 2020-05-04 20:20 | NUR ---
PATIENT PLEASANT ALERT AND ORIENTED X3. ABLE TO MAKE NEEDS KNOWN. RESPIRATIONS EASY ON ROOM AIR. C/O PAIN ADDRESSED WITH PRN PAIN MEDICATION WITH POSITIVE EFFECT. AMANDEEP DEVINE PATENT WITH DRESSING CDI. SKIN WARM AND DRY. ON TELE RUNNING AFIB. CONTACT PRECAUTIONS FOR MRSA OF WOUND. BED IN LOW POSITION. CALL LIGHT WITHIN REACH.
[2020-05-05] VITALS (8 sets, daily range): BP systolic 117–153; BP diastolic 71–103
--- NOTE | 2020-05-05 | NUR ---
PATIENT RESTING IN BED. COMPLIANT WITH MEDICATIONS. C/O PAIN ADDRESSED WITH PRN PAIN MEDICATION WITH POSITIVE EFFECT. VAD #24 SYBIL INFILTRATED AND DISCONTINUED. VANCO STOPPED MID ADMINISTRATION. UNABLE TO OBTAIN VENOUS ACCESS. PATIENT TO HAVE PICC IN A.M. BED IN LOW POSITION. CALL LIGHT WITHIN REACH.
--- NOTE | 2020-05-05 04:00 | NUR ---
RESTING QUIETLY. NO ACUTE DISTRESS NOTED. NO VAD AT THIS TIME. BED IN LOW POSITION. CALL LIGHT WITHIN REACH.
[2020-05-05 05:29] LABS: HEMATOCRIT 37.1 % (37.0-47.0); MEAN CELL VOLUME 99.2 fL CALC (80.0-100.0); MEAN CORPUSCULAR HGB 29.4 pG CALC (26.0-32.0); MEAN CORPUSCULAR HGB CONC 29.6 g/dL CAL (32.0-36.0); RED BLOOD COUNT 3.74 mill/uL (4.20-5.60); RED CELL DISTRI WIDTH 17.4 % (11.5-15.5)
[2020-05-05 05:41] LABS: CREATININE 1.1 mg/dL (0.5-1.0); MAGNESIUM 1.7 mg/dL (1.6-2.3); POTASSIUM 3.2 mmol/l (3.5-5.1)
--- NOTE | 2020-05-05 07:20 | NUR ---
REPORT RECEIVED FROM PRESLEY GIBSON.
--- NOTE | 2020-05-05 08:20 | NUR ---
PT RESTING IN SEMI FOWLERS POSITION,A&O X3;VS OBTAINED AND ASSESSMENT COMPLETED;PT REPORTS RLE AND BACK PAIN RATING 5/10 ON THE PAIN SCALE AND REQUESTS PAIN MEDICATION, PT MEDICATED WITH PRN LORTAB 10 PO;RESPIRATIONS EVEN AND UNLABORED ON RA,CLEAR LUNG SOUNDS;ABDOMEN SOFT ON PALPATION AND ACTIVE IN ALL 4 QUADRANTS;WEAK PEDAL PULSES;DRESSING TO RLE CDI;NO IV SITE, AWAITING PICCLINE TO BE PLACED;TELE MONITORING IN PLACE;FRESH WATER PROVIDED PER REQUEST;PT DENIES ANY ADDITIONAL NEEDS AT THIS TIME AND IS ENCOURAGED TO CALL FOR ASSISTANCE IF NEEDED;FALL PRECAUTIONS IN PLACE WITH BED IN THE LOWEST POSITION AND CALL LIGHT IN REACH;WILL CONTINUE TO MONITOR
--- NOTE | 2020-05-05 08:27 | NUR ---
AT BEDSIDE DISCUSSING POC.
--- NOTE | 2020-05-05 10:29 | NUR ---
PT REMINDED TO HAVE FAMILY BRING IN MEDICATION FOR VERIFICATION AND ADMINISTRATION.
--- NOTE | 2020-05-05 11:15 | NUR ---
PT RESTING IN SEMI FOWLERS POSITION;RESPIRATIONS EVEN AND UNLABORED ON RA;PT REPORTS RLE PAIN RATING 7/10 ON THE PAIN SCALE AND REQUESTS PAIN MEDICATION,PT EDUCATED ON PAIN MEDICATION SCHEDULE;PT MEDICATED WITH PRN TYLENOL 650MG PO;DRESSING CHANGE PROVIDED TO RLE AT THIS TIME,PT TOLERATED WELL;TELE MONITORING IN PLACE;STILL AWAITING PICCLINE PLACEMENT;PT DENIES ANY ADDITIONAL NEEDS AT THIS TIME;ENCOURAGED TO CALL FOR ASSISTANCE IF NEEDED;FALL PRECAUTIONS IN PLACE WITH BED IN THE LOWEST POSITION AND CALL LIGHT IN REACH;WILL CONTINUE TO MONITOR
--- NOTE | 2020-05-05 12:04 | NUR ---
BP RE-CHECK 153/97 HR 97
--- NOTE | 2020-05-05 13:10 | NUR ---
PT TRANSPORTED TO RADIOLOGY IN STABLE CONDITION VIA WHEELCHAIR ACCOMPANIED BY MORRIS GARCIA
--- NOTE | 2020-05-05 13:36 | NUR ---
PT TRANSPORTED BACK TO MED/SURG ROOM 269 IN STABLE CONDITION VIA WHEELCHAIR ACCOMPANIED BY MATHEW WILSON.
--- NOTE | 2020-05-05 13:45 | NUR ---
SYBIL HANNA PICCLINE FLUSHED AND PATENT AT THIS TIME,SITE APPEARS HEALTHY AND MEASURING AT 53CM.
--- NOTE | 2020-05-05 13:50 | NUR ---
PT REPORTS RLE PAIN RATING 6/10 ON THE PAIN SCALE AND REQUESTS PAIN MEDICATION,PT MEDICATED WITH PRN LORTAB 10 PO AT THIS TIME;WILL CONTINUE TO MONITOR FOR EFFECTIVENESS
--- NOTE | 2020-05-05 15:19 | NUR ---
WOUND CARE AT BEDSIDE
--- NOTE | 2020-05-05 15:30 | NUR ---
PT RESTING IN SEMI FOWLERS POSITION;RESPIRATIONS EVEN AND UNLABORED ON RA;PT REPORTS PAIN MEDICATION EFFECTIVE TOWARDS RLE PAIN;TELE MONITORING IN PLACE;SYBIL PICCLINE INFUSING ABX WITH EASE PER ORDER;PT DENIES ANY ADDITIONAL NEEDS AND IS ENCOURAGED TO CALL FOR ASSISTANCE IF NEEDED;FALL PRECAUTIONS REMAIN IN PLACE WITH BED IN THE LOWEST POSITION AND CALL LIGHT IN REACH;WILL CONTINUE TO MONITOR
--- NOTE | 2020-05-05 18:37 | NUR ---
PT REPORTS LOWER BACK AND RLE PAIN RATING 7/10 ON THE PAIN SCALE AND REQUESTS PAIN MEDICATION, PT MEDICATED WITH PRN LORTAB 10 PO;WILL CONTINUE TO MONITOR
--- NOTE | 2020-05-05 20:30 | NUR ---
REPORT RECIEVED FROM ROXY HINES. PT RESTING IN SEMI FOWLERS POSITION UPON ENTERING ROOM. INTRODUCED SELF TO PT AND DISCUSSED POC. PT IS A/O X3. ASSESSMENT AND VITALS OBTAINED. RESPIRATIONS ARE EVEN AND UNLABORED WITH NO SIGNS OF DISTRESS NOTED. LUNG SOUNDS ARE CLEAR. HEART RHYTHM IS NORMAL WITH TELE IN PLACE, AFIB 82 PER ER MONITORING. BOWEL SOUNDS ARE ACTIVE IN ALL QUADRANTS, LAST REPORTED BM 05/05/2020. RADIAL AND PEDAL PULSES ARE STRONG WITH NORMAL CAPILLARY REFILL. SYBIL SINGLE LUMEN PICC FLUSHED, SITE APPEARS HEALTHY AND PATENT. BRUISING APPEARS AROUND PICC AREA, WRITTER INFORMED WAS PRESENT BEFORE INSERTION. PT COMPLAINS OF PAIN IN 7/10 PAIN IN RIGH LEG AND ARM. PT TO BE MEDICATED PER EMAR. PT PRESENTS WITH DRESSING IN RIGHT CALF, CHANGED 05/05/2020 ON DAY SHIFT. DRESSING REMAINS CDI AT THIS TIME. ENCOURAGED PT TO ELEVATE. PT REFUSED STATING "SOMETIMES I RAISE THE LEGS ON THE BED BUT IM OK RIGHT NOW." PT DENIES ANY ADDTIONAL NEEDS AT THIS TIME. ALL SAFETY PRECAUTIONS ARE IN PLACE WITH CALL LIGHT IN REACH. WILL CONTINUE TO MONITOR.
--- NOTE | 2020-05-05 22:45 | NUR ---
PT COMPLAINS OF 7/10 PAIN IN RIGHT ARM AND LEG. LORTAB ADMINISTERED. RESPIRATIONS REMAINS EVEN AND UNLABORE DWITH NO SIGNS OF DISTRESS . ALL SAFETY PRECAUTIONS ARE IN PLACE WITH CALL LIGHT IN REACH. WILL CONTINUE TO MONITOR
[2020-05-06] VITALS (7 sets, daily range): BP systolic 132–157; BP diastolic 80–106
--- NOTE | 2020-05-06 00:48 | NUR ---
PT SLEEPING IN SEMI FOWLERS POSITION UPON ENTERING ROOM. RESPIRATIONS ARE EVEN AND UNLABORED WITH NO SIGNS OF DISTRESS NOTED. NO SIGNS OF ANY DISCOMFORTS. ALL SAFTEY PRECAUTIONS REMAINS IN PLACE WITH CALL LIGHT IN REACH. WILL CONTINUE TO MONITOR
--- NOTE | 2020-05-06 03:59 | NUR ---
PT REMAINS A/OX3. PT COMPLAINS OF 5/10 PAIN IN RIGHT LEG AND NAUSEA. LORTAB AND ZOFRAN ADMINISTERED.RESPIRATIONS ARE EVEN AND UNLABORED WITH NO WITH SIGNS OF DISTRESS NOTED.PT DENIES ANY ADDITIONAL NEEDS AT THIS TIME. ALL SAFTEY PRECAUTIONS ARE IN PLACE WITH CALL LIGHT IN REACH. WILL CONTINUE TO MONITOR
--- NOTE | 2020-05-06 04:50 | NUR ---
REASSESSMENT OF PAIN RESULTING IN 4/10. RESPIRATIONS ARE EVEN AND UNLABORED WITH NO SIGNS OF DISTRESS NOTED. PT DENIES ANY ADDITIONAL NEEDS AT THIS TIME. ALL SAFTEY PRECAUTIONS ARE IN PLACE WITH CALL LIGHT IN REACH.WILL CONTINUE TO MONITOR
[2020-05-06 05:33] LABS: HEMATOCRIT 36.2 % (37.0-47.0); IMMATURE GRANULOCYTES 0.4 % (0.0-5.0); MEAN CELL VOLUME 97.3 fL CALC (80.0-100.0); MEAN CORPUSCULAR HGB 29.6 pG CALC (26.0-32.0); MEAN CORPUSCULAR HGB CONC 30.4 g/dL CAL (32.0-36.0); NEUT# 5.01 thou/uL (2.00-7.15); RED BLOOD COUNT 3.72 mill/uL (4.20-5.60); RED CELL DISTRI WIDTH 17.1 % (11.5-15.5)
[2020-05-06 05:47] LABS: ALBUMIN 3.4 g/dL (3.2-5.0); BILIRUBIN, TOTAL 0.6 mg/dL (0.0-1.4); CREATININE 1.2 mg/dL (0.5-1.0); POTASSIUM 3.1 mmol/l (3.5-5.1); TOTAL PROTEIN 5.9 g/dL (6.3-8.2)
--- NOTE | 2020-05-06 07:36 | NUR ---
PATIENT IN BED AWAKE ALERT AND ORIENTED AT THIS TIME. PATIENT DENIES ANY NEEDS PICC LINE INTACT IN UPPER RITH ARM. DRESSING ON R LOWER LEG INTACT AT THIS TIME. SAFETY MEASURES ARE IN PLACE CALL LIGHT NEAR. SIDERAILS UP X 2.
--- NOTE | 2020-05-06 08:34 | NUR ---
PT MEDICATED WITH SD ZOFRAN 4MG IVP AT THIS TIME,WILL CONTINUE TO MONITOR FOR EFFECTIVENESS
--- NOTE | 2020-05-06 10:12 | NUR ---
AT BEDSIDE DISCUSSING POC.
--- NOTE | 2020-05-06 12:30 | NUR ---
PATIENT IN BED AT THIS TIME CALL LIGHT WITHIN REACH. PATIENT STATES PAIN LEVEL IS A 3 AND IS "DOABLE". PATIENT PICC LINE DRESSING CHANGED UNDER STERILE TECHNIQUE. ALL SAFETY MEASURES ARE IN PLACE CALL LIGHT NEAR SIDERAILS UPX2. PATIENT DENIES ALL OTHER NEEDS.
--- NOTE | 2020-05-06 15:36 | NUR ---
PATIENT IN BED WATCHING TV AT THIS TIME. PATIENT STATES PAIN IS "BETTER" AND RATES IT A 3-4 ON THE PAIN SCALE OF 0-10. PATIENT REQUESTED A DIET GINGERALE AND ICE AND IT WAS PROVIDED. CALL LIGHT WITHIN REACH SIDERAILS UP AT THIS TIME.
--- NOTE | 2020-05-06 16:08 | NUR ---
VANCO INFUSION COMPLETED AT THIS TIME RIGHT UPPER PICC LINE FLUSHED WITH 2ML IF HEPARIN AT THIS TIME FOLLOWED BY 10ML SALINE FLUSH. PATIENT TOLERATED PROCEEDURE WELL. PICC LINE SIGHT SHOWING NO SIGNS/SYMPTOMS OF IV SITE INFECTION. PATIENT DENIES ANY NEEDS AT THIS TIME.
--- NOTE | 2020-05-06 16:55 | NUR ---
PATIENT REPORTED BP WAS 156/99 VIA MACHINE. BP TAKEN AT THIS TIME MANUALLY ON LEFT ARM WHILE PATIENT WAS IN SUPINE POSITION AND BP WAS 152/80 AT THIS TIME. PATIENT DENIES ANY NEEDS OR SYMPTOMS (HEADACHE) AT THIS TIME.
--- NOTE | 2020-05-06 19:56 | NUR ---
1900-BSSR w/dayshift nurse via sbar format. Found patient resting in bed c/o pain to RLL and back, dressing in place is CDI, some swelling noted, dayshift nurse medicating patient for pain at this time. Single lumen PICC noted to SYBIL, flushes well, SYBIL is bruise, purple color. Will follow up with pain reassessment, call woodall at reach, no s/s of distress noted, on room air, telemetry on.
--- NOTE | 2020-05-06 20:50 | NUR ---
medicated patient w/ pM meds, provided fresh water and evangelista rylie per request, no pain reported, no s/s of distress noted, watching tv at this time, encouraged to call if needed. call woodall at reach.
--- NOTE | 2020-05-06 22:37 | NUR ---
Resting in bed, awake, denies pain or needs, will follow up closely.
[2020-05-07] VITALS: BP 148/91
--- NOTE | 2020-05-07 00:18 | NUR ---
NO CHANGES FROM PREVIOUS ASSESSMENT, DENIES PAIN OR NEEDS, CALL WEST AT REACH, SAFETY MEASURES IN PLACE.
--- NOTE | 2020-05-07 01:01 | NUR ---
Requesting pain medication, medicated with lortab per MD orders, no distress noted, will follow up with pain reassessment.
--- NOTE | 2020-05-07 02:44 | NUR ---
PATIENT IS RESTING IN BED WITH EYES CLOSED, AROUSES EASILY TO STIMULI, VANCOMYCIN INFUSING AT THIS TIME TO SYBIL, PICC SINGLE LUMEN, DRESSING TO PICC IS CDI.
[2020-05-07 04:00] VITALS: BP 148/98
--- NOTE | 2020-05-07 04:33 | NUR ---
patient is resting in bed, arouses easily to stimuli, denies pain at this time, vancomycin still infusing, no s/s of adverse reactions noted or reported, call woodall at reach, safety measures reinforced.
--- NOTE | 2020-05-07 05:39 | NUR ---
medicated with lortab for RLL pain, no s/s of distress, will follow up with pain reassessment.
[2020-05-07 05:44] LABS: HEMATOCRIT 36.3 % (37.0-47.0); HEMOGLOBIN 10.9 g/dl (12.0-16.0); IMMATURE GRANULOCYTES 0.3 % (0.0-5.0); MEAN CELL VOLUME 96.8 fL CALC (80.0-100.0); MEAN CORPUSCULAR HGB 29.1 pG CALC (26.0-32.0); NEUT# 5.3 thou/uL (2.00-7.15); RED BLOOD COUNT 3.75 mill/uL (4.20-5.60)
[2020-05-07 06:11] LABS: ALBUMIN 3.4 g/dL (3.2-5.0); BILIRUBIN, TOTAL 0.4 mg/dL (0.0-1.4); CREATININE 1.3 mg/dL (0.5-1.0); POTASSIUM 3.3 mmol/l (3.5-5.1); TOTAL PROTEIN 5.9 g/dL (6.3-8.2)
[2020-05-07 07:43] VITALS: BP 145/86
--- NOTE | 2020-05-07 07:43 | NUR ---
PATIENT IN BED RESTING WITH EYES OPEN ALERT AND ORINETED AT THIS DENIES ANY NEEDS AT THIS TIME CALL LIGHT NEAR. NURSE ASSESSMENT DONE AT THIST TIME SEE INTERVENTIONS. SIDERAILS UP CALL LIGHT NEAR. PICC LINE PATENT NO C/O OF PAIN AT THIS TIME.
--- NOTE | 2020-05-07 08:20 | NUR ---
DR. PATEL IN ROUNDING WITH MARILU AT THIS TIME.
[2020-05-07 10:30] VITALS: BP 144/91
--- NOTE | 2020-05-07 12:05 | NUR ---
PATIENT SITTING UP ON SIDE OF BED AT THIS TIME. DENIES ANY NEEDS AND STATES THAT HER PAIN IN NOW A 3 OUT OF A PAIN SCALE OF 0-10. ALL SAFETY MEASURES IN PLACE NO OTHER NEEDS AT THIS TIME.
--- NOTE | 2020-05-07 13:20 | NUR ---
VANCOTROUGH SAMPLE DRAWN FROM SYBIL PICC LINE. 10 CC OF NS FLUSHED, 10 CC OF BLOOD WASTED, AND BLOOD FOR VANCOTROUGH DRAWN. AFTER SAMPLE WAS OBTAINED 10 CC OF NS FLUSHED FOLLOWING WITH 2 ML OF HEPARIN PER PICC PROTOCOL
--- NOTE | 2020-05-07 14:36 | NUR ---
PATIENT C/O PAIN THAT IS A 6 OUT OF A SCALE OF 0-10. PAIN MEDICATION GIVEN AT THIS TIME PER ORDER. ALL SAFETY MEASURES ARE IN PLACE CALL LIGHT WITHIN REACH SIDERAILS UP X 2.
--- NOTE | 2020-05-07 14:44 | NUR ---
DRESSING TO RIGHT LOWER LEG CHANGED AT THIS TIME WITH CALCIUM ALGINATE AND ABD TO COVER AND CHARU. PATIENT TOLERATED DRESSING WELL AT THIS TIME.
--- NOTE | 2020-05-07 14:51 | NUR ---
S: OCTAVIA LEWIS is a 64 F who presents with cellulitis and wound infection. All medications in patient's chart were reviewed. 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 P: Vancomycin ordered for pharmacy to dose. Change to vancomycin 1250mg IV Q24H. Vancomycin trough is drawn before the 4th dose on 05/10 @ 2030. Vancomycin goal trough is between 10-15 mcg/ml. Pharmacy will follow and or advise on antibiotics use as needed.
[2020-05-07 15:00] VITALS: BP 138/83
--- NOTE | 2020-05-07 16:15 | NUR ---
PATIENT SITTING AT BEDSIDE WATCHING TV DENIES ANY NEEDS AT THIS TIME. PATIENT STATED SINCE BEING MEDICATED HER PAIN IS A 4 OUT OF A PAIN SCALE 0-10. PATIENT SAFETY MEASURES ARE IN PLACE AT THIS TIME CALL LIGHT NEAR SIDERAILS UP X2.
[2020-05-07 20:00] VITALS: BP 163/100
--- NOTE | 2020-05-07 20:00 | NUR ---
PATIENT RESTING IN BED WITH HOB ELEVATED. PATIENT IS AWAKE ALERT AND ORIENTEDX3. PATIENT C/O GENRALIZED PAIN-5/10 ON PAIN SCALE. MEDICATED WITH LORTAB 10/325MG PO FOR PAIN. TELE MONITOR IN PLACE. PICC TO RIGHT UPPER ARM INTACT AND APPEARS HEALTHY AT THIS TIME. DRESSING TO RIGHT LE CDI. SAFETY PRECAUTIONS REINFORCED. CALL LIGHT IN REACH. WILL CONT TO MONITOR.
[2020-05-08] VITALS: BP 152/93
--- NOTE | 2020-05-08 00:28 | NUR ---
PATIENT RESTING IN BED-MEDICATED FOR PAIN 6/10 ON PAIN SCALE WITH LORTAB 10/325MG PO AND WITH ATIVAN FOR SLEEP. TELE MONITOR IN PLACE. SAFETY PRECAUTIONS REINFORCED. CALL LIGHT IN REACH. WILL CONT TO MONITOR,
--- NOTE | 2020-05-08 01:55 | NUR ---
PATIENT APPEARS SLEEPING POSITIONED ON LEFT SIDE. RESPS ARE EVEN AND UNLABORED. TELE MONITOR IN PLACE. CALL LIGHT IN REACH. WILL CONT TO MONITOR.
--- NOTE | 2020-05-08 03:54 | NUR ---
PATIENT RESTING IN BED AT THIS TIME APPEARS SLEEPING WITH EYES CLOSED. RESPS ARE EVEN AND UNLABORED. TELE MONITOR IN PLACE. RIGHT UPPER ARM PICC INTACT. DRESSING TO RLE IS CDI. CALL LIGHT IN REACH. WILL CONT TO MONITOR.
[2020-05-08 04:00] VITALS: BP 145/88
--- NOTE | 2020-05-08 04:17 | NUR ---
PATIENT RESTING IN BED-LAB WORK DRAWN FROM RIGHT UPPER ARM PICC WITHOUT ANY DIFFICULTY. GOOD BLOOD RETURN AND FLUSHED PER PROTOCOL WITH NS AND HEPARIN SOLUTION. C/O GENERALIZED PAIN-5/10-MEDICATED WITH LORTAB 10/325MG PO FOR PAIN. CALL LIGHT IN REACH. WILL CONT TO MONITOR.
[2020-05-08 05:44] LABS: HEMATOCRIT 38.4 % (37.0-47.0); HEMOGLOBIN 11.4 g/dl (12.0-16.0); IMMATURE GRANULOCYTES 0.2 % (0.0-5.0); MEAN CELL VOLUME 97.7 fL CALC (80.0-100.0); MEAN CORPUSCULAR HGB CONC 29.7 g/dL CAL (32.0-36.0); NEUT# 5.92 thou/uL (2.00-7.15); RED BLOOD COUNT 3.93 mill/uL (4.20-5.60)
[2020-05-08 06:11] LABS: CREATININE 1.3 mg/dL (0.5-1.0); POTASSIUM 3.6 mmol/l (3.5-5.1)
--- NOTE | 2020-05-08 06:26 | NUR ---
RECIEVED CRITICAL LAB FROM SU[facility] IN LAB[facility]. DR. PATEL TEXTED WITH RESULTS. WILL CONT TO MONITOR.
[2020-05-08 08:00] VITALS: BP 158/90
--- NOTE | 2020-05-08 08:00 | NUR ---
PT SITTING IN BED. A&O X3. NO DISTRESS NOTED. PT DENIES PAIN AT THIS TIME. RLE DRESSING CDI. RU ARM SINGLE LUMEN PICC IN PLACE, FLUSHES AND ASPIRATES WITH EASE. NO OTHER NEEDS AT THIS TIME. ASSESSMENT COMPLETED. DISCUSSED POC. CALL LIGHT IN REACH. CONTINUE TO MONITOR.
--- NOTE | 2020-05-08 08:10 | NUR ---
WOUND CARE AT BEDSIDE
--- NOTE | 2020-05-08 08:19 | NUR ---
DR HALL AND Alejandro BARNETT AT BEDSIDE DISCUSSING POC
[2020-05-08 11:37] VITALS: BP 150/60
--- NOTE | 2020-05-08 12:07 | NUR ---
PT SITTING ON SIDE OF THE BED EATING LUNCH. NO DISTRESS NOTED. PT C/O OF PAIN 12/07. LORTAB GIVEN. WILL REASSESS. WOUND CARE ORDERS ALONG WITH MEDICATIONS PRESCRIBED BY DR PAIZ FOR WOUND DISCUSSED WITH JAG, COPY GIVEN.
--- NOTE | 2020-05-08 15:44 | NUR ---
DR RODRIGUEZ CONSULT COMPLETED.
[2020-05-08 16:00] VITALS: BP 142/94
--- NOTE | 2020-05-08 17:20 | NUR ---
DRESSING CHANGE COMPLETED PER DR PAIZ- WOUND CARE ORDERS. PT TOLERATED WELL. NEW PHOTOGRAPH OF WOUND OBTAINED AND PLACED IN THE CHART. CALL LIGHT IN REACH. CONTINUE TO MONITOR.
[2020-05-08 19:00] VITALS: BP 155/91
--- NOTE | 2020-05-08 19:30 | NUR ---
PATIENT RESTING IN BED AT THIS TIME WATCHING TV-AWAKE ALERT AND ORIENTEDX3. DRESSING TO RLE INTACT-WAS CHANGED ON DAYSHIFT. ENCOURAGED PATIENT TO ELEVATED LEG. PATIENT WITH RIGHT UPPER ARM PICC-SITE IS BRUISED BUT INTACT. SITE IS SALINE LOCK. PATIENT IS UP TO BSC TO VOID YELLOW URINE. STATES THAT SHE HAD BM TODAY. SAFETY PRECAUTIONS REINFORCED. CALL LIGHT IN REACH. WILL CONT TO MONITOR.
--- NOTE | 2020-05-08 21:36 | NUR ---
PATIENT RESTING IN BED AT THIS TIME WATCHING TV-MEDICATED FOR RLE AND GENERALIZED PAIN WITH LORTAB 10/325MG PO FOR 12/07. ALSO MEDICATED WITH ATIVAN 0.5MG PO FOR ANXIETY. SAFETY PRECAUTIONS REINFORCED. CALL LIGHT IN REACH. WILL CONT TO MONITOR.
--- NOTE | 2020-05-09 | NUR ---
PATIENT RESTING IN BED POSITIONED ON LEFT SIDE WITH EYES CLOSED. APPEARS SLEEPING. RESPS ARE EVEN AND UNLABORED. CALL LIGHT IN REACH. WILL CONT TO MONITOR.
[2020-05-09 04:00] VITALS: BP 145/89
--- NOTE | 2020-05-09 04:40 | NUR ---
PATIENT RESTING IN BED-MEDICATED FOR PAIN WITH LORTAB 10/325MG FOR 5/10 ON PAIN SCALE. LAB WORK DRAWN FROM RIGHT UPPER ARM PICC-GOOD BLOOD RETURN. FLUSHED PER PROTOCOL WITH NS AND HEP SOLUTION. SAFETY PRECAUTIONS REINFORCED. CALL LIGHT IN REACH. WILL CONT TO MONITOR.
[2020-05-09 06:02] LABS: HEMATOCRIT 39.7 % (37.0-47.0); HEMOGLOBIN 12.1 g/dl (12.0-16.0); IMMATURE GRANULOCYTES 0.4 % (0.0-5.0); MEAN CELL VOLUME 96.1 fL CALC (80.0-100.0); MEAN CORPUSCULAR HGB 29.3 pG CALC (26.0-32.0); MEAN CORPUSCULAR HGB CONC 30.5 g/dL CAL (32.0-36.0); NEUT# 6.55 thou/uL (2.00-7.15); RED BLOOD COUNT 4.13 mill/uL (4.20-5.60)
[2020-05-09 06:25] LABS: ALBUMIN 3.7 g/dL (3.2-5.0); BILIRUBIN, TOTAL 0.4 mg/dL (0.0-1.4); CREATININE 1.5 mg/dL (0.5-1.0); POTASSIUM 3.5 mmol/l (3.5-5.1); TOTAL PROTEIN 6.5 g/dL (6.3-8.2)
[2020-05-09 07:31] VITALS: BP 141/70
--- NOTE | 2020-05-09 07:31 | NUR ---
PT LAYING IN BED WATCHING TV. A&O X3. NO DISTRESS NOTED. DENIES ANY PAIN AT THIS TIME. DRESSING TO RLE CDI. NO OTHER NEEDS AT THIS TIME. ASSESSMENT COMPLETED. DISCUSSED POC. CALL LIGHT IN REACH. CONTINUE TO MONITOR.
[2020-05-09] MEDS ORDERED: LINEZOLID600 MG PO (07:40)
--- NOTE | 2020-05-09 08:06 | NUR ---
DR HALL AND Alejandro BARNETT AT BEDSIDE DISCUSSING POC
[2020-05-09 08:21] VITALS: BP 141/70
--- NOTE | 2020-05-09 12:20 | NUR ---
SINGLE LUMEN PICC LINE TO SYBIL REMOVED, FLUSHED WITH 10 CC OF NS ALONG WITH PROTOCOL HEPARIN PRIOR TO REMOVAL. PICC LINE INTACT UPON REMOVAL READING 40 CM. PT TOLERATED REMOVAL WELL. OCCLUSIVE DRESSING ADDED TO REMOVAL SITE. PT ENCOURAGED TO CALL IF DRESSING IS SATURATED.
--- NOTE | 2020-05-09 13:18 | NUR ---
Discharge instructions given. Patient verbalizes understanding of same. Discharged in stable condition via Wheelchair to Home with [facility] accompanied by staff. All belongings sent with pt.
[2020-05-16] MEDS ORDERED: PERCOCET1 TA4 PO (13:13)
== END 2020-05-09 13:19 | disposition home health service (06) | DRG 603 ==
LOC: ED 17:09 → EDSTATUS 17:35 → MS2 17:38
PROVIDERS: Nurse Practitioner; Physician Assistant; ADMIT Internal Medicine; ATTEND Internal Medicine
PROC: 02HV33Z Insertion of Infusion Device into Superior Vena Cava, Percutaneous Approach (ICD-10-PCS; principal; 2020-05-05)
PROC: B5181ZA Fluoroscopy of Superior Vena Cava using Low Osmolar Contrast, Guidance (ICD-10-PCS; 2020-05-05)
DX: L03.115 Cellulitis of right lower limb (principal); I48.20 Chronic atrial fibrillation, unspecified; I13.0 Hypertensive heart and chronic kidney disease with heart failure and stage 1 through stage 4 chronic kidney disease, or unspecified chronic kidney disease; I50.32 Chronic diastolic (congestive) heart failure; N18.30 Chronic kidney disease, stage 3 unspecified; I87.2 Venous insufficiency (chronic) (peripheral); B95.62 Methicillin resistant Staphylococcus aureus infection as the cause of diseases classified elsewhere; E87.6 Hypokalemia; J44.9 Chronic obstructive pulmonary disease, unspecified; R06.00 Dyspnea, unspecified; G89.4 Chronic pain syndrome; M79.7 Fibromyalgia; E66.01 Morbid (severe) obesity due to excess calories; Z79.01 Long term (current) use of anticoagulants; Z79.82 Long term (current) use of aspirin; Z79.891 Long term (current) use of opiate analgesic; Z79.899 Other long term (current) drug therapy; Z88.2 Allergy status to sulfonamides; Z88.7 Allergy status to serum and vaccine; Z88.8 Allergy status to other drugs, medicaments and biological substances; Z96.653 Presence of artificial knee joint, bilateral; Z86.718 Personal history of other venous thrombosis and embolism; Z98.84 Bariatric surgery status
CPT/HCPCS: J3370; Q3014

== ENCOUNTER 2020-06-13 10:11 | Inpatient (IN) | payer MEDICARE, OTHER ==
[~2020-06-13] VITALS: Ht 165.1 cm; Wt 110.0 kg
[~2020-06-13 10:11] MED LIST changes: +LINEZOLID600 MG PO
--- NOTE | 2020-06-13 10:11 | NUR ---
PT TO ROOM VIA EMS STRETCHER, FOR BEDSIDE TRIAGE
[2020-06-13 10:50] LABS: HEMATOCRIT 35.8 % (37.0-47.0); HEMOGLOBIN 11.1 g/dl (12.0-16.0); IMMATURE GRANULOCYTES 0.2 % (0.0-5.0); MEAN CELL VOLUME 95.2 fL CALC (80.0-100.0); MEAN CORPUSCULAR HGB 29.5 pG CALC (26.0-32.0); NEUT# 4.96 thou/uL (2.00-7.15); RED BLOOD COUNT 3.76 mill/uL (4.20-5.60); RED CELL DISTRI WIDTH 18.2 % (11.5-15.5)
--- NOTE | 2020-06-13 11:00 | NUR ---
PT WENT TO RADIOLOGY WITHOUT ACUTE DISTRESS
--- NOTE | 2020-06-13 12:00 | NUR ---
LAB REDRAWN BLOOD WAS HEMOLYZED
[2020-06-13 12:52] LABS: ALBUMIN 3.3 g/dL (3.2-5.0); ALKALINE PHOSPHATASE 99 u/l (38-126); ANION GAP 11 (6-22 (CALC)); BILIRUBIN, TOTAL 0.4 mg/dL (0.0-1.4); CARBON DIOXIDE 33 mmol/l (22-30); CHLORIDE 97 mmol/l (95-108); CREATININE 2.3 mg/dL (0.5-1.0); GFR 21 ML/MIN (>=60 (CALC)); GFR FOR AFR.AMER. 26 ML/MIN (>=60 (CALC)); SGOT/AST 24 u/l (9-36); SODIUM 139 mmol/l (137-146)
[2020-06-13 12:54] LABS: BUN 62 mg/dL (8-23); BUN/CREATININE RATIO 27 (12-20 (CALC))
--- NOTE | 2020-06-13 13:49 | NUR ---
IV FOUND DISLODGE WILL ATTEMPT REPLACEMENT
--- NOTE | 2020-06-13 14:30 | NUR ---
ATTEMPTED AN IV X3 WITHOUT SUCCESS WILL HAVE ANOTHER NURSE TRY
--- NOTE | 2020-06-13 14:45 | NUR ---
IV SITE INITIATED. PATIENT REQUESTING PAIN PILL.
--- NOTE | 2020-06-13 15:21 | NUR ---
PT CLEANED AFTER URINATING
--- NOTE | 2020-06-13 16:32 | NUR ---
PT MOVED FROM E.R STRETCHER AND NOW IN HOSPITAL BED AWAITING ROOM
--- NOTE | 2020-06-13 17:11 | NUR ---
PT BACK FROM RADIOLOGY WITHOUT DISTRESS
--- NOTE | 2020-06-13 18:10 | NUR ---
DINNER TRAY GIVEN
--- NOTE | 2020-06-13 20:52 | NUR ---
PATIENT WITHOUT ACUTE DISTRESS
--- NOTE | 2020-06-13 21:28 | NUR ---
ASSISTANCE TO BEDSIDE COMMODE
[2020-06-13 22:30] VITALS: BP 109/53
[2020-06-14 00:30] VITALS: BP 106/55
--- NOTE | 2020-06-14 01:13 | NUR ---
06/13/202229. PT UP TO BSC WITH ASSIST, REQUESTED SOMETHING TO EAT/ICE/PAIN MED. PT WAS GIVEN CRACKERS AND PEANUT BUTTER AND A PERCOSET AND A LARGE CONT OF ICE. BED LINENS CHANGED APPARENTLY EARLIER SHE USED THE BEDPAN AND IT DIDN'T GO SO WELL.
[2020-06-14 02:30] VITALS: BP 111/61
--- NOTE | 2020-06-14 04:40 | NUR ---
0400 PT UP TO BSC TO VOID AND MOVE BOWELS. FORMED BROWN.
[2020-06-14 06:15] VITALS: BP 101/51
[2020-06-14 06:53] LABS: HEMATOCRIT 36.8 % (37.0-47.0); HEMOGLOBIN 11.3 g/dl (12.0-16.0); MEAN CELL VOLUME 96.1 fL CALC (80.0-100.0); MEAN CORPUSCULAR HGB 29.5 pG CALC (26.0-32.0); MEAN CORPUSCULAR HGB CONC 30.7 g/dL CAL (32.0-36.0); RED BLOOD COUNT 3.83 mill/uL (4.20-5.60); RED CELL DISTRI WIDTH 18.1 % (11.5-15.5)
--- NOTE | 2020-06-14 07:00 | NUR ---
RECEIVED BEDSIDE REPORT FROM ANSLEY SHERWOOD. PT IN SEMI FOWLERS POSITION. RESPS EVEN AND UNLABORED ON ROOM AIR, VSS, MONITORS ATTACHED. DRESSING TO RIGHT LOWER LEG CDI. PT DENIES NEEDS AT THIS TIME. CALL LIGHT WITHIN REACH.
[2020-06-14 07:12] LABS: CREATININE 1.8 mg/dL (0.5-1.0); POTASSIUM 3.2 mmol/l (3.5-5.1)
[2020-06-14 07:30] VITALS: BP 121/70
[2020-06-14 07:33] LABS: MAGNESIUM 2.2 mg/dL (1.6-2.3)
[2020-06-14] MEDS ORDERED: GABAPENTIN600 MG PO (07:35)
[2020-06-14] MEDS ORDERED: CIPROFLOXACN500 MG PO (07:35)
[2020-06-14] MEDS ORDERED: MIRTAZAPINE15 MG PO (07:36)
[2020-06-14] MEDS ORDERED: ATIVAN1 MG PO (07:37)
--- NOTE | 2020-06-14 09:49 | NUR ---
DR CORDOBA AT BEDSIDE, AWAITING NEW ORDERS.
[2020-06-14] MEDS ORDERED: KLOR-CON M2020 MEQ PO (10:15)
[2020-06-14 10:52] VITALS: BP 100/66
--- NOTE | 2020-06-14 11:16 | NUR ---
Discharge instructions given. Patient verbalizes understanding of same. Discharged in stable condition via Taxi to Home with *Other. All belongings sent with pt.
[2020-06-20] MEDS ORDERED: PERCOCET1 TA4 PO (09:35)
== END 2020-06-14 11:17 | disposition home or self-care (01) | DRG 291 ==
LOC: ED 10:11 → ED-I 13:20 → ED 14:49 → ED-I 14:50
PROVIDERS: Family Medicine; Nurse Practitioner; ADMIT Internal Medicine; ATTEND Internal Medicine
DX: I13.0 Hypertensive heart and chronic kidney disease with heart failure and stage 1 through stage 4 chronic kidney disease, or unspecified chronic kidney disease (principal); I50.33 Acute on chronic diastolic (congestive) heart failure; N17.9 Acute kidney failure, unspecified; I48.20 Chronic atrial fibrillation, unspecified; L03.115 Cellulitis of right lower limb; N18.30 Chronic kidney disease, stage 3 unspecified; E87.6 Hypokalemia; J44.9 Chronic obstructive pulmonary disease, unspecified; E78.5 Hyperlipidemia, unspecified; G89.4 Chronic pain syndrome; Z79.01 Long term (current) use of anticoagulants; Z79.82 Long term (current) use of aspirin; Z79.891 Long term (current) use of opiate analgesic; Z79.899 Other long term (current) drug therapy; Z88.5 Allergy status to narcotic agent; Z88.2 Allergy status to sulfonamides; Z88.7 Allergy status to serum and vaccine; Z88.8 Allergy status to other drugs, medicaments and biological substances
CPT/HCPCS: J3475

== ENCOUNTER 2020-06-25 06:00 | Emergency (ER) | payer MEDICARE, OTHER ==
[~2020-06-25] VITALS: Ht 165.1 cm; Wt 110.0 kg
[~2020-06-25 06:00] MED LIST changes: +MIRTAZAPINE15 MG PO
[2020-06-25 07:21] VITALS: BP 152/81
== END 2020-06-25 07:23 | disposition home or self-care (01) ==
LOC: ED 06:00
DX: I83.891 Varicose veins of right lower extremity with other complications (principal); I83.11 Varicose veins of right lower extremity with inflammation; I10 Essential (primary) hypertension; E66.01 Morbid (severe) obesity due to excess calories; E78.5 Hyperlipidemia, unspecified; J44.9 Chronic obstructive pulmonary disease, unspecified; I48.91 Unspecified atrial fibrillation

== ENCOUNTER 2020-07-10 16:28 | Inpatient (IN) | payer MEDICARE, OTHER ==
[~2020-07-10] VITALS: Ht 162.6 cm; Wt 110.7 kg
--- NOTE | 2020-07-10 16:49 | NUR ---
PT ARRIVED VIA WC TO MS ACCOMPANIED BY STAFF. A&O X3. NO DISTRESS NOTED. PT C/O OF ACHING/BURNING TO RLE. PHOTO TO BE OBTAINED, PT STATES SHE NEEDS SOMETHING FOR "PAIN" AND NEW DRESSING WAS PLACED BY [facility] 07/10/20. NEW IV INITIATED TO LFA #22, FLUSHED WITH EASE. BLOOD WORK OBTAINED. URINE SAMPLE OBTAINED. PILOT PLANT RESEARCH TECHNICIAN PLACED. ORIENTED PT TO ROOM. ASSESSMENT COMPLETED. [facility] CONTRAINDICATED. CALL LIGHT LEFT WITHIN REACH.
[2020-07-10 18:14] LABS: HEMATOCRIT 36.3 % (37.0-47.0); HEMOGLOBIN 10.8 g/dl (12.0-16.0); IMMATURE GRANULOCYTES 0.3 % (0.0-5.0); MEAN CELL VOLUME 98.4 fL CALC (80.0-100.0); MEAN CORPUSCULAR HGB 29.3 pG CALC (26.0-32.0); MEAN CORPUSCULAR HGB CONC 29.8 g/dL CAL (32.0-36.0); NEUT# 7.07 thou/uL (2.00-7.15); RED BLOOD COUNT 3.69 mill/uL (4.20-5.60); RED CELL DISTRI WIDTH 16.5 % (11.5-15.5)
[2020-07-10 18:18] LABS: URINE BILIRUBIN - DIPSTICK NEGATIVE (NEGATIVE); URINE BLOOD DIPSTICK NEGATIVE (NEGATIVE); URINE CLARITY CLEAR; URINE COLOR YELLOW; URINE GLUCOSE - DIPSTICK NEGATIVE (NEGATIVE); URINE KETONE NEGATIVE (NEGATIVE); URINE LEUK ESTERASE NEGATIVE (Negative); URINE NITRITE - DIPSTICK NEGATIVE (Negative); URINE PH 6.5 (4.5-8.0); URINE PROTEIN - DIPSTICK NEGATIVE (NEG-TRACE); URINE UROBILINOGEN - DIPSTICK 0.2 E.U./dL (0.2)
--- NOTE | 2020-07-10 18:26 | NUR ---
RT AT BEDSIDE OBTAINING EKG
[2020-07-10 18:34] LABS: ALBUMIN 3.9 g/dL (3.2-5.0); BILIRUBIN, TOTAL 0.4 mg/dL (0.0-1.4); CREATININE 1.4 mg/dL (0.5-1.0); POTASSIUM 3.6 mmol/l (3.5-5.1); TOTAL PROTEIN 6.9 g/dL (6.3-8.2)
[2020-07-10 19:00] VITALS: BP 118/65
--- NOTE | 2020-07-10 19:30 | NUR ---
PATIENT RESTING IN BED POSITIONED ON RIGHT SIDE-C/O GENERALIZED PAIN. AWAITING PAIN MEDS SABRINA BE PROFILED. PATENT IS AWAKE ALERT AND ORIENTEDX3. DRESSING TO RLE IS CDI. ENCOURAGED PATIENT TO KEEP LIMB ELEVATED ON PILLOW. TELE MONITOR IN PLACE. SALINE LOCK TO LEFT FOREARM INTACT AND HEALTHY AT THIS TIME. SAFETY PRECAUTIONS REINFORCED. CALL LIGHT IN REACH. WILL MEDICATED FOR PAIN SOOM PAIN MEDS PROFILED ON EMAR. WILL CONT TO MONITOR.
--- NOTE | 2020-07-10 19:38 | NUR ---
PT ASKING FOR PAIN MEDICATION. PER ISABEL CONTINUE HOME MEDS WHICH INCLUDE HOME PAIN MEDICATION. ORDERS WRITTEN AND FAXED TO .
--- NOTE | 2020-07-10 20:30 | NUR ---
PATIENT RESTING IN BED AT THIS TIME-MEDICATED FOR GENERALIZED PAIN WITH PERCOCET ORDERED FOR 5/10 ON PAIN SCALE. PATIENT STATES THAT SHE WAS UP TO THE BR AND HAD LOOSE BM. CALL LIGHT IN REACH. WILL CONT TO MONITOR.
--- NOTE | 2020-07-10 22:33 | NUR ---
MAXIPIME COMPLETED. RESTING IN BED-MEDICATED WITH ATIVAN 1MG PO FOR SLEEP. CALL LIGHT IN REACH. WILL CONT TO MONITOR.
[2020-07-11 04:09] VITALS: BP 138/81
--- NOTE | 2020-07-11 04:15 | NUR ---
PATIENT RESTING IN BED-APPEARS SLEEPING AT THIS TIME WITH EYES CLOSED. RESPS ARE EVEN AND UNLABORED. TELE MONITOR IN PLACE. CALL LIGHT IN REACH. WILL CONT TO MONITOR.
--- NOTE | 2020-07-11 06:18 | NUR ---
PATIENT RESTING IN BED-C/O GENERALIZED PAIN-MEDICATED WITH PERCOCET 10/325MG PO FOR PAIN. PATIENT STATES THAT SHE WAS UP TO VOID. SALINE LOCK TO LEFT FOREARM INTACT AND REMAINS HEALTHY. DRESSING TO RIGHT LE IS INTACT. CALL LIGHT IN REACH. WILL CONT TO MONITOR.
--- NOTE | 2020-07-11 07:00 | NUR ---
REPORT RECEIVED FROM PRESLEY BILLINGS.
[2020-07-11 07:32] LABS: BILIRUBIN, TOTAL 0.4 mg/dL (0.0-1.4); CREATININE 1.2 mg/dL (0.5-1.0); POTASSIUM 3.1 mmol/l (3.5-5.1); TOTAL PROTEIN 5.7 g/dL (6.3-8.2)
[2020-07-11 07:35] LABS: ALBUMIN 3.1 g/dL (3.2-5.0)
--- NOTE | 2020-07-11 08:06 | NUR ---
AT BEDSIDE DISCUSSING POC.
[2020-07-11 09:09] VITALS: BP 126/76
--- NOTE | 2020-07-11 09:10 | NUR ---
PT RESTING IN SEMI FOWLERS POSITION,A&O X3;VS OBTAINED AND ASSESSMENT COMPLETED;PT DENIES ANY CURRENT PAIN AT THIS TIME,PAIN SCALE AND REPORTING EDUCATED;PT REQUESTS PRN ATIVAN 1MG PO FOR ANXIETY;RESPIRATIONS EVEN AND UNLABORED ON RA,CLEAR LUNG SOUNDS;ABDOMEN DISTENDED/SOFT ON PALPATION AND ACTIVE IN ALL 4 QUADRANTS;WEAK PEDAL PULSES;DRESSING TO RLE CDI;#22G TO LFA FLUSHED AND PATENT,ABX STARTED AT THIS TIME;TELE MONITORING IN PLACE;PT DENIES ANY ADDITIONAL NEEDS;ENCOURAGED TO CALL FOR ASSISTANCE IF NEEDED;FALL PRECAUTIONS IN PLACE WITH BED IN THE LOWEST POSITION AND CALL LIGHT IN REACH;WILL CONTINUE TO MONITOR
--- NOTE | 2020-07-11 11:10 | NUR ---
PT RESTING IN SEMI FOWLERS POSITION;RESPIRATIONS EVEN AND UNLABORED ON RA;PT DENIES ANY CURRENT PAIN OR DISCOMFORTS;TELE MONTIORING IN PLACE;IV SITE PATENT; CONSULT COMPLETED AT THIS TIME;DRESSING TO RLE REMAINS CDI;PT DENIES ANY ADDITIONAL NEEDS AND IS ENCOURAGED TO CALL FOR ASSISTANCE IF NEEDED;FALL PRECAUTIONS REMAIN IN PLACE WITH CALL LIGHT IN REACH;WILL CONTINUE TO MONITOR
--- NOTE | 2020-07-11 12:45 | NUR ---
PT REPORTS GENERALIZES PAIN RATING 6/10 ON THE PAIN SCALE AND REQUESTS PAIN MEDICATION, PT MEDICATED WITH PRN PERCOCET 10/325MG PO AT THIS TIME;WILL CONTINUE TO MONITOR
[2020-07-11 15:09] VITALS: BP 115/71
--- NOTE | 2020-07-11 16:40 | NUR ---
PT RESTING IN SEMI FOWLERS POSITION;RESPIRATIONS EVEN AND UNLABORED ON RA;PT DENIES ANY CURRENT PAIN OR DISCOMFORTS;TELE MONITORING IN PLACE;IV SITE PATENT;DRESSING CHANGE PROVIDED TO RLE PER DRESSING CHANGE ORDERS AND PT TOLERATED WELL;ENCOURAGED TO KEEP RLE ELEVATED;PT DENIES ANY ADDITIONAL NEEDS AND IS ENCOURAGED TO CALL FOR ASSISTANCE IF NEEDED;FALL PRECAUTIONS IN PLACE WITH CALL LIGHT IN REACH;WILL CONTINUE TO MONITOR
--- NOTE | 2020-07-11 18:29 | NUR ---
PT MEDICATED WITH PRN PERCOCET 10/325MG PO FOR GENERALIZED/RLE PAIN RATING 5/10 ON THE PAIN SCALE,WILL CONTINUE TO MONITOR FOR EFFECTIVENESS
[2020-07-11 19:00] VITALS: BP 121/62
--- NOTE | 2020-07-11 19:53 | NUR ---
PATIENT RESTING IN BED AT THIS TIME-AWAKE ALERT AND ORIENTEDX3. PATIENT STATES THAT HER PAIN IS 5/10 AFTER RECIEVING PERCOCET EARLIER ON . TELE MONITOR IN PLACE. IV SITE TO LEFT FOREARM INTACT AND APPEARS HEALTHY AT THIS TIME. PATIENT STATES THAT SHE CONT TO HAVE LOOSE STOOLS TODAY. DENIES NIKIA DIFFICULTY WITH URINATION. RIGHT LE ELEVATED ON PILLOWS WITH DRESSING INTACT AND SECURED WITH PACO WRAP. SAFETY PRECAUTIONS REINFORCED. CALL LIGHT IN REACH. WILL CONT TO MONITOR.
--- NOTE | 2020-07-11 21:24 | NUR ---
LEFT FOREARM IV SITE INFILTRATED AND SITE WAS D/C'ED WITYH CATH INTACT. NEW IV SITE STARTED TO RIGHT UPPER ARM-#24 WITH GOOD BLOOD RETURN. MAXIPIME INFUSING ORDERED. MEDICATED FOR SLEEP WITH ATIVAN 1MG PO. SAFETY PRECAUTIONS REINFORCED. CALL LIGHT IN REACH. WILL CONT TO MONITOR.
--- NOTE | 2020-07-12 00:06 | NUR ---
PATIENT RESTING IN BED-C/O GENERALIZED PAIN-TOO EARLY FOR PAIN MEDS-WITH REACCESS IN 30 MINUTES. CALL LIGHT IN REACH. WILL CONT TO MONITOR.
--- NOTE | 2020-07-12 00:40 | NUR ---
WENT BACK TO PATIENT ROOM TO REACCESS FOR PAIN-PATIENT RETSING IN BED WITH EYES CLOSED. RESPS ARE EVEN AND UNLAB ORED. APPEARS SLEEPING. CALL LIGHT IN REACH. WILL CONT TO MONITOR.
[2020-07-12 04:00] VITALS: BP 148/89
--- NOTE | 2020-07-12 04:20 | NUR ---
PATIENT APPEARS SLEEPING IN BED AT THIS TIME WITH EYES CLOSED. RESPS ARE EVEN AND UNLABORED. RLE IS ELEVATED ON PILLOW. CALL LIGHT IN REACH. WILL CONT TO MONITOR.
--- NOTE | 2020-07-12 05:45 | NUR ---
PATIENT RESTING IN BED-C/O SEVERE GENERALIZED PAIN-7/10 ON PAIN SCALE. MEDICATED WITH PERCOCET 10/325MG PO FOR PAIN. CALL LIGHT IN REACH. WILL CONT TO MONITOR.
[2020-07-12 06:25] LABS: HEMATOCRIT 38.9 % (37.0-47.0); HEMOGLOBIN 11.4 g/dl (12.0-16.0); MEAN CELL VOLUME 98.7 fL CALC (80.0-100.0); MEAN CORPUSCULAR HGB 28.9 pG CALC (26.0-32.0); MEAN CORPUSCULAR HGB CONC 29.3 g/dL CAL (32.0-36.0); RED BLOOD COUNT 3.94 mill/uL (4.20-5.60); RED CELL DISTRI WIDTH 16.3 % (11.5-15.5)
[2020-07-12 07:00] LABS: ALBUMIN 3.5 g/dL (3.2-5.0); BILIRUBIN, TOTAL 0.5 mg/dL (0.0-1.4); CREATININE 1.3 mg/dL (0.5-1.0); TOTAL PROTEIN 6.2 g/dL (6.3-8.2)
--- NOTE | 2020-07-12 07:00 | NUR ---
REPORT RECEIVED FROM PRESLEY BILLINGS
[2020-07-12 07:21] LABS: POTASSIUM 3.8 mmol/l (3.5-5.1)
--- NOTE | 2020-07-12 08:10 | NUR ---
AT BEDSIDE DISCUSSING POC WITH PT.
--- NOTE | 2020-07-12 08:25 | NUR ---
PT RESTING IN SEMI FOWLERS POSITION,A&O X3;VS OBTAINED AND ASSESSMENT COMPLETED;PT DENIES ANY CURRENT PAIN OR DISCOMFORTS,PAIN SCALE AND REPORTING EDUCATED;PT MEDICATED WITH PRN ATIVAN 1MG PO PER REQUEST;RESPIRATIONS EVEN AND UNLABORED ON RA,CLEAR LUNG SOUNDS;ABDOMEN SOFT ON PALPATION AND ACTIVE IN ALL 4 QUADRANTS;WEAK PEDAL PULSES;DRESSING TO RLE WAS REMOVED BY WOUND CARE MD, AWAITING NEW DRESSING ORDERS AT THIS TIME;TELE MONITORING IN PLACE;#24G TO SYBIL FLUSHED AND PATENT,ABX STARTED PER ORDER;PT DENIES ANY ADDITIONAL NEEDS;ENCOURAGED TO CALL FOR ASSISTANCE IF NEEDED;FALL PRECAUTIONS IN PLACE WITH BED IN THE LOWEST POSITION AND CALL LIGHT IN REACH;WILL CONTINUE TO MONITOR
[2020-07-12 08:26] VITALS: BP 143/80
--- NOTE | 2020-07-12 09:30 | NUR ---
DRESSING CHANGE PROVIDED AT THIS TIME. WOUND CLEANSED WITH SALINE,PAT DRY, XEROFORM APPLIED SECURED WITH KERLEX AND PACO WRAP;PT ENCOURAGED TO KEEP RLE ELEVATED;DENIES ANY ADDITIONAL NEEDS;TOLERATED DRESSING CHANGE WELL;CALL LIGHT IN REACH;WILL CONTINUE TO MONITOR
[2020-07-12 10:30] VITALS: BP 133/80
[2020-07-12] MEDS ORDERED: MINOCYCLINE100 MG PO (10:32)
[2020-07-12] MEDS ORDERED: BUMETANIDE2 MG PO (10:32)
[2020-07-12] MEDS ORDERED: KEFLEX500 MG PO (10:32)
--- NOTE | 2020-07-12 10:35 | NUR ---
PT MEDICATED WITH BENADRYL 25MG PO FOR RLE ITCHING AT THIS TIME,WILL CONTINUE TO MONITOR FOR EFFECTIVENESS
--- NOTE | 2020-07-12 11:05 | NUR ---
ALL DISCHARGE INSTRUCTIONS PROVIDED AT THIS TIME;PT INSTRUCTED TO F/U WITH IN 1 WEEK AND IN 1-2 DAYS;FOLLOW WOUND CARE RECOMMENDATIONS OF WOUND CARE TREATMENT, COMPLETE COURSE OF ABX AND START TAKING BUMEX.STOP LASIX;RX FOR KEFLEX,BUMEX AND MICRCYCLINE PROVIDED AT THIS TIME;PT DENIES ANY ADDITIONAL QUESTIONS OR NEEDS;IV SITE REMOVED WITH CATHETER INTACT AND TELE MONITORING D/C;WHEELCHAIR TO BE PROVIDED FOR D/C HOME;CASE MANAGEMENT ASSISTING IN [facility] FOR D/C HOME;WILL CONTINUE TO MONITOR
--- NOTE | 2020-07-12 11:16 | NUR ---
TRANSPORTATION SERVICES FOR PT TO BE TRANSPORTED HOME FOR D/C [facility] [employer] TIME FROM [facility] 1330 PER CASE MANAGEMENT.PT NOTIFIED AND VERBALIZES UNDERSTANDING.
--- NOTE | 2020-07-12 12:13 | NUR ---
PT MEDICATED WITH PRN PERCOCET 10/325MG PO AT THIS TIME FOR RLE PAIN RATING 6/10 ON THE PAIN SCALE,WILL CONTINUE TO MONITOR FOR EFFECTIVENESS
[2020-07-12] MEDS ORDERED: CLOBETASOL0.051 EX (12:36)
--- NOTE | 2020-07-12 13:17 | NUR ---
Discharge instructions given. Patient verbalizes understanding of same. Discharged in stable condition via Wheelchair to Home with *Other. All belongings sent with pt. PT TRANSPORTED TO [facility] IN STABLE CONDITION VIA WHEELCHAIR ACCOMPANIED BY MORRIS ACOSTA FOR D/C HOME;ALL BELONGINGS LEFT WITH PT. [facility] TO TRANSPORT PT HOME.
[2020-07-18] MEDS ORDERED: PERCOCET1 TA4 PO (15:32)
== END 2020-07-12 13:17 | DRG 300 ==
LOC: MS2 16:28
PROVIDERS: Nurse Practitioner Family; ADMIT Internal Medicine; ATTEND Internal Medicine
DX: I87.011 Postthrombotic syndrome with ulcer of right lower extremity (principal); L97.819 Non-pressure chronic ulcer of other part of right lower leg with unspecified severity; L03.115 Cellulitis of right lower limb; I48.20 Chronic atrial fibrillation, unspecified; I13.0 Hypertensive heart and chronic kidney disease with heart failure and stage 1 through stage 4 chronic kidney disease, or unspecified chronic kidney disease; Z68.41 Body mass index [BMI] 40.0-44.9, adult; I87.2 Venous insufficiency (chronic) (peripheral); E87.6 Hypokalemia; N18.30 Chronic kidney disease, stage 3 unspecified; I50.9 Heart failure, unspecified; J44.9 Chronic obstructive pulmonary disease, unspecified; F32.9 Major depressive disorder, single episode, unspecified; F41.9 Anxiety disorder, unspecified; G47.00 Insomnia, unspecified; G89.29 Other chronic pain; M79.604 Pain in right leg; M54.9 Dorsalgia, unspecified; E66.01 Morbid (severe) obesity due to excess calories; Z79.01 Long term (current) use of anticoagulants; Z79.82 Long term (current) use of aspirin; Z79.891 Long term (current) use of opiate analgesic; Z79.899 Other long term (current) drug therapy; Z88.2 Allergy status to sulfonamides; Z88.7 Allergy status to serum and vaccine; Z88.8 Allergy status to other drugs, medicaments and biological substances; Z96.653 Presence of artificial knee joint, bilateral; Z86.718 Personal history of other venous thrombosis and embolism; Z87.440 Personal history of urinary (tract) infections; Z98.84 Bariatric surgery status
CPT/HCPCS: J0692; Q3014

== ENCOUNTER 2020-07-22 13:21 | Inpatient (IN) | payer MEDICARE, OTHER ==
[~2020-07-22] VITALS: Ht 162.6 cm; Wt 105.0 kg
[~2020-07-22 13:21] MED LIST changes: +BUMETANIDE2 MG PO; +CLOBETASOL0.051 EX; +KEFLEX500 MG PO; +MINOCYCLINE100 MG PO
[2020-07-22 14:44] LABS: HEMATOCRIT 38.6 % (37.0-47.0); HEMOGLOBIN 11.6 g/dl (12.0-16.0); IMMATURE GRANULOCYTES 0.4 % (0.0-5.0); MEAN CELL VOLUME 96.7 fL CALC (80.0-100.0); MEAN CORPUSCULAR HGB 29.1 pG CALC (26.0-32.0); MEAN CORPUSCULAR HGB CONC 30.1 g/dL CAL (32.0-36.0); NEUT# 8.03 thou/uL (2.00-7.15); RED BLOOD COUNT 3.99 mill/uL (4.20-5.60); RED CELL DISTRI WIDTH 15.9 % (11.5-15.5)
[2020-07-22 15:09] LABS: ACT PARTIAL THROMBO TIME 27.7 SECONDS (20.0-32.5); ANION GAP 12 (6-22 (CALC)); BILIRUBIN, TOTAL 0.4 mg/dL (0.0-1.4); CARBON DIOXIDE 33 mmol/l (22-30); CHLORIDE 93 mmol/l (95-108); CREATININE 1.9 mg/dL (0.5-1.0); GFR 26 ML/MIN (>=60 (CALC)); GFR FOR AFR.AMER. 32 ML/MIN (>=60 (CALC)); INTERNATIONAL NORMALIZED RATIO 1.1 RATIO (0.7-1.3); POTASSIUM 3.2 mmol/l (3.5-5.1); SGOT/AST 24 u/l (9-36); SODIUM 135 mmol/l (137-146); TOTAL PROTEIN 6.9 g/dL (6.3-8.2)
[2020-07-22 15:20] LABS: ALKALINE PHOSPHATASE 124 u/l (38-126); BUN 86 mg/dL (8-23); BUN/CREATININE RATIO 45 (12-20 (CALC))
[2020-07-22 18:00] VITALS: BP 137/93
[2020-07-22 20:00] VITALS: BP 132/86
[2020-07-22 22:00] VITALS: BP 132/86
[2020-07-23] VITALS: BP 102/64
[2020-07-23 04:19] VITALS: BP 114/75
[2020-07-23 05:19] LABS: HEMATOCRIT 38.5 % (37.0-47.0); HEMOGLOBIN 11.5 g/dl (12.0-16.0); IMMATURE GRANULOCYTES 0.4 % (0.0-5.0); MEAN CELL VOLUME 97.2 fL CALC (80.0-100.0); MEAN CORPUSCULAR HGB CONC 29.9 g/dL CAL (32.0-36.0); NEUT# 5.48 thou/uL (2.00-7.15); RED BLOOD COUNT 3.96 mill/uL (4.20-5.60)
[2020-07-23 07:21] LABS: ALBUMIN 3.3 g/dL (3.2-5.0); BILIRUBIN, TOTAL 0.7 mg/dL (0.0-1.4); CREATININE 1.5 mg/dL (0.5-1.0); MAGNESIUM 1.8 mg/dL (1.6-2.3); POTASSIUM 2.9 mmol/l (3.5-5.1)
[2020-07-23 08:00] VITALS: BP 107/47
[2020-07-23 11:38] VITALS: BP 119/73
[2020-07-23 16:49] VITALS: BP 110/56
[2020-07-23 18:59] VITALS: BP 97/56
[2020-07-24 00:06] VITALS: BP 106/58
[2020-07-24 04:30] VITALS: BP 96/65
[2020-07-24 07:34] VITALS: BP 140/74
[2020-07-24 10:44] VITALS: BP 161/94
[2020-07-24 15:08] VITALS: BP 131/92
[2020-07-24 19:00] VITALS: BP 121/70
[2020-07-25] VITALS: BP 108/61
[2020-07-25 04:17] VITALS: BP 103/62
[2020-07-25 07:06] LABS: ALBUMIN 3.4 g/dL (3.2-5.0); CREATININE 1.4 mg/dL (0.5-1.0); TOTAL PROTEIN 6.2 g/dL (6.3-8.2)
[2020-07-25 07:07] LABS: BILIRUBIN, TOTAL 0.4 mg/dL (0.0-1.4); HEMATOCRIT 38.4 % (37.0-47.0); HEMOGLOBIN 11.5 g/dl (12.0-16.0); MEAN CELL VOLUME 97.5 fL CALC (80.0-100.0); MEAN CORPUSCULAR HGB 29.2 pG CALC (26.0-32.0); MEAN CORPUSCULAR HGB CONC 29.9 g/dL CAL (32.0-36.0); POTASSIUM 3.6 mmol/l (3.5-5.1); RED BLOOD COUNT 3.94 mill/uL (4.20-5.60); RED CELL DISTRI WIDTH 15.9 % (11.5-15.5)
[2020-07-25 07:39] VITALS: BP 110/72
[2020-07-25 11:36] VITALS: BP 122/79
[2020-07-25 15:38] VITALS: BP 125/74
[2020-07-25 19:00] VITALS: BP 136/80
[2020-07-26 00:10] VITALS: BP 131/80
[2020-07-26 04:18] VITALS: BP 114/71
[2020-07-26 06:17] LABS: HEMATOCRIT 36.9 % (37.0-47.0); HEMOGLOBIN 11.1 g/dl (12.0-16.0); MEAN CELL VOLUME 97.4 fL CALC (80.0-100.0); MEAN CORPUSCULAR HGB 29.3 pG CALC (26.0-32.0); MEAN CORPUSCULAR HGB CONC 30.1 g/dL CAL (32.0-36.0); RED BLOOD COUNT 3.79 mill/uL (4.20-5.60)
[2020-07-26 06:54] LABS: ALBUMIN 3.5 g/dL (3.2-5.0); BILIRUBIN, TOTAL 0.4 mg/dL (0.0-1.4); CREATININE 1.3 mg/dL (0.5-1.0); POTASSIUM 3.3 mmol/l (3.5-5.1); TOTAL PROTEIN 6.1 g/dL (6.3-8.2)
[2020-07-26 08:51] VITALS: BP 114/66
[2020-07-26] MEDS ORDERED: ZINC OXIDE28.4 G EX (10:11)
[2020-07-26] MEDS ORDERED: CIPROFLOXACN500 MG PO (10:13)
[2020-07-26 10:30] VITALS: BP 113/70
== END 2020-07-26 13:03 | disposition home or self-care (01) | DRG 603 ==
LOC: ED 13:21 → ED-I 13:47 → ED 13:47 → ED-I 15:30 → ED 15:40 → MS2 15:41
PROVIDERS: Nurse Practitioner Family; Student in an Organized Health Care Education/Training Program; ADMIT Internal Medicine; ATTEND Internal Medicine
DX: L03.115 Cellulitis of right lower limb (principal); I87.311 Chronic venous hypertension (idiopathic) with ulcer of right lower extremity; L97.819 Non-pressure chronic ulcer of other part of right lower leg with unspecified severity; I13.0 Hypertensive heart and chronic kidney disease with heart failure and stage 1 through stage 4 chronic kidney disease, or unspecified chronic kidney disease; N17.9 Acute kidney failure, unspecified; I48.20 Chronic atrial fibrillation, unspecified; I50.9 Heart failure, unspecified; N18.30 Chronic kidney disease, stage 3 unspecified; J44.9 Chronic obstructive pulmonary disease, unspecified; R32 Unspecified urinary incontinence; E87.6 Hypokalemia; G89.4 Chronic pain syndrome; I87.2 Venous insufficiency (chronic) (peripheral); M10.9 Gout, unspecified; F41.9 Anxiety disorder, unspecified; F32.9 Major depressive disorder, single episode, unspecified; G47.00 Insomnia, unspecified; B96.89 Other specified bacterial agents as the cause of diseases classified elsewhere; Z87.440 Personal history of urinary (tract) infections; Z88.2 Allergy status to sulfonamides; Z86.718 Personal history of other venous thrombosis and embolism; Z79.01 Long term (current) use of anticoagulants; Z98.84 Bariatric surgery status; Z95.828 Presence of other vascular implants and grafts; Z20.822 Contact with and (suspected) exposure to COVID-19
CPT/HCPCS: A6197; A6198; A6207; A6454; J0692; J3370

== ENCOUNTER 2020-08-16 11:22 | Inpatient (IN) | payer MEDICARE, OTHER ==
[~2020-08-16] VITALS: Ht 162.6 cm; Wt 106.0 kg
[2020-08-16] VITALS (13 sets, daily range): BP systolic 76–156; BP diastolic 40–85
[~2020-08-16 11:22] MED LIST changes: +ZINC OXIDE28.4 G EX
[2020-08-16 14:52] LABS: HEMATOCRIT 37.5 % (37.0-47.0); HEMOGLOBIN 11.2 g/dl (12.0-16.0); IMMATURE GRANULOCYTES 0.5 % (0.0-5.0); MEAN CELL VOLUME 97.4 fL CALC (80.0-100.0); MEAN CORPUSCULAR HGB 29.1 pG CALC (26.0-32.0); MEAN CORPUSCULAR HGB CONC 29.9 g/dL CAL (32.0-36.0); NEUT# 8.36 thou/uL (2.00-7.15); RED BLOOD COUNT 3.85 mill/uL (4.20-5.60)
[2020-08-16 15:06] LABS: URINE BILIRUBIN - DIPSTICK NEGATIVE (NEGATIVE); URINE BLOOD DIPSTICK NEGATIVE (NEGATIVE); URINE COLOR YELLOW; URINE GLUCOSE - DIPSTICK NEGATIVE (NEGATIVE); URINE KETONE NEGATIVE (NEGATIVE); URINE LEUK ESTERASE NEGATIVE (NEGATIVE); URINE PH 5.5 (4.5-8.0); URINE PROTEIN - DIPSTICK NEGATIVE (NEG-TRACE); URINE UROBILINOGEN - DIPSTICK 0.2 E.U./dL (0.2)
[2020-08-16 15:12] LABS: ALBUMIN 3.8 g/dL (3.2-5.0); ALKALINE PHOSPHATASE 96 u/l (38-126); BUN 55 mg/dL (8-23); BUN/CREATININE RATIO 29 (12-20 (CALC)); CHLORIDE 94 mmol/l (95-108); CREATININE 1.9 mg/dL (0.5-1.0); GFR 26 ML/MIN (>=60 (CALC)); GFR FOR AFR.AMER. 32 ML/MIN (>=60 (CALC)); SGOT/AST 24 u/l (9-36); SODIUM 136 mmol/l (137-146)
[2020-08-16 15:14] LABS: ANION GAP 10 (6-22 (CALC)); BILIRUBIN, TOTAL 0.7 mg/dL (0.0-1.4); CARBON DIOXIDE 35 mmol/l (22-30); POTASSIUM 2.6 mmol/l (3.5-5.1)
[2020-08-16 15:15] LABS: URINE NITRITE - DIPSTICK POSITIVE (Negative)
[2020-08-16 15:22] LABS: URINE BACTERIA FEW hpf; URINE RBC 0-2 RBC/hpf (0-5); URINE SQUAMOUS EPITHELIAL CELL FEW EPI/hpf (0-FEW); URINE WBC 0-2 WBC/hpf (0-5)
[2020-08-16] MEDS ORDERED: BUMEX1 M1 PO (16:27)
[2020-08-16] MEDS ORDERED: PERCOCET1 TA4 PO (16:27)
[2020-08-16] MEDS ORDERED: POTASSIUM CHLO10 MEQ PO (16:27)
[2020-08-16] MEDS ORDERED: ATIVAN1 MG PO (16:28)
[2020-08-16] MEDS ORDERED: ALLOPURINOL100 MG PO (16:28)
[2020-08-16] MEDS ORDERED: PRAMIPEXOLE DIHY1 MG PO (16:28)
[2020-08-16] MEDS ORDERED: XARELTO15 MG PO (16:29)
[2020-08-16] MEDS ORDERED: GABAPENTIN600 MG PO (16:29)
[2020-08-16] MEDS ORDERED: INDERAL 40MG TA40 MG PO (16:29)
[2020-08-16] MEDS ORDERED: LASIX 40 MG TAB40 MG PO (16:30)
[2020-08-16] MEDS ORDERED: MIRTAZAPINE15 MG PO (16:30)
[2020-08-17] VITALS (39 sets, daily range): BP systolic 83–156; BP diastolic 52–83
[2020-08-17 05:17] LABS: HEMATOCRIT 36.1 % (37.0-47.0); HEMOGLOBIN 10.9 g/dl (12.0-16.0); IMMATURE GRANULOCYTES 0.4 % (0.0-5.0); MEAN CELL VOLUME 96.3 fL CALC (80.0-100.0); MEAN CORPUSCULAR HGB 29.1 pG CALC (26.0-32.0); MEAN CORPUSCULAR HGB CONC 30.2 g/dL CAL (32.0-36.0); NEUT# 9.14 thou/uL (2.00-7.15); RED BLOOD COUNT 3.75 mill/uL (4.20-5.60); RED CELL DISTRI WIDTH 15.9 % (11.5-15.5)
[2020-08-17 05:48] LABS: ALBUMIN 3.2 g/dL (3.2-5.0); BILIRUBIN, TOTAL 0.6 mg/dL (0.0-1.4); CREATININE 1.4 mg/dL (0.5-1.0); POTASSIUM 2.6 mmol/l (3.5-5.1); TOTAL PROTEIN 5.9 g/dL (6.3-8.2)
[2020-08-18] VITALS (12 sets, daily range): BP systolic 85–151; BP diastolic 40–92
[2020-08-18 06:00] LABS: CREATININE 1.2 mg/dL (0.5-1.0); MAGNESIUM 2.2 mg/dL (1.6-2.3); POTASSIUM 2.9 mmol/l (3.5-5.1)
[2020-08-18 06:02] LABS: HEMATOCRIT 34.9 % (37.0-47.0); HEMOGLOBIN 10.4 g/dl (12.0-16.0); MEAN CELL VOLUME 96.7 fL CALC (80.0-100.0); MEAN CORPUSCULAR HGB 28.8 pG CALC (26.0-32.0); MEAN CORPUSCULAR HGB CONC 29.8 g/dL CAL (32.0-36.0); RED BLOOD COUNT 3.61 mill/uL (4.20-5.60)
[2020-08-19 04:00] VITALS: BP 92/56
[2020-08-19 07:00] VITALS: BP 119/71
[2020-08-19 08:52] VITALS: BP 91/44
[2020-08-19] MEDS ORDERED: NARCAN4 MG/0.1 M (10:10)
[2020-08-19 10:18] VITALS: BP 102/57
[2020-08-19 14:00] VITALS: BP 95/56
== END 2020-08-19 14:33 | DRG 917 ==
LOC: ED 11:22 → ED-I 12:42 → ED 12:42 → ED-I 15:24 → ED 16:20 → ICU 16:21
PROVIDERS: Family Medicine; Internal Medicine; ADMIT Internal Medicine; ATTEND Internal Medicine
PROC: 0BH17EZ Insertion of Endotracheal Airway into Trachea, Via Natural or Artificial Opening (ICD-10-PCS; principal; 2020-08-16)
PROC: 5A1935Z Respiratory Ventilation, Less than 24 Consecutive Hours (ICD-10-PCS; 2020-08-16)
PROC: 02HV33Z Insertion of Infusion Device into Superior Vena Cava, Percutaneous Approach (ICD-10-PCS; 2020-08-16)
PROC: 0T9B70Z Drainage of Bladder with Drainage Device, Via Natural or Artificial Opening (ICD-10-PCS; 2020-08-16)
DX: T40.2X1A Poisoning by other opioids, accidental (unintentional), initial encounter (principal); G92 Toxic encephalopathy; Z68.41 Body mass index [BMI] 40.0-44.9, adult; I13.0 Hypertensive heart and chronic kidney disease with heart failure and stage 1 through stage 4 chronic kidney disease, or unspecified chronic kidney disease; I48.20 Chronic atrial fibrillation, unspecified; I50.32 Chronic diastolic (congestive) heart failure; N17.9 Acute kidney failure, unspecified; N39.0 Urinary tract infection, site not specified; Z16.12 Extended spectrum beta lactamase (ESBL) resistance; E87.6 Hypokalemia; N18.30 Chronic kidney disease, stage 3 unspecified; T42.4X1A Poisoning by benzodiazepines, accidental (unintentional), initial encounter; J44.9 Chronic obstructive pulmonary disease, unspecified; E66.01 Morbid (severe) obesity due to excess calories; I87.021 Postthrombotic syndrome with inflammation of right lower extremity; M10.9 Gout, unspecified; F32.9 Major depressive disorder, single episode, unspecified; F41.9 Anxiety disorder, unspecified; G89.29 Other chronic pain; M54.9 Dorsalgia, unspecified; S80.811A Abrasion, right lower leg, initial encounter; R32 Unspecified urinary incontinence; B96.20 Unspecified Escherichia coli [E. coli] as the cause of diseases classified elsewhere; X58.XXXA Exposure to other specified factors, initial encounter; Z79.01 Long term (current) use of anticoagulants; Z86.718 Personal history of other venous thrombosis and embolism; Z98.84 Bariatric surgery status; Z20.822 Contact with and (suspected) exposure to COVID-19
CPT/HCPCS: J3475; S0164

== ENCOUNTER 2020-08-30 05:52 | Day surgery (SDC) | payer MEDICARE, OTHER ==
[~2020-08-30 05:52] MED LIST changes: +PRAMIPEXOLE DIHY1 MG PO
[2020-08-30] MEDS ORDERED: NARCAN4 MG/0.1 M (06:27)
[2020-08-30 07:23] LABS: ALBUMIN 3.7 g/dL (3.2-5.0); BILIRUBIN, TOTAL 0.6 mg/dL (0.0-1.4); CREATININE 1.5 mg/dL (0.5-1.0); TOTAL PROTEIN 6.7 g/dL (6.3-8.2)
[2020-08-30 07:24] LABS: POTASSIUM 3.9 mmol/l (3.5-5.1)
[2020-08-30] MEDS ORDERED: PERCOCET1 TA4 PO (08:25)
[2020-08-30 09:41] VITALS: BP 143/91
== END 2020-08-30 08:30 | disposition home or self-care (01) ==
LOC: ORM 05:52
PROVIDERS: ATTEND Anesthesiology Pain Medicine
DX: M54.5 Low back pain (principal); Z01.84 Encounter for antibody response examination

== ENCOUNTER 2020-10-12 13:43 | Inpatient (IN) | payer MEDICARE, OTHER ==
[~2020-10-12] VITALS: Ht 162.6 cm; Wt 110.0 kg
[~2020-10-12 13:43] MED LIST changes: +FENTANYL25 MCG/HR TD
[2020-10-12] MEDS ORDERED: CEPHALEXIN500 MG PO (14:14)
[2020-10-12] MEDS ORDERED: PAROXETINE20 MG PO (14:15)
[2020-10-12] MEDS ORDERED: BUMETANIDE1 MG PO (14:15)
[2020-10-12] MEDS ORDERED: GABAPENTIN100 MG PO (14:16)
[2020-10-12] MEDS ORDERED: ASPIRIN81 MG PO (14:17)
[2020-10-12] MEDS ORDERED: PRAMIPEXOLE0.125 M1 PO (14:39)
[2020-10-12] MEDS ORDERED: XARELTO10 MG PO (14:39)
[2020-10-12] MEDS ORDERED: ADVAIR DISK1 INH (14:40)
[2020-10-12] MEDS ORDERED: METOLAZONE5 MG PO (14:43)
[2020-10-12] MEDS ORDERED: DOXEPIN HCL25 MG PO (15:02)
[2020-10-12] MEDS ORDERED: PROVENTIL108 MCG/AC (15:05)
[2020-10-12 15:26] LABS: HEMATOCRIT 38.2 % (37.0-47.0); HEMOGLOBIN 11.4 g/dl (12.0-16.0); IMMATURE GRANULOCYTES 0.4 % (0.0-5.0); MEAN CORPUSCULAR HGB 28.6 pG CALC (26.0-32.0); MEAN CORPUSCULAR HGB CONC 29.8 g/dL CAL (32.0-36.0); NEUT# 7.04 thou/uL (2.00-7.15); RED BLOOD COUNT 3.98 mill/uL (4.20-5.60); RED CELL DISTRI WIDTH 16.5 % (11.5-15.5)
[2020-10-12 15:42] LABS: ALBUMIN 3.3 g/dL (3.2-5.0); BILIRUBIN, TOTAL 0.6 mg/dL (0.0-1.4); CREATININE 1.7 mg/dL (0.5-1.0); POTASSIUM 3.2 mmol/l (3.5-5.1); TOTAL PROTEIN 6.1 g/dL (6.3-8.2)
[2020-10-12] MEDS ORDERED: XARELTO15 MG PO (17:22)
[2020-10-12 18:13] VITALS: BP 133/87
[2020-10-12 19:00] VITALS: BP 104/66
[2020-10-13 07:34] VITALS: BP 128/76
[2020-10-13 09:44] LABS: HEMATOCRIT 38.7 % (37.0-47.0); HEMOGLOBIN 11.6 g/dl (12.0-16.0); MEAN CELL VOLUME 96.5 fL CALC (80.0-100.0); MEAN CORPUSCULAR HGB 28.9 pG CALC (26.0-32.0); RED BLOOD COUNT 4.01 mill/uL (4.20-5.60); RED CELL DISTRI WIDTH 16.5 % (11.5-15.5)
[2020-10-13 10:06] LABS: CREATININE 1.4 mg/dL (0.5-1.0)
[2020-10-13 14:43] VITALS: BP 135/74
[2020-10-13 19:50] VITALS: BP 97/58
[2020-10-14 04:20] VITALS: BP 86/50
[2020-10-14 05:40] LABS: HEMOGLOBIN 10.3 g/dl (12.0-16.0); MEAN CELL VOLUME 95.8 fL CALC (80.0-100.0); MEAN CORPUSCULAR HGB CONC 30.3 g/dL CAL (32.0-36.0); RED BLOOD COUNT 3.55 mill/uL (4.20-5.60); RED CELL DISTRI WIDTH 16.5 % (11.5-15.5)
[2020-10-14 05:43] LABS: CREATININE 1.3 mg/dL (0.5-1.0); MAGNESIUM 1.9 mg/dL (1.6-2.3); POTASSIUM 3.5 mmol/l (3.5-5.1)
[2020-10-14 07:45] VITALS: BP 91/40
[2020-10-14 09:21] VITALS: BP 128/68
[2020-10-14 14:40] VITALS: BP 123/73
[2020-10-14 20:00] VITALS: BP 131/73
[2020-10-15 04:00] VITALS: BP 91/58
[2020-10-15 04:42] LABS: MEAN CELL VOLUME 95.4 fL CALC (80.0-100.0); MEAN CORPUSCULAR HGB 28.9 pG CALC (26.0-32.0); MEAN CORPUSCULAR HGB CONC 30.3 g/dL CAL (32.0-36.0); RED BLOOD COUNT 3.46 mill/uL (4.20-5.60); RED CELL DISTRI WIDTH 16.8 % (11.5-15.5)
[2020-10-15 04:58] LABS: ALBUMIN 2.7 g/dL (3.2-5.0); BILIRUBIN, TOTAL 0.6 mg/dL (0.0-1.4); CREATININE 1.5 mg/dL (0.5-1.0); POTASSIUM 3.4 mmol/l (3.5-5.1); TOTAL PROTEIN 5.2 g/dL (6.3-8.2)
[2020-10-15 15:00] VITALS: BP 128/75
[2020-10-15 19:41] VITALS: BP 118/60
[2020-10-16 04:26] VITALS: BP 99/62
[2020-10-16 05:53] LABS: HEMATOCRIT 34.4 % (37.0-47.0); HEMOGLOBIN 10.3 g/dl (12.0-16.0); MEAN CELL VOLUME 95.8 fL CALC (80.0-100.0); MEAN CORPUSCULAR HGB 28.7 pG CALC (26.0-32.0); MEAN CORPUSCULAR HGB CONC 29.9 g/dL CAL (32.0-36.0); RED BLOOD COUNT 3.59 mill/uL (4.20-5.60); RED CELL DISTRI WIDTH 16.8 % (11.5-15.5)
[2020-10-16 06:13] LABS: ALBUMIN 2.8 g/dL (3.2-5.0); BILIRUBIN, TOTAL 0.5 mg/dL (0.0-1.4); CREATININE 1.2 mg/dL (0.5-1.0); POTASSIUM 3.4 mmol/l (3.5-5.1); TOTAL PROTEIN 5.4 g/dL (6.3-8.2)
[2020-10-16 07:44] VITALS: BP 115/70
[2020-10-16 09:20] VITALS: BP 115/70
[2020-10-16] MEDS ORDERED: CEFEPIME2 GM IV ×2 (11:28→13:38)
[2020-10-16] MEDS ORDERED: ATIVAN1 MG PO (13:20)
[2020-10-16] MEDS ORDERED: FENTANYL25 MCG/HR TD ×2 (13:20→13:28)
[2020-10-16] MEDS ORDERED: PERCOCET1 TA4 PO (13:20)
[2020-10-16] MEDS ORDERED: PERCOCET 10/31 COMBO PO (13:20)
[2020-10-16] MEDS ORDERED: ATIVAN1 M1 PO (13:28)
[2020-10-16] MEDS ORDERED: OXYCODO-APAP1 TA2 PO (13:28)
[2020-11-21] MEDS ORDERED: PERCOCET1 TA4 PO (12:11)
[2020-12-19] MEDS ORDERED: PERCOCET1 TA4 PO (13:16)
[2021-01-16] MEDS ORDERED: PERCOCET1 TA4 PO (14:26)
[2021-02-20] MEDS ORDERED: PERCOCET1 TA4 PO (12:38)
[2021-03-27] MEDS ORDERED: PERCOCET1 TA4 PO (11:33)
[2021-04-24] MEDS ORDERED: PERCOCET1 TA4 PO (12:51)
[2021-05-17] MEDS ORDERED: PERCOCET1 TA4 PO ×3 (11:51→11:54)
== END 2020-10-16 18:25 | DRG 603 ==
LOC: ED 13:43 → ED-I 16:42 → ED 16:58 → MS2 16:59
PROVIDERS: Emergency Medicine; Nurse Practitioner; Nurse Practitioner Family; ADMIT Internal Medicine; ATTEND Internal Medicine
PROC: 02HV33Z Insertion of Infusion Device into Superior Vena Cava, Percutaneous Approach (ICD-10-PCS; principal; 2020-10-13)
PROC: B518ZZA Fluoroscopy of Superior Vena Cava, Guidance (ICD-10-PCS; 2020-10-13)
DX: L03.115 Cellulitis of right lower limb (principal); Z68.41 Body mass index [BMI] 40.0-44.9, adult; I48.20 Chronic atrial fibrillation, unspecified; I13.0 Hypertensive heart and chronic kidney disease with heart failure and stage 1 through stage 4 chronic kidney disease, or unspecified chronic kidney disease; L97.819 Non-pressure chronic ulcer of other part of right lower leg with unspecified severity; I87.311 Chronic venous hypertension (idiopathic) with ulcer of right lower extremity; N17.9 Acute kidney failure, unspecified; L97.212 Non-pressure chronic ulcer of right calf with fat layer exposed; E66.01 Morbid (severe) obesity due to excess calories; I50.9 Heart failure, unspecified; N18.30 Chronic kidney disease, stage 3 unspecified; J44.9 Chronic obstructive pulmonary disease, unspecified; E87.6 Hypokalemia; D64.9 Anemia, unspecified; E88.09 Other disorders of plasma-protein metabolism, not elsewhere classified; F32.9 Major depressive disorder, single episode, unspecified; M10.9 Gout, unspecified; G89.4 Chronic pain syndrome; B95.61 Methicillin susceptible Staphylococcus aureus infection as the cause of diseases classified elsewhere; B96.5 Pseudomonas (aeruginosa) (mallei) (pseudomallei) as the cause of diseases classified elsewhere; Z87.440 Personal history of urinary (tract) infections; Z79.01 Long term (current) use of anticoagulants; Z98.84 Bariatric surgery status; Z86.711 Personal history of pulmonary embolism; Z86.718 Personal history of other venous thrombosis and embolism; Z95.828 Presence of other vascular implants and grafts; Z96.653 Presence of artificial knee joint, bilateral; Z20.822 Contact with and (suspected) exposure to COVID-19; I87.2 Venous insufficiency (chronic) (peripheral); I87.321 Chronic venous hypertension (idiopathic) with inflammation of right lower extremity; R39.81 Functional urinary incontinence
CPT/HCPCS: J0692; Q3014

== ENCOUNTER 2020-11-01 14:28 | Observation (INO) | payer MEDICARE, OTHER ==
[~2020-11-01] VITALS: Ht 162.6 cm; Wt 104.8 kg
[~2020-11-01 14:28] MED LIST changes: +ASPIRIN81 MG PO; +CEFEPIME2 GM IV; +DOXEPIN HCL25 MG PO; +PROVENTIL108 MCG/AC
--- NOTE | 2020-11-01 14:35 | NUR ---
TO ROOM VIA WHEELCHAIR
--- NOTE | 2020-11-01 15:00 | NUR ---
FENATNYL PATCH REMOVED FROM PATIENT PER PHYSICIAN. PATIET RESPONDS APPROPRIATELY BUT DROWSY.
[2020-11-01 15:50] LABS: HEMATOCRIT 35.3 % (37.0-47.0); HEMOGLOBIN 10.6 g/dl (12.0-16.0); IMMATURE GRANULOCYTES 0.5 % (0.0-5.0); MEAN CORPUSCULAR HGB 29.1 pG CALC (26.0-32.0); NEUT# 6.38 thou/uL (2.00-7.15); RED BLOOD COUNT 3.64 mill/uL (4.20-5.60); RED CELL DISTRI WIDTH 17.4 % (11.5-15.5)
--- NOTE | 2020-11-01 15:57 | NUR ---
PATIENT REPOSITIONED FOR COMFORT. CALL [facility]
[2020-11-01 16:04] LABS: ALKALINE PHOSPHATASE 76 u/l (38-126); ANION GAP 11 (6-22 (CALC)); BILIRUBIN, TOTAL 0.6 mg/dL (0.0-1.4); CARBON DIOXIDE 31 mmol/l (22-30); CHLORIDE 97 mmol/l (95-108); ETHYL ALCOHOL 0 mg/dl (0-30); LIPASE 66 u/l (23-300); POTASSIUM 3.4 mmol/l (3.5-5.1); SGOT/AST 30 u/l (9-36); SODIUM 136 mmol/l (137-146)
[2020-11-01 16:15] LABS: ALBUMIN 3.5 g/dL (3.2-5.0); BUN 55 mg/dL (8-23); BUN/CREATININE RATIO 22 (12-20 (CALC)); CREATININE 2.5 mg/dL (0.5-1.0); GFR 19 ML/MIN (>=60 (CALC)); GFR FOR AFR.AMER. 23 ML/MIN (>=60 (CALC)); TOTAL PROTEIN 6.6 g/dL (6.3-8.2)
[2020-11-01 16:28] LABS: ACT PARTIAL THROMBO TIME 24.3 SECONDS (20.0-32.5); PROTHROMBIN TIME 10.4 SECONDS (9.0-12.5)
--- NOTE | 2020-11-01 17:00 | NUR ---
UP TO BEDSIDE COMMODE WITH ASSISTANCE FOR URINE SAMPLE.
[2020-11-01 17:29] LABS: URINE BILIRUBIN - DIPSTICK NEGATIVE (NEGATIVE); URINE BLOOD DIPSTICK SMALL (NEGATIVE); URINE COLOR YELLOW; URINE GLUCOSE - DIPSTICK NEGATIVE (NEGATIVE); URINE KETONE NEGATIVE (NEGATIVE); URINE LEUK ESTERASE NEGATIVE (NEGATIVE); URINE NITRITE - DIPSTICK NEGATIVE (Negative); URINE PH 5.5 (4.5-8.0); URINE PROTEIN - DIPSTICK 30 mg/dL (NEG-TRACE); URINE SPECIFIC GRAVITY >=1.030; URINE UROBILINOGEN - DIPSTICK 0.2 E.U./dL (0.2)
[2020-11-01 17:40] LABS: URINE AMORPH SEDIMENT FEW hpf (NONE-FEW); URINE SQUAMOUS EPITHELIAL CELL MODERATE EPI/hpf (0-FEW)
--- NOTE | 2020-11-01 18:00 | NUR ---
patient spilled soda in bed,bed changed.
--- NOTE | 2020-11-01 18:30 | NUR ---
Stable, awaiting admission.
[2020-11-01 19:00] VITALS: BP 133/83
--- NOTE | 2020-11-01 19:00 | NUR ---
report to Randy SHERWOOD in SBAR format.
--- NOTE | 2020-11-01 19:15 | NUR ---
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
--- NOTE | 2020-11-01 19:25 | NUR ---
Admission Note Report Given to: PRESLEY ISAACS Transported by: X Wheelchair Stretcher Transported with: X Nurse Transporter X Patent IV O2 X Reel Film Inspector Location: ICU X MS2
--- NOTE | 2020-11-01 19:45 | NUR ---
PT RECEIVED FROM ED TO ROOM 280. ARRIVES VIA STRETCHER ACCOMPANIED BY BLADE SHERWOOD. PT AMBULATORY TO BED. GAIT UNSTEADY. PT DENIES PAIN AT THIS TIME. ORIENTED TO UNIT, ROOM, CALL WEST, LIGHTS, TV. ICE WATER PROVIDED. CALL WEST WITHIN REACH. AGREES TO CALL PRN.
--- NOTE | 2020-11-01 19:45 | NUR ---
PHYSICAL ASSESMENT COMPLETE. PT CURRENTLY DENIES PAIN OR DISCOMFORT. SCHEDULED MEDICATIONS AND PRN MEDICATION ADMINISTERED, SEE E-MAR. PT DENIES ANY NEEDS AT THIS TIME. PLAN OF CARE REVIEWED, PT DENIES QUESTIONS, VERBALIZES UNDERSTANDING. ITEMS WITHIN REACH, BED LOCKED IN LOW POSITION W/ BEDRAILS UP X2. CALL WEST WITHIN REACH, AGREES TO CALL PRN.
[2020-11-02] VITALS: BP 82/51
--- NOTE | 2020-11-02 | NUR ---
PT LAYING IN BED WITH EYES CLOSED, APPEARS TO BE SLEEPING, APPEARS COMFORTABLE AND IN NO DISTRESS. RESPIRATIONS REGULAR AND UNLABORED. ITEMS REMAIN WITHIN REACH, CALL WEST REMAINS WITHIN REACH. BED REMAINS LOCKED AND IN LOW POSITION WITH BEDRAILS UP X2. WILL CONTINUE TO MONITOR.
--- NOTE | 2020-11-02 03:55 | NUR ---
PT RESTING IN BED, NO SIGNS OF DISTRESS NOTED, RESP EVEN AND UNLABORED. PT VOICES NO NEEDS OR COMPLAINTS AT THIS TIME. CALL LIGHT IN REACH, CONTINUE TO MONITOR.
[2020-11-02 04:00] VITALS: BP 119/76
[2020-11-02 05:59] LABS: HEMATOCRIT 34.4 % (37.0-47.0); HEMOGLOBIN 10.2 g/dl (12.0-16.0); IMMATURE GRANULOCYTES 0.8 % (0.0-5.0); MEAN CELL VOLUME 96.4 fL CALC (80.0-100.0); MEAN CORPUSCULAR HGB 28.6 pG CALC (26.0-32.0); MEAN CORPUSCULAR HGB CONC 29.7 g/dL CAL (32.0-36.0); NEUT# 7.79 thou/uL (2.00-7.15); RED BLOOD COUNT 3.57 mill/uL (4.20-5.60); RED CELL DISTRI WIDTH 17.1 % (11.5-15.5)
[2020-11-02 06:31] LABS: ALBUMIN 3.2 g/dL (3.2-5.0); BILIRUBIN, TOTAL 0.5 mg/dL (0.0-1.4); CREATININE 2.4 mg/dL (0.5-1.0); POTASSIUM 3.8 mmol/l (3.5-5.1); TOTAL PROTEIN 6.1 g/dL (6.3-8.2)
--- NOTE | 2020-11-02 07:00 | NUR ---
PT REPORT RECEIVED FROM [facility]
[2020-11-02 07:40] VITALS: BP 112/71
--- NOTE | 2020-11-02 08:00 | NUR ---
PT WAS FOUND RESTING IN BED;PT IS A&O X3;VS AND ASSESSMENT WERE COMPLETED;PT HAS NO REPORTS OF PAIN AT THIS TIME;HEART SOUNDS ARE IRREGULAR IN RATE AND RHYTHM;TELE IS IN PLACE;LUNG SOUNDS ARE CLEAR;RESPIRATIONS ARE EVEN AND UNLABORED ON RA;PT HAS CELLULITIS PRESENT IN LOWER EXTREMETIES WITH 3+ PITTING EDEMA PRESENT IN RT LEG WITH EDEMA IN THE LT LEG WELL;PT HAS DRESSING IN PLACE ON RT LOWER LEG THAT IS CDI;#20G IV IN RH IS SL, PATENT AND FREE OF COMPLICATIONS AT THIS TIME;SAFETY PRECAUTIONS IN PLACE;CALL LIGHT WITHIN REACH;WILL CONTINUE TO MONITOR.
--- NOTE | 2020-11-02 10:00 | NUR ---
AND JUANITA JACKSON AT BEDSIDE DISCUSSING POC WITH PT.
[2020-11-02 10:49] VITALS: BP 113/69
--- NOTE | 2020-11-02 12:00 | NUR ---
PT WAS FOUND SITTING UP ON THE SIDE OF THE BED EATING LUNCH;PT IS REPORTING BILATERAL LEG PAIN OF 8/10;PT MEDICATED WITH OXYCODONE 10/325MG;TELE IS IN PLACE;SAFETY PRECAUTIONS IN PLACE;CALL LIGHT WITHIN REACH;WILL CONTINUE TO MONITOR.
[2020-11-02] MEDS ORDERED: PREDNISONE20 MG PO (13:08)
--- NOTE | 2020-11-02 13:50 | NUR ---
Discharge instructions given. Patient verbalizes understanding of same. Discharged in stable condition via Wheelchair to Home with family. All belongings sent with pt. DISCHARGE PACKET WAS GIVEN TO PT;DISCHARGE INSTRUCTIONS AND MEDICATIONS WERE EXPLAINED TO PT;PT EXPRESSED UNDERSTANDING AND HAD NO FURTHER QUESTIONS;SIGNATURE WAS OBTAINED;TELE WAS REMOVED;IV WAS REMOVED WITH NO COMPLICATIONS AND CATHETER INTACT; PT WAS TRANSPORTED TO [facility] VIA IN STABLE CONDITION ACCOMPANIED BY STAFF;ALL PT BELONGINGS WERE SENT WITH PT;PT WILL BE SEEN BY [facility] UPON DISCHARGE;PT WILL BE TRANSPORTED HOME WITH FAMILY.
[2020-11-21] MEDS ORDERED: PERCOCET1 TA4 PO (12:11)
[2020-12-19] MEDS ORDERED: PERCOCET1 TA4 PO (13:16)
[2021-01-16] MEDS ORDERED: PERCOCET1 TA4 PO (14:26)
[2021-02-20] MEDS ORDERED: PERCOCET1 TA4 PO (12:38)
== END 2020-11-02 13:50 ==
LOC: ED 14:28 → ED-I 18:10 → ED 18:18 → MS2 18:19
PROVIDERS: ADMIT Internal Medicine; ATTEND Internal Medicine
DX: T40.411A Poisoning by fentanyl or fentanyl analogs, accidental (unintentional), initial encounter (principal); T42.4X1A Poisoning by benzodiazepines, accidental (unintentional), initial encounter; I95.9 Hypotension, unspecified; N17.9 Acute kidney failure, unspecified; G89.4 Chronic pain syndrome; L03.115 Cellulitis of right lower limb; I13.0 Hypertensive heart and chronic kidney disease with heart failure and stage 1 through stage 4 chronic kidney disease, or unspecified chronic kidney disease; N18.30 Chronic kidney disease, stage 3 unspecified; I50.9 Heart failure, unspecified; J44.9 Chronic obstructive pulmonary disease, unspecified; E66.01 Morbid (severe) obesity due to excess calories; E87.6 Hypokalemia; M10.9 Gout, unspecified; R21 Rash and other nonspecific skin eruption; I48.20 Chronic atrial fibrillation, unspecified; F32.9 Major depressive disorder, single episode, unspecified; I73.9 Peripheral vascular disease, unspecified; Z79.01 Long term (current) use of anticoagulants; Z98.84 Bariatric surgery status; Z86.718 Personal history of other venous thrombosis and embolism; Z87.440 Personal history of urinary (tract) infections; Z20.822 Contact with and (suspected) exposure to COVID-19
CPT/HCPCS: G0378

== ENCOUNTER 2020-11-09 14:49 | Observation (INO) | payer MEDICARE, OTHER ==
[~2020-11-09] VITALS: Ht 162.6 cm; Wt 106.0 kg
--- NOTE | 2020-11-09 14:49 | NUR ---
PT TO ROOM # 13 VIA EMS STRETCHER
[2020-11-09 15:41] LABS: HEMATOCRIT 34.3 % (37.0-47.0); HEMOGLOBIN 10.2 g/dl (12.0-16.0); IMMATURE GRANULOCYTES 0.4 % (0.0-5.0); MEAN CELL VOLUME 97.2 fL CALC (80.0-100.0); MEAN CORPUSCULAR HGB 28.9 pG CALC (26.0-32.0); MEAN CORPUSCULAR HGB CONC 29.7 g/dL CAL (32.0-36.0); NEUT# 5.97 thou/uL (2.00-7.15); RED BLOOD COUNT 3.53 mill/uL (4.20-5.60); RED CELL DISTRI WIDTH 16.9 % (11.5-15.5)
[2020-11-09 15:54] LABS: ALBUMIN 3.4 g/dL (3.2-5.0); ALKALINE PHOSPHATASE 82 u/l (38-126); ANION GAP 10 (6-22 (CALC)); BILIRUBIN, TOTAL 0.7 mg/dL (0.0-1.4); BUN 53 mg/dL (8-23); BUN/CREATININE RATIO 33 (12-20 (CALC)); CARBON DIOXIDE 31 mmol/l (22-30); CHLORIDE 98 mmol/l (95-108); CREATININE 1.6 mg/dL (0.5-1.0); GFR 32 ML/MIN (>=60 (CALC)); GFR FOR AFR.AMER. 39 ML/MIN (>=60 (CALC)); POTASSIUM 3.4 mmol/l (3.5-5.1); SGOT/AST 28 u/l (9-36); SODIUM 135 mmol/l (137-146); TOTAL PROTEIN 6.7 g/dL (6.3-8.2)
--- NOTE | 2020-11-09 16:15 | NUR ---
CURRENTLY IN us
--- NOTE | 2020-11-09 16:24 | NUR ---
RETURNED TO ROOM, PROVIDER INFORMED RESULTS TO THE PATIENT,
[2020-11-09] MEDS ORDERED: DURAGESIC12 MCG/HR TD (16:41)
--- NOTE | 2020-11-09 17:20 | NUR ---
IN ROOM DISCUSSING PAIN, REQUESTING PAIN MEDICATION DISCUSSED WITH PROVIDER SEE RUPERT EASON AND ORIENTED
--- NOTE | 2020-11-09 17:42 | NUR ---
Admission Note Report Given to: SHAYY Transported by: Y Wheelchair Stretcher Transported with: Y Nurse Transporter Y Patent IV N O2 Y Lab Asst Location: ICU Y MS2
[2020-11-09 18:00] VITALS: BP 144/84
--- NOTE | 2020-11-09 18:11 | NUR ---
RECEIVED PATIENT FROM ED AT THIS TIME. PATIENT PRESENTS WITH R. LOWER LEG CELLULITIS. R LEG IS RED AND INFLAMED AT THIS TIME. NO NOTED DRAINAGE. PATIENT ALERT AND ORIENTED VITAL SIGNS TAKEN SEE INTERVENITON PATIENT ON TELE MONITOR AT THIS TIME BEING MONITORED BY ED. PATIENT DOES HAVE FENTNYL PATCH ON LEFT UPPER SHOULDER AND IS 12.5 MG AND PATIENT DID STATED IT WAS PLACED TODAY. IV IS PATENT AT THIS TIME. PATIENT DENIES ANY PAIN AND IS ON ROOM AIR AND SPO2 IS 93%. SIDERAILS ARE UP CALL LIGHT IS WITHIN REACH PATIENT EATING DINNER AT THIS TIME.
--- NOTE | 2020-11-09 20:40 | NUR ---
PT MEDICATED ORDERS PROVIDE. PT MEDICATED FOR PAIN 7/10 ON PAIN SCALE IN R.LOWER EXT.
[2020-11-10] VITALS: BP 94/59
--- NOTE | 2020-11-10 00:20 | NUR ---
ASSISTED PT TO BSC AND BACK TO THE BED. SHE SELF AMBULATED W/STANDBY ASSISTANCE JUST TO PIVOT TO BSC.
[2020-11-10 04:00] VITALS: BP 109/69
--- NOTE | 2020-11-10 04:15 | NUR ---
LAB IS IN WITH PT AT THIS TIME.
[2020-11-10 04:39] LABS: HEMATOCRIT 37.6 % (37.0-47.0); HEMOGLOBIN 10.9 g/dl (12.0-16.0); MEAN CELL VOLUME 97.9 fL CALC (80.0-100.0); MEAN CORPUSCULAR HGB 28.4 pG CALC (26.0-32.0); RED BLOOD COUNT 3.84 mill/uL (4.20-5.60); RED CELL DISTRI WIDTH 16.8 % (11.5-15.5)
[2020-11-10 05:07] LABS: CREATININE 1.4 mg/dL (0.5-1.0); MAGNESIUM 1.6 mg/dL (1.6-2.3)
--- NOTE | 2020-11-10 05:12 | NUR ---
PT CALLED ASKING FOR PAIN MEDICATION OR ANXIETY MEDICATION. UPON ENTERING THE ROOM, PT WAS SMILING AT ME, NO W/O DISTRESS OR ANXIOUSNESS. LIGHTS AND TV ARE ON. I REVIEWED HER MEDICATIONS WITH HER AND THE SCHEDULE FOR THESE MEDICATIONS. SHE STATED SHE TAKES ATIVAN AT HOME, BUT THIS DOES NOT APPEAR ON HER MED REQ. I INFORMED HER THAT I COULD BRING PAIN MEDICATION SOON THEY BECAME AVAILABLE PER SCHEDULE PRN TIMING, VERBALIZED UNDERSTANDING. SHE THEN ASKED FOR FOOD TO EAT/PROVIDE SNACK.
--- NOTE | 2020-11-10 06:06 | NUR ---
PT MEDICATED FOR PAIN 7/10 ON PAIN SCALE. SHE IS AWAKE WATCHING TV EATING CRACKERS AND ASKING FOR COFFEE AT THIS TIME.
[2020-11-10 07:15] VITALS: BP 110/69
--- NOTE | 2020-11-10 07:15 | NUR ---
PATIENT LAYING IN BED AT THIS TIME GOING THROUGH PERSONAL BELONGINGS. PATIENT STATED PAIN LEVEL IS A "2" OUT OF THE PAIN SCALE OF 0-10. PATIENT WAS PREVIOUSLY MEDICATED ON PRIOR SHIFT. RIGHT LEG REMAINS UP ON PILLOW AND IS RED AND HAS SCANT OOZING OF BLOODY DRAINAGE AT THIS TIME. SIDERAILS ARE UP X 2 CALL LIGHT IS WITHIN REACH. TELE MONITOR IS ON AND BEING MONITORED BY ED.
[2020-11-10 10:45] VITALS: BP 129/82
[2020-11-10] MEDS ORDERED: LYRICA75 MG PO (11:54)
--- NOTE | 2020-11-10 11:57 | NUR ---
PATIENT SITTING UP IN BED AT THIS TIME C/O PAIN IN RIGHT LOWER LEG STATING PAIN LEVEL IS A 6 OUT OF PAIN SCALE 0-10. PATIENT MEDICATED AT THIS TIME. WITH 10/325MG OXYCODONE/ACETAMINOPHIN 1 TAB. TELE MONITOR ON AND BEING MONTIORED BY ED AT THIS TIME. SIDERAILS ARE UP X 2 AND CALL LIGHT IS WITHIN REACH.
--- NOTE | 2020-11-10 12:48 | NUR ---
PATIENT D/C AT THIS TIME PATIENT VERBALIZES UNDERSTANDING OF D/C INSTRUCTIONS. PATIENT RIGHT LOWER LEG DRESSED WITH DRY TELFA AND CHARU WRAP TO KNEE AT THIS TIME.
--- NOTE | 2020-11-10 13:29 | NUR ---
Discharge instructions given. Patient verbalizes understanding of same. Discharged in stable condition via Wheelchair to Home with family. All belongings sent with pt. PATIENT WILL HAVE [facility] AT HOME.
[2020-11-21] MEDS ORDERED: PERCOCET1 TA4 PO (12:11)
[2020-12-19] MEDS ORDERED: PERCOCET1 TA4 PO (13:16)
[2021-01-16] MEDS ORDERED: PERCOCET1 TA4 PO (14:26)
[2021-02-20] MEDS ORDERED: PERCOCET1 TA4 PO (12:38)
== END 2020-11-10 13:18 ==
LOC: ED 14:49 → ED-I 16:25 → ED 17:12 → MS2 17:13
PROVIDERS: Family Medicine; Nurse Practitioner; ADMIT Internal Medicine; ATTEND Internal Medicine
DX: L97.219 Non-pressure chronic ulcer of right calf with unspecified severity (principal); L03.115 Cellulitis of right lower limb; I87.8 Other specified disorders of veins; R21 Rash and other nonspecific skin eruption; N17.9 Acute kidney failure, unspecified; I13.0 Hypertensive heart and chronic kidney disease with heart failure and stage 1 through stage 4 chronic kidney disease, or unspecified chronic kidney disease; N18.30 Chronic kidney disease, stage 3 unspecified; I50.9 Heart failure, unspecified; I48.20 Chronic atrial fibrillation, unspecified; J44.9 Chronic obstructive pulmonary disease, unspecified; E87.6 Hypokalemia; D64.9 Anemia, unspecified; M10.9 Gout, unspecified; E66.01 Morbid (severe) obesity due to excess calories; F32.9 Major depressive disorder, single episode, unspecified; Z79.01 Long term (current) use of anticoagulants; Z68.41 Body mass index [BMI] 40.0-44.9, adult; Z98.84 Bariatric surgery status; Z96.653 Presence of artificial knee joint, bilateral; Z79.891 Long term (current) use of opiate analgesic; Z86.718 Personal history of other venous thrombosis and embolism; Z87.440 Personal history of urinary (tract) infections; Z20.822 Contact with and (suspected) exposure to COVID-19
CPT/HCPCS: G0378

== ENCOUNTER 2021-07-14 18:03 | Inpatient (IN) | payer MEDICARE, OTHER ==
[~2021-07-14] VITALS: Ht 162.6 cm; Wt 109.0 kg
[~2021-07-14 18:03] MED LIST changes: +DURAGESIC12 MCG/HR TD; +LYRICA75 MG PO
--- NOTE | 2021-07-14 18:03 | NUR ---
PATIENT TO ROOM VIA EMS STRETCHER.
[2021-07-14 18:45] LABS: HEMATOCRIT 38.1 % (37.0-47.0); HEMOGLOBIN 11.3 g/dl (12.0-16.0); IMMATURE GRANULOCYTES 0.3 % (0.0-5.0); MEAN CELL VOLUME 94.5 fL CALC (80.0-100.0); MEAN CORPUSCULAR HGB CONC 29.7 g/dL CAL (32.0-36.0); NEUT# 1.97 thou/uL (2.00-7.15); RED BLOOD COUNT 4.03 mill/uL (4.20-5.60); RED CELL DISTRI WIDTH 16.8 % (11.5-15.5)
[2021-07-14 19:02] LABS: ALBUMIN 3.4 g/dL (3.2-5.0); BILIRUBIN, TOTAL 0.6 mg/dL (0.0-1.4); POTASSIUM 3.4 mmol/l (3.5-5.1); TOTAL PROTEIN 6.9 g/dL (6.3-8.2)
--- NOTE | 2021-07-14 19:25 | NUR ---
65 yr old white female admitted to icu8 as medsurg overflow due to covid per stretcher from er. stood & assisted x2 to bed. bed weight obtained. history obtained per pt & er record. oriented to room. fall & contact precautions initiated.
[2021-07-14] MEDS ORDERED: K-TAB20 MEQ PO (19:38)
[2021-07-14] MEDS ORDERED: LYRICA150 MG PO (19:39)
[2021-07-14] MEDS ORDERED: LASIX 40 MG TAB40 MG PO (19:39)
[2021-07-14] MEDS ORDERED: LASIX80 MG PO (19:40)
[2021-07-14 19:59] LABS: URINE BILIRUBIN - DIPSTICK NEGATIVE (NEGATIVE); URINE BLOOD DIPSTICK MODERATE (NEGATIVE); URINE COLOR YELLOW; URINE GLUCOSE - DIPSTICK NEGATIVE (NEGATIVE); URINE KETONE NEGATIVE (NEGATIVE); URINE PH 5.5 (4.5-8.0); URINE PROTEIN - DIPSTICK NEGATIVE (NEG-TRACE); URINE SPECIFIC GRAVITY 1.015; URINE UROBILINOGEN - DIPSTICK 0.2 E.U./dL (0.2)
[2021-07-14 20:07] LABS: URINE LEUK ESTERASE SMALL (NEGATIVE); URINE NITRITE - DIPSTICK NEGATIVE (Negative)
[2021-07-14 20:09] LABS: URINE WBC 20-50 WBC/hpf (0-5)
[2021-07-14 20:10] LABS: URINE BACTERIA MANY hpf; URINE SQUAMOUS EPITHELIAL CELL FEW EPI/hpf (0-FEW)
--- NOTE | 2021-07-14 21:25 | NUR ---
covid instructions given.
[2021-07-14 21:35] VITALS: BP 100/62
--- NOTE | 2021-07-15 00:30 | NUR ---
assisted to bsc per request then back to bed. [facility].
--- NOTE | 2021-07-15 03:45 | NUR ---
assisted to bsc then to bed. [facility]. no resp diff.
--- NOTE | 2021-07-15 04:53 | NUR ---
xray here. pcxr obtained.
--- NOTE | 2021-07-15 05:21 | NUR ---
lab here. blood drawn.
[2021-07-15 05:47] LABS: HEMATOCRIT 40.2 % (37.0-47.0); HEMOGLOBIN 12.2 g/dl (12.0-16.0); IMMATURE GRANULOCYTES 0.6 % (0.0-5.0); MEAN CELL VOLUME 94.1 fL CALC (80.0-100.0); MEAN CORPUSCULAR HGB 28.6 pG CALC (26.0-32.0); MEAN CORPUSCULAR HGB CONC 30.3 g/dL CAL (32.0-36.0); NEUT# 1.17 thou/uL (2.00-7.15); RED BLOOD COUNT 4.27 mill/uL (4.20-5.60); RED CELL DISTRI WIDTH 16.8 % (11.5-15.5)
[2021-07-15 06:45] LABS: ALBUMIN 3.4 g/dL (3.2-5.0); BILIRUBIN, TOTAL 0.5 mg/dL (0.0-1.4); CREATININE 1.8 mg/dL (0.5-1.0); MAGNESIUM 1.6 mg/dL (1.6-2.3); POTASSIUM 3.7 mmol/l (3.5-5.1); TOTAL PROTEIN 6.7 g/dL (6.3-8.2)
[2021-07-15 07:00] VITALS: BP 110/77
--- NOTE | 2021-07-15 07:00 | NUR ---
PT REPORT RECEIVED FROM BUSINESS LEADER. PT ALERT/ORIENTED X3, VITAL SIGNS STABLE, DENIES ANY COMPLAINTS AT THIS TIME.
[2021-07-15] MEDS ORDERED: MIRTAZAPINE15 MG PO (07:49)
[2021-07-15] MEDS ORDERED: RESTORIL7.5 MG PO (07:51)
--- NOTE | 2021-07-15 10:10 | NUR ---
pt up to bathroom, no problems, back in bed, no coughing at this time, able to move on own.
[2021-07-15 11:00] VITALS: BP 119/69
--- NOTE | 2021-07-15 11:33 | NUR ---
pt resting quietly on bed, no complaints, vital signs remain stable.
--- NOTE | 2021-07-15 14:30 | NUR ---
PT REQUESTING PAIN MEDICATIONS FOR ALL OVER BODY PAIN, ADVISED I COULD GIVE HER PERCOCET EVERY 6 HOURS AND SHE STATED SHE UNDERSTOOD
[2021-07-15 15:00] VITALS: BP 122/73
--- NOTE | 2021-07-15 16:14 | NUR ---
LEGS REMAIN BILATERALLY RED BUT PT STATES THAT IS A NORMAL FOR HER, BLOOD PRESSURE CUFF IS ON HER LOWER ARM BECAUSE OF THE UPPER ARM SIZE, VITAL SIGNS REMAIN STABLE. PT STATES PAIN HAS DECREASED AND IS JUST GOING TO LAY BACK AND WATCH TV.
[2021-07-15 17:02] VITALS: BP 115/74
--- NOTE | 2021-07-15 17:02 | NUR ---
PATIENT RECEIVED FROM ED AT THIS TIME AND REPORT GIVEN TO THIS NURSE BY TONA SHERWOOD. PATIENT PLACED IN ISOLATION DUE TO COVID STATUS. PATIENT GIVEN ROOM ORIENTATION AT THIS TIME. PATIENT VITAL SIGNS ARE NOTED ON INTERVENTIONS AT THIS TIME. TELE ORDER RECEIVED AND PATIENT PLACE ON TELEMETRY AT THIS TIME. SIDERAILS ARE UP CALL LIGHT WIHTIN REACH. SPO2 AT THIS TIME IS 95% AT ROOM AIR AND NO EVIDENCE OF COUGHING NOTED. WILL CONTINUE TO MONITOR.
--- NOTE | 2021-07-15 17:04 | NUR ---
PT TO MED SURG PER ADRIAN, REPORT GIVEN TO MED SURG NURSE
--- NOTE | 2021-07-15 19:00 | NUR ---
REPORT REC FROM Darrion GARCIA
--- NOTE | 2021-07-15 20:00 | NUR ---
PT WATCHING TV. UPPER LOBES CLEAR, LOWER LOBES DIMINISHED UPON AUSCULTATION. NON LABORED RESPIRATIONS. HEARTH RHYTHM IREGULAR. ACTIVE BOWEL SOUNDS X4 QUADRANTS. RED BILATERAL EDEMA ON LOWER EXTREMITIES. CQALL LIGHT WITHIN REACH.
[2021-07-15 21:15] VITALS: BP 128/80
[2021-07-16 00:30] VITALS: BP 123/69
--- NOTE | 2021-07-16 03:10 | NUR ---
PT C/O LOWER BACK PAIN 02/06. PT WAS MEDICATED. NO DISTRESS NOTED. CALL LIGHT WITHIN REACH.
--- NOTE | 2021-07-16 05:30 | NUR ---
PT SLEEPIN IN BED. HAD TO BE AWAKED TO GIVE SCHEDULES MEDICATION. PT REQUESTED FRESH WATER. PT DENIES PAIN AT THIS MOMENT. CALL LIGHT WITHIN REACH.
[2021-07-16 05:39] VITALS: BP 99/61
--- NOTE | 2021-07-16 08:00 | NUR ---
ASSESSMENT AND VITALS ALLOWED AT THIS TIME. LUNG SOUNDS ARE DIMINISHED UPPER/ LOWER LOBES ANTERIOR AND POSTERIOR. HEART SOUNDS ARE IRREGULAR. TELE MONITOR IN PLACE, CONTINOUS MONITORING PER ED. RADIAL AND PEDAL PULSE WEAK. BOWEL SOUNDS ACTIVE X4. LEGS HAVE EDEMA +1 BILATERALLY AND SOME REDNESS. WITH SCABS ON THE RIGHT FOOT, CRUSTING AND DRY. PT STATES DOES NOT HURT. PT STATES NO PAIN AT THIS TIME. CALL LIGHT WITHIN REACH. FALL/SAFTEY PRECAUTIONS IN PLACE. IV ON THE LW 22G SALINE LOCKED FLUSHED WITH NO RESISATNCE
[2021-07-16 10:40] VITALS: BP 102/67
--- NOTE | 2021-07-16 12:00 | NUR ---
PT EATING LUNCH AT THIS TIME. NO DISTRESS NOTED. CALL LIGHT WITHIN REACH. TELE MONITOR ON.
[2021-07-16] MEDS ORDERED: ZITHROMAX250 MG PO (14:00)
[2021-07-16] MEDS ORDERED: KEFLEX500 MG PO (14:00)
[2021-07-16] MEDS ORDERED: DEXAMETHASON6 MG PO (14:01)
[2021-07-16] MEDS ORDERED: TESSALON PERLE100 MG PO (14:01)
[2021-07-16] MEDS ORDERED: OXY1 (14:02)
[2021-07-16 14:27] VITALS: BP 116/72
[2021-07-16 15:58] LABS: HEMATOCRIT 38.7 % (37.0-47.0); HEMOGLOBIN 11.7 g/dl (12.0-16.0); IMMATURE GRANULOCYTES 0.7 % (0.0-5.0); MEAN CELL VOLUME 95.6 fL CALC (80.0-100.0); MEAN CORPUSCULAR HGB 28.9 pG CALC (26.0-32.0); MEAN CORPUSCULAR HGB CONC 30.2 g/dL CAL (32.0-36.0); NEUT# 3.17 thou/uL (2.00-7.15); RED BLOOD COUNT 4.05 mill/uL (4.20-5.60); RED CELL DISTRI WIDTH 16.9 % (11.5-15.5)
--- NOTE | 2021-07-16 16:00 | NUR ---
PT SITTING ON SIDE OF THE BED. STATES NO NEEDS AT THIS TIME. NO PAIN AT THIS TIME. FALL/SAFTEY PRECAUTIONS IN PLACE. IV PATENT CALL LIGHT WITHIN REACH.
[2021-07-16 16:20] LABS: ALBUMIN 3.4 g/dL (3.2-5.0); BILIRUBIN, TOTAL 0.4 mg/dL (0.0-1.4); C-REACTIVE PROTEIN 2.3 mg/dL (0-0.9); POTASSIUM 3.9 mmol/l (3.5-5.1); TOTAL PROTEIN 6.9 g/dL (6.3-8.2)
== END 2021-07-16 17:28 | disposition home health service (06) | DRG 177 ==
LOC: ED 18:03 → ED-I 20:08 → ED 20:19 → ICU 20:20 → MS2 07-15 17:05
PROVIDERS: Nurse Practitioner; ADMIT Internal Medicine; ATTEND Internal Medicine
PROC: XW033E5 Introduction of Remdesivir Anti-infective into Peripheral Vein, Percutaneous Approach, New Technology Group 5 (ICD-10-PCS; principal; 2021-07-15)
DX: U07.1 COVID-19 (principal); J12.82 Pneumonia due to coronavirus disease 2019; J96.01 Acute respiratory failure with hypoxia; N17.9 Acute kidney failure, unspecified; J44.0 Chronic obstructive pulmonary disease with (acute) lower respiratory infection; I13.0 Hypertensive heart and chronic kidney disease with heart failure and stage 1 through stage 4 chronic kidney disease, or unspecified chronic kidney disease; I48.20 Chronic atrial fibrillation, unspecified; Z68.41 Body mass index [BMI] 40.0-44.9, adult; N39.0 Urinary tract infection, site not specified; I50.9 Heart failure, unspecified; E11.22 Type 2 diabetes mellitus with diabetic chronic kidney disease; N18.30 Chronic kidney disease, stage 3 unspecified; E11.65 Type 2 diabetes mellitus with hyperglycemia; G89.4 Chronic pain syndrome; M10.9 Gout, unspecified; F32.A Depression, unspecified; E66.01 Morbid (severe) obesity due to excess calories; B96.20 Unspecified Escherichia coli [E. coli] as the cause of diseases classified elsewhere; Z87.440 Personal history of urinary (tract) infections; Z98.84 Bariatric surgery status; Z86.718 Personal history of other venous thrombosis and embolism; Z95.828 Presence of other vascular implants and grafts

== ENCOUNTER 2021-07-30 15:14 | Emergency (ER) | payer MEDICARE, OTHER ==
[~2021-07-30] VITALS: Ht 162.6 cm; Wt 130.0 kg
[~2021-07-30 15:14] MED LIST changes: +DEXAMETHASON6 MG PO; +K-TAB20 MEQ PO; +LASIX80 MG PO; +LYRICA150 MG PO; +OXY1; +RESTORIL7.5 MG PO; +ZITHROMAX250 MG PO
[2021-07-30 16:33] LABS: HEMOGLOBIN 11.6 g/dl (12.0-16.0); IMMATURE GRANULOCYTES 0.2 % (0.0-5.0); MEAN CELL VOLUME 95.5 fL CALC (80.0-100.0); MEAN CORPUSCULAR HGB 29.1 pG CALC (26.0-32.0); MEAN CORPUSCULAR HGB CONC 30.5 g/dL CAL (32.0-36.0); NEUT# 7.13 thou/uL (2.00-7.15); RED BLOOD COUNT 3.98 mill/uL (4.20-5.60); RED CELL DISTRI WIDTH 17.5 % (11.5-15.5)
[2021-07-30 16:54] LABS: ALBUMIN 3.7 g/dL (3.2-5.0); CREATININE 1.8 mg/dL (0.5-1.0); POTASSIUM 3.9 mmol/l (3.5-5.1); TOTAL PROTEIN 7.4 g/dL (6.3-8.2)
[2021-07-30 16:57] LABS: BILIRUBIN, TOTAL 0.6 mg/dL (0.0-1.4)
[2021-07-30 17:09] LABS: URINE BILIRUBIN - DIPSTICK NEGATIVE (NEGATIVE); URINE BLOOD DIPSTICK NEGATIVE (NEGATIVE); URINE COLOR YELLOW; URINE GLUCOSE - DIPSTICK NEGATIVE (NEGATIVE); URINE KETONE NEGATIVE (NEGATIVE); URINE LEUK ESTERASE NEGATIVE (NEGATIVE); URINE PROTEIN - DIPSTICK NEGATIVE (NEG-TRACE); URINE UROBILINOGEN - DIPSTICK 0.2 E.U./dL (0.2)
[2021-07-30 17:14] LABS: URINE NITRITE - DIPSTICK NEGATIVE (Negative)
[2021-07-30] MEDS ORDERED: MECLIZINE25 MG PO (20:34)
[2021-07-30 20:42] VITALS: BP 129/68
== END 2021-07-30 23:35 | disposition home or self-care (01) ==
LOC: ED 15:14
PROVIDERS: Family Medicine
DX: R42 Dizziness and giddiness (principal); I12.9 Hypertensive chronic kidney disease with stage 1 through stage 4 chronic kidney disease, or unspecified chronic kidney disease; N18.30 Chronic kidney disease, stage 3 unspecified; E66.01 Morbid (severe) obesity due to excess calories; Z68.42 Body mass index [BMI] 45.0-49.9, adult; I48.91 Unspecified atrial fibrillation; M10.9 Gout, unspecified; G89.4 Chronic pain syndrome; Z98.84 Bariatric surgery status

== ENCOUNTER 2021-09-23 19:59 | Emergency (ER) | payer MEDICARE ==
[~2021-09-23] VITALS: Ht 162.6 cm; Wt 90.0 kg
[~2021-09-23 19:59] MED LIST changes: +MECLIZINE25 MG PO
[2021-09-23 20:06] VITALS: BP 155/117
[2021-09-23 20:45] VITALS: BP 154/93
[2021-09-23 20:50] VITALS: BP 154/83
== END 2021-09-23 20:50 | disposition home or self-care (01) ==
LOC: ED 19:59
DX: I83.891 Varicose veins of right lower extremity with other complications (principal); I12.9 Hypertensive chronic kidney disease with stage 1 through stage 4 chronic kidney disease, or unspecified chronic kidney disease; N18.30 Chronic kidney disease, stage 3 unspecified; I48.91 Unspecified atrial fibrillation; G89.4 Chronic pain syndrome; E66.01 Morbid (severe) obesity due to excess calories; M10.9 Gout, unspecified; Z98.84 Bariatric surgery status

== ENCOUNTER 2021-11-28 12:19 | Inpatient (IN) | payer MEDICARE ==
[~2021-11-28] VITALS: Ht 160 cm; Wt 114.2 kg
[2021-11-28] VITALS (42 sets, daily range): BP systolic 72–130; BP diastolic 47–107
[~2021-11-28 12:19] MED LIST changes: -LASIX80 MG PO; +PAROXETINE40 M1 PO; -PROVENTIL108 MCG/AC
[2021-11-28 13:30] LABS: HEMATOCRIT 43.3 % (37.0-47.0); HEMOGLOBIN 13.1 g/dl (12.0-16.0); IMMATURE GRANULOCYTES 0.1 % (0.0-5.0); MEAN CELL VOLUME 97.3 fL CALC (80.0-100.0); MEAN CORPUSCULAR HGB 29.4 pG CALC (26.0-32.0); MEAN CORPUSCULAR HGB CONC 30.3 g/dL CAL (32.0-36.0); NEUT# 10.25 thou/uL (2.00-7.15); RED BLOOD COUNT 4.45 mill/uL (4.20-5.60); RED CELL DISTRI WIDTH 15.7 % (11.5-15.5)
[2021-11-28 13:44] LABS: PROTHROMBIN TIME 10.4 SECONDS (9.0-12.5)
[2021-11-28 13:47] LABS: CREATININE 1.4 mg/dL (0.5-1.0); POTASSIUM 4.6 mmol/l (3.5-5.1); TOTAL PROTEIN 7.6 g/dL (6.3-8.2)
[2021-11-28 13:48] LABS: BILIRUBIN, TOTAL 0.7 mg/dL (0.0-1.4)
[2021-11-28 14:15] LABS: URINE BILIRUBIN - DIPSTICK NEGATIVE (NEGATIVE); URINE BLOOD DIPSTICK TRACE-INTACT (NEGATIVE); URINE COLOR YELLOW; URINE GLUCOSE - DIPSTICK NEGATIVE (NEGATIVE); URINE KETONE NEGATIVE (NEGATIVE); URINE LEUK ESTERASE NEGATIVE (NEGATIVE); URINE PH 6.5 (4.5-8.0); URINE PROTEIN - DIPSTICK 100 mg/dL (NEG-TRACE); URINE UROBILINOGEN - DIPSTICK 0.2 E.U./dL (0.2)
[2021-11-28 14:18] LABS: URINE NITRITE - DIPSTICK NEGATIVE (Negative)
[2021-11-28 14:25] LABS: URINE RBC 0-2 RBC/hpf (0-5)
[2021-11-28] MEDS ORDERED: BUMETANIDE2 MG PO (15:25)
[2021-11-28] MEDS ORDERED: COLCHICINE0.6 M2 PO (15:28)
[2021-11-29] VITALS (41 sets, daily range): BP systolic 90–157; BP diastolic 42–115
[2021-11-29 05:35] LABS: HEMOGLOBIN 11.2 g/dl (12.0-16.0); IMMATURE GRANULOCYTES 0.3 % (0.0-5.0); MEAN CELL VOLUME 97.9 fL CALC (80.0-100.0); MEAN CORPUSCULAR HGB 29.6 pG CALC (26.0-32.0); MEAN CORPUSCULAR HGB CONC 30.3 g/dL CAL (32.0-36.0); NEUT# 17.1 thou/uL (2.00-7.15); RED BLOOD COUNT 3.78 mill/uL (4.20-5.60); RED CELL DISTRI WIDTH 15.9 % (11.5-15.5)
[2021-11-29 05:46] LABS: CREATININE 1.3 mg/dL (0.5-1.0); MAGNESIUM 2.1 mg/dL (1.6-2.3); POTASSIUM 3.9 mmol/l (3.5-5.1)
[2021-11-29 05:54] LABS: ALBUMIN 3.1 g/dL (3.2-5.0)
[2021-11-29] MEDS ORDERED: PERCOCET 10/31 COMBO PO (08:42)
[2021-11-29] MEDS ORDERED: ALBUTEROL0.63 MG/3 IN (14:36)
[2021-11-30] VITALS (23 sets, daily range): BP systolic 138–180; BP diastolic 83–126
[2021-11-30 03:44] LABS: HEMATOCRIT 34.9 % (37.0-47.0); HEMOGLOBIN 10.3 g/dl (12.0-16.0); MEAN CORPUSCULAR HGB 28.9 pG CALC (26.0-32.0); MEAN CORPUSCULAR HGB CONC 29.5 g/dL CAL (32.0-36.0); RED BLOOD COUNT 3.56 mill/uL (4.20-5.60); RED CELL DISTRI WIDTH 15.9 % (11.5-15.5)
[2021-11-30 03:49] LABS: CREATININE 1.5 mg/dL (0.5-1.0); MAGNESIUM 2.1 mg/dL (1.6-2.3); POTASSIUM 3.9 mmol/l (3.5-5.1)
[2021-12-01] VITALS (10 sets, daily range): BP systolic 106–174; BP diastolic 60–103
[2021-12-01 05:57] LABS: HEMATOCRIT 34.9 % (37.0-47.0); HEMOGLOBIN 10.5 g/dl (12.0-16.0); MEAN CELL VOLUME 99.7 fL CALC (80.0-100.0); MEAN CORPUSCULAR HGB CONC 30.1 g/dL CAL (32.0-36.0); RED BLOOD COUNT 3.5 mill/uL (4.20-5.60)
[2021-12-01 06:11] LABS: CREATININE 1.4 mg/dL (0.5-1.0); POTASSIUM 3.6 mmol/l (3.5-5.1)
[2021-12-02 00:21] VITALS: BP 143/96
[2021-12-02 03:31] VITALS: BP 167/98
[2021-12-02 09:42] VITALS: BP 153/88
[2021-12-02 11:32] VITALS: BP 180/94
[2021-12-02 17:18] VITALS: BP 172/110
[2021-12-02 18:51] VITALS: BP 170/98
[2021-12-03] VITALS (10 sets, daily range): BP systolic 117–193; BP diastolic 66–117
[2021-12-03 04:36] LABS: HEMATOCRIT 33.4 % (37.0-47.0); HEMOGLOBIN 10.1 g/dl (12.0-16.0); MEAN CELL VOLUME 97.9 fL CALC (80.0-100.0); MEAN CORPUSCULAR HGB 29.6 pG CALC (26.0-32.0); MEAN CORPUSCULAR HGB CONC 30.2 g/dL CAL (32.0-36.0); RED BLOOD COUNT 3.41 mill/uL (4.20-5.60); RED CELL DISTRI WIDTH 15.9 % (11.5-15.5)
[2021-12-03 04:51] LABS: CREATININE 1.7 mg/dL (0.5-1.0); MAGNESIUM 1.7 mg/dL (1.6-2.3); POTASSIUM 3.1 mmol/l (3.5-5.1)
[2021-12-03] MEDS ORDERED: AMOX/K CLAV875 M1 PO (15:37)
[2021-12-03] MEDS ORDERED: MEDDOSEPAK PO (15:37)
[2021-12-03] MEDS ORDERED: MUCUS & CH100 MG/5 M PO (15:38)
== END 2021-12-03 19:30 | disposition home or self-care (01) | DRG 871 ==
LOC: ED 12:19 → EDBD 12:19 → ED 13:16 → ED-I 13:50 → ED 14:08 → ICU 14:09 → MS2 11-30 19:43
PROVIDERS: Hospitalist; Nurse Practitioner; ADMIT Internal Medicine; ATTEND Internal Medicine
PROC: 5A09357 Assistance with Respiratory Ventilation, Less than 24 Consecutive Hours, Continuous Positive Airway Pressure (ICD-10-PCS; principal; 2021-11-28)
PROC: 0T9B70Z Drainage of Bladder with Drainage Device, Via Natural or Artificial Opening (ICD-10-PCS; 2021-11-28)
PROC: 02HV33Z Insertion of Infusion Device into Superior Vena Cava, Percutaneous Approach (ICD-10-PCS; 2021-11-29)
PROC: B548ZZA Ultrasonography of Superior Vena Cava, Guidance (ICD-10-PCS; 2021-11-29)
DX: A41.9 Sepsis, unspecified organism (principal); J18.9 Pneumonia, unspecified organism; J96.01 Acute respiratory failure with hypoxia; G93.41 Metabolic encephalopathy; J44.0 Chronic obstructive pulmonary disease with (acute) lower respiratory infection; I13.0 Hypertensive heart and chronic kidney disease with heart failure and stage 1 through stage 4 chronic kidney disease, or unspecified chronic kidney disease; I48.20 Chronic atrial fibrillation, unspecified; L03.116 Cellulitis of left lower limb; L03.115 Cellulitis of right lower limb; N17.9 Acute kidney failure, unspecified; I50.32 Chronic diastolic (congestive) heart failure; R65.20 Severe sepsis without septic shock; I95.9 Hypotension, unspecified; N18.30 Chronic kidney disease, stage 3 unspecified; G62.9 Polyneuropathy, unspecified; G89.4 Chronic pain syndrome; M10.9 Gout, unspecified; F41.9 Anxiety disorder, unspecified; F32.A Depression, unspecified; Z99.81 Dependence on supplemental oxygen; Z79.01 Long term (current) use of anticoagulants; Z86.718 Personal history of other venous thrombosis and embolism; Z87.440 Personal history of urinary (tract) infections; Z20.822 Contact with and (suspected) exposure to COVID-19
CPT/HCPCS: J0131; J1650; J2060; J3370; S0164

== ENCOUNTER 2022-01-31 08:56 | Inpatient (IN) | payer MEDICARE ==
[2022-01-31] VITALS (52 sets, daily range): BP systolic 84–149; BP diastolic 50–120
[~2022-01-31] VITALS: Ht 160 cm; Wt 107.0 kg
[~2022-01-31 08:56] MED LIST changes: +COLCHICINE0.6 M2 PO; +MUCUS & CH100 MG/5 M PO
--- NOTE | 2022-01-31 09:00 | NUR ---
PATIENT BROUGHT IN VIA EMS STRETCHER. RESPIRATORY NOTIFIED. PROVIDER MET PATIENT AND RN'S AT BEDSIDE. PATIENT ALERT AND ORIENTED.
[2022-01-31 09:19] LABS: HEMATOCRIT 42.3 % (37.0-47.0); HEMOGLOBIN 12.5 g/dl (12.0-16.0); IMMATURE GRANULOCYTES 0.2 % (0.0-5.0); MEAN CELL VOLUME 99.5 fL CALC (80.0-100.0); MEAN CORPUSCULAR HGB 29.4 pG CALC (26.0-32.0); MEAN CORPUSCULAR HGB CONC 29.6 g/dL CAL (32.0-36.0); NEUT# 11.86 thou/uL (2.00-7.15); RED BLOOD COUNT 4.25 mill/uL (4.20-5.60); RED CELL DISTRI WIDTH 16.7 % (11.5-15.5)
[2022-01-31 09:33] LABS: ALKALINE PHOSPHATASE 120 u/l (38-126); ANION GAP 8 (6-22 (CALC)); BILIRUBIN, TOTAL 0.7 mg/dL (0.0-1.4); BUN 58 mg/dL (8-23); BUN/CREATININE RATIO 43 (12-20 (CALC)); CARBON DIOXIDE 39 mmol/l (22-30); CHLORIDE 94 mmol/l (95-108); CREATININE 1.4 mg/dL (0.5-1.0); GFR FOR AFR.AMER. 45 ML/MIN (>=60 (CALC)); GFR OTHER RACES 37 ML/MIN (>=60 (CALC)); POTASSIUM 3.6 mmol/l (3.5-5.1); SGOT/AST 45 u/l (9-36); SODIUM 138 mmol/l (137-146); TOTAL PROTEIN 7.3 g/dL (6.3-8.2)
--- NOTE | 2022-01-31 10:00 | NUR ---
Reassessment of patient completed. No distress noted.
[2022-01-31 10:54] LABS: URINE BILIRUBIN - DIPSTICK NEGATIVE (NEGATIVE); URINE BLOOD DIPSTICK NEGATIVE (NEGATIVE); URINE COLOR YELLOW; URINE GLUCOSE - DIPSTICK NEGATIVE (NEGATIVE); URINE KETONE NEGATIVE (NEGATIVE); URINE LEUK ESTERASE NEGATIVE (NEGATIVE); URINE PROTEIN - DIPSTICK NEGATIVE (NEG-TRACE); URINE UROBILINOGEN - DIPSTICK 0.2 E.U./dL (0.2)
[2022-01-31 11:00] LABS: URINE NITRITE - DIPSTICK NEGATIVE (Negative)
--- NOTE | 2022-01-31 11:00 | NUR ---
Reassessment of patient completed. No distress noted.
--- NOTE | 2022-01-31 12:00 | NUR ---
Reassessment of patient completed. No distress noted.
--- NOTE | 2022-01-31 13:00 | NUR ---
Reassessment of patient completed. No distress noted.
--- NOTE | 2022-01-31 14:00 | NUR ---
Reassessment of patient completed. No distress noted.
--- NOTE | 2022-01-31 15:30 | NUR ---
Admission Note Report Given to: PRESLEY AMIN Transported by: Wheelchair X Stretcher Transported with: X Nurse Transporter X Patent IV X O2 X Computer Lab Assistant Location: X ICU MS2
--- NOTE | 2022-01-31 15:34 | NUR ---
PATIENT ARRIVED VIA STRETCHER ALERT AND ORIENTED TIMES 3. PATIENT ARRIVED ON 3L O2 VIA NASAL CANNULA WARREN AND PAIN OR SOB AT THIS TIME. PATIENT HOOKED UP TO MONITORING EQUIPMENT AND USING BEDSIDE COMMODE.
--- NOTE | 2022-01-31 20:00 | NUR ---
SHIFT ASSESSMENT- PT LETHAGIC, BUT STILL ABLE TO FOLLOW COMMANDS. PT DID RECEIVE PAIN MEDICATION EARLIER THIS AFTERNOON. SEARCHED PTS PURSE, AND FOUND A "GAS RELIEF" CONTAINER, BUT THE PILLS INSIDE ARE PERCOCETS . UNABLE TO DETERMINE HOW MANY SHOULD COULD HAVE TAKEN. CONTACTED AGAPITO COSTA AND INFORMED. PTS VITAL SIGNS ARE WITHIN NORMAL LIMITS. AGREED TO LET HER SLEEP IT OFF AT THIS POINT. WILL CONTINUE TO MONITOR CLOSELY.
--- NOTE | 2022-01-31 22:00 | NUR ---
SHIFT REASSESSMENT - PT SLEEPING AT THIS TIME. VITAL SIGNS ARE WITHIN NORMAL LIMITS. CALL LIGHT WITHIN HER REACH. SAFETY PRECAUTIONS ARE IN PLACE. PT BEING CLOSELY MONITORED.
[2022-02-01] VITALS (33 sets, daily range): BP systolic 87–147; BP diastolic 50–94
--- NOTE | 2022-02-01 | NUR ---
SHIFT REASSESSMENT - PT REMAINS ASLEEP BUT EASILY ARROUSABLE. VITAL SIGNS ARE WITHIN NORMAL LIMITS. SAFETY PRECAUTIONS ARE IN PLACE. PT BEING CLOSELY MONITORED.
--- NOTE | 2022-02-01 02:00 | NUR ---
SHIFT REASSESSMENT - PT HIGHLY ALERT AT THIS TIME. PT ANSWERING QUESTIONS APPROPRIATELY. PT EXPLAINED THAT SHE DID TAKE THE PERCOCETS IN HER PURSE WHEN SHE WAS AT HOME, NOT WHILE SHE WAS IN THE HOSPITAL. PT EDUCATION PROVIDED AND EXPLAINED TO HER THAT THE TABLETS WOULD BE CONFISCATED AND RETURNED TO HER AT DISCHARGE. PT WAS ABLE TO GET OUT OF BED AND ON THE COMMODE WITHOUT ASSISTANCE. CALL LIGHT AND PERSONAL BELONGINGS ARE WITHIN REACH. VITAL SIGNS ARE WITHIN NORMAL LIMITS.
--- NOTE | 2022-02-01 04:00 | NUR ---
SHIFT REASSESSMENT - PT ALERT AND ORIENTED. PT REPORTED PAIN. PAIN MEDICATION PROVIDED. CALL LIGHT AND PERSONAL BELONGINGS ARE WITHIN REACH.
[2022-02-01 06:17] LABS: HEMATOCRIT 38.5 % (37.0-47.0); HEMOGLOBIN 11.5 g/dl (12.0-16.0); MEAN CORPUSCULAR HGB 30.2 pG CALC (26.0-32.0); MEAN CORPUSCULAR HGB CONC 29.9 g/dL CAL (32.0-36.0); RED BLOOD COUNT 3.81 mill/uL (4.20-5.60)
[2022-02-01 06:55] LABS: BILIRUBIN, TOTAL 0.5 mg/dL (0.0-1.4); CREATININE 1.2 mg/dL (0.5-1.0); MAGNESIUM 2.1 mg/dL (1.6-2.3); POTASSIUM 3.7 mmol/l (3.5-5.1)
[2022-02-01 07:08] LABS: ALBUMIN 3.1 g/dL (3.2-5.0)
--- NOTE | 2022-02-01 08:00 | NUR ---
PATIENT IS A/OX4 5MM PERRL BILAT EYES. MELIA TO MAKE NEEDS KNOWN TO STAFF. DENIES PAIN AT THIS TIME. CLEAR SPEECH. CLEAR LUNG SOUNDS. ACTIVE BOWEL SOUNDS. SOFT OBESE NON TENDER ABDOMEN. REDDNESS AND WARM TO THE TOUCH BLE. WEAK PULSES. OPEN AREAS IN LOWER LEFT LEG. VITALS ARE STABLE. SAFTEY MEASURES IN PLACE. CALL LIGHT IN REACH. BSC AT BEDSIDE. WILL CONTINUE TO MONITOR PER [facility]'S POLICY.
--- NOTE | 2022-02-01 10:00 | NUR ---
PATIENT UP TO BSC, STEADY.
--- NOTE | 2022-02-01 12:00 | NUR ---
SITTING UP AT BEDSIDE EATING LUNCH
--- NOTE | 2022-02-01 14:00 | NUR ---
patient laying down sleeping
--- NOTE | 2022-02-01 16:00 | NUR ---
patient is sitting up in bed
--- NOTE | 2022-02-01 18:00 | NUR ---
patient is sitting at bedside picking at her scabs on her legs, education provided.
--- NOTE | 2022-02-01 20:00 | NUR ---
PT ALERT AND ORIESTED. FOOLLOWING COMMANDS. UP TO BEDSIDE COMMODE A FEW TIMES WITH STAND ASSES. VITAL SIGNS ARE WITHIN ESA LIMITS. CALL LIGHT AND PERSONSL BELONGINGS AR WITHIN REAH.
[2022-02-02] VITALS (25 sets, daily range): BP systolic 92–190; BP diastolic 55–123
--- NOTE | 2022-02-02 | NUR ---
SHIFT REASSESSMENT - NO CHANGE IN PTS STATUS AT THIS TIME. PT DID REPORT PAIN AND RECEIVED PRN PAIN MEDICATION. VITAL SIGNS ARE WITHIN NORMAL LIMITS. WILL CONTINUE TO MONITOR.
[2022-02-02 05:56] LABS: HEMATOCRIT 34.6 % (37.0-47.0); HEMOGLOBIN 10.4 g/dl (12.0-16.0); IMMATURE GRANULOCYTES 0.2 % (0.0-5.0); MEAN CELL VOLUME 100.6 fL CALC (80.0-100.0); MEAN CORPUSCULAR HGB 30.2 pG CALC (26.0-32.0); MEAN CORPUSCULAR HGB CONC 30.1 g/dL CAL (32.0-36.0); NEUT# 7.82 thou/uL (2.00-7.15); RED BLOOD COUNT 3.44 mill/uL (4.20-5.60)
[2022-02-02 06:36] LABS: CREATININE 1.2 mg/dL (0.5-1.0); POTASSIUM 3.6 mmol/l (3.5-5.1)
--- NOTE | 2022-02-02 10:11 | NUR ---
pt has been up to BSC, HR increases to 150's with activity, Dr Pruitt has been in to see her and changed meds, she is now on RA since start of shift, satting well
--- NOTE | 2022-02-02 17:09 | NUR ---
pt HR remains 80's to 90's until she gets up to BSC, then HR jumps to 140's to 150's, pt denies any distress with movement/activity, no SOB, she has been on RA all day with sats low 90's
[2022-02-03] VITALS (23 sets, daily range): BP systolic 85–184; BP diastolic 57–113
[2022-02-03 05:31] LABS: HEMATOCRIT 34.3 % (37.0-47.0); HEMOGLOBIN 10.1 g/dl (12.0-16.0); IMMATURE GRANULOCYTES 0.2 % (0.0-5.0); MEAN CELL VOLUME 100.3 fL CALC (80.0-100.0); MEAN CORPUSCULAR HGB 29.5 pG CALC (26.0-32.0); MEAN CORPUSCULAR HGB CONC 29.4 g/dL CAL (32.0-36.0); NEUT# 7.16 thou/uL (2.00-7.15); RED BLOOD COUNT 3.42 mill/uL (4.20-5.60); RED CELL DISTRI WIDTH 16.8 % (11.5-15.5)
[2022-02-03 06:00] LABS: CREATININE 1.1 mg/dL (0.5-1.0); POTASSIUM 3.7 mmol/l (3.5-5.1)
--- NOTE | 2022-02-03 15:57 | NUR ---
Transfer to med/surg order received from Dr Pruitt, room 273 recieved from med/surg
--- NOTE | 2022-02-03 15:59 | NUR ---
Attempted to give report to med/surg nurse, nurse unavailable at this time, will call back when available.
--- NOTE | 2022-02-03 16:37 | NUR ---
Hand off report given to Selene, patient going to room 273 by wheelchair when transport help is available.
--- NOTE | 2022-02-03 18:00 | NUR ---
REPORT RECEIVED FROM CONY IN ICU, PT ARRIVED ON UNIT @ 1700 TRANSPORTED VIA W/C AND SETTLED IN BED. ALERT AND ORIENTED X 3, ORIENTED TO ROOM AND CALL WEST, IVF INFUSING, WILL CONTINUE TO MONITOR.
--- NOTE | 2022-02-03 18:34 | NUR ---
PT TO BE PLACED ON TELE, STAFF SENT TO OBTAIN ONE AT THIS TIME
--- NOTE | 2022-02-03 19:25 | NUR ---
REPORT RECEIVED FROM Syed MCINTYRE RN
--- NOTE | 2022-02-03 20:05 | NUR ---
PATIENT ASSESSMENT COMPLETED A THIS TIME.
--- NOTE | 2022-02-03 20:36 | NUR ---
MEDICATIONS ADMINISTERED PER EMAR, SEE EMAR.
--- NOTE | 2022-02-03 23:00 | NUR ---
PAIN RELIEF MEDICATION ADMINISTERED FOR PAIN IN LOWER EXTREMITY RATED 7/10.
[2022-02-04] VITALS (7 sets, daily range): BP systolic 148–174; BP diastolic 79–103
--- NOTE | 2022-02-04 04:10 | NUR ---
PATIENT UP TO THE BSC WITH ASSITANCE X1.
--- NOTE | 2022-02-04 07:46 | NUR ---
PT RESTING IN LOW FOWLERS POSITION. A/OX3 ASSESSMENT AND VS COMPLETED. HEART RHYTHM IRREGULAR. RESPIRATIONS UNLBAORED. RA. BOWEL SOUNDS ACTIVE. REDNESS TO BILATERAL LOWER EXTREMITIES. IV SITE NOTED. PT DENIES ADDITIONAL NEEDS ALL SAFETY PRECAUTIONS IN PLACE.
[2022-02-04 09:55] LABS: CREATININE 1.3 mg/dL (0.5-1.0); POTASSIUM 3.7 mmol/l (3.5-5.1)
--- NOTE | 2022-02-04 12:40 | NUR ---
PT RESTING WITH TELE IN PLACE . LASIX PO MED PROVIDED. PER EMAR. DENIES ADDITIONAL NEEDS.
--- NOTE | 2022-02-04 15:55 | NUR ---
PT RESTING IN HIGH FOWLERS POSITION. PT DENIES ADDITIONAL NEEDS AT THE MOMENT ALLS AEFTY PRECAUTIONS IN PLACE.
--- NOTE | 2022-02-04 19:40 | NUR ---
ASSESSMENT COMPLETED, PT ASSISTED TO BSC. MEDICATED ORDERS PROVIDE. PROVIDED SODA AND ICE PER REQUEST. LEFT UPRIGHT IN BED, BED IN LOWEST POSITION, BSC AT SIDE AND CALL LIGHT W/IN REACH.
--- NOTE | 2022-02-04 23:25 | NUR ---
ED CALLED TO REPORT PT'S HR ELEVATED IN 120'S. UPON ENTERING THE ROOM, SHE WAS FOUND TO BE TRANSFERRING FROM BSC TO THE BED. DENIES ANY DISTRESS, ASKED FOR BSC TO BE EMPTIED. 900CC OF URINE AND MODERATE AMOUT OF STOOL EMPTIED FROM THE COMMODE. SHE IS BACK IN BED AND PROVIDED FOOD WRAP AND DRINK/ICE PER REQUEST. ED NOTIFIED OF PT MOVEMENT R/T ELEVATED HR.
--- NOTE | 2022-02-05 00:30 | NUR ---
pt awake watching tv and eating snack. Medicated for pain 7/10 on pain scale in lower back and lower ext bilat. Antibiotic therapy administered at this time also/site appears healthy. call light w/in reach.
[2022-02-05 00:32] VITALS: BP 148/76
[2022-02-05 04:19] VITALS: BP 128/84
[2022-02-05 06:19] VITALS: BP 165/99
[2022-02-05 08:00] VITALS: BP 165/99
--- NOTE | 2022-02-05 08:00 | NUR ---
PT RESTING IN LOW FOWLERS POSITION. A/OX3 ASSESSMENT AND VS COMPLETED. HEART RHYTHM ABNORMAL ON TELE ,.RESPIRARTIONS EVEN AND UNLABORED. BOWEL SOUNDS ACTIVE. IV SITE NOTED INFUSING WITH NS . PT DENIES ADDITIONAL NEEDS AT THE TIME OTHER THAN A SHOWER. LINEN PROVIDED. PT STATES SHE MIGHT BE DC TODAY. ALSAFETY PRECAUTIONS IN PLACE.
[2022-02-05] MEDS ORDERED: TOPROL XL50 MG PO (11:55)
[2022-02-05] MEDS ORDERED: VIBRAMYCIN100 M2 PO (11:55)
--- NOTE | 2022-02-05 12:00 | NUR ---
PT TO BE DC.
[2022-02-05 12:04] VITALS: BP 154/93
--- NOTE | 2022-02-05 14:30 | NUR ---
Discharge instructions given. Patient verbalizes understanding of same. Discharged in stable condition via Wheelchair to Home with staff. All belongings sent with pt. iv removed . tele removed er informed.
--- NOTE | 2022-02-05 16:27 | NUR ---
Attempted evl- patient busy with ADL and then prepping for DC. She will follow up as an outpatient
== END 2022-02-05 14:24 | disposition home or self-care (01) | DRG 871 ==
LOC: ED 08:56 → ED-I 11:42 → ED 11:56 → ICU 11:56 → MS2 02-03 17:04
PROVIDERS: Family Medicine; ADMIT Internal Medicine; ATTEND Internal Medicine
DX: A41.9 Sepsis, unspecified organism (principal); J18.9 Pneumonia, unspecified organism; J96.00 Acute respiratory failure, unspecified whether with hypoxia or hypercapnia; J44.0 Chronic obstructive pulmonary disease with (acute) lower respiratory infection; I13.0 Hypertensive heart and chronic kidney disease with heart failure and stage 1 through stage 4 chronic kidney disease, or unspecified chronic kidney disease; I50.32 Chronic diastolic (congestive) heart failure; I48.20 Chronic atrial fibrillation, unspecified; Z68.41 Body mass index [BMI] 40.0-44.9, adult; R65.20 Severe sepsis without septic shock; I95.9 Hypotension, unspecified; E11.22 Type 2 diabetes mellitus with diabetic chronic kidney disease; N18.30 Chronic kidney disease, stage 3 unspecified; E11.51 Type 2 diabetes mellitus with diabetic peripheral angiopathy without gangrene; G89.4 Chronic pain syndrome; E66.01 Morbid (severe) obesity due to excess calories; F41.9 Anxiety disorder, unspecified; F32.9 Major depressive disorder, single episode, unspecified; Z79.01 Long term (current) use of anticoagulants; Z79.891 Long term (current) use of opiate analgesic; Z87.440 Personal history of urinary (tract) infections; Z86.718 Personal history of other venous thrombosis and embolism; Z98.84 Bariatric surgery status; Z95.828 Presence of other vascular implants and grafts; Z20.822 Contact with and (suspected) exposure to COVID-19
CPT/HCPCS: Q9967

== ENCOUNTER 2022-03-13 14:12 | Inpatient (IN) | payer MEDICARE ==
[~2022-03-13] VITALS: Ht 160 cm; Wt 109.8 kg
[~2022-03-13 14:12] MED LIST changes: -K-TAB20 MEQ PO; +TOPROL XL50 MG PO; +VIBRAMYCIN100 M2 PO
[2022-03-13] MEDS ORDERED: BUMETANIDE1 MG PO (14:25)
[2022-03-13 15:00] VITALS: BP 158/97
[2022-03-13 15:01] VITALS: BP 158/97
[2022-03-13 15:04] LABS: HEMATOCRIT 40.5 % (37.0-47.0); HEMOGLOBIN 12.9 g/dl (12.0-16.0); IMMATURE GRANULOCYTES 0.2 % (0.0-5.0); MEAN CELL VOLUME 93.5 fL CALC (80.0-100.0); MEAN CORPUSCULAR HGB 29.8 pG CALC (26.0-32.0); MEAN CORPUSCULAR HGB CONC 31.9 g/dL CAL (32.0-36.0); NEUT# 6.54 thou/uL (2.00-7.15); RED BLOOD COUNT 4.33 mill/uL (4.20-5.60); RED CELL DISTRI WIDTH 15.9 % (11.5-15.5)
[2022-03-13 15:27] LABS: ALBUMIN 4.4 g/dL (3.2-5.0); BILIRUBIN, TOTAL 0.4 mg/dL (0.0-1.4); CREATININE 2.5 mg/dL (0.5-1.0); MAGNESIUM 1.8 mg/dL (1.6-2.3); POTASSIUM 2.7 mmol/l (3.5-5.1); TOTAL PROTEIN 7.9 g/dL (6.3-8.2)
--- NOTE | 2022-03-13 15:34 | NUR ---
PT RESTING IN SEMI FOWLERS POSITION. A/OX3 ASSESSMENT AND VS COMPLETED. PT HEART RHYTHM NOW ON TELE SR. NEW IV SITE TO RIGHT ARM 20G. SALINE LOCK. RESPIRATIONS UNLABORED. BOWEL SOUNDS ACTIVE. PT WOUND TO LLE. PICTURES IN CHART. PT XRAY COMPLETE. TO TRANSPORT TO XRAY,. PT DENIES ADDITIONAL NEEDS AT THE TIME ALL SAFETY PRECAUTIONS IN PLACE. CALL LIGHT IN REACH.
--- NOTE | 2022-03-13 15:45 | NUR ---
CALLED DR CASEY OFFICE FOR CONSULTATION ON THIS PT. SPOKE TO SANDI AT OFFICE STATED SHE WILL GIVE HIM THE MESSAGE.
--- NOTE | 2022-03-13 16:32 | NUR ---
PT RESTING IN LOW FOWLERS POSITION PT DENIES ADDITIONAL NEEDS AT THE TIME ALL SAFETY PRECAUTIONS IN PLACE.
[2022-03-13 16:41] VITALS: BP 109/72
[2022-03-13 17:09] LABS: URINE BILIRUBIN - DIPSTICK NEGATIVE (NEGATIVE); URINE BLOOD DIPSTICK MODERATE (NEGATIVE); URINE CLARITY CLOUDY; URINE COLOR YELLOW; URINE GLUCOSE - DIPSTICK NEGATIVE (NEGATIVE); URINE KETONE NEGATIVE (NEGATIVE); URINE LEUK ESTERASE SMALL (Negative); URINE NITRITE - DIPSTICK NEGATIVE (Negative); URINE PH 6.5 (4.5-8.0); URINE PROTEIN - DIPSTICK NEGATIVE (NEG-TRACE)
[2022-03-13 17:17] LABS: URINE AMORPH SEDIMENT MANY hpf (NONE-FEW); URINE MUCUS MODERATE hpf (NONE-FEW); URINE SQUAMOUS EPITHELIAL CELL MODERATE EPI/hpf (0-FEW)
[2022-03-13 17:18] LABS: URINE BACTERIA MODERATE hpf
[2022-03-13 19:16] VITALS: BP 155/87
--- NOTE | 2022-03-13 19:20 | NUR ---
REPORT RECIEVED. PATIENT WANTING HOME MED TO BE RESTARTED. PATIENT ABLE TO SELF TURN IN BED. PATIENT WENT FROM SUPINE TO SETTING ON THE SIDE OF THE BED. BLE ARE REDDENED AND DISCOLORED. PATIENT REPORTS CHRONIC PAIN TO BLE. WILL CONTINUE TO MONITOR.
[2022-03-13 22:16] VITALS: BP 75/57
[2022-03-13 22:43] VITALS: BP 120/69
--- NOTE | 2022-03-14 03:10 | NUR ---
POTASSIUM 40 MEQ REPLACED IV REDUCED RATE DUE TO SLIGHT BURNING DISCOMFERT TO PATIENT. AFTER REDUCING RATE PATIENT WAS ABLE TO SLEEP. WILL CONTINUE TO MONITOR
[2022-03-14 05:31] VITALS: BP 111/52
[2022-03-14 06:51] LABS: ALBUMIN 3.7 g/dL (3.2-5.0); CREATININE 1.9 mg/dL (0.5-1.0); MAGNESIUM 1.7 mg/dL (1.6-2.3); TOTAL PROTEIN 6.8 g/dL (6.3-8.2)
[2022-03-14 06:56] LABS: BILIRUBIN, TOTAL 0.6 mg/dL (0.0-1.4); POTASSIUM 3.4 mmol/l (3.5-5.1)
[2022-03-14 06:58] VITALS: BP 135/74
--- NOTE | 2022-03-14 08:23 | NUR ---
PT RESTING IN SEMI FOWLERSPOSITION.A/OX3 ASSESSMENT AND VS COMPLETE.HEART RHYTHM ON TELE. RESPIRAITONS UNLABORED. BOWEL SOUNDS ACTIVE. IV SITE TO 20G RIGHT WRIST. PT STATES PAIN MEDICATION HELPED. WOUNDS TO LLE. NOTED. PT DENIES ADDITIONAL NEEDS AT THE TIME ALLSAFETY PRECAUTIONSIN PLACE WITH CALLLIGHT IN REACH.
[2022-03-14 10:55] VITALS: BP 145/82
--- NOTE | 2022-03-14 11:31 | NUR ---
S: OCTAVIA LEWIS is a 66 F who presents with <SSTI>. She has a history of <diastolic CHF, Afib, hypertension, CKD stage 3 and chronic venous ulcer in both legs>. All medications in patient's chart were reviewed. O: VS: BP <145/82mmHg>, P<92bpm>, RR<18bpm>,T<97.1> W <107kg>, HT<160.02cm>, Scr=<1.9>,CrCl= <33.2ml/min> A: Wound culture <is pending>. P: Patient is on <cefepime 1g IV q12h>. Vancomycin ordered for pharmacy to dose. Start Vancomycin <1500mg> IV Q<36>H. Draw vancomycin level <03/17/2022 @1130) Vancomycin goal trough is between <10-15 mcg/ml>. Pharmacy will follow and or advise on antibiotics use as needed.
--- NOTE | 2022-03-14 12:00 | NUR ---
VOLLECTION OF WOUND CULTURE COMPLETED. LAB CALLED. FOR STEEL BURNER PT DENIES ADDITIONAL NEEDS AT THE TIME.
[2022-03-14 15:26] VITALS: BP 111/56
--- NOTE | 2022-03-14 15:58 | NUR ---
PT DENIES ADDITIONAL NEEDS AT THE TIMEALLSFETY PRECAUTIONS IN PLACE.CALLLGIHT INR EACH.
--- NOTE | 2022-03-14 17:22 | NUR ---
PROVIDER INFORMED OF PT AFIB PROVIDER STATED IF TRUE RHYTHM CHANGE EKG TO BE ORDERED. ALLSAFETY PRECAUTIONS IN PLACE.
[2022-03-14 19:30] VITALS: BP 110/58
[2022-03-15] VITALS (9 sets, daily range): BP systolic 94–132; BP diastolic 56–77
[2022-03-15 06:16] LABS: HEMATOCRIT 35.2 % (37.0-47.0); HEMOGLOBIN 11.4 g/dl (12.0-16.0); MEAN CELL VOLUME 91.9 fL CALC (80.0-100.0); MEAN CORPUSCULAR HGB 29.8 pG CALC (26.0-32.0); MEAN CORPUSCULAR HGB CONC 32.4 g/dL CAL (32.0-36.0); RED BLOOD COUNT 3.83 mill/uL (4.20-5.60); RED CELL DISTRI WIDTH 15.6 % (11.5-15.5)
[2022-03-15 06:28] LABS: ALBUMIN 3.4 g/dL (3.2-5.0); CREATININE 1.9 mg/dL (0.5-1.0); MAGNESIUM 1.7 mg/dL (1.6-2.3); POTASSIUM 2.8 mmol/l (3.5-5.1)
--- NOTE | 2022-03-15 08:30 | NUR ---
PT SITTING ON BED HIGH FOWLERS: A&OX3. EVEN AND UNLABORED RESPIRATIONS: CLEAR LUNG SOUNDS UPON AUSCULTATION. TELEMETRY IN PLACE. IV SITE HEALTHY AND PATENT. ACTIVE BOWEL SOUNDS X4 QUADRANTS. SAFETY PRECAUTIONS IN PLACE WITH CALL LIGHT IN REACH.
--- NOTE | 2022-03-15 09:35 | NUR ---
PT C/O PAIN LEFT LEG, LEVEL 7/10; ADMINISTERED PAIN MED PER EMAR. SAFETY PRECAUTIONS IN PLACE WITH CALL LIGHT IN REACH.
--- NOTE | 2022-03-15 12:20 | NUR ---
PT SITTING ON BED HIGH FOWLERS, EATING LUNCH. NO DISTRESS OR PAIN NOTED. IV SITE HEALTHY AND PATENT INFUSING POTASSIUM PER EMAR. NO NEEDS AT THIS TIME. SAFETY PRECAUTIONS IN PLACE WITH CALL LIGHT IN REACH.
--- NOTE | 2022-03-15 16:44 | NUR ---
PT SITTING ON BED WATCHING TV. NO DISTRESS OR PAIN NOTED. ADMINISTERED SCHEDULED MEDICATION. IV SITE HEALTHY AND PATENT. SAFETY PRECAUTIONS IN PLACE WITH CALL LIGHT IN REACH.
[2022-03-16] VITALS (7 sets, daily range): BP systolic 107–134; BP diastolic 67–79
[2022-03-16 06:01] LABS: HEMOGLOBIN 12.1 g/dl (12.0-16.0); MEAN CELL VOLUME 93.4 fL CALC (80.0-100.0); MEAN CORPUSCULAR HGB 29.7 pG CALC (26.0-32.0); MEAN CORPUSCULAR HGB CONC 31.8 g/dL CAL (32.0-36.0); RED BLOOD COUNT 4.07 mill/uL (4.20-5.60); RED CELL DISTRI WIDTH 15.7 % (11.5-15.5)
[2022-03-16 06:31] LABS: ALBUMIN 3.6 g/dL (3.2-5.0); CREATININE 1.8 mg/dL (0.5-1.0); MAGNESIUM 1.8 mg/dL (1.6-2.3)
[2022-03-16 06:41] LABS: POTASSIUM 3.8 mmol/l (3.5-5.1)
--- NOTE | 2022-03-16 08:35 | NUR ---
PT SITTING ON HIGH FOWLERS; A&O X3. EVEN AND UNLABORED RESPIRATIONS: CLEAR LUNG SOUNDS UPON AUSCULTATION. NO IV SITE. ACTIVE BOWEL SOUNDS X4 QUADRANTS. SAFETY PRECAUTIONS IN PLACE WITH CALL LIGHT IN REACH.
--- NOTE | 2022-03-16 13:54 | NUR ---
PT C/O PAIN ON R
--- NOTE | 2022-03-16 13:54 | NUR ---
PT C/O PAIN ON LEFT LEG LEVEL 7/10; ADMINISTERED PAIN MED PER EMAR. SAFETY PRECAUTION SIN PLACE WITH CALL LIGHT IN REACH.
--- NOTE | 2022-03-16 17:20 | NUR ---
#22G LFA x1 attempt initiated at this time. pt tolerated well. good blood return, flushes with ease.
--- NOTE | 2022-03-16 17:51 | NUR ---
PT LYING ON BED. NO PAIN OR DISTRESS NOTED. NEW IV SITE PLACE BY DELMI RN : #22 LF FOREARM, WITH GOOD BLOOD RETURN. HANGING SCHEDULED ABX. SAFETY PRECAUTIONS IN PLACE WITH CALL LIGHT IN REACH.
--- NOTE | 2022-03-16 20:35 | NUR ---
PT IN BED WATCHING TV, NO S/S OF DISTRESS NOTED. ASSESMENT COMPLETED, PT HAS A 22G LFA SL PATEMT AND FLUSHES WELL. CALL LIGHT IN REACH AND BED IN LOWEST POSITION.
--- NOTE | 2022-03-16 23:28 | NUR ---
PT REQUEST TO REVOME DRESSING TO LEFT LEG. DRESSING REVOME PER PT REQUEST.
--- NOTE | 2022-03-17 00:45 | NUR ---
PT IN BED [id number] WITH EYES CLOSED BRESTHING EVEN AND UNLABORED. NO S/S OF DISTRESS NOTED. CALL LIGHT INREACH AND BED IN LOWEST POSITION.
--- NOTE | 2022-03-17 04:12 | NUR ---
PT IN BED RESTING WITH EYES CLOSED BREATHING EVEN AN DUNLABORED. NO S/S OF DISTRESS NOTED. CALL LIGHT IN REACH AND BED IN LOWEST POSITION.
[2022-03-17 04:31] VITALS: BP 133/83
[2022-03-17 05:25] LABS: HEMATOCRIT 38.3 % (37.0-47.0); HEMOGLOBIN 12.2 g/dl (12.0-16.0); IMMATURE GRANULOCYTES 0.3 % (0.0-5.0); MEAN CORPUSCULAR HGB 29.6 pG CALC (26.0-32.0); MEAN CORPUSCULAR HGB CONC 31.9 g/dL CAL (32.0-36.0); NEUT# 3.32 thou/uL (2.00-7.15); RED BLOOD COUNT 4.12 mill/uL (4.20-5.60); RED CELL DISTRI WIDTH 15.6 % (11.5-15.5)
[2022-03-17 06:10] LABS: ALBUMIN 3.5 g/dL (3.2-5.0); CREATININE 2.1 mg/dL (0.5-1.0); POTASSIUM 3.8 mmol/l (3.5-5.1)
--- NOTE | 2022-03-17 06:35 | NUR ---
PT BUN IS [address] PATEL NOTIFIED.
--- NOTE | 2022-03-17 07:00 | NUR ---
RECEIVED REPORT FROM ROXY MONROE.
[2022-03-17 07:28] VITALS: BP 129/86
--- NOTE | 2022-03-17 08:35 | NUR ---
PT SITTING ON SIDE OF BED: A&O X3. EVEN AND UNLABORED RESPIRATIONS ON KAYLAN. TELEMETRY IN PLACE. IV SITE HEALTHY AND PATENT. ACTIVE BOWEL SOUNDS X4 QUADRANTS. PACO WRAP ON RT LEG: CDI. SAFETY PRECAUTIONS IN PLACE WITH CALL LIGHT IN REACH.
[2022-03-17 11:28] VITALS: BP 110/67
--- NOTE | 2022-03-17 11:50 | NUR ---
PT SITTING ON SIDE OF BED. PT C/O LOWER BACK PAIN AND ARON LOWER EXTREMITIES, LEVEL 8/10; ADMINISTERED PAIN MED PER EMAR. SAFETY PRECAUTIONS IN PLACE WITH CALL LIGHT IN REACH.
--- NOTE | 2022-03-17 16:10 | NUR ---
PT SITTING ON SIDE OF BED. NO DISTRESS OR PAIN NOTED. ICE WATER PROVIDED PER PT'S REQUEST. IV SITE HEALTHY AND PATENT. NO NEEDS AT THIS TIME. SAFETY PRECAUTIONS IN PLACE WITH CALL LIGHT IN REACH.
[2022-03-17 16:16] VITALS: BP 119/71
[2022-03-17 19:45] VITALS: BP 109/68
--- NOTE | 2022-03-17 20:35 | NUR ---
PT IN BED WATCHING TV. NO S/S OF DISTRESS NOTED. ASSEMENT COMPLETED. CALL LIGHT IN REACH AND BED IN LOWEST POSITION.
[2022-03-18 00:14] VITALS: BP 113/74
--- NOTE | 2022-03-18 00:40 | NUR ---
PT IN BED RESTING WITH EYES CLOSED BREATHING EVEN AND UNLABORED. NO S/S OF DISTRESS NOTED. CALL LIGHT IN REACH AND BED IN LOWEST POSITION.
--- NOTE | 2022-03-18 04:00 | NUR ---
PT IN BED RESTING WITH EYES CLOSED BREATHING EVEN AND UNLABORED. NO S/S OF DISTRESS NOTED. CALL LIGHT IN REACH AND BED IN LOWEST POSITION.
[2022-03-18 04:58] VITALS: BP 150/58
[2022-03-18 05:38] LABS: ALBUMIN 3.5 g/dL (3.2-5.0); CREATININE 1.7 mg/dL (0.5-1.0); POTASSIUM 3.8 mmol/l (3.5-5.1)
--- NOTE | 2022-03-18 07:28 | NUR ---
PT RESTING IN LOW FOWLERS POSITION. PT A/OX3 ASSESSMENT COMPLETED . HEART RHYTHM ON TELE AFIB. RESPIRATIONS UNLABORED. BOWEL SOUNDS ACTIVE. IV SITE NOTED TO LEFT ARM S.L PT DENIES ADDITIONAL NEEDS AT THE TIME PT DRESSING TO RIGHT AND LEFT LEG CDI. ALL SFETY PRECAUTIONS IN [facility] CALL LIGHT INREACH.
[2022-03-18 07:38] VITALS: BP 104/56
[2022-03-18 10:02] VITALS: BP 139/89
--- NOTE | 2022-03-18 12:13 | NUR ---
PT RESTING IN LOW FOWLERS DENIES ADDITIONAL NEEDS AT THE TIME
--- NOTE | 2022-03-18 14:47 | NUR ---
S: OCTAVIA LEWIS is a 66 F who presents with SSTI. She has a history of HTN, RLE DVT/cellulitis/vascular insufficiency, chronic afib, CKD stage 3, chronic back pain, depression, decompensated HF, UTI, COPD, shingles, hypokalemia, urinary incontinence, DM, pneumonia, and morbid obesity. All medications in patient's chart were reviewed. O: VS: BP 139/89 mmHg, P 82 bpm, RR 18 bpm, T 97.9 F W 111.5 kg, HT 160.02 cm, Scr= 1.7 mg/dL, CrCl= 38.0 ml/min Vancomycin trough level on 03/17/22 @ 1126= 14 ug/mL A: Wound culture shows MRSA growth which is sensitive to vancomycin. P: Patient is not on any antibiotics. Vancomycin ordered for pharmacy to dose. Continue Vancomycin 1500mg IV Q36H. Vancomycin trough is drawn before the 4th dose on 03/20/22 @ 1130. Vancomycin goal trough is between 10-15 mcg/ml. Pharmacy will follow and or advise on antibiotics use as needed.
--- NOTE | 2022-03-18 15:50 | NUR ---
PT MEDICATED PER EMAR. FOR PAIN.
[2022-03-18 18:41] VITALS: BP 114/66
[2022-03-19 00:09] VITALS: BP 113/56
[2022-03-19 04:41] VITALS: BP 134/86
--- NOTE | 2022-03-19 04:58 | NUR ---
PT WAS WEIGHED ON STANDING SCALE (109.8 KG)
[2022-03-19 06:20] LABS: ALBUMIN 3.5 g/dL (3.2-5.0); CREATININE 2.1 mg/dL (0.5-1.0); POTASSIUM 3.5 mmol/l (3.5-5.1)
[2022-03-19 06:45] VITALS: BP 101/68
--- NOTE | 2022-03-19 07:05 | NUR ---
PT RESTING IN HIGH FOWLERS POSITION. A/OX3 ASSESSMENT AND VS COMPLETED. HEART RHYTHM IRREGULAR ON TELE. RESPIRATIONS UNLABORED ON RA. BOWEL SOUNDS ACTIVE. IV SITE NOTED . PT DENIES ADDITIONAL NEEDS AT THE TIME ALL SAFETY PRECAUTIONS IN PLACE CALL LIGHT IN REACH.
[2022-03-19 09:14] VITALS: BP 126/63
[2022-03-19] MEDS ORDERED: LASIX 40 MG TAB40 MG PO (11:34)
[2022-03-19] MEDS ORDERED: ZYVOX600 MG PO (11:35)
[2022-03-19] MEDS ORDERED: MUPIROCIN2 % EX (11:35)
--- NOTE | 2022-03-19 12:19 | NUR ---
PT TO BE DC ALL SAFETY PRECAUTIONS IN PLACE.
--- NOTE | 2022-03-19 14:44 | NUR ---
Discharge instructions given. Patient verbalizes understanding of same. Discharged in stable condition via Wheelchair to Home with volunteer. All belongings sent with pt. iv removed catheter intact tele removed.
== END 2022-03-19 14:42 | disposition home or self-care (01) | DRG 291 ==
LOC: MS2 14:12
PROVIDERS: Internal Medicine; Internal Medicine Nephrology; ADMIT Internal Medicine; ATTEND Internal Medicine
DX: I13.0 Hypertensive heart and chronic kidney disease with heart failure and stage 1 through stage 4 chronic kidney disease, or unspecified chronic kidney disease (principal); I50.33 Acute on chronic diastolic (congestive) heart failure; N17.9 Acute kidney failure, unspecified; I48.20 Chronic atrial fibrillation, unspecified; E87.1 Hypo-osmolality and hyponatremia; L97.929 Non-pressure chronic ulcer of unspecified part of left lower leg with unspecified severity; L97.919 Non-pressure chronic ulcer of unspecified part of right lower leg with unspecified severity; N18.30 Chronic kidney disease, stage 3 unspecified; J44.9 Chronic obstructive pulmonary disease, unspecified; E87.6 Hypokalemia; I87.2 Venous insufficiency (chronic) (peripheral); F32.A Depression, unspecified; G89.4 Chronic pain syndrome; Z86.718 Personal history of other venous thrombosis and embolism; B95.62 Methicillin resistant Staphylococcus aureus infection as the cause of diseases classified elsewhere; Z87.440 Personal history of urinary (tract) infections; Z98.84 Bariatric surgery status; Z95.828 Presence of other vascular implants and grafts; Z20.822 Contact with and (suspected) exposure to COVID-19
CPT/HCPCS: J0692; J2020; J3370; Q3014

== ENCOUNTER 2022-03-26 09:05 | Inpatient (IN) | payer MEDICARE ==
[~2022-03-26] VITALS: Ht 165.1 cm; Wt 112.5 kg
[2022-03-26] VITALS (21 sets, daily range): BP systolic 99–169; BP diastolic 68–107
[~2022-03-26 09:05] MED LIST changes: +MUPIROCIN2 % EX; +ZYVOX600 MG PO
[2022-03-26 09:52] LABS: URINE BILIRUBIN - DIPSTICK NEGATIVE (NEGATIVE); URINE BLOOD DIPSTICK TRACE-INTACT (NEGATIVE); URINE COLOR YELLOW; URINE GLUCOSE - DIPSTICK NEGATIVE (NEGATIVE); URINE KETONE NEGATIVE (NEGATIVE); URINE LEUK ESTERASE NEGATIVE (NEGATIVE); URINE PH 5.5 (4.5-8.0); URINE PROTEIN - DIPSTICK NEGATIVE (NEG-TRACE); URINE SPECIFIC GRAVITY 1.015; URINE UROBILINOGEN - DIPSTICK 0.2 E.U./dL (0.2)
[2022-03-26 09:54] LABS: HEMATOCRIT 42.4 % (37.0-47.0); HEMOGLOBIN 12.8 g/dl (12.0-16.0); IMMATURE GRANULOCYTES 0.4 % (0.0-5.0); MEAN CELL VOLUME 96.4 fL CALC (80.0-100.0); MEAN CORPUSCULAR HGB 29.1 pG CALC (26.0-32.0); MEAN CORPUSCULAR HGB CONC 30.2 g/dL CAL (32.0-36.0); NEUT# 4.92 thou/uL (2.00-7.15); RED BLOOD COUNT 4.4 mill/uL (4.20-5.60); RED CELL DISTRI WIDTH 15.3 % (11.5-15.5)
[2022-03-26 10:00] LABS: URINE EPITHELIAL CELLS FEW EPI/hpf (0-FEW); URINE NITRITE - DIPSTICK POSITIVE (Negative); URINE RBC 0-2 RBC/hpf (0-5)
[2022-03-26 10:02] LABS: URINE BACTERIA MODERATE hpf
[2022-03-26 10:16] LABS: ALBUMIN 4.2 g/dL (3.2-5.0); ALKALINE PHOSPHATASE 99 u/l (38-126); BILIRUBIN, TOTAL 0.6 mg/dL (0.0-1.4); CARBON DIOXIDE 34 mmol/l (22-30); CHLORIDE 98 mmol/l (95-108); CREATININE 1.9 mg/dL (0.5-1.0); GFR FOR AFR.AMER. 32 ML/MIN (>=60 (CALC)); GFR OTHER RACES 26 ML/MIN (>=60 (CALC)); POTASSIUM 3.7 mmol/l (3.5-5.1); SGOT/AST 36 u/l (9-36); TOTAL PROTEIN 7.9 g/dL (6.3-8.2)
[2022-03-26 10:19] LABS: ANION GAP 12 (6-22 (CALC)); BUN 54 mg/dL (8-23); BUN/CREATININE RATIO 28 (12-20 (CALC)); SODIUM 140 mmol/l (137-146)
[2022-03-27 00:01] VITALS: BP 94/61
[2022-03-27 04:24] VITALS: BP 111/68
[2022-03-27 05:49] LABS: HEMATOCRIT 42.5 % (37.0-47.0); HEMOGLOBIN 12.3 g/dl (12.0-16.0); MEAN CELL VOLUME 100.7 fL CALC (80.0-100.0); MEAN CORPUSCULAR HGB 29.1 pG CALC (26.0-32.0); MEAN CORPUSCULAR HGB CONC 28.9 g/dL CAL (32.0-36.0); RED BLOOD COUNT 4.22 mill/uL (4.20-5.60); RED CELL DISTRI WIDTH 15.5 % (11.5-15.5)
[2022-03-27 05:56] LABS: ALBUMIN 3.7 g/dL (3.2-5.0); CREATININE 2.1 mg/dL (0.5-1.0); MAGNESIUM 2.1 mg/dL (1.6-2.3); POTASSIUM 3.9 mmol/l (3.5-5.1); TOTAL PROTEIN 6.5 g/dL (6.3-8.2)
[2022-03-27 06:07] LABS: BILIRUBIN, TOTAL 0.3 mg/dL (0.0-1.4)
[2022-03-27 07:09] VITALS: BP 127/73
[2022-03-27 10:42] VITALS: BP 120/72
[2022-03-27 14:44] VITALS: BP 103/54
[2022-03-27 19:00] VITALS: BP 106/65
[2022-03-28 04:00] VITALS: BP 105/55
[2022-03-28 06:28] LABS: HEMOGLOBIN 10.7 g/dl (12.0-16.0); MEAN CELL VOLUME 98.9 fL CALC (80.0-100.0); MEAN CORPUSCULAR HGB 29.3 pG CALC (26.0-32.0); MEAN CORPUSCULAR HGB CONC 29.6 g/dL CAL (32.0-36.0); RED BLOOD COUNT 3.65 mill/uL (4.20-5.60); RED CELL DISTRI WIDTH 15.2 % (11.5-15.5)
[2022-03-28 06:29] LABS: HEMATOCRIT 36.1 % (37.0-47.0)
[2022-03-28 06:42] VITALS: BP 128/68
[2022-03-28 06:46] LABS: CREATININE 1.8 mg/dL (0.5-1.0); MAGNESIUM 1.9 mg/dL (1.6-2.3); POTASSIUM 3.4 mmol/l (3.5-5.1)
[2022-03-28 10:42] VITALS: BP 136/57
[2022-03-28 16:10] VITALS: BP 127/76
[2022-03-28 18:48] VITALS: BP 142/66
[2022-03-29] VITALS (8 sets, daily range): BP systolic 106–158; BP diastolic 63–85
[2022-03-29 04:04] LABS: HEMATOCRIT 37.5 % (37.0-47.0); MEAN CELL VOLUME 100.8 fL CALC (80.0-100.0); MEAN CORPUSCULAR HGB 29.6 pG CALC (26.0-32.0); MEAN CORPUSCULAR HGB CONC 29.3 g/dL CAL (32.0-36.0); RED BLOOD COUNT 3.72 mill/uL (4.20-5.60); RED CELL DISTRI WIDTH 15.1 % (11.5-15.5)
[2022-03-29 04:33] LABS: POTASSIUM 3.7 mmol/l (3.5-5.1)
[2022-03-30] VITALS: BP 158/80
[2022-03-30 04:20] VITALS: BP 109/56
[2022-03-30 06:17] VITALS: BP 133/76
[2022-03-30 09:19] LABS: HEMATOCRIT 39.9 % (37.0-47.0); HEMOGLOBIN 12.1 g/dl (12.0-16.0); MEAN CELL VOLUME 97.6 fL CALC (80.0-100.0); MEAN CORPUSCULAR HGB 29.6 pG CALC (26.0-32.0); MEAN CORPUSCULAR HGB CONC 30.3 g/dL CAL (32.0-36.0); RED BLOOD COUNT 4.09 mill/uL (4.20-5.60); RED CELL DISTRI WIDTH 14.9 % (11.5-15.5)
[2022-03-30 10:32] LABS: ALBUMIN 3.8 g/dL (3.2-5.0); CREATININE 1.3 mg/dL (0.5-1.0); POTASSIUM 3.7 mmol/l (3.5-5.1)
[2022-03-30 11:20] VITALS: BP 145/88
[2022-03-30 16:33] VITALS: BP 139/96
[2022-03-30 19:16] VITALS: BP 150/92
[2022-03-31 00:19] VITALS: BP 164/90
[2022-03-31 03:49] VITALS: BP 176/104
[2022-03-31 04:26] VITALS: BP 152/82
[2022-03-31 04:34] LABS: HEMATOCRIT 38.5 % (37.0-47.0); HEMOGLOBIN 11.8 g/dl (12.0-16.0); MEAN CELL VOLUME 96.3 fL CALC (80.0-100.0); MEAN CORPUSCULAR HGB 29.5 pG CALC (26.0-32.0); MEAN CORPUSCULAR HGB CONC 30.6 g/dL CAL (32.0-36.0)
[2022-03-31 05:02] LABS: CREATININE 1.6 mg/dL (0.5-1.0); MAGNESIUM 1.7 mg/dL (1.6-2.3); POTASSIUM 3.5 mmol/l (3.5-5.1)
[2022-03-31 06:12] VITALS: BP 121/69
[2022-03-31] MEDS ORDERED: MUPIROCIN2 % EX (09:26)
== END 2022-03-31 14:47 | disposition home or self-care (01) | DRG 603 ==
LOC: ED 09:05 → ED-I 11:30 → ED 11:50 → MS2 11:51
PROVIDERS: Family Medicine; ADMIT Internal Medicine; ATTEND Internal Medicine
DX: L03.116 Cellulitis of left lower limb (principal); I13.0 Hypertensive heart and chronic kidney disease with heart failure and stage 1 through stage 4 chronic kidney disease, or unspecified chronic kidney disease; I50.32 Chronic diastolic (congestive) heart failure; L97.929 Non-pressure chronic ulcer of unspecified part of left lower leg with unspecified severity; I87.332 Chronic venous hypertension (idiopathic) with ulcer and inflammation of left lower extremity; I48.20 Chronic atrial fibrillation, unspecified; I87.321 Chronic venous hypertension (idiopathic) with inflammation of right lower extremity; E11.22 Type 2 diabetes mellitus with diabetic chronic kidney disease; N18.32 Chronic kidney disease, stage 3b; J44.9 Chronic obstructive pulmonary disease, unspecified; E66.01 Morbid (severe) obesity due to excess calories; G89.4 Chronic pain syndrome; R82.71 Bacteriuria; Z87.01 Personal history of pneumonia (recurrent); Z98.84 Bariatric surgery status; Z86.718 Personal history of other venous thrombosis and embolism; Z95.828 Presence of other vascular implants and grafts; Z20.822 Contact with and (suspected) exposure to COVID-19
CPT/HCPCS: Q3014

== ENCOUNTER 2024-06-26 07:43 | Inpatient (IN) | payer MEDICARE ==
[2024-06-26] VITALS (51 sets, daily range): BP systolic 79–160; BP diastolic 45–90
[~2024-06-26] VITALS: Ht 165.1 cm; Wt 108.8 kg
[~2024-06-26 07:43] MED LIST changes: +(None)250 MG PO; +AMLODIPINE BESYL5 MG PO; +CEFUROXIME500 MG PO; +CYMBALTA30 MG PO; +LASIX 80 MG TAB80 MG PO; +LORTAB5 PO; +LOSARTAN POTASS50 MG PO; +NEURONTIN600 MG PO; +PROPRANOLOL HCL60 MG PO; +VANCOMYCIN H PO
[2024-06-26] MEDS ORDERED: AZITHROMYCIN 500 MG in SODIUM CHLORIDE 0.9% 500 ML IV ONE (07:50)
[2024-06-26] MEDS ORDERED: cefTRIAXone SODIUM 2 GM in SODIUM CHLORIDE 0.9% 100 ML IV ONE (07:50)
--- NOTE | 2024-06-26 08:05 | NUR ---
PT ARRIVED VIA EMS-MILD DISTRESS NOTED.
[2024-06-26] MEDS ORDERED: methylPREDNISolone SODIUM SUCC 125 MG/2 ML SDV IV ONE (08:30)
[2024-06-26] MEDS ORDERED: IPRATROPIUM-Albuterol 0.5MG-2.5MG/3 ML NEB ONE ×2 (08:30)
[2024-06-26] MEDS ORDERED: DILTIAZEM HCL 125 MG in SODIUM CHLORIDE 0.9% 100 ML IV ONE (09:10)
[2024-06-26] MEDS ORDERED: SODIUM CHLORIDE 0.9% 500 ML IV PRN (09:10)
[2024-06-26] MEDS ORDERED: dilTIAZem HCL 50 MG/10 ML SDV IV ONE (09:10)
[2024-06-26 09:12] LABS: BASO% 0.3 % (0-3); EOS% 0.7 % (0-8); HEMATOCRIT 35.6 % (37.0-47.0); HEMOGLOBIN 10.8 g/dl (12.0-16.0); IMMATURE GRANULOCYTES 0.2 % (0.0-5.0); LYMPH% 4.7 % (15-41); MEAN CORPUSCULAR HGB 29.4 pG CALC (26.0-32.0); MEAN CORPUSCULAR HGB CONC 30.3 g/dL CAL (32.0-36.0); MONO% 4.8 % (2-13); NEUT# 13.2 thou/uL (2.00-7.15); NEUT% 89.3 % (42-76); RED BLOOD COUNT 3.67 mill/uL (4.20-5.60); RED CELL DISTRI WIDTH 14.5 % (11.5-15.5)
[2024-06-26 09:27] LABS: ALBUMIN 3.4 g/dL (3.2-5.0); ALKALINE PHOSPHATASE 200 u/l (38-126); ANION GAP 8 (6-22 (CALC)); BILIRUBIN, TOTAL 0.8 mg/dL (0.02-1.3); BUN 26 mg/dL (8-23); BUN/CREATININE RATIO 20 (12-20 (CALC)); CARBON DIOXIDE 35 mmol/l (22-30); CHLORIDE 99 mmol/l (95-108); CREATININE 1.3 mg/dL (0.5-1.0); ESTIMATED GFR 44 ML/MIN (>=90 (CALC)); POTASSIUM 4.2 mmol/l (3.5-5.1); SGOT/AST 56 u/l (9-36); SODIUM 138 mmol/l (137-146); TOTAL PROTEIN 6.8 g/dL (6.3-8.2)
[2024-06-26] MEDS ORDERED: FUROSEMIDE 40 MG/4 ML SDV IV ONE (09:50)
[2024-06-26 10:08] LABS: URINE BILIRUBIN - DIPSTICK Negative (NEGATIVE); URINE BLOOD DIPSTICK Negative (NEGATIVE); URINE COLOR Yellow; URINE GLUCOSE - DIPSTICK Negative (NEGATIVE); URINE KETONE Negative (NEGATIVE); URINE LEUK ESTERASE Negative (NEGATIVE); URINE NITRITE - DIPSTICK Negative (Negative); URINE PROTEIN - DIPSTICK Negative (NEG-TRACE); URINE SPECIFIC GRAVITY 1.015; URINE UROBILINOGEN - DIPSTICK 0.2 E.U./dL (0.2)
--- NOTE | 2024-06-26 10:22 | NUR ---
Cardizem at 10mg/h initiated.
--- NOTE | 2024-06-26 11:00 | NUR ---
Cardizem increased to 15mg/hour.
[2024-06-26] MEDS ORDERED: Polyethylene Glycol 3350 17 GM/PKT PO PRN (13:50)
[2024-06-26] MEDS ORDERED: ACETAMINOPHEN 325 MG/TAB PO PRN ×2 (13:50→16:15)
[2024-06-26] MEDS ORDERED: POTASSIUM CHLORIDE 20 MEQ/TAB PO PRN (13:50)
[2024-06-26] MEDS ORDERED: ONDANSETRON 4 MG/TAB ODT SL PRN (13:50)
[2024-06-26] MEDS ORDERED: IPRATROPIUM-Albuterol 0.5MG-2.5MG/3 ML NEB PRN (13:55)
[2024-06-26] MEDS ORDERED: GUAIFENESIN 600 MG/TAB PO SCH (14:00)
--- NOTE | 2024-06-26 14:15 | NUR ---
Report given at bedside to receiving ICU nurse in ER.
[2024-06-26] MEDS ORDERED: DOXYCYCLINE HYCLATE 100 MG in SODIUM CHLORIDE 0.9% 100 ML IV SCH (15:00)
--- NOTE | 2024-06-26 15:00 | NUR ---
650ml clear yellow urine obatined from patient's pure wick.
--- NOTE | 2024-06-26 15:21 | NUR ---
pt arrived to ICU bed 7 at 14:50. Bedside report recieved from ED RN. Pt is AOx4, able to move all extremities. Pt VSS, bp 127/74, hr 74 on Cardizem drip at 15. Pt has Right IJ TLC central line placed in the ER. Skin is intact with some bruising to arms.
[2024-06-26] MEDS ORDERED: VANCOMYCIN HCL IV SCH (16:00)
[2024-06-26] MEDS ORDERED: SODIUM CHLORIDE 0.9% IV SCH (16:00)
[2024-06-26] MEDS ORDERED: oxyCODONE 10MG/APAP 325 MG 1 COMBO TAB PO PRN (16:20)
[2024-06-26] MEDS ORDERED: CLARIFY DOSE PO PRN (16:20)
[2024-06-26] MEDS ORDERED: SODIUM CHLORIDE 0.9% 100 ML IV ONE (18:45)
--- NOTE | 2024-06-26 20:15 | NUR ---
RN assume care for this patient to overnight associate. Patient awake and pleasent. Patient report feeling wet. Patient received bed bath. Linens and purewick changed. Water jug refilled. Education provided about CHF exacerbation prevention such as fluid restriction. Patient verbilizes understanding. No other complains and questions by the patient at this time. Bed alarm on. Call light within reach
[2024-06-26] MEDS ORDERED: PANTOPRAZOLE SODIUM Sesquihydr 40 MG/TAB PO SCH (20:42)
[2024-06-26] MEDS ORDERED: PROPRANOLOL HCL 20 MG/TAB PO SCH (21:00)
[2024-06-26] MEDS ORDERED: ENOXAPARIN SODIUM 40 MG/0.4 ML SYR SC SCH (21:00)
[2024-06-26] MEDS ORDERED: GABAPENTIN 300 MG/CAP PO SCH (21:00)
--- NOTE | 2024-06-26 21:30 | NUR ---
Patient vital signs showing hypotension and bordeline bradycardia (upper 50s- low 60s). Cardizem drip paused. Labetolol held for the night. Patient educated and verbilizes understanding.
[2024-06-26] MEDS ORDERED: methylPREDNISolone Sod Succ 40 MG/ML SDV IV SCH (22:00)
[2024-06-27] VITALS (22 sets, daily range): BP systolic 101–144; BP diastolic 63–83
--- NOTE | 2024-06-27 00:29 | NUR ---
Patient sleeping. No signs of distress. BP 100/56 HR 71.
--- NOTE | 2024-06-27 04:36 | NUR ---
Patient awake. No complain of pain. Labs drawn by RN through midline. Patient resquested for [place] wrap which was given. Patient has no other request at this time
[2024-06-27 04:44] LABS: BASO% 0.1 % (0-3); HEMATOCRIT 30.6 % (37.0-47.0); HEMOGLOBIN 9.6 g/dl (12.0-16.0); IMMATURE GRANULOCYTES 0.1 % (0.0-5.0); LYMPH% 5.1 % (15-41); MEAN CELL VOLUME 96.8 fL CALC (80.0-100.0); MEAN CORPUSCULAR HGB 30.4 pG CALC (26.0-32.0); MEAN CORPUSCULAR HGB CONC 31.4 g/dL CAL (32.0-36.0); MONO% 1.1 % (2-13); NEUT# 12.42 thou/uL (2.00-7.15); NEUT% 93.6 % (42-76); RED BLOOD COUNT 3.16 mill/uL (4.20-5.60); RED CELL DISTRI WIDTH 14.6 % (11.5-15.5)
[2024-06-27 05:12] LABS: ALBUMIN 2.9 g/dL (3.2-5.0); CREATININE 1.4 mg/dL (0.5-1.0); MAGNESIUM 1.8 mg/dL (1.6-2.3); POTASSIUM 4.3 mmol/l (3.5-5.1); TOTAL PROTEIN 5.9 g/dL (6.3-8.2)
[2024-06-27 05:13] LABS: BILIRUBIN, TOTAL 0.4 mg/dL (0.02-1.3)
--- NOTE | 2024-06-27 08:05 | NUR ---
PATIENT LYING IN BED RESTING. PATIENT ALERT AND ORIENTED X 4. LUNGS CLEAR/DIMINISHED TO ASCULTATION. BREATHING EVEN AND UNLABORED ON 2L NC. SKIN ASSESSMENT CHARTED. NO CONCERNS AT THIS TIME. SAFETY MEASURES IN PLACE INCLUDING BED IN LOW POSITION AND CALL LIGHT RESTING NEXT TO R HAND. NO APPARENT DISTRESS NOTED. WILL CONTINUE WITH PLAN OF CARE.
[2024-06-27] MEDS ORDERED: cefTRIAXone SODIUM 2 GM in SODIUM CHLORIDE 0.9% 100 ML IV SCH (09:00)
[2024-06-27] MEDS ORDERED: FUROSEMIDE 40 MG/TAB PO SCH (09:00)
--- NOTE | 2024-06-27 09:13 | NUR ---
S: OCTAVIA LEWIS is a 68 F who presents with pneumonia and cellulitis. O: VS: BP 117/71mmhg, P 91 bpm, RR 15 bpm, T 98.3 W 102.9 kg, HT 65 in, Scr 1.4 mg/dL, CrCl 44 ml/min A: Blood culture is pending. P: Patient is on Rocephin 2gm iv q24h and doxycycline 100mg iv q12h. Vancomycin ordered for pharmacy to dose. Start Vancomycin 1250mg IV Q24H. Vancomycin trough is drawn before the dose on 06/29/24 @0900. Vancomycin goal trough is between 10-20 mcg/ml Pharmacy will follow and or advise on antibiotics use as needed.
[2024-06-27] MEDS ORDERED: VANCOMYCIN HCL 1,250 MG in SODIUM CHLORIDE 0.9% 225 ML IV SCH (09:30)
[2024-06-27] MEDS ORDERED: ALLERGY RE50 MCG/ACT NAB (09:47)
--- NOTE | 2024-06-27 10:00 | NUR ---
ROUNDING COMPLETE. NO APPARENT DISTRESS NOTED. WILL CONTINUE WITH PLAN OF CARE
--- NOTE | 2024-06-27 12:00 | NUR ---
PATIENT SITTING UP IN BED. VSS. NO APPARENT DISTRESS NOTED. ROSARIO TRINIDADUE WITH PLAN OF CARE.
[2024-06-27] MEDS ORDERED: FLUTICASONE PROPIONATE (Nasal) 50MCG/SPRAY INH SCH (14:00)
--- NOTE | 2024-06-27 16:00 | NUR ---
ROUNDING COMPLETE. ASSESSMENT UNCHANGED. VSS. NO APPARENT DISTRESS NOTED. WILL CONTINUE WITH PLAN OF CARE
[2024-06-27] MEDS ORDERED: RIVAROXABAN 15 MG TAB PO SCH (17:00)
--- NOTE | 2024-06-27 18:11 | NUR ---
PATIENT LYING IN BED. C/O R SHOUDER/LOW BACK PAIN MEDICATED ACCORDING TO EMAR. CONTROLLED AFIB ON THE MONITOR. NO APPARENT DISTRESS NOTED. WILL CONTINUE WITH PLAN OF CARE
--- NOTE | 2024-06-27 19:30 | NUR ---
awake. denies distress. experimental technician shows a fib. rij tlc saline lock in place. po fluids taken well. purewick cath in place. urine clear yellow. requires MUCH encouragement to assist with care. fall precautions cont.
[2024-06-27] MEDS ORDERED: methylPREDNISolone Sod Succ 40 MG/ML SDV IV SCH (21:00)
[2024-06-28] VITALS (20 sets, daily range): BP systolic 113–165; BP diastolic 63–108
--- NOTE | 2024-06-28 00:01 | NUR ---
eyes closed. no distress. quality assurance monitor shows a fib.
--- NOTE | 2024-06-28 02:00 | NUR ---
resting quietly. no distress.
--- NOTE | 2024-06-28 04:00 | NUR ---
eyes closed. no apparent distress.
--- NOTE | 2024-06-28 05:29 | NUR ---
equipment monitor phototypesetting shows a fib.
--- NOTE | 2024-06-28 07:52 | NUR ---
REPORT RECEIVED FROM NIGHT NURSE. PATIENT AXO X3. S1S2 NOTED, A-FIB ON TELE. UPPER LUNG SOUNDS CLEAR, LOWER CRACKLES, PRODUCTIVE COUGH WITH YELLOW SPUTUM NOTED, NO SOB, ON ROOM AIR. ABDOMEN SOFT, NON DISTENDED, NON TENDER, WITH ACTIVE BOWEL SOUNDS. PULSES STRONG IN ALL EXTREMITIES. SKIN WARM AND DRY. MILD REDNESS AND SCALING NOTED TO BILATERAL LOWER EXTREMITIES. MILD REDNESS NOTED TO LEFT BUTTOCK. CALL LIGHT IN REACH.
--- NOTE | 2024-06-28 10:00 | NUR ---
PATIENT SITTING UP IN BED WATCHING TV. ALL NEEDS MET. CALL LIGHT IN REACH.
--- NOTE | 2024-06-28 12:00 | NUR ---
PATIENT SITTING UP IN BED RESTING. ALL NEEDS MET. CALL LIGHT IN REACH.
[2024-06-28 13:48] LABS: BASO% 0.1 % (0-3); HEMATOCRIT 32.5 % (37.0-47.0); HEMOGLOBIN 9.7 g/dl (12.0-16.0); IMMATURE GRANULOCYTES 0.5 % (0.0-5.0); LYMPH% 4.3 % (15-41); MEAN CELL VOLUME 98.8 fL CALC (80.0-100.0); MEAN CORPUSCULAR HGB 29.5 pG CALC (26.0-32.0); MEAN CORPUSCULAR HGB CONC 29.8 g/dL CAL (32.0-36.0); MONO% 1.4 % (2-13); NEUT# 12.08 thou/uL (2.00-7.15); NEUT% 93.7 % (42-76); RED BLOOD COUNT 3.29 mill/uL (4.20-5.60); RED CELL DISTRI WIDTH 15.1 % (11.5-15.5)
--- NOTE | 2024-06-28 14:00 | NUR ---
PATIENT LAYING DOWN IN BED. ALL NEEDS MET. CALL LIGHT IN REACH.
[2024-06-28 14:02] LABS: ALBUMIN 3.1 g/dL (3.2-5.0); BILIRUBIN, TOTAL 0.3 mg/dL (0.02-1.3); CREATININE 1.7 mg/dL (0.5-1.0); POTASSIUM 4.3 mmol/l (3.5-5.1); TOTAL PROTEIN 6.3 g/dL (6.3-8.2)
--- NOTE | 2024-06-28 18:00 | NUR ---
PATIENT SITTING UP EATING. ALL NEEDS MET. CALL LIGHT IN REACH.
--- NOTE | 2024-06-28 20:00 | NUR ---
RECD PT VIA BESIDE REPORT FROM RN. PATIENT IS AAOX4 WITH NO COMPLAINTS AT THIS TIME. EDUCATED REAL ESTATE INSTRUCTOR LIGHT AND FALL PRECAUTIONS, RESTING COMFORTABLY WITH CALL LIGHT WITHIN REACH
--- NOTE | 2024-06-28 21:45 | NUR ---
MEDICATED FOR PAIN PER REQUEST. ASSISTED TO BSC BY MORRIS, PARTH(+) X 1. ASSISTED BACK TO BED AND LEFT WITH CALL LIGHT WITHIN REACH AND FALL PRECAUTIONS IN PLACE
[2024-06-29] VITALS (13 sets, daily range): BP systolic 132–172; BP diastolic 76–113
--- NOTE | 2024-06-29 00:41 | NUR ---
PATIENT RESTING COMFORTABLY WITH EYES CLOSED AND NO DISTRESS NOTED. CALL LIGHT OBSERVED WITHIN REACH.
--- NOTE | 2024-06-29 01:40 | NUR ---
PT AWAKENED WHEN YELLING SHE WAS GOING TO SHOOT SOMEONE FOR TOUCHING THE CABINET. PT LAUGHING STATING SHE WAS TALKING IN HER SLEEP. AAOX4 WITH NO CHANGE IN MENTATION. RESTING COMFORTABLY, DENIES PAIN OR SOB. CALL LIGHT WITHIN REACH
[2024-06-29 05:20] LABS: BASO% 0.1 % (0-3); HEMATOCRIT 28.8 % (37.0-47.0); HEMOGLOBIN 8.7 g/dl (12.0-16.0); IMMATURE GRANULOCYTES 0.3 % (0.0-5.0); LYMPH% 9.2 % (15-41); MEAN CELL VOLUME 99.7 fL CALC (80.0-100.0); MEAN CORPUSCULAR HGB 30.1 pG CALC (26.0-32.0); MEAN CORPUSCULAR HGB CONC 30.2 g/dL CAL (32.0-36.0); MONO% 7.3 % (2-13); NEUT# 9.88 thou/uL (2.00-7.15); NEUT% 83.1 % (42-76); RED BLOOD COUNT 2.89 mill/uL (4.20-5.60); RED CELL DISTRI WIDTH 15.1 % (11.5-15.5)
[2024-06-29 05:25] LABS: ALBUMIN 2.6 g/dL (3.2-5.0); BILIRUBIN, TOTAL 0.3 mg/dL (0.02-1.3); CREATININE 1.7 mg/dL (0.5-1.0); POTASSIUM 3.8 mmol/l (3.5-5.1); TOTAL PROTEIN 5.5 g/dL (6.3-8.2)
--- NOTE | 2024-06-29 05:31 | NUR ---
PATIENT REMAINS STABLE WITH NO COMPLAINTS OR SIGN OF DISTRESS, RESTING CALMLY WITH CALL LIGHT WITHIN REACH
--- NOTE | 2024-06-29 07:00 | NUR ---
REPORT RECEIVED FROM OFF GOING NURSE.
--- NOTE | 2024-06-29 07:30 | NUR ---
IN TO SEE PATIENT.
--- NOTE | 2024-06-29 08:00 | NUR ---
PATIENT NOTED SITTING UP IN BED HAVING BREAKFAST AT THIS TIME. VSS AT THIS TIME. SHE DENIES ANY PAIN OR DISCOMFORT AT THIS TIME. SHE IS A/O X3. RIJ TRIPPLE LUMEN NOTED WITH CLEAN DRY DRESSING. LUNGS CLEAR TO CTA. BOWEL SOUNDS ACTIVE IN ALL FOUR QUADS. SKIN INTACT.
[2024-06-29] MEDS ORDERED: PREDNISONE10 MG PO (11:31)
[2024-06-29] MEDS ORDERED: COZAAR50 MG PO (11:32)
[2024-06-29] MEDS ORDERED: LOSARTAN Potassium 50 MG/TAB PO SCH (12:00)
--- NOTE | 2024-06-29 13:17 | NUR ---
CENTRAL LINE PULLED. PATIENT CALLED FOR HER RIDE. SHE WAS TAKEN DOWNSTAIRS VIA WHEELCHAIR.
--- NOTE | 2024-07-01 15:30 | NUR ---
Discharge follow up call completed 07/01/24. Patient states she is doing better. She is taking prescribed medication as directed. Home Health visited patient today and were satisfied with her progress per patient. Patient will contact PCP on Friday to schedule a follow up appointment. No needs or concerns verbalized at this time.
== END 2024-06-29 13:17 | disposition home health service (06) | DRG 871 ==
LOC: ED 07:43 → ED-I 09:30 → ED 09:51 → ICU 09:52
PROVIDERS: Family Medicine; Nurse Practitioner Family; ADMIT Internal Medicine; ATTEND Internal Medicine
PROC: 02HV33Z Insertion of Infusion Device into Superior Vena Cava, Percutaneous Approach (ICD-10-PCS; principal; 2024-06-26)
DX: A41.9 Sepsis, unspecified organism (principal); J15.212 Pneumonia due to Methicillin resistant Staphylococcus aureus; J96.02 Acute respiratory failure with hypercapnia; J96.01 Acute respiratory failure with hypoxia; I13.0 Hypertensive heart and chronic kidney disease with heart failure and stage 1 through stage 4 chronic kidney disease, or unspecified chronic kidney disease; L03.115 Cellulitis of right lower limb; J44.0 Chronic obstructive pulmonary disease with (acute) lower respiratory infection; I48.20 Chronic atrial fibrillation, unspecified; J44.1 Chronic obstructive pulmonary disease with (acute) exacerbation; E87.3 Alkalosis; I50.9 Heart failure, unspecified; N18.31 Chronic kidney disease, stage 3a; I73.9 Peripheral vascular disease, unspecified; M54.30 Sciatica, unspecified side; Z98.84 Bariatric surgery status; Z86.718 Personal history of other venous thrombosis and embolism; Z79.01 Long term (current) use of anticoagulants; Z20.822 Contact with and (suspected) exposure to COVID-19
CPT/HCPCS: J0456; J0696; J1940; J3370

== ENCOUNTER 2024-07-15 10:37 | Emergency (ER) | payer MEDICARE ==
[2024-07-15] VITALS (8 sets, daily range): BP systolic 131–158; BP diastolic 67–93
[~2024-07-15] VITALS: Ht 165.1 cm; Wt 95.0 kg
[~2024-07-15 10:37] MED LIST changes: +ALLERGY RE50 MCG/ACT NAB; +COZAAR50 MG PO; +PREDNISONE10 MG PO
[2024-07-15 12:15] LABS: CREATININE 1.6 mg/dL (0.5-1.0); POTASSIUM 4.1 mmol/l (3.5-5.1)
[2024-07-15 13:24] LABS: BASO% 0.5 % (0-3); HEMATOCRIT 32.3 % (37.0-47.0); HEMOGLOBIN 10.2 g/dl (12.0-16.0); IMMATURE GRANULOCYTES 0.3 % (0.0-5.0); LYMPH% 6.8 % (15-41); MEAN CELL VOLUME 95.3 fL CALC (80.0-100.0); MEAN CORPUSCULAR HGB 30.1 pG CALC (26.0-32.0); MEAN CORPUSCULAR HGB CONC 31.6 g/dL CAL (32.0-36.0); MONO% 10.6 % (2-13); NEUT# 10.35 thou/uL (2.00-7.15); NEUT% 78.8 % (42-76); RED BLOOD COUNT 3.39 mill/uL (4.20-5.60); RED CELL DISTRI WIDTH 15.1 % (11.5-15.5)
== END 2024-07-15 15:06 | disposition home or self-care (01) ==
LOC: ED 10:37
PROVIDERS: Family Medicine
DX: S00.03XA Contusion of scalp, initial encounter (principal); N18.30 Chronic kidney disease, stage 3 unspecified; I50.9 Heart failure, unspecified; I48.20 Chronic atrial fibrillation, unspecified; J44.9 Chronic obstructive pulmonary disease, unspecified; W18.39XA Other fall on same level, initial encounter; Y92.009 Unspecified place in unspecified non-institutional (private) residence as the place of occurrence of the external cause; Z98.84 Bariatric surgery status; Z91.81 History of falling

== ENCOUNTER 2024-08-15 04:31 | Inpatient (IN) | payer MEDICARE ==
[~2024-08-15] VITALS: Ht 165.1 cm; Wt 108.9 kg
[2024-08-15] VITALS (26 sets, daily range): BP systolic 89–127; BP diastolic 40–75
--- NOTE | 2024-08-15 04:31 | NUR ---
PATIENT ARRIVED VIA EMS WITH CPAP ATTACHED.
[2024-08-15] MEDS ORDERED: VANCOMYCIN HCL 1 GM in SODIUM CHLORIDE 0.9% 250 ML IV STA (04:51)
[2024-08-15] MEDS ORDERED: FUROSEMIDE 40 MG/4 ML SDV IV ONE (04:55)
[2024-08-15] MEDS ORDERED: methylPREDNISolone SODIUM SUCC 125 MG/2 ML SDV IV ONE (04:55)
[2024-08-15] MEDS ORDERED: PIPERACILLIN Sodium-Tazobactam 4.5 GM in SODIUM CHLORIDE 0.9% 100 ML IV ONE (04:55)
[2024-08-15] MEDS ORDERED: IPRATROPIUM-Albuterol 0.5MG-2.5MG/3 ML NEB ONE (04:55)
[2024-08-15] MEDS ORDERED: DIGOXIN 0.5 MG/2 ML AMP IV ONE ×2 (05:25→06:30)
[2024-08-15 05:39] LABS: BASO% 0.3 % (0-3); EOS% 0.5 % (0-8); HEMOGLOBIN 11.1 g/dl (12.0-16.0); IMMATURE GRANULOCYTES 0.1 % (0.0-5.0); LYMPH% 6.4 % (15-41); MEAN CELL VOLUME 103.5 fL CALC (80.0-100.0); MEAN CORPUSCULAR HGB 29.6 pG CALC (26.0-32.0); MEAN CORPUSCULAR HGB CONC 28.6 g/dL CAL (32.0-36.0); MONO% 3.3 % (2-13); NEUT# 10.54 thou/uL (2.00-7.15); NEUT% 89.4 % (42-76); RED BLOOD COUNT 3.75 mill/uL (4.20-5.60); RED CELL DISTRI WIDTH 15.9 % (11.5-15.5)
[2024-08-15 05:44] LABS: HEMATOCRIT 38.8 % (37.0-47.0)
[2024-08-15 05:56] LABS: ALBUMIN 3.3 g/dL (3.2-5.0); ALKALINE PHOSPHATASE 172 u/l (38-126); ANION GAP 13 (6-22 (CALC)); BILIRUBIN, TOTAL 0.7 mg/dL (0.02-1.3); BUN 40 mg/dL (8-23); BUN/CREATININE RATIO 27 (12-20 (CALC)); CARBON DIOXIDE 25 mmol/l (22-30); CHLORIDE 103 mmol/l (95-108); CREATININE 1.5 mg/dL (0.5-1.0); ESTIMATED GFR 37 ML/MIN (>=90 (CALC)); POTASSIUM 4.7 mmol/l (3.5-5.1); SGOT/AST 29 u/l (9-36); SODIUM 136 mmol/l (137-146); TOTAL PROTEIN 6.7 g/dL (6.3-8.2)
--- NOTE | 2024-08-15 06:00 | NUR ---
PATIENT ON BIPAP, TORREZ INSERTED.
[2024-08-15] MEDS ORDERED: METOPROLOL TARTRATE 5 MG/5 ML VIAL IV ONE (06:30)
[2024-08-15] MEDS ORDERED: Polyethylene Glycol 3350 17 GM/PKT PO PRN (06:45)
[2024-08-15] MEDS ORDERED: FAMOTIDINE 10MG/ML 2ML SDV IV PRN (06:45)
[2024-08-15] MEDS ORDERED: ONDANSETRON 4 MG/TAB ODT PO PRN (06:45)
[2024-08-15] MEDS ORDERED: ALUM & MAG HYDROX-SIMETHICONE 30 ML PO PRN (06:45)
[2024-08-15] MEDS ORDERED: IBUPROFEN 800 MG/TAB PO PRN (06:45)
[2024-08-15] MEDS ORDERED: ONDANSETRON HCl 4 MG/2 ML SDV IV PRN (06:45)
[2024-08-15] MEDS ORDERED: ACETAMINOPHEN 325 MG/TAB PO PRN (06:45)
--- NOTE | 2024-08-15 07:00 | NUR ---
REPORT GIVENT TO ONCOMING NURSE.
--- NOTE | 2024-08-15 07:00 | NUR ---
report received from warehouse supervisor 3rd shift, pt already on bipap and vancomyacin is half done infusing thru the 24 in rac. er doctor notified of need for a central line, consent given per pt and central line placed on rij. xray obtained for placement. pt wearing bipap, but will answer questions and moves all extremeties. edema to lower legs noted. wheezing and dimished in all garner in lungs, pt remains in afib with rvr in the 90's. will obtain a icu bed and move pt onto it. pharmacy requesting that we need to try and get family to come bring meds in to help med reconcilliation. advised pharmacy that vancomyacin had about 100 ml left to run thru.
[2024-08-15 07:18] LABS: URINE BILIRUBIN - DIPSTICK Negative (NEGATIVE); URINE BLOOD DIPSTICK Negative (NEGATIVE); URINE GLUCOSE - DIPSTICK Negative (NEGATIVE); URINE KETONE Negative (NEGATIVE); URINE LEUK ESTERASE Negative (NEGATIVE); URINE NITRITE - DIPSTICK Negative (Negative); URINE PH 5.5 (4.5-8.0); URINE PROTEIN - DIPSTICK Negative (NEG-TRACE); URINE UROBILINOGEN - DIPSTICK 0.2 E.U./dL (0.2)
[2024-08-15 07:22] LABS: URINE COLOR Yellow
[2024-08-15] MEDS ORDERED: POTASSIUM CHLO20 ME2 PO (08:14)
[2024-08-15] MEDS ORDERED: PRAMIPEXOLE0.125 M1 PO (08:15)
[2024-08-15] MEDS ORDERED: PERCOCET 10/31 COMBO PO (08:15)
[2024-08-15] MEDS ORDERED: CYMBALTA20 MG PO (08:17)
[2024-08-15] MEDS ORDERED: [UNRECOGNIZED DRUG - OTHER] (08:20)
[2024-08-15] MEDS ORDERED: oxyCODONE 10MG/APAP 325 MG 1 COMBO TAB PO PRN (09:20)
[2024-08-15] MEDS ORDERED: PRAMIPEXOLE PO PRN (09:21)
--- NOTE | 2024-08-15 09:50 | NUR ---
S: OCTAVIA LEWIS is a 68 F who presents with COPD, acute respiratory failure with hypoxia and hypercapnia, and pneumonia. All medications in patient's chart were reviewed. O: VS: BP 109/65, P 94, RR 23,T 100.3 f W 159 kg, HT 65 in, Scr= 1.5,CrCl= 53 ml/min A: Blood culture and sputum culture is pending P: Patient is on Zosyn 3.375gm IV Q6H and Vancomycin 1gm IV X 1 dose in the ED at about 0600 Vancomycin ordered for pharmacy to dose. Start Vancomycin 500mg IV Q8H. Vancomycin trough is drawn before the 4th dose on 08/16/24 @0530. Vancomycin goal trough is between 15-20 mcg/ml. Pharmacy will follow and or advise on antibiotics use as needed.
[2024-08-15] MEDS ORDERED: GABAPENTIN 300 MG/CAP PO SCH (10:00)
--- NOTE | 2024-08-15 10:29 | NUR ---
DR. CORDOBA AT BEDSIDE, WILL REMOVE BIPAP AND PLACE ON 4 LITRES N/C TO SEE HOW WELL PT HANDLES IT, PT SLEEPING AT THIS TIME, SPOKE ABOUT CANCELLING THE VANCOMYACIN AND REPLACING WITH OTHER ANTIBIOTICS, AND HE WOULD LIKE A COVIDPCR TEST TO BE ORDERED.
[2024-08-15] MEDS ORDERED: PROPRANOLOL HCL 20 MG/TAB PO SCH (11:00)
[2024-08-15] MEDS ORDERED: PIPERACILLIN Sodium-Tazobactam 3.375 GM in SODIUM CHLORIDE 0.9% 100 ML IV SCH (12:00)
--- NOTE | 2024-08-15 12:24 | NUR ---
PT AWAKE, TALKING , A/O X3, LAUGHING WITH STAFF, STATES FEELS MUCH BETTER RIGHT NOW. REMAINS OFF OF BIPAP, SATS HOLD AT 95% ON 4 LITRES
--- NOTE | 2024-08-15 13:17 | NUR ---
PT SITTING UP IN BED EATING A LATE LUNCH. REMAINS ALERT/ORIENTED X3, PLEASANT WOMAN, STATES WHEN SHE IS AT HOME SHE MOVES AROUND FAIRLY WELL WITH A WALKER, SHE LIVES WITH HER DAUGHTER AND FAMILY. PT ABLE TO MOVE HERSELF UP INTO BED AND TURN FROM SIDE TO SIDE, SHE STATES HER RIGHT SHOULDER HURTS BUT THAT IT IS CHRONIC.
[2024-08-15] MEDS ORDERED: VANCOMYCIN HCL 500 MG in SODIUM CHLORIDE 0.9% 250 ML IV SCH (14:00)
--- NOTE | 2024-08-15 14:06 | NUR ---
PT RESTING AT THIS TIME, NO COMPLAINTS, VITAL SIGNS STABLE. ANTIBIOTIC INFUSING. STATES FEELS A LITTLE BETTER, STATES DOESNT REMEMBER HOW SHE GOT TO HOSPITAL LAST NIGHT.
[2024-08-15] MEDS ORDERED: RIVAROXABAN 15 MG TAB PO SCH (17:00)
--- NOTE | 2024-08-15 17:18 | NUR ---
PT REMAINS COMPLAINT FREE, SATS 95% ON 4 LITRES, SITTING UP IN BED EATING LUNCH, REMAINS PLEASANT ALERT/ORIENTED X3, DENIES ANY NEEDS AT THIS TIME. STATES HAS SOME COUGHING BUT NO SPUTUM AT THIS TIME. SHE STATES SHE NORMALLY GETS THIS IF SHE DOESNT HAVE HER NEB TREATMENTS. NO CHEST PAIN, DENIES SOB AT THIS TIME
--- NOTE | 2024-08-15 17:45 | NUR ---
PT SPEAKING WITH HER DAUGHTER TO BRING PTS OWN BOTTLE OF PRAMIXOLE IN FOR PT TO BE ABLE TO CHECK. ADVISED HER WE WOULD GIVE IT TO PHARMACY SO THEY COULD PASS IT OUT IN MED RECONCILLIATION FOR HER TO TAKE.
--- NOTE | 2024-08-15 19:30 | NUR ---
PT RECD VIA BSSR FROM DAY SHIFT RN. PT IS AAOX4 REPORTEDLY WALKS AT HOME WITH ASSISTANCE OF WALKER. RIGHT-IJ PLACED DURING THE DAY FOR VENOUS ACCESS D/T DIFFICULTY MAINTAINING PERIPHERAL ACCESS. RIJ X [address], DRESSING CDI, (+) PATENT (+) BLOOD RETURN. TORREZ 16FR IN PLACE AND DRAINING LT YELLOW CLEAR URINE WITHOUT COMPLICATIONS. CURRENTLY IN AFIB ON RUG INSPECTOR HELPER RATES 70S-90S AT BASELINE. BLOOD PRESSURES AT BASELINE ARE SOFT, 90S/50S AND HER NORM. LUNG GALINDO COARSE AND ADVENTITIOUS THROUGHOUT, (+) COUGH, SOUNDS PRODUCTIVE BUT PT IS UNABLE TO EXPECTORATE ANY SPUTUM. CLEARS AIRWAY ON COUGH. REMOVED FROM BIPAP IN AM PER DAY SHIFT RN AND PLACED ON 4LO2NC WITH ORDER TO MAINTAIN SAT > 90%. PT SATURATING 91-94% AND DEMONSTRATES NO SIGN OF DISTRESS OR SOB AT THIS TIME. EDUCATED LOG HANDLING EQUIPMENT OPERATOR LIGHT USE, DEMONSTRATES UNDERSTANDING OF USE. FALL PRECAUTIONS IN PLACE.
--- NOTE | 2024-08-15 20:30 | NUR ---
PT REPORTED NEEDING TO HAVE A BOWEL MOVEMENT. ASSISTED TO POSITION ON BEDPAN AND PROVIDED PRIVACY PER PT REQUEST. PT ALERTED RN WHEN COMPLETED - SELF REPOSITIONING ON BEDPAN CAUSED THE NEED FOR LINEN CHANGING AND PARTIAL BED BATH. TORREZ CARE PERFORMED. PT CLEANED AND BATHED, LINEN CHANGED. REPOSITIONED FOR COMFORT. DENIES PAIN EXCERBATION - MEDICATED FOR RIGHT SHOULDER CHRONIC PAIN PRIOR TO BED CHANGE PER REQUEST - REPORTS IMPROVEMENT. CALL LIGHT WITHIN REACH, FALL PRECAUTIONS IN PLACE.
--- NOTE | 2024-08-15 22:30 | NUR ---
PT REQUESTED TURKEY WRAP FOR SNACK AND MORE FLUID TO DRINK. EDUCATED PT ON MONITORING AND USING CAUTION WITH FLUID INTAKE R/T DX OF CHF WITH CURRENT RESPIRATORY ISSUES/COMPLICATIONS. FROM 1900 TO 2229 PT HAS TAKEN IN 815ML OF FLUIDS BY MOUTH. PT RECEPTIVE AND PARTICIPATORY IN PLAN OF CARE. CALL LIGHT WITHIN REACH, FALL PRECAUTIONS IN PLACE.
[2024-08-16] VITALS (27 sets, daily range): BP systolic 77–133; BP diastolic 45–91
--- NOTE | 2024-08-16 | NUR ---
PT OBSERVED RESTING COMFORTABLY. IV ABT INFUSING WITHOUT ISSUES. NO SIGN OF DISTRESS OR SHORTNESS OF BREATH AT THIS TIME. SATTING 93% ON 4LO2NC. NO CONCERNS NOTED AT THIS TIME. CALL LIGHT OBSERVED WITHIN REACH. FALL PRECAUTIONS IN PLACE.
--- NOTE | 2024-08-16 02:28 | NUR ---
PT RESTING COMFORTABLY WITH NO SIGNS OF DISTRESS OR RESPIRATORY COMPLICATIONS. VSS. SATS REMAIN > 90% ON 4LO2NC ORDERED PER MD. RECD IV ABT INFUSIONS PER MD ORDER. NO PAIN/DISCOMFORT OBSERVED AT THIS TIME. RESTING CALMLY WITH NO CONCERNS CALL LIGHT IN REACH AND FALL PRECAUTIONS REMAIN IN PLACE.
--- NOTE | 2024-08-16 03:45 | NUR ---
PT REPOSITIONED FOR COMFORT. DENIES PAIN OR SHORTNESS OF BREATH. SPUTUM CULTURE VERIFIED NOT RECD BY LAB. PLACED SPECIMEN CUP BEDSIDE AND EDUCATED PT ON PRODUCING SPECIMEN FOR TESTING. PT DEMONSTRATED UNDERSTANDING. CALL LIGHT WITHIN REACH. FALL PRECAUTIONS REMAIN IN PLACE.
[2024-08-16 05:02] LABS: HEMATOCRIT 28.6 % (37.0-47.0); HEMOGLOBIN 8.6 g/dl (12.0-16.0); MEAN CELL VOLUME 101.1 fL CALC (80.0-100.0); MEAN CORPUSCULAR HGB 30.4 pG CALC (26.0-32.0); MEAN CORPUSCULAR HGB CONC 30.1 g/dL CAL (32.0-36.0); RED BLOOD COUNT 2.83 mill/uL (4.20-5.60)
[2024-08-16 05:20] LABS: CREATININE 1.9 mg/dL (0.5-1.0)
[2024-08-16 05:26] LABS: ALBUMIN 2.5 g/dL (3.2-5.0); BILIRUBIN, TOTAL 0.4 mg/dL (0.02-1.3); POTASSIUM 3.7 mmol/l (3.5-5.1); TOTAL PROTEIN 5.3 g/dL (6.3-8.2)
--- NOTE | 2024-08-16 05:41 | NUR ---
BLOOD DRAWN VIA RIGHT IJ FOR AM LABWORK. LABS RESULTED, RELATIVELY UNREMARKABLE - CONTACTED DR HALL AT 0538AM JUST TO NOTIFY PT HAD INCREASE OF SERUM CO2 FROM 25 YESTERDAY TO 31 TODAY. REMAINS ON 4LO2NC AND MAINTAINS SATURATIONS BETWEEN 92-96% WITH POSITIONING. (+) COUGH, HAS NOT BEEN PRODUCTIVE. REMAINS COARSE AND ADVENTITIOUS THROUGHOUT LUNG GALINDO. TORREZ EMPTIED WITH 500CC OUTPUT. DENIES PAIN/CP/SOB. VSS. NO DISTRESS OR DISCOMFORT NOTED. RESTING CALMLY WITH CALL LIGHT IN REACH AND FALL PRECAUTIONS IN PLACE.
--- NOTE | 2024-08-16 08:00 | NUR ---
PT IS AWAKE LAYING IN BED, CALL LIGHT IN REACH.
--- NOTE | 2024-08-16 10:00 | NUR ---
PT IS SLEEPING IN BED, CALL LIGHT IN REACH. PT IS ON MONITOR. PT ALSO HAS EVEN AND UNLABORED RESPIRATIONS.
--- NOTE | 2024-08-16 12:07 | NUR ---
PT IS GENET DEL TORO IN BED EATING LUNCH. CALL LIGHT IN HAND.
--- NOTE | 2024-08-16 14:00 | NUR ---
PT IS WATCHIONG TV IN BED. CALL LIGHT IN HAND.
--- NOTE | 2024-08-16 16:00 | NUR ---
PT IS WATCHING TV IN BED. CALL LIGHT IN HAND
--- NOTE | 2024-08-16 18:00 | NUR ---
PT IS WATCHING TV IN BED WITH CALL LIGHT IN HAND.
--- NOTE | 2024-08-16 19:00 | NUR ---
REPORT RECEIVED FROM PRESLEY MENENDEZ AND CARE OF PT ASSUMED AT THIS TIME
--- NOTE | 2024-08-16 19:58 | NUR ---
PT RESTING IN BED PLAYING ON PHONE. RESP EVEN AND UNLABORED. NO DISTRESS NOTED. A&O X 4. VSS. CALL LIGHT IN REACH
[2024-08-16] MEDS ORDERED: rOPINIRole Hydrochloride 0.5 MG/TAB PO SCH (21:00)
--- NOTE | 2024-08-16 22:00 | NUR ---
PT CONTINUES RESTING IN BED. DENIES PAIN. GIVEN TURKEY WRAP AND WATER. A&O X 4. CALL LIGHT IN REACH
[2024-08-17] VITALS (25 sets, daily range): BP systolic 115–154; BP diastolic 61–107
--- NOTE | 2024-08-17 | NUR ---
PT RESTING IN BED W/ EYES CLOSED, SNORING. IV INFUSING W/ NO PAIN/SWELLING/REDNESS. CALL LIGHT IN REACH.
--- NOTE | 2024-08-17 02:00 | NUR ---
PT SLEEPING, EASILY AROUSABLE
--- NOTE | 2024-08-17 04:36 | NUR ---
BLOOD DRAWN. PT CONTINUES RESTING. DENIES PAIN. WARM BLANKET APPLIED
[2024-08-17 04:50] LABS: HEMATOCRIT 29.9 % (37.0-47.0); HEMOGLOBIN 8.6 g/dl (12.0-16.0); MEAN CELL VOLUME 103.5 fL CALC (80.0-100.0); MEAN CORPUSCULAR HGB 29.8 pG CALC (26.0-32.0); MEAN CORPUSCULAR HGB CONC 28.8 g/dL CAL (32.0-36.0); RED BLOOD COUNT 2.89 mill/uL (4.20-5.60); RED CELL DISTRI WIDTH 16.2 % (11.5-15.5)
[2024-08-17 04:55] LABS: ALBUMIN 2.4 g/dL (3.2-5.0); BILIRUBIN, TOTAL 0.4 mg/dL (0.02-1.3); CREATININE 1.5 mg/dL (0.5-1.0); MAGNESIUM 2.2 mg/dL (1.6-2.3); POTASSIUM 3.7 mmol/l (3.5-5.1); TOTAL PROTEIN 5.3 g/dL (6.3-8.2)
--- NOTE | 2024-08-17 06:00 | NUR ---
PT HAD LARGE, LIQUID BM IN BEDPAN. PT CLEANED, CHANGED, AND LINENS CHANGED. C/O 12/07 PAIN IN LOWER BACK. MEDICATED PER MD ORDERS.
[2024-08-17] MEDS ORDERED: IPRATROPIUM-Albuterol 0.5MG-2.5MG/3 ML NEB PRN (07:40)
[2024-08-17] MEDS ORDERED: FUROSEMIDE 40 MG/4 ML SDV IV SCH (08:00)
--- NOTE | 2024-08-17 08:00 | NUR ---
PT IS WATCHING TV IN BED. CALL LIGHT IN REACH.
[2024-08-17] MEDS ORDERED: GABAPENTIN 300 MG/CAP PO SCH (09:00)
[2024-08-17] MEDS ORDERED: methylPREDNISolone Sod Succ 40 MG/ML SDV IV SCH (09:00)
--- NOTE | 2024-08-17 10:00 | NUR ---
PT IS SITTING IN BEDSIDE CHAIR WATCHING TV. CALL LIGHT IN REACH.
--- NOTE | 2024-08-17 12:02 | NUR ---
PT IS EATING LUNCH IN BEDSIDE CHAIR. CALL LIGHT IN REACH
[2024-08-17] MEDS ORDERED: FUROSEMIDE 40 MG/TAB PO SCH (14:00)
--- NOTE | 2024-08-17 14:17 | NUR ---
PT IS WATCHING TV IN BED. CALL LIGHT IN HAND
--- NOTE | 2024-08-17 16:06 | NUR ---
PT IS SLEEPING IN BED, CALL LIGHT IN REACH. PT IS ON ROOM AIR WITH EVEN AND UNLABORED RESPIRATIONS.
--- NOTE | 2024-08-17 18:01 | NUR ---
PT IS SITTING UP IN BED EATING DINNER , CALL LIGHT IN REACH.
--- NOTE | 2024-08-17 20:00 | NUR ---
Report received from [facility]. Patient currently sleeping. Patient arouse easily to voice. Patient reports having a BM and needed to be cleaned up. Bed bath provided. Patient request a phone to call her daughter since her phone "have got missing today". Cordless phone provided and daughter phone dialed to assist patient. Patient has a mar draining yellow clear urine. VS are WNL. Call light within reach. Patient has not other requests at this time
[2024-08-17] MEDS ORDERED: rOPINIRole Hydrochloride 0.5 MG/TAB PO SCH (21:00)
--- NOTE | 2024-08-17 22:00 | NUR ---
Patient sleeping. VS WNL. No signs of distress. No changes in reassessment. Bed side table and call light within reach
[2024-08-18] VITALS (11 sets, daily range): BP systolic 134–160; BP diastolic 77–112
--- NOTE | 2024-08-18 00:30 | NUR ---
RIJ picline occluded. RN able to flush on second attempt. IV abx started. Patient requested for ice water and "any soda", which was provided. Patient has no other requests at this time. VS WNL. Call light within reach
--- NOTE | 2024-08-18 02:01 | NUR ---
Patient used call light to request for a pain medicine. Percocet PRN given, per order. VS WNL. Call light within reach
--- NOTE | 2024-08-18 04:41 | NUR ---
Patient sleeping. Arouse to voice. AM lab draw from midline by RN. Patient report improved in pain. VS WNL. Call light within reach. Patient has no request at this time
[2024-08-18 05:35] LABS: HEMATOCRIT 29.1 % (37.0-47.0); HEMOGLOBIN 8.8 g/dl (12.0-16.0); MEAN CORPUSCULAR HGB 29.9 pG CALC (26.0-32.0); MEAN CORPUSCULAR HGB CONC 30.2 g/dL CAL (32.0-36.0); RED BLOOD COUNT 2.94 mill/uL (4.20-5.60); RED CELL DISTRI WIDTH 15.9 % (11.5-15.5)
[2024-08-18 05:53] LABS: ALBUMIN 2.6 g/dL (3.2-5.0); BILIRUBIN, TOTAL 0.4 mg/dL (0.02-1.3); CREATININE 1.4 mg/dL (0.5-1.0); MAGNESIUM 2.2 mg/dL (1.6-2.3); POTASSIUM 3.9 mmol/l (3.5-5.1); TOTAL PROTEIN 5.5 g/dL (6.3-8.2)
--- NOTE | 2024-08-18 07:12 | NUR ---
PT REPORT RECEIVED FROM RENEWABLE ENERGY ENGINEER, PT ALERT/ORIENTED X3, PT STATES FEELS BETTER, NOT ON OXYGEN, STATES SHE HAS A APPT WITH HER PAIN MANAGEMENT DOCTOR TODAY. ALSO STATES SHE WANTS TO FIND OUT ABOUT HER PHONE THAT SHE CAN NOT FIND AT THIS TIME. ADVISED I WILL LET MY DIRECTOR KNOW.
[2024-08-18] MEDS ORDERED: PREDNISONE10 MG PO (07:26)
[2024-08-18] MEDS ORDERED: OMNICEF300 MG PO (07:27)
[2024-08-18] MEDS ORDERED: FUROSEMIDE 40 MG/4 ML SDV IV ONE (08:00)
--- NOTE | 2024-08-18 09:51 | NUR ---
removed iv and central line and mar for discharge. contacted [facility] for discharge from hospital. pt remains alert//oriented x3
--- NOTE | 2024-08-18 10:47 | NUR ---
pt given discharge instructions, pt voices understanding. placed pt in clothing and new brief. placed in w/c, and taken down to registration for her pain management appt.
== END 2024-08-18 11:10 | disposition designated cancer center or children's hospital (05) | DRG 871 ==
LOC: ED 04:31 → ICU 06:43 → ED-I 06:43 → ICU 08-16 14:34
PROVIDERS: Family Medicine; ADMIT Internal Medicine; ATTEND Internal Medicine
PROC: 02HV33Z Insertion of Infusion Device into Superior Vena Cava, Percutaneous Approach (ICD-10-PCS; principal; 2024-08-15)
PROC: 0T9B70Z Drainage of Bladder with Drainage Device, Via Natural or Artificial Opening (ICD-10-PCS; 2024-08-15)
PROC: 5A09357 Assistance with Respiratory Ventilation, Less than 24 Consecutive Hours, Continuous Positive Airway Pressure (ICD-10-PCS; 2024-08-15)
DX: A41.9 Sepsis, unspecified organism (principal); J15.0 Pneumonia due to Klebsiella pneumoniae; J96.01 Acute respiratory failure with hypoxia; J96.02 Acute respiratory failure with hypercapnia; I48.20 Chronic atrial fibrillation, unspecified; J44.0 Chronic obstructive pulmonary disease with (acute) lower respiratory infection; I13.0 Hypertensive heart and chronic kidney disease with heart failure and stage 1 through stage 4 chronic kidney disease, or unspecified chronic kidney disease; I50.32 Chronic diastolic (congestive) heart failure; J44.1 Chronic obstructive pulmonary disease with (acute) exacerbation; I95.9 Hypotension, unspecified; R65.20 Severe sepsis without septic shock; N18.30 Chronic kidney disease, stage 3 unspecified; I87.2 Venous insufficiency (chronic) (peripheral); E66.01 Morbid (severe) obesity due to excess calories; F41.9 Anxiety disorder, unspecified; G89.4 Chronic pain syndrome; Z86.718 Personal history of other venous thrombosis and embolism; Z79.01 Long term (current) use of anticoagulants; Z98.84 Bariatric surgery status; Z20.822 Contact with and (suspected) exposure to COVID-19
CPT/HCPCS: J1160; J1940; J2020; J2543; J3370

== ENCOUNTER 2024-09-07 13:25 | Inpatient (IN) | payer MEDICARE ==
[~2024-09-07] VITALS: Ht 165.1 cm; Wt 101.2 kg
[2024-09-07 12:54] VITALS: BP 126/91
[~2024-09-07 13:25] MED LIST changes: +CYMBALTA20 MG PO; +OMNICEF300 MG PO; +POTASSIUM CHLO20 ME2 PO; +[UNRECOGNIZED DRUG - OTHER]
[2024-09-07 14:59] LABS: URINE BILIRUBIN - DIPSTICK Negative (NEGATIVE); URINE BLOOD DIPSTICK Negative (NEGATIVE); URINE GLUCOSE - DIPSTICK Negative (NEGATIVE); URINE KETONE Negative (NEGATIVE); URINE LEUK ESTERASE Negative (NEGATIVE); URINE NITRITE - DIPSTICK Negative (Negative); URINE PROTEIN - DIPSTICK Negative (NEG-TRACE); URINE UROBILINOGEN - DIPSTICK 0.2 E.U./dL (0.2)
[2024-09-07 15:00] LABS: URINE COLOR Yellow
[2024-09-07 15:03] LABS: BASO% 0.5 % (0-3); EOS% 6.6 % (0-8); HEMATOCRIT 32.3 % (37.0-47.0); HEMOGLOBIN 9.5 g/dl (12.0-16.0); IMMATURE GRANULOCYTES 0.2 % (0.0-5.0); LYMPH% 16.8 % (15-41); MEAN CORPUSCULAR HGB 29.4 pG CALC (26.0-32.0); MEAN CORPUSCULAR HGB CONC 29.4 g/dL CAL (32.0-36.0); NEUT# 4.07 thou/uL (2.00-7.15); NEUT% 65.9 % (42-76); RED BLOOD COUNT 3.23 mill/uL (4.20-5.60); RED CELL DISTRI WIDTH 16.7 % (11.5-15.5)
[2024-09-07 15:19] LABS: BILIRUBIN, TOTAL 0.4 mg/dL (0.02-1.3); CREATININE 1.6 mg/dL (0.5-1.0); MAGNESIUM 2.2 mg/dL (1.6-2.3); POTASSIUM 4.2 mmol/l (3.5-5.1); TOTAL PROTEIN 6.6 g/dL (6.3-8.2)
[2024-09-07 15:23] LABS: ALBUMIN 3.5 g/dL (3.2-5.0)
[2024-09-07] MEDS ORDERED: CEFEPIME HYDROCHLORIDE 1 GM in SODIUM CHLORIDE 0.9% 50 ML IV SCH (15:55)
[2024-09-07] MEDS ORDERED: oxyCODONE 10MG/APAP 325 MG 1 COMBO TAB PO PRN (15:55)
[2024-09-07] MEDS ORDERED: VANCOMYCIN HCL 1 GM in SODIUM CHLORIDE 0.9% 250 ML IV SCH (15:55)
[2024-09-07] MEDS ORDERED: IPRATROPIUM-Albuterol 0.5MG-2.5MG/3 ML NEB PRN (16:00)
[2024-09-07 16:04] VITALS: BP 126/91
[2024-09-07] MEDS ORDERED: ALUM & MAG HYDROX-SIMETHICONE 30 ML PO PRN (16:40)
[2024-09-07] MEDS ORDERED: Polyethylene Glycol 3350 17 GM/PKT PO PRN (16:40)
[2024-09-07] MEDS ORDERED: HYDROmorphone HCL 2 MG/AMP IV PRN (16:40)
[2024-09-07] MEDS ORDERED: LORazepam 0.5 MG/TAB PO PRN (16:40)
[2024-09-07] MEDS ORDERED: ACETAMINOPHEN 325 MG/TAB PO PRN (16:40)
[2024-09-07] MEDS ORDERED: RIVAROXABAN 15 MG TAB PO SCH (17:00)
[2024-09-07] MEDS ORDERED: VANCOMYCIN HCL 1,250 MG in SODIUM CHLORIDE 0.9% 225 ML IV SCH (17:00)
[2024-09-07 17:35] VITALS: BP 109/65
[2024-09-07 18:54] VITALS: BP 109/65
[2024-09-07] MEDS ORDERED: GABAPENTIN 300 MG/CAP PO SCH (21:00)
[2024-09-07] MEDS ORDERED: FUROSEMIDE 40 MG/4 ML SDV IV SCH (21:00)
[2024-09-07] MEDS ORDERED: CLARIFY DOSE IV SCH (21:00)
[2024-09-08 02:56] VITALS: BP 117/55
[2024-09-08 04:23] VITALS: BP 117/55
[2024-09-08 05:40] VITALS: BP 119/70
[2024-09-08 05:40] LABS: BASO% 0.4 % (0-3); EOS% 6.9 % (0-8); HEMATOCRIT 31.1 % (37.0-47.0); HEMOGLOBIN 9.5 g/dl (12.0-16.0); IMMATURE GRANULOCYTES 0.1 % (0.0-5.0); LYMPH% 17.7 % (15-41); MEAN CORPUSCULAR HGB 30.3 pG CALC (26.0-32.0); MEAN CORPUSCULAR HGB CONC 30.5 g/dL CAL (32.0-36.0); MONO% 10.7 % (2-13); NEUT# 5.06 thou/uL (2.00-7.15); NEUT% 64.2 % (42-76); RED BLOOD COUNT 3.14 mill/uL (4.20-5.60); RED CELL DISTRI WIDTH 16.4 % (11.5-15.5)
[2024-09-08 06:01] LABS: ALBUMIN 3.2 g/dL (3.2-5.0); BILIRUBIN, TOTAL 0.4 mg/dL (0.02-1.3); CREATININE 1.6 mg/dL (0.5-1.0); MAGNESIUM 2.2 mg/dL (1.6-2.3); TOTAL PROTEIN 6.1 g/dL (6.3-8.2)
[2024-09-08] MEDS ORDERED: MUPIROCIN (PSEUDOMONAS FLUORES 22 GM/TUBE TUBE TOP SCH (09:00)
[2024-09-08 14:56] VITALS: BP 147/82
[2024-09-08 17:39] VITALS: BP 147/95
[2024-09-08 18:30] VITALS: BP 147/95
[2024-09-08] MEDS ORDERED: GABAPENTIN 300 MG/CAP PO SCH (21:00)
[2024-09-09 03:38] VITALS: BP 117/68
[2024-09-09 04:00] VITALS: BP 117/68
[2024-09-09 05:01] LABS: BASO% 0.3 % (0-3); HEMATOCRIT 30.5 % (37.0-47.0); HEMOGLOBIN 9.6 g/dl (12.0-16.0); IMMATURE GRANULOCYTES 0.3 % (0.0-5.0); LYMPH% 13.9 % (15-41); MEAN CELL VOLUME 97.1 fL CALC (80.0-100.0); MEAN CORPUSCULAR HGB 30.6 pG CALC (26.0-32.0); MEAN CORPUSCULAR HGB CONC 31.5 g/dL CAL (32.0-36.0); MONO% 7.7 % (2-13); NEUT# 4.83 thou/uL (2.00-7.15); NEUT% 69.8 % (42-76); RED BLOOD COUNT 3.14 mill/uL (4.20-5.60); RED CELL DISTRI WIDTH 16.1 % (11.5-15.5)
[2024-09-09 05:20] LABS: ALBUMIN 2.7 g/dL (3.2-5.0); BILIRUBIN, TOTAL 0.3 mg/dL (0.02-1.3); CREATININE 1.6 mg/dL (0.5-1.0); POTASSIUM 3.9 mmol/l (3.5-5.1); TOTAL PROTEIN 5.5 g/dL (6.3-8.2)
[2024-09-09 07:00] VITALS: BP 113/66
[2024-09-09 14:48] VITALS: BP 129/83
[2024-09-09 18:22] VITALS: BP 118/65
[2024-09-09 19:46] VITALS: BP 118/65
[2024-09-10 03:11] VITALS: BP 108/57
[2024-09-10 05:39] LABS: ALBUMIN 2.8 g/dL (3.2-5.0); CREATININE 1.3 mg/dL (0.5-1.0); TOTAL PROTEIN 5.6 g/dL (6.3-8.2)
[2024-09-10 05:46] LABS: BILIRUBIN, TOTAL 0.5 mg/dL (0.02-1.3); POTASSIUM 4.7 mmol/l (3.5-5.1)
[2024-09-10 06:02] VITALS: BP 108/57
[2024-09-10 06:28] LABS: BASO% 0.3 % (0-3); EOS% 13.9 % (0-8); HEMATOCRIT 31.1 % (37.0-47.0); HEMOGLOBIN 9.3 g/dl (12.0-16.0); IMMATURE GRANULOCYTES 0.1 % (0.0-5.0); LYMPH% 13.2 % (15-41); MEAN CELL VOLUME 97.2 fL CALC (80.0-100.0); MEAN CORPUSCULAR HGB 29.1 pG CALC (26.0-32.0); MEAN CORPUSCULAR HGB CONC 29.9 g/dL CAL (32.0-36.0); MONO% 8.9 % (2-13); NEUT# 4.44 thou/uL (2.00-7.15); NEUT% 63.6 % (42-76); RED BLOOD COUNT 3.2 mill/uL (4.20-5.60); RED CELL DISTRI WIDTH 16.4 % (11.5-15.5)
[2024-09-10 08:30] VITALS: BP 135/85
[2024-09-10] MEDS ORDERED: GABAPENTIN300 M2 PO (11:32)
[2024-09-10] MEDS ORDERED: METOLAZONE5 MG PO (11:35)
[2024-09-10] MEDS ORDERED: BUMETANIDE1 MG PO (11:37)
[2024-09-10] MEDS ORDERED: LINEZOLID600 MG PO (11:38)
[2024-09-10] MEDS ORDERED: MUPIROCIN2 % TOP (11:39)
== END 2024-09-10 14:08 | DRG 602 ==
LOC: MS2 13:25
PROVIDERS: Nurse Practitioner Family; ADMIT Internal Medicine; ATTEND Internal Medicine
DX: L03.115 Cellulitis of right lower limb (principal); I50.33 Acute on chronic diastolic (congestive) heart failure; J18.9 Pneumonia, unspecified organism; B95.62 Methicillin resistant Staphylococcus aureus infection as the cause of diseases classified elsewhere; I13.0 Hypertensive heart and chronic kidney disease with heart failure and stage 1 through stage 4 chronic kidney disease, or unspecified chronic kidney disease; I48.20 Chronic atrial fibrillation, unspecified; L97.219 Non-pressure chronic ulcer of right calf with unspecified severity; L03.116 Cellulitis of left lower limb; I87.8 Other specified disorders of veins; N18.30 Chronic kidney disease, stage 3 unspecified; J44.9 Chronic obstructive pulmonary disease, unspecified; G89.4 Chronic pain syndrome; E66.01 Morbid (severe) obesity due to excess calories; Z79.01 Long term (current) use of anticoagulants; Z86.718 Personal history of other venous thrombosis and embolism; Z88.2 Allergy status to sulfonamides; Z86.14 Personal history of Methicillin resistant Staphylococcus aureus infection
CPT/HCPCS: J0692; J1940; J3370